=== PATIENT | male | born 1965 | race Caucasian/White ===

== ENCOUNTER 2017-11-10 07:00 | Outpatient (RCR) | payer OTHER, SELFPAY ==
[2017-10-03 08:29] VITALS: BMI 34.4
--- NOTE | 2017-10-05 10:36 | HP.OTEVAL_ITS ---
Patient's Visit Information SHIRA SUN is a 51 year old M, referred to Occupational Therapy by Any Dumont DO,, with a diagnosis of R Wirst ext tendinitis. Date of Evaluation: 10/05/17 Occupational Therapist: Maite López - Subjective Subjective: Pt., Eyison, arrived and noted that - Pain Right Wrist 0 Pain Intensity Range: 5 - ROM Forearm: sup R 0-61, L 0-74 Wrist: flex R 0-51, L 0-60; ext. 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 Goal:: Pt. to increase ROM of R wrist to that of L wrist for increased ability to complete ADl/IAdls within pain tolerance by d/c. Goal:: Pt. to have 0/10 pain for all ADL/IADls related tasks 4/5 trials 80% of the time to promote increased (i) and decreased need for assisatnce by d/c. Goal:: Pt. to increase FMC strength to that of equal or greater value of L nonaffected wrist to promote increased ROM , strength, and stability of wrist while completing ADL/IADls by d/c. Goal:: Yeison to be (I) to complete jt protection and proper body mechanics 2/3 trials topromote increased stability and decreased pain in R wrist by d/c. - Rehabilitation General Assessment: Pt., Yeison, arrived and noted that symptoms started two weeks ago. He has been wearing brace on R hand given to him by [facility] at time of injury. His R wrist has little pain at this time but noted pain is variable depending on tasks. Pt. exhibits decreased strength, ROM, ability to complete heavy lifitng taskw ith R wrist as PLOF. OT to work on ROM and strength to providing increased satbility to R wrist for all ADL/IADls. Rehabilitation Potential: Excellent - Anticipated Interventions Anticipated Interventions: A/AAROM/PROM, Strengthening, Edema Control, Modalities, Orthoses, Joint Protection/Energy Conservation, Ergonomic Education , Fine Motor Coord/Simon, ADL Training, Caregiver Training, Home Program - Visit Plan Frequency: 2x /Week Duration: 4-6 Weeks General Plan: Yeison to see OT services for pain management as needed, ergonomic of wrist during lifiting taks, ROM, and strengthening to promote stability and decrease discomfort during ADl/IADls by d/c. TEXT: Thank you for the opportunity to evaluate your patient. For Medicare and Medicare HMO plans, please review the plan of care and approve it. It will need to be FAXED BACK to us at [phone] for Medicare purposes. Please let me know if there are questions or concerns regarding this plan of care. Physician Signature: Date:
--- NOTE | 2017-10-05 10:41 | HP.OTEVAL ---
Patient's Visit Information SHIRA SUN is a 51 year old M, referred to Occupational Therapy by Any Dumont DO,, with a diagnosis of R Wirst ext tendinitis. Date of Evaluation: 10/05/17 Occupational Therapist: Maite López - Subjective Subjective: Pt., Yeison, arrived and noted that orginal injury was approximately 2 weeks ago after changing tractor tire. He notes that he tweeked it while change tractor tire. Wrist hurt and then swelled that night.I iced my wrist and it got a little numb. I went to a [facility] and they referred me to specialist. He further noted he has increased pain with supination and resisatnce based tasks after everything happened. - Pain Right Wrist 0 Pain Intensity Range: 5 - ROM Forearm: sup R 0-61, L 0-74 Wrist: flex R 0-51, L 0-60; ext. R 0-43, L 0-59 MP: WFL PIP: WFL DIP: WFL ROM Comments: Radial dev R 0-19, L 0-20. 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 Goal:: Pt. to increase ROM of R wrist to that of L wrist for increased ability to complete ADl/IAdls within pain tolerance by d/c. Goal:: Pt. to have 0/10 pain for all ADL/IADls related tasks 4/5 trials 80% of the time to promote increased (i) and decreased need for assistance by d/c. Goal:: Pt. to increase FMC strength to that of equal or greater value of L nonaffected wrist to promote increased ROM , strength, and stability of wrist while completing ADL/IADls by d/c. Goal:: Yeison to be (I) to complete jt protection and proper body mechanics 2/3 trials to promote increased stability and decreased pain in R wrist by d/c. - Rehabilitation General Assessment: Pt., Yeison, arrived and noted that symptoms started two weeks ago. He has been wearing brace on R hand given to him by [facility] at time of injury. His R wrist has little pain at this time but noted pain is variable depending on tasks. Pt. exhibits decreased strength, ROM, ability to complete heavy lifitng task with R wrist need for ADl/IADLs at [facility]. OT to work on ROM and strength to providing increased stability to R wrist for all ADL/IADls. Rehabilitation Potential: Excellent - Anticipated Interventions Anticipated Interventions: A/AAROM/PROM, Strengthening, Edema Control, Modalities, Orthoses, Joint Protection/Energy Conservation, Ergonomic Education, Fine Motor Coord/Simon, ADL Training, Caregiver Training, Home Program - Visit Plan Frequency: 2x /Week Duration: 4-6 Weeks General Plan: Yeison to see OT services for pain management techniques, ergonomic of wrist during lifiting tasks, ROM, and strengthening to promote stability and decrease discomfort during ADl/IADls by d/c. TEXT: Thank you for the opportunity to evaluate your patient. For Medicare and Medicare HMO plans, please review the plan of care and approve it. It will need to be FAXED BACK to us at [phone] for Medicare purposes. Please let me know if there are questions or concerns regarding this plan of care. Physician Signature: Date:
--- NOTE | 2017-11-10 08:15 | HP.OTDCSUM_ITS ---
HP - OT D/C Summary It has been my pleasure to treat SHIRA SUN under orders from Any Dumont DO, for the diagnosis of R Wirst ext tendinitis for a total of 8 visit (s). Please see the following information for a summary of their discharge status. - Objective Objective/Function: Reassessment completed on this date. He has progressed and pain has consistently been 0-1/10, or minimal. ROM measurments are as follows: flexion R 0-59, L 0-51; ext R 0-51, L 0-60. Strength measurements are as follows : neurological physiotherapist (avg 3 trials) R 83, L 79; lateral R 19, L 22; three jaw R 16, L 17; tip pinch R 10, L 13. He has progressed with all FMC strengthening at this time. He has consisently had no pain. He notes he is completing all ADL/IADLs at [facility]. DASH results indicated Pt. had a 30 point improvement from a score of 31(today ) from 61(eval). His overall performance has increased and he will be d/c'd at this time. 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 Goal:: Pt. to increase ROM of R wrist to that of L wrist for increased ability to complete ADl/IAdls within pain tolerance by d/c. Goal:: Pt. to have 0/10 pain for all ADL/IADls related tasks 4/5 trials 80% of the time to promote increased (i) and decreased need for assistance by d/c. Goal:: Pt. to increase FMC strength to that of equal or greater value of L nonaffected wrist to promote increased ROM , strength, and stability of wrist while completing ADL/IADls by d/c. Goal:: Yeison to be (I) to complete jt protection and proper body mechanics 2/3 trials to promote increased stability and decreased pain in R wrist by d/c. - Plan Plan: Pt. will be d/c'd today and is to call with questions/concerns. He has consisently had no pain. He HEP he is completing regularly. Yeison demonstrates and verbalizes understanding of HEP. He rates himself back to 98/100% to PLOF and will continue to progress with everyday fx activities. - D/C Information If there are questions or concerns regarding this patient's occupational therapy , please fell free to call me at [phone]. Thank you for the referral of this patient. Sincerely, Maite López
== END 2017-11-10 19:00 | disposition home or self-care (01) ==
LOC: OT 07:00
PROVIDERS: Family Provider Family Medicine; PCP Family Medicine; Visit Provider Orthopaedic Surgery
DX: M77.9 Enthesopathy, unspecified (principal)
CPT/HCPCS: 97035; 97110; 97166; 97530

== ENCOUNTER 2020-02-14 16:56 | Emergency (ER) | payer OTHER, SELFPAY ==
[2017-10-03 08:29] VITALS: BMI 34.4
[2020-02-14 16:59] VITALS: BP 146/92; PULSE 96; RESP 18; TEMP 36.3; O2SAT 98; BMI 32.2
--- NOTE | 2020-02-14 17:25 | ED.DCSUM_ITS ---
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 Unsure of his tetanus immunization. No blood thinner use. No loss of consciousness. No other complaints or injuries. Physical Examination: 6 cm V shaped laceration over his crown. Full-thickness. Otherwise normal. Test Results: None indicated. Emergency Department Course and Treatment: Wound was irrigated, cleaned, and explored. Closed with 11 any. Risks and wound care instructions given. FROI and return to work forms completed. Tetanus updated. Treatment Plan: Follow-up with Workmen's Comp. Disposition: Discharge Impression: Scalp laceration 6 cm initial encounter Tetanus immunization This note was generated with [employer] dictation software. It may contain incorrect words, spelling, and punctuation that were not noted in review of the chart prior to signing ED Disposition - Plan for ED Patient: Referrals: Joseph Pierre MD [Primary Care Provider] -
--- NOTE | 2020-02-14 17:29 | DCINST.ED_ITS ---
ED Disposition - Plan for ED Patient: Instructions: ED Laceration Scalp Sutures or Dia Referrals: [facility] [GROUP OF PHYSICIANS] -
--- NOTE | 2020-02-14 17:29 | ED.DEP ---
ED Disposition - Plan for ED Patient: Instructions: ED Laceration Scalp Sutures or Dia Referrals: [facility] [GROUP OF PHYSICIANS] -
[2020-02-14] MEDS: Diphth,Pertuss(Acell),Tet Vac 0.5 ML Vial IM (18:07)
== END 2020-02-14 18:24 | disposition home or self-care (01) ==
PROVIDERS: Emergency Provider Emergency Medicine; PCP Family Medicine
DX: S01.01XA Laceration without foreign body of scalp, initial encounter (principal); W26.8XXA Contact with other sharp object(s), not elsewhere classified, initial encounter; Y93.9 Activity, unspecified; Y92.79 Other farm location as the place of occurrence of the external cause; Y99.9 Unspecified external cause status; Z23 Encounter for immunization
CPT/HCPCS: 12002; 90471; 90715; 99282

== ENCOUNTER 2025-05-05 21:04 | Inpatient (IN) | payer OTHER, SELFPAY ==
[2025-05-05 21:05] VITALS: BP 141/98; PULSE 106; RESP 20; TEMP 37; O2SAT 99; BMI 34.7
[2025-05-05 22:11] VITALS: BP 103/69; BP 103/74; BP 114/71; PULSE 79; PULSE 83; PULSE 96
[2025-05-05 22:20] LABS: Hematocrit 37.6 % (40-54); Hemoglobin 12.5 g/dL (13.0-16.5); Immature Granulocytes Count 0.050 X10^3/uL (0.0-0.0); Mean Corp Hgb Conc 33.2 g/dL (32-36); Mean Corpuscular Volume 80.7 fL (80-94); Mean Platelet Vol. 9.5 fl (6.2-12.0); NRBC Flagged by Analyzer 0 % (0-5); Platelet Count 249 K/mm3 (150-450); RBC Distribution Width CV 14.4 % (11.6-14.6); RBC Distribution Width SD 42.2 fl (35.1-43.9); Red Blood Count 4.66 M/mm3 (4.6-6.2); White Blood Count 13.3 K/mm3 (4.4-11.0)
--- NOTE | 2025-05-05 22:22 | EX.ED.DYSGE1 ---
HPI History of Present Illness Chief Complaint: GI Bleed Detail of Chief Complaint: Bright red blood to dark blood per rectum Informant: patient and spouse/S.O. Onset/Context/Timing Onset: Today Context: Sudden Onset Timing: Intermittent Quality: Blood per rectum Location: Lower GI Current Severity: Moderate Maximum Severity: Moderate Worsened by: History of diverticulosis Relieved by: Nothing Associated Symptoms Associated Symptoms: Twinge of left upper quadrant abdominal pain early afternoon Narrative Narrative: Patient is a 59-year-old male. He has history of diverticulosis and diverticulitis. He presents because of bright red blood to dark blood per rectum 4 times today. He had a twinge of left upper quadrant pain. He presently has no abdominal pain. Is not been on antibiotics in the last month. Has had nothing to eat that tasted unusual. Has had no ill contacts. He denies fever, chills or night sweats. He denies orthostatic lightheadedness. He is not on antithrombotic or anticoagulant. He did take an ibuprofen tablet for the pain earlier this afternoon. He denies hematuria. He denies bruising easily. He denies prior history of blood per rectum. He does have a remote history of hemorrhoids. He denies history of liver disease. He denies alcohol use. Earlier this morning to 3:00 the morning he had 1 episode of diarrhea. He did not look at his stool. Prior similar symptoms: No Recent Illness/Hospitalization: No [facility] Medical History Diverticulitis Pulmonary embolism Home Medications ?Medication ?Instructions ?Recorded ?Last Taken ?Type latanoprost 0.005 % eye drops 1 drp ophthalmic (eye) [facility] glaucoma 05/05/25 05/05/25 History tadalafil 5 mg tablet 5 mg PO DAILY erectile dysfunction 05/05/25 05/05/25 History ascorbic acid (vitamin C) 1,000 mg 1,000 mg PO DAILY 1 month #30 tabs 05/06/25 Unknown Rx tablet ferrous sulfate 325 mg (65 mg 325 mg PO QODAY #30 tabs 05/06/25 Unknown Rx iron) tablet (FeroSul) pantoprazole 40 mg tablet,delayed 40 mg PO DAILY 1 month #30 tabs 05/06/25 Unknown Rx release (Protonix) psyllium husk 0.4 gram capsule 0.4 g PO DAILY to keep regular 05/06/25 05/05/25 History (Daily Fiber) Allergy/AdvReac Type Severity Reaction Status Date / Time No Known Allergies Allergy Verified 05/05/25 21:07 Family History Mother Lung cancer Surgical History H/O resection of large bowel s/p right 5th finger Social History Smoking Status: Never smoker alcohol intake: current alcohol intake frequency: a few times a month Alcohol type: beer ROS ROS ED Constitutional Constitutional ED: Denies chills, fever(s), subjective or sweats Eyes Eyes: Denies blurry vision or change in vision Cardiovascular Cardiovascular: Denies chest pain or palpitations Respiratory/Chest Respiratory/Chest: Denies cough, dyspnea or dyspnea on exertion Gastrointestinal Gastrointestinal: Reports abdominal pain and other Details: Blood per rectum ; Denies constipation, diarrhea, melena, nausea or vomiting Musculoskeletal Musculoskeletal: Denies back pain Integumentary Denies rash Endocrine Endocrinology: Denies cold intolerance or heat intolerance Hematologic/Lymphatic Hematologic/Lymphatic: Reports systems reviewed and no addt'l complaints, except as documented EXAM Physical Exam Const Vital Signs: 05/05/25 22:11 05/05/25 23:05 05/05/25 23:11 Temperature 98.1 F Pulse Rate 81 81 Pulse Rate [Lying] 79 Pulse Rate [Sitting (for 1 minute prior to obtaining)] 83 Pulse Rate [Standing (for 1 minute prior to obtaining)] 96 Respiratory Rate 18 18 Blood Pressure 111/69 111/69 Blood Pressure [Lying] 114/71 Blood Pressure [Sitting (for 1 minute prior to obtaining)] 103/74 Blood Pressure [Standing (for 1 minute prior to obtaining)] 103/69 Blood Pressure Mean 83 83 Blood Pressure Mean [Lying] 85 Blood Pressure Mean [Sitting (for 1 minute prior to obtaining)] 83 Blood Pressure Mean [Standing (for 1 minute prior to obtaining)] 80 Pulse Ox 99 99 Oxygen Delivery Method Room Air Orthostatics are negative however there is a 30 mm drop since he arrived. Positive well nourished and well developed Constitutional Narrative: Patient appears in no distress. Vital signs are marked for tachycardia. He is not cyanotic. He appears in no distress. General Appearance ED: well developed and NAD; Negative for cyanotic or pallor HEENT Reports moist mucous membranes HEENT Narrative: Head is atraumatic normocephalic. Ears normal. Nares patent. Eyes PERRL and EOMs intact bilaterally General Eye ED: Negative for pale conjunctiva or scleral icterus Neck no lymphadenopathy and no JVD Resp normal respiratory effort and clear to auscultation bilaterally Cardio regular rhythm, S1 normal heart sound, S2 normal heart sound and no murmurs Rate: tachycardic GI normal to inspection, nondistended, normoactive bowel sounds, non-tender, non-distended and no masses; Negative for hepatosplenomegaly GI Narrative: There are no fissures, fistulas or hemorrhoids noted. Prostate normal size and nontender on exam. There is dark blood noted. Anoscopy was performed. There is no evidence of hemorrhoids. Bleeding is coming from above the scope. Back/Spine no CVA tenderness Extremity normal to inspection General Extremety ED: Negative for edema General Extremity: Negative for edema Neuro oriented x3 and CN's II-XII intact bilaterally Sensorium / Orientation: alert Psych mental status grossly normal Skin no rashes or lesions noted, no wounds and skin turgor normal General Skin Exam: Negative for jaundice or pallor MDM MDM MDM Narrative Medical decision making narrative: With blood per rectum and history of diverticulosis concerned this is a lower GI bleed. Will determine patient's Platte score to determine if he can be managed as an outpatient versus inpatient. Will obtain CBC to assess H&H. This may take time to equilibrate. Basic metabolic panel was obtained to assess BUN to creatinine ratio and renal function. PT/INR to determine there is any evidence of coagulopathy due to liver disease. Lab Data Attestation: I reviewed the patient's lab results. Lab results narrative: CBC reveals slight elevation of white count. There is a slight shift. There is no bandemia. H&H is 12.5 and 37.6. Indices are normal. There is no changes in his H&H compared to H&H that was obtained November 10 and November 17, 2014. Competence of metabolic panel is remarkable for a BUN of 36 with a creatinine of 1.16 with a BUN/creatinine ratio of 31:1. Glucose slightly elevated 125 with normal CO2 anion gap. Lactate was normal at 1.1. Labs: Laboratory Results - last 24 hr 05/05/25 21:58 WBC 13.3 H RBC 4.66 Hgb 12.5 L Hct 37.6 L MCV 80.7 MCH 26.8 L MCHC 33.2 RDW Std Deviation 42.2 RDW Coeff of Parviz 14.4 Plt Count 249 MPV 9.5 Immature Gran % (Auto) 0.400 Neut % (Auto) 71.6 H Lymph % (Auto) 20.1 Nuckolls % (Auto) 6.2 Eos % (Auto) 1.1 Baso % (Auto) 0.6 Absolute Neuts (auto) 9.5 H Absolute Lymphs (auto) 2.68 Nucleated RBC % 0 PT 13.9 INR 1.1 Sodium 139 Potassium 4.1 Chloride 107 Carbon Dioxide 21.4 Anion Gap 11 BUN 36 H Creatinine 1.16 Estim Creat Clear Calc 78.38 Est GFR (MDRD) Non-Af 73 BUN/Creatinine Ratio 31.0 H Glucose 125 H Lactic Acid 1.1 Calcium 8.7 Blood Type A NEGATIVE Antibody Screen NEGATIVE Management Discussion w/another healthcare provider: Hospitalist (Dr. David Russell was paged to admit based on Platte score and the fact that he is got lower GI bleed with tachycardia, elevated BUN to creatinine ratio consistent with a significant bleed. Suspect this is due to diverticulosis.) Treatment and Re-Evaluation :: Moose score is 16. Recommendation is not to discharge. Patient orthostatics are apparently positive. Procedures Other Procedures Procedure(s): Anoscopy was performed. This was documented under the GI portion of the physical portion of the medical record Discharge Plan Dx/Rx/DC Orders Clinical Impression: Acute lower gastrointestinal bleeding, Tachycardia, Elevated BUN Disposition Disposition: Acute Care Hospital [facility] Discharge Date/Time: 05/06/25 00:30
[2025-05-05 22:26] LABS: Prothrombin Time (Protime)PT. 13.9 SECONDS (11.7-14.9)
[2025-05-05 22:43] LABS: Anion Gap 11 (5-15); BUN 36 mg/dL (4-19); BUN/Creat Ratio 31.0 RATIO (10-20); Calcium,Total 8.7 mg/dL (7.6-11.0); Carbon Dioxide 21.4 mmol/L (21.0-32.0); Chloride 107 mmol/L (98-108); Estimated Creatinine Clearance 78.38 ml/min (50-250); Glucose 125 mg/dL (70-99); Potassium 4.1 mmol/L (3.3-5.1)
[2025-05-05 23:05] VITALS: BP 111/69; PULSE 81; RESP 18; O2SAT 99
[2025-05-05 23:11] VITALS: BP 111/69; PULSE 81; RESP 18; TEMP 36.7; O2SAT 99
--- NOTE | 2025-05-05 23:14 | PCM.HP.STD ---
[facility] - General General Date of Admission: 05/05/25 Date of Service: 05/05/25 HPI Narrative SHIRA SUN, is a 59 M who presents to the emergency room with acute onset of gastrointestinal bleed. Patient states he had diarrhea beginning 3 AM this morning and thought he had eaten some bad food and got up to relieve himself. 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 Patient was able to gather himself and return back to work but needed to stop at [facility] multiple times throughout the evening. He was noted to have bright red blood per rectum and came to the emergency room for evaluation. Patient has a history of diverticulitis that required surgery and diverting colostomy that was subsequently taken down. Current laboratory studies reveal white blood cell count of 13.3, hemoglobin 12.5, hematocrit 37.6, platelets 249, sodium 139, potassium 4.1, chloride 107, bicarb 21.4, BUN 36, creatinine 1.16, glucose 125, INR 1.1, heme occult positive. Patient is currently denying any chest pain, shortness of breath or fever or chills. Patient has not eaten and has decreased appetite throughout the day but denies nausea and/or vomiting. Patient will be admitted for GI bleed and will obtain CT scan abdomen pelvis due to history of diverticular disease. Will place patient on general medical floor and monitor hemoglobin hematocrit. Patient is full code verified [facility] Medical History (Updated 05/05/25 @ 22:[address] Aime Cardozo MD) Diverticulitis Pulmonary embolism Home Medications ?Medication ?Instructions ?Recorded ?Last Taken ?Type ibuprofen 200 mg capsule 200 mg PO Q6H PRN 02/24/20 Unknown History latanoprost 0.005 % eye drops 1 drp ophthalmic (eye) QHS 05/05/25 Unknown History tadalafil 5 mg tablet 5 mg PO DAILY 05/05/25 Unknown History Allergy/AdvReac Type Severity Reaction Status Date / Time No Known Allergies Allergy Verified 05/05/25 21:07 Family History Mother Lung cancer Surgical History (Updated 05/05/25 @ 23:[address] 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 Social History Smoking Status: Never smoker alcohol intake: current alcohol intake frequency: a few times a month Alcohol type: beer ROS Constitutional Constitutional: Reports anorexia; Denies chills or fever(s) Eyes Eyes: Denies change in vision ENT HEENT: Denies abnormal hearing Cardiovascular Cardiovascular: Denies chest pain Respiratory/Chest Respiratory/Chest: Denies cough or shortness of breath at rest Gastrointestinal Gastrointestinal: Reports diarrhea, dyspepsia and hematochezia; Denies constipation, hematemesis, melena, nausea or vomiting Genitourinary Genitourinary: Denies dysuria Musculoskeletal Musculoskeletal: Denies back pain Integumentary Integumentary: Denies dry skin Neurologic Neurologic: Denies abnormal gait Psychiatric Psychiatric: Denies anxiety Vital Signs Vital Signs Vital Signs: 05/05/25 21:05 05/05/25 22:11 05/05/25 23:05 Temperature 98.6 F Temperature Source Oral Pulse Rate 106 H 81 Pulse Rate [Lying] 79 Pulse Rate [Sitting (for 1 minute prior to obtaining)] 83 Pulse Rate [Standing (for 1 minute prior to obtaining)] 96 Respiratory Rate 20 H 18 Blood Pressure 141/98 H 111/69 Blood Pressure [Lying] 114/71 Blood Pressure [Sitting (for 1 minute prior to obtaining)] 103/74 Blood Pressure [Standing (for 1 minute prior to obtaining)] 103/69 Blood Pressure Mean 112 83 Blood Pressure Mean [Lying] 85 Blood Pressure Mean [Sitting (for 1 minute prior to obtaining)] 83 Blood Pressure Mean [Standing (for 1 minute prior to obtaining)] 80 Pulse Ox 99 99 Oxygen Delivery Method Room Air Room Air 05/05/25 23:11 Temperature 98.1 F Temperature Source Pulse Rate 81 Pulse Rate [Lying] Pulse Rate [Sitting (for 1 minute prior to obtaining)] Pulse Rate [Standing (for 1 minute prior to obtaining)] Respiratory Rate 18 Blood Pressure 111/69 Blood Pressure [Lying] Blood Pressure [Sitting (for 1 minute prior to obtaining)] Blood Pressure [Standing (for 1 minute prior to obtaining)] Blood Pressure Mean 83 Blood Pressure Mean [Lying] Blood Pressure Mean [Sitting (for 1 minute prior to obtaining)] Blood Pressure Mean [Standing (for 1 minute prior to obtaining)] Pulse Ox 99 Oxygen Delivery Method Weight Weight: 221 lb 7 oz Body Mass Index (BMI) 34.7 Physical Exam Const oriented x3 General Appearance: cooperative and well developed HEENT normocephalic and head/scalp atraumatic Neck no lymphadenopathy Lymph Lymphatic: no lymphadenopathy noted Resp normal respiratory effort, normal air movement and clear to auscultation bilaterally Cardio regular rate, regular rhythm, S1 normal heart sound and S2 normal heart sound GI normal to inspection, nondistended, normoactive bowel sounds and soft to palpation Palpation: tender LLQ (mild tenderness) Extremity no clubbing, cyanosis or edema Skin General Skin Exam: no breakdown Neuro no focal motor deficits and no sensory deficits noted Results Lab / Micro Data 05/05/25 21:58 05/05/25 21:58 Labs: Laboratory Results - last 24 hr 05/05/25 21:58: WBC 13.3 H, RBC 4.66, Hgb 12.5 L, Hct 37.6 L, MCV 80.7, MCH 26.8 L, MCHC 33.2, RDW Std Deviation 42.2, RDW Coeff of Parviz 14.4, Plt Count 249, MPV 9.5, Immature Gran % (Auto) 0.400, Neut % (Auto) 71.6 H, Lymph % (Auto) 20.1, Nash % (Auto) 6.2, Eos % (Auto) 1.1, Baso % (Auto) 0.6, Absolute Neuts (auto) 9.5 H, Absolute Lymphs (auto) 2.68, Nucleated RBC % 0, PT 13.9, INR 1.1, Sodium 139, Potassium 4.1, Chloride 107, Carbon Dioxide 21.4, Anion Gap 11, BUN 36 H, Creatinine 1.16, Estim Creat Clear Calc 78.38, Est GFR (MDRD) Non-Af 73, BUN/Creatinine Ratio 31.0 H, Glucose 125 H, Lactic Acid 1.1, Calcium 8.7, Blood Type A NEGATIVE, Antibody Screen NEGATIVE Assessment & Plan Assessment/Plan (1) Acute lower gastrointestinal bleeding: (2) H/O resection of large bowel: PLAN: Plan 1 acute lower GI bleed?admit patient to general medical floor, initiate IV Protonix 40 mg IV every 12 hours, check hemoglobin hematocrit every 4 hours, order CT abdomen pelvis with contrast due to history of diverticulitis. If hemoglobin hematocrit remain stable and orthostatic vital signs are stable patient may be discharged and close follow-up as outpatient. 2. DVT prophylaxis?SCDs 3. CODE STATUS full code verified
--- OUTSIDE RECORDS SUMMARY | 2025-05-05 23:49 | XMS RPT_ITS | CCD ---
Author Organization [facility] Care Team Providers Care Tube Drawing Supervisor Name Role Phone Alyssa Lund Unavailable Unavailable Chuy Garcia DO Primary Care Provider Rekha hayes ANTONIO MD., KATTY Attending Unavailable IGNACIO BLACK, TERRI Paniagua Primary Care Unavailable Ignacio BLACK, Terri Chandra Primary Care Provider CHUY GARCIA Primary Care Unavailable CHUY GARCIA Primary Care Unavailable MAE GAYLE Referring Unavailable CHUY GARCIA Primary Care Unavailable ANTONIO, KATTY L Attending Unavailable ANTONIO, KATTY L Admitting Unavailable CHUY GARCIA Primary Care Unavailable MARNI, BOBNUTA Attending Unavailable TERRI PIERRE Primary Care Unavailable ANTONIO, KATTY L Referring Unavailable ANTONIO, KATTY L Referring Unavailable TERRI PIERRE Primary Care Unavailable CHUY GARCIA Primary Care Unavailable ANTONIO, KATTY L Referring Unavailable ANTONIO, KATTY L Attending Unavailable ANTONIO, KATTY L Admitting Unavailable TERRI PIERRE Primary Care Unavailable ANTONIO, KATTY L Attending Unavailable TERRI PIERRE Primary Care Unavailable MARNI, BOBNUTA Attending Unavailable TERRI PIERRE Primary Care Unavailable ANTONIO, KATTY L Referring Unavailable TERRI PIERRE Primary Care Unavailable CHUY GARCIA Primary Care Unavailable ANTONIO, KATTY L Referring Unavailable CHUY GARCIA Primary Care Unavailable ANTONIO, KATTY L Referring Unavailable MARNI, BOBNUTA Attending Unavailable TERRI PIERRE Primary Care Unavailable ANTONIO, KATTY L Attending Unavailable ANTONIO, KATTY L Admitting Unavailable CHUY GARCIA Primary Care Unavailable CHUY GARCIA Primary Care Unavailable ANTONIO, KATTY L Referring Unavailable ANTONIO, KATTY L Referring Unavailable CHUY GARCIA Primary Care Unavailable ANTOINO, KATTY L Attending Unavailable CHUY GARCIA Primary Care Unavailable CHUY GARCIA Primary Care Unavailable KATTY ANTONIO Referring Unavailable CHUY GARCIA Primary Care Unavailable KATTY ANTONIO Attending Unavailable KATTY ANTONIO Admitting Unavailable KATTY ANTONIO Referring Unavailable TERRI PIERRE Primary Care Unavailable KATTY ANTONIO Referring Unavailable TERRI PIERRE Primary Care Unavailable CHUY GARCIA Primary Care Unavailable THEO LOZA Attending Unavailable TERRI PIERRE MD Primary Care Physician TERRI PIERRE MD Primary Care Unavailable TERRI PIERRE MD Attending Unavailable TERRI PIERRE MD Attending Unavailable TERRI PIERRE MD Primary Care Unavailable TERRI PIERRE MD Attending Unavailable TERRI PIERRE MD Primary Care Unavailable Medications Current Medications Medication Drug Class(es) Dates Sig (Normalized) Sig (Original) aspirin 81 mg chewable tablet (16 sources) Platelet Aggregation Inhibitor, Nonsteroidal Anti-inflammatory Drug Start: 12-23-2022 End: 01-22-2023 take 1 tablet by mouth once daily aspirin 81 mg chewable tablet Take 1 tablet by mouth once daily for 30 doses. 30 tablet 0 12/23/2022 01/22/2023 Active Start: 09-19-2022 take 1 tablet by jessica th once daily aspirin 81 mg chewable tablet Take 1 tablet by mouth once daily. 30 tablet 0 09/19/2022 Active Comment on above: Take 1 tablet by jessica th once daily. Take 1 tablet by jessica th once daily for 30 doses. [facility] SKIN PROTECTIVE PASTE (8 sources) Start: 12-23-19 End: 01-22-20 [facility] SKIN PROTECTIVE PASTE Apply to affected area twice daily. 240 g 0 12/22/2022 01/21/2023 Active Comment on above: Apply to affected ar ea twice daily. ciprofloxacin 750 mg oral tablet (1 source) Quinolone Antimicrobial Start: 06-27-20 End: 07-11-20 ciprofloxacin 750 mg oral tablet Dose : 750 mg = 1 tab(s), Oral, q12h, X 14 day(s), # 28 tab(s), 0 Refill(s), 07/11/24 11:41:00 AM EST, Pharmacy: [facility]/pharmacy #[id number], Urinary incontinence, 175, cm, 06/27/24 11:03:00 EDT, Height, 106.8, kg, 06/27/24 11:03:00 EDT, Dosing Weight Start Date: 06/27/24 Stop Date: 07/11/24 Status: Ordered latanoprost 0.05 mg/ml ophthalmic solution (20 sources) Prostaglandin Analog Start: 06-27-20 take 1 dose into the eye(s) once daily at bedtime latanoprost 0.005% ophthalmic solution Dose = 1 drop(s), Eyes, both, qHS, # 2.5 mL, 0 Refill(s) Start Date: 06/27/24 Status: Ordered take 1 drop(s) into the eye(s) once daily at bedtime latanoprost (XALATAN) 0.005 % ophthalmic solution Use 1 Drop in both eyes daily at bedtime. 0 Active Comment on above: Use 1 Drop in both e yes daily at bedtime. Psyllium (20 sources) Start: 06-27-2024 Metamucil See Instructions, Oral, 0 Refill(s) Start Date: 06/27/24 Status: Ordered Psyllium Seed-Harris crose Take 1 Tablespoonful by mouth once daily. 0 Active Comment on above: Take 1 Tablespoonful by mouth once daily. tadalafil 5 mg oral tablet (1 source) Phosphodiesterase 5 Inhibitor Start: 07-19-2024 tadalafil 5 mg oral tablet Dose : 5 mg = 1 tab(s), Oral, qDay, # 30 tab(s), 5 Refill(s), Pharmacy: [facility]/pharmacy #[id number], Prostatitis Premature ejaculation, 175, cm, 07/19/24 7:47:00 EST, Height, kg, 07/19/24 7:47:00 EST, Dosing Weight Start Date: 07/19/24 Status: Ordered tamsulosin hydrochloride 0.4 mg oral capsule (2 sources) alpha-Adrenergic Frank Start: 06-27-2024 tamsulosin 0.4 mg oral capsule Dose : 0.4 mg = 1 cap(s), Oral, qDay, # 30 cap(s), 0 Refill(s), Pharmacy: [facility]/pharmacy #[id number], Urinary incontinence, 175, cm, 06/27/24 11:03:00 EDT, Height, kg, 06/27/24 11:03:00 EDT, Dosing Weight Start Date: 06/27/24 Status: Ordered Completed/Discontinued Medications Medication Drug Class(es) Dates Sig (Normalized) Sig (Original) acetaminophen 500 mg oral tablet (20 sources) Start: 09-19-2022 take 2 tablets by mouth every six hours as needed acetaminophen (TYLENOL) 500 mg tablet Take 2 tablets by mouth every 6 hours as needed for pain. 0 09/19/2022 Active Start: 10-23-2021 take 2 tablets by mo uth four times daily acetaminophen (TYLENOL) 500 mg tablet Take 2 tablets by mouth four times daily. 0 10/23/2021 Active Comment on above: Take 2 tablets by mo uth four times daily. Take 2 tablets by mo uth every 6 hours as needed for pain. ibuprofen 200 mg oral tablet (9 sources) Nonsteroidal Anti-inflammatory Drug Start: 12-23-19 take 4 tablets by mouth every eight hours ibuprofen (MOTRIN) 200 mg tablet Take 4 tablets by mouth every 8 hours. 0 12/22/2022 Active Comment on above: Take 4 tablets by mo uth every 8 hours. metroNIDAZOLE 500 mg oral tablet (1 source) Nitroimidazole Antimicrobial Start: 09-06-19 metroNIDAZOLE (FLAGYL) 500 mg tablet Take 1 tablet by mouth at 9pm and take 1 tablet by mouth at 11pm the night before surgery. 2 tablet 0 09/06/2022 Active Comment on above: Take 1 tablet by jessica at 9pm and take 1 tablet by mouth at 11pm the night before surgery. neomycin sulfate 500 mg oral tablet (1 source) Aminoglycoside Antibacterial Start: 09-06-19 neomycin 500 mg tablet Take 2 tablets by mouth at 9pm and take 2 tablets by mouth at 11pm the night before surgery. 4 tablet 0 09/06/2022 Active Comment on above: Take 2 tablets by mo uth at 9pm and take 2 tablets by mouth at 11pm the night before surgery. Psyllium Seed-Sucrose (METAMUCIL) powd (2 sources) Psyllium Seed-Sucrose (METAMUCIL) powd Take 1 Tablespoonful by mouth once daily. 0 Active Comment on above: Take 1 Tablespoonful by mouth once daily. Problems Active Problems Problem Classification Problem Date Documented Da te Episodic/Chronic Diseases of white blood cells (20 sources) Leukocytosis; Translations: [Elevated white blood cell count, unspecified] Onset: 5 Chronic Diverticulosis and diverticulitis (20 sources) Diverticulitis; Translations: [Diverticulitis of intestine, part unspecified, without perforation or abscess without bleeding] Onset: 5 Chronic Genitourinary symptoms and ill-defined conditions (3 sources) Urinary incontinence 06-27-2024 Chronic Inflammatory conditions of male genital organs (3 sources) Prostatitis 06-27-2024 Episodic Miscellaneous mental health disorders (3 sources) Premature ejaculation 06-27-2024 Chronic Other aftercare (2 sources) Surgical follow-up; Translations: [Encounter for other specified surgical aftercare] Episodic Other gastrointestinal disorders (11 sources) Ileostomy present; Translations: [Ileostomy status] Onset: 3 Chronic Other gastrointestinal disorders (1 source) Ileostomy status; Translations: [Ileostomy in place (HCC)] Onset: 3 Chronic Other gastrointestinal disorders (1 source) Gastrointestinal complication; Translations: [Disease of digestive system, unspecified] Episodic Other gastrointestinal disorders (3 sources) History of diverticulitis 06-27-2024 Episodic Other nervous system disorders (9 sources) Postoperative pain ; Translations: [Other acute postprocedural pain] Onset: 3 12-22-2022 Episodic Other nervous system disorders (1 source) Other acute postprocedural pain; Translations: [Postoperative pain] Onset: 3 Episodic Other nutritional; endocrine; and metabolic disorders (20 sources) Obese class I; Translations: [Obesity, unspecified] Onset: 2 10-23-2021 Chronic Other nutritional; endocrine; and metabolic disorders (17 sources) Obese class II; Translations: [Obesity, unspecified] Onset: 3 09-19-2022 Chronic Residual codes; unclassified (3 sources) H/O: Disorder 06-27-2024 Episodic Substance-related disorders (20 sources) Nicotine dependence; Translations: [Nicotine dependence, unspecified, uncomplicated] Onset: 2 10-23-2021 Chronic Unclassified (1 source) Unknown / UNK(Unknown) Onset: 8 Unclassified (20 sources) Abdominal abscess; Translations: [Abdominal abscess] Onset: 5 Past or Other Problems Problem Classification Problem Date Documented Da te Episodic/Chronic Infective arthritis and osteomyelitis (except that caused by tuberculosis or sexually transmitted disease) (20 sources) Infective arthritis; Translations: [Pyogenic arthritis, unspecified] Onset: 11-07-2014 11-07-2014 Episodic Nausea and vomiting (20 sources) Nausea and vomiting; Translations: [Nausea with vomiting, unspecified] Onset: 10-23-2014 Episodic Other aftercare (20 sources) Anticoagulant effect; Translations: [emt intermediate (current) use of anticoagulants] Onset: 10-29-2014 Episodic Other aftercare (20 sources) Patient encounter status; Translations: [Encounter for therapeutic drug level monitoring] Onset: 11-01-2014 Episodic Other circulatory disease (19 sources) Elevated blood-pressure reading without diagnosis of hypertension; Translations: [Elevated blood-pressure reading, without diagnosis of hypertension] Onset: 09-05-2022 09-05-2022 Episodic Other circulatory disease (1 source) Elevated blood-pressure reading, without diagnosis of hypertension; Translations: [Elevated BP without diagnosis of hypertension] Onset: 09-05-2022 Episodic Peritonitis and intestinal abscess (20 sources) Abdominal abscess; Translations: [Peritoneal abscess] Onset: 10-24-2014 Episodic Phlebitis; thrombophlebitis and thromboembolism (20 sources) H/O: Deep vein thrombosis; Translations: [Personal history of other venous thrombosis and embolism] Onset: 08-04-2015 08-04-2015 Episodic Pulmonary heart disease (20 sources) Pulmonary embolism; Translations: [Other pulmonary embolism without acute cor pulmonale] Onset: 10-29-2014 08-04-2015 Episodic Residual codes; unclassified (19 sources) Tobacco use and exposure - finding; Translations: [Tobacco use] Onset: 09-05-2022 09-05-2022 Episodic Residual codes; unclassified (1 source) Tobacco use; Translations: [Tobacco use] Onset: 09-05-2022 Episodic Unclassified (1 source) RT HAND SWOLLEN,INJURY Onset: 09-25-2017 Results Test Name Value Interpretation Reference Range Facility .GFRon 08-06-2024 GFR 71 ml/min/1.73sqm Normal [facility] Comment on above: Result Comment: GFR Population mean for , Non- Americans Ages 20-29 = 116 mL/min/1.73 sq.m. Ages 30-39 = 107 mL/min/1.73 sq.m. Ages 40-49 = 99 mL/min/1.73 sq.m. Ages 50-59 = 93 mL/min/1.73 sq.m. Ages 60-69 = 85 mL/min/1.73 sq.m. Ages 70+ = 75 mL/min/1.73 sq.m. Chronic Kidney Disease: Less than 60 mL/min/1.73 square meters End Stage Renal Disease: Less than 15 mL/min/1.73 square meters Performed By: #### B MP, GFR #### [address] [address] GFR Non- 59 ml/min/1.73sqm Normal [facility] Comment on above: Result Comment: GFR Population mean for , Non- Americans Ages 20-29 = 116 mL/min/1.73 sq.m. Ages 30-39 = 107 mL/min/1.73 sq.m. Ages 40-49 = 99 mL/min/1.73 sq.m. Ages 50-59 = 93 mL/min/1.73 sq.m. Ages 60-69 = 85 mL/min/1.73 sq.m. Ages 70+ = 75 mL/min/1.73 sq.m. Chronic Kidney Disease: Less than 60 mL/min/1.73 square meters End Stage Renal Disease: Less than 15 mL/min/1.73 square meters Performed By: #### B MP, GFR #### [address] [address] BMPon 08-06-2024 BUN/Creatinine Ratio 16 ratio Normal 7-27 [facility] Comment on above: Performed By: #### B MP, GFR #### [address] [address] Calcium [Mass/Vol] 9.2 mg/dL Normal 8.4-10.2 [facility] Comment on above: Performed By: #### B MP, GFR #### [address] [place], [place] [address] Chloride [Moles/Vol] 105 mmol/L Normal 98-107 [facility] Comment on above: Performed By: #### B MP, GFR #### [address] [address] CO2 [Moles/Vol] 28 mmol/L Normal 22-29 [facility] Comment on above: Performed By: #### B MP, GFR #### [address] [address] Creatinine [Mass/Vol] 1.26 mg/dL Normal 0.70-1.30 [facility] Comment on above: Result Comment: Test ing performed on Siemens Dimension EXL analyzer using a modified kinetic Chong technique. Performed By: #### B MP, GFR #### [address] [address] Electrolyte Balance 8.0 mEq/L Normal 4.0-15.0 [facility] Comment on above: Performed By: #### B MP, GFR #### [address] [address] Glucose [Mass/Vol] 108 mg/dL High 70-105 [facility] Comment on above: Performed By: #### B MP, GFR #### [address] [address] Potassium [Moles/Vol] 4.9 mmol/L Normal 3.5-5.1 [facility] Comment on above: Performed By: #### B MP, GFR #### [address] [address] Sodium [Moles/Vol] 141 mmol/L Normal 136-145 [facility] Comment on above: Performed By: #### B MP, GFR #### [address] [address] Urea nitrogen [Mass/Vol] 20 mg/dL High 7-18 [facility] Comment on above: Performed By: #### B MP, GFR #### [address] [address] LABORATORYOrdered By: SYSTEM SYSTEM on 08-06-2024 Calcium [Mass/Vol] 9.2 mg/dL Normal 8.4 - 10. 2 mg/dL AO ADM SS Chloride [Moles/Vol] 105 mmol/L Normal 98 - 10 7 mmol/L AO ADM SS CO2 [Moles/Vol] 28 mmol/L Normal 22 - 29 mmol/L AO ADM SS Creatinine [Mass/Vol] 1.26 mg/dL Normal 0.70 - 1.30 mg/dL AO ADM SS Comment on above: Interpretive Data: T esting performed on Siemens Dimension EXL analyzer using a modified kinetic Chong technique. Electrolyte Balance 8.0 mEq/L Normal 4.0 - 15 .0 mEq/L AO ADM SS GFR/1.73 sq M.predicted among blacks MDRD (S/P/Bld) [Vol rate/Area] 71 ml/min/1.73sqm Invalid Interpretation Code AO Chemistry S Comment on above: Interpretive Data: GFR Population mean for , Non- Americans Ages 20-29 = 116 mL/min/1.73 sq.m. Ages 30-39 = 107 mL/min/1.73 sq.m. Ages 40-49 = 99 mL/min/1.73 sq.m. Ages 50-59 = 93 mL/min/1.73 sq.m. Ages 60-69 = 85 mL/min/1.73 sq.m. Ages 70+ = 75 mL/min/1.73 sq.m. Chronic Kidney Disease: Less than 60 mL/min/1.73 square meters End Stage Renal Disease: Less than 15 mL/min/1.73 square meters GFR/1.73 sq M.predicted among non-blacks MDRD (S/P/Bld) [Vol rate/Area] 59 ml/min/1.73sqm Invalid Interpretation Code AO Chemistry S Comment on above: Interpretive Data: GFR Population mean for , Non- Americans Ages 20-29 = 116 mL/min/1.73 sq.m. Ages 30-39 = 107 mL/min/1.73 sq.m. Ages 40-49 = 99 mL/min/1.73 sq.m. Ages 50-59 = 93 mL/min/1.73 sq.m. Ages 60-69 = 85 mL/min/1.73 sq.m. Ages 70+ = 75 mL/min/1.73 sq.m. Chronic Kidney Disease: Less than 60 mL/min/1.73 square meters End Stage Renal Disease: Less than 15 mL/min/1.73 square meters Glucose [Mass/Vol] 108 mg/dL High 70 - 105 mg/dL AO ADM SS Potassium [Moles/Vol] 4.9 mmol/L Normal 3.5 - 5.1 mmol/L AO ADM SS Sodium [Moles/Vol] 141 mmol/L Normal 136 - 145 mmol/L AO ADM SS Urea nitrogen [Mass/Vol] 20 mg/dL High 7 - 18 mg/dL AO ADM SS Urea nitrogen/Creatinine [Mass ratio] 16 ratio Normal 7 - 27 ratio AO ADM SS CT ABDOMEN/PELVIS W/CONTRAST on 07-12-2024 CT ABDOMEN/PELVIS W/CONTRAST ORIGINAL EXAMINATION: CT OF THE ABDOMEN AND PELVIS WITH CONTRAST 07/12/2024 9:57 am TECHNIQUE: CT of the abdomen and pelvis was performed with the administration of intravenous contrast. Multiplanar reformatted images are provided for review. Automated exposure control, iterative reconstruction, and/or weight based adjustment of the mA/kV was utilized to reduce the radiation dose to as low as reasonably achievable. COMPARISON: None. HISTORY: ORDERING SYSTEM PROVIDED HISTORY: Reason for Exam: History of abdominal abscess, urinary incontinence FINDINGS: Mild degenerative changes are noted in the spine, greatest inferiorly. Mild SI joint degenerative changes are present. No acute osseous abnormality seen. The lung bases are unremarkable. Liver, spleen, adrenal glands and pancreas are unremarkable. No kidney abnormality is evident allowing for cortical phase nephrograms. No adenopathy, free air or free fluid is visible. The urinary bladder is grossly normal. Small fat containing left inguinal hernia noted. A distal sigmoid anastomosis is present from previous surgery. There is mild sigmoid and left colon diverticulosis, without diverticulitis. No other GI tract abnormality is visible. No additional contributory finding. IMPRESSION: No acute abnormality identified on this exam. Diverticulosis without diverticulitis. Interpreted by: Abhishek Allen MD Preliminary Report By: Abhishek Allen MD Electronically signed By Abhishek Allen MD Dictated Date: 07/12/2024 10:21:18 AM Prelim Date: 07/12/2024 10:27:47 AM Sign Date: 07/12/2024 10:27:47 AM Ordering Provider: TERRI PIERRE [facility] TFTESTon 11-08-2024 Free Testost Direct 11.6 pg/mL Normal 7.2-24.0 [facility] Comment on above: Result Comment: Perf ormed At: [facility] [address] [id number] Gurpreet Santos MD Ph:[phone] Performed At: [facility] [address] [place], [place] [id number] Susie Griffin PhD Ph:[phone] Performed By: #### B MP, GFR #### [address] [address] Testosterone Lvl 238 ng/dL Low 264-916 [facility] Comment on above: Result Comment: Adul t male reference interval is based on a population of healthy nonobese males (BMI <30) between 19 and 39 years old. tommy Louis.al. JCEM 2017,102;9009-8688. PMID: [id number]. Performed By: #### B MP, GFR #### [address] [address] .Auto Diffon 06-29-2024 Basophil, Absolute 0.1 10 3/mcL Normal 0.0-0.2 [facility] Comment on above: Performed By: #### C MP, CBC, A1C, GFR, [id number], ANEU, PSA, ADIFF, LIPID #### [address] [address] Basophils/100 WBC (Bld) 1.2 % Normal 0.0-2.5 [facility] Comment on above: Performed By: #### C MP, CBC, A1C, GFR, [id number], ANEU, PSA, ADIFF, LIPID #### [address] [address] Eosinophil, Absolute 0.4 10 3/mcL Normal 0.0-0.7 [facility] Comment on above: Performed By: #### C MP, CBC, A1C, GFR, [id number], ANEU, PSA, ADIFF, LIPID #### [address] [address] Eosinophils/100 WBC (Bld) 4.4 % Normal 0.0-7.0 [facility] Comment on above: Performed By: #### C MP, CBC, A1C, GFR, [id number], ANEU, PSA, ADIFF, LIPID #### [address] [address] Lymphocyte, Absolute 2.2 10 3/mcL Normal 0.9-4.3 [facility] Comment on above: Performed By: #### C MP, CBC, A1C, GFR, 114149, ANEU, PSA, ADIFF, LIPID #### [address] [address] Lymphocytes/100 WBC (Bld) 26.2 % Normal 20.0-40.0 [facility] Comment on above: Performed By: #### C MP, CBC, A1C, GFR, [id number], ANEU, PSA, ADIFF, LIPID #### [address] [address] Monocyte, Absolute 0.6 10 3/mcL Normal 0.1-1.4 [facility] Comment on above: Performed By: #### C MP, CBC, A1C, GFR, 957959, ANEU, PSA, ADIFF, LIPID #### [address] [address] Monocytes/100 WBC (Bld) 7.2 % Normal 2.0-13.0 [facility] Comment on above: Performed By: #### C MP, CBC, A1C, GFR, [id number], ANEU, PSA, ADIFF, LIPID #### [address] [address] Neutrophils/100 WBC (Bld) 61.0 % Normal 50.0-75.0 [facility] Comment on above: Performed By: #### C MP, CBC, A1C, GFR, 490151, ANEU, PSA, ADIFF, LIPID #### [address] [address] .GFRon 06-29-2024 GFR 68 ml/min/1.73sqm Normal [facility] Comment on above: Result Comment: GFR Population mean for , Non- Americans Ages 20-29 = 116 mL/min/1.73 sq.m. Ages 30-39 = 107 mL/min/1.73 sq.m. Ages 40-49 = 99 mL/min/1.73 sq.m. Ages 50-59 = 93 mL/min/1.73 sq.m. Ages 60-69 = 85 mL/min/1.73 sq.m. Ages 70+ = 75 mL/min/1.73 sq.m. Chronic Kidney Disease: Less than 60 mL/min/1.73 square meters End Stage Renal Disease: Less than 15 mL/min/1.73 square meters Performed By: #### C MP, CBC, A1C, GFR, 328070, ANEU, PSA, ADIFF, LIPID #### [address] [address] GFR Non- 56 ml/min/1.73sqm Normal [facility] Comment on above: Result Comment: GFR Population mean for , Non- Americans Ages 20-29 = 116 mL/min/1.73 sq.m. Ages 30-39 = 107 mL/min/1.73 sq.m. Ages 40-49 = 99 mL/min/1.73 sq.m. Ages 50-59 = 93 mL/min/1.73 sq.m. Ages 60-69 = 85 mL/min/1.73 sq.m. Ages 70+ = 75 mL/min/1.73 sq.m. Chronic Kidney Disease: Less than 60 mL/min/1.73 square meters End Stage Renal Disease: Less than 15 mL/min/1.73 square meters Performed By: #### C MP, CBC, A1C, GFR, [id number], ANEU, PSA, ADIFF, LIPID #### [address] [address] .NEUABSon 06-29-2024 Neutrophil, Absolute 5.1 10 3/mcL Normal 2.3-8.1 [facility] Comment on above: Performed By: #### C MP, CBC, A1C, GFR, [id number], ANEU, PSA, ADIFF, LIPID #### [address] [address] A1Con 06-29-2024 Glucose [Mass/Vol] 126 mg/dL Normal [facility] Comment on above: Result Comment: Alis mated Average Glucose calculated by equation ((28.7xA1C)-46.7) Estimated average glucose (eAG) is a calculated value from Hemoglobin A1C and is unit support representative of the average blood glucose level in the last 2-3 month period. Normal range: less than 114 mg/dL Performed By: #### C MP, CBC, A1C, GFR, 960443, ANEU, PSA, ADIFF, LIPID #### [address] [place] [address] HbA1c (Bld) [Mass fraction] 6.0 % Normal 4.3-6.4 [facility] Comment on above: Performed By: #### C MP, CBC, A1C, GFR, 321603, ANEU, PSA, ADIFF, LIPID #### [address] [place] [address] CBCon 06-29-2024 Erythrocyte distribution width (RBC) [Ratio] 14.6 % Normal 11.5-15.5 [facility] Comment on above: Performed By: #### C MP, CBC, A1C, GFR, 827414, ANEU, PSA, ADIFF, LIPID #### [address] [place] [address] Hematocrit (Bld) [Volume fraction] 44.9 % Normal 40.0-52.0 [facility] Comment on above: Performed By: #### C MP, CBC, A1C, GFR, 561190, ANEU, PSA, ADIFF, LIPID #### [address] [address] Hgb 14.7 G/dL Normal 13.0-17.5 [facility] Comment on above: Performed By: #### C MP, CBC, A1C, GFR, 644474, ANEU, PSA, ADIFF, LIPID #### [address] [place] [address] MCH (RBC) [Entitic mass] 26.9 pg Low 27.0-33.0 [facility] Comment on above: Performed By: #### C MP, CBC, A1C, GFR, 547938, ANEU, PSA, ADIFF, LIPID #### [address] [address] MCHC 32.9 G/dL Normal 32.0-36.0 [facility] Comment on above: Performed By: #### C MP, CBC, A1C, GFR, 629741, ANEU, PSA, ADIFF, LIPID #### [address] [place], [place] [address] MCV (RBC) [Entitic vol] 81.9 fL Normal 81.0-100.0 [facility] Comment on above: Performed By: #### C MP, CBC, A1C, GFR, 654377, ANEU, PSA, ADIFF, LIPID #### [address] [address] Platelet 252 10 3/mcL Normal 150-450 [facility] Comment on above: Performed By: #### C MP, CBC, A1C, GFR, [id number], ANEU, PSA, ADIFF, LIPID #### [address] [address] Platelet mean volume (Bld) [Entitic vol] 8.2 fL Normal 6.4-10.5 [facility] Comment on above: Performed By: #### C MP, CBC, A1C, GFR, 214874, ANEU, PSA, ADIFF, LIPID #### [address] [address] RBC 5.48 10 6/mcL Normal 4.50-6.00 [facility] Comment on above: Performed By: #### C MP, CBC, A1C, GFR, 340326, ANEU, PSA, ADIFF, LIPID #### [address] [address] WBC 8.4 10 3/mcL Normal 4.5-10.8 [facility] Comment on above: Performed By: #### C MP, CBC, A1C, GFR, [id number], ANEU, PSA, ADIFF, LIPID #### [address] [address] CMPon 06-29-2024 Albumin Level 3.9 G/dL Normal 3.5-5.0 [facility] Comment on above: Performed By: #### C MP, CBC, A1C, GFR, 108209, ANEU, PSA, ADIFF, LIPID #### [address] [address] Albumin/Globulin [Mass ratio] 1.4 {ratio} Normal 1.1-2.5 [facility] Comment on above: Performed By: #### C MP, CBC, A1C, GFR, 046574, ANEU, PSA, ADIFF, LIPID #### [address] [address] ALP [Catalytic activity/Vol] 67 U/L Normal 40-135 [facility] Comment on above: Performed By: #### C MP, CBC, A1C, GFR, 576201, ANEU, PSA, ADIFF, LIPID #### [address] [address] ALT [Catalytic activity/Vol] 37 U/L Normal 16-63 [facility] Comment on above: Performed By: #### C MP, CBC, A1C, GFR, 906341, ANEU, PSA, ADIFF, LIPID #### [place] [address] AST [Catalytic activity/Vol] 15 U/L Normal 10-40 [facility] Comment on above: Performed By: #### C MP, CBC, A1C, GFR, 327445, ANEU, PSA, ADIFF, LIPID #### [place] [address] Bili Total 0.3 mg/dL Normal 0.2-1.0 [facility] Comment on above: Result Comment: Use of this assay is not recommended for patients undergoing treatment with eltrombopag due to the potential for falsely elevated results. Performed By: #### C MP, CBC, A1C, GFR, 182991, ANEU, PSA, ADIFF, LIPID #### [address] [address] BUN/Creatinine Ratio 22 ratio Normal 7-27 [facility] Comment on above: Performed By: #### C MP, CBC, A1C, GFR, 999661, ANEU, PSA, ADIFF, LIPID #### [place] [address] Calcium [Mass/Vol] 9.2 mg/dL Normal 8.4-10.2 [facility] Comment on above: Performed By: #### C MP, CBC, A1C, GFR, 491712, ANEU, PSA, ADIFF, LIPID #### [place] [address] Chloride [Moles/Vol] 106 mmol/L Normal 98-107 [facility] Comment on above: Performed By: #### C MP, CBC, A1C, GFR, 016725, ANEU, PSA, ADIFF, LIPID #### [place] [address] CO2 [Moles/Vol] 28 mmol/L Normal 22-29 [facility] Comment on above: Performed By: #### C MP, CBC, A1C, GFR, 766274, ANEU, PSA, ADIFF, LIPID #### [place] [address] Creatinine [Mass/Vol] 1.31 mg/dL High 0.70-1.30 [facility] Comment on above: Result Comment: Test ing performed on Siemens Dimension EXL analyzer using a modified kinetic Chong technique. Performed By: #### C MP, CBC, A1C, GFR, 523032, ANEU, PSA, ADIFF, LIPID #### [place] [address] Electrolyte Balance 6.0 mEq/L Normal 4.0-15.0 [facility] Comment on above: Performed By: #### C MP, CBC, A1C, GFR, 550224, ANEU, PSA, ADIFF, LIPID #### [place] [address] Globulin 2.8 G/dL Normal [facility] Comment on above: Performed By: #### C MP, CBC, A1C, GFR, 717584, ANEU, PSA, ADIFF, LIPID #### [place] [address] Glucose [Mass/Vol] 109 mg/dL High 70-105 [facility] Comment on above: Performed By: #### C MP, CBC, A1C, GFR, 859176, ANEU, PSA, ADIFF, LIPID #### [address] [address] Potassium [Moles/Vol] 4.8 mmol/L Normal 3.5-5.1 [facility] Comment on above: Performed By: #### C MP, CBC, A1C, GFR, 247878, ANEU, PSA, ADIFF, LIPID #### [address] [address] Sodium [Moles/Vol] 140 mmol/L Normal 136-145 [facility] Comment on above: Performed By: #### C MP, CBC, A1C, GFR, 356119, ANEU, PSA, ADIFF, LIPID #### [address] [address] Total Protein 6.7 G/dL Normal 6.4-8.2 [facility] Comment on above: Performed By: #### C MP, CBC, A1C, GFR, 096491, ANEU, PSA, ADIFF, LIPID #### [address] [address] Urea nitrogen [Mass/Vol] 29 mg/dL High 7-18 [facility] Comment on above: Performed By: #### C MP, CBC, A1C, GFR, 768346, ANEU, PSA, ADIFF, LIPID #### [address] [address] LABORATORYOrdered By: SYSTEM SYSTEM on 06-29-2024 Albumin BCP dye [Mass/Vol] 3.9 G/dL Normal 3.5 - 5.0 G/dL AO ADM SS Albumin/Globulin [Mass ratio] 1.4 {ratio} Normal 1.1 - 2.5 ratio AO ADM SS ALP [Catalytic activity/Vol] 67 U/L Normal 40 - 135 U/L AO ADM SS ALT With P-5'-P [Catalytic activity/Vol] 37 U/L Normal 16 - 63 U/L AO ADM SS AST With P-5'-P [Catalytic activity/Vol] 15 U/L Normal 10 - 40 U/L AO ADM SS Basophils (Bld) [#/Vol] 0.1 103/mcL Normal 0.0 - 0.2 10^3/mcL AO Workflow SS Basophils/100 WBC (Bld) 1.2 % Normal 0.0 - 2.5 % AO Workflow SS Bilirubin [Mass/Vol] 0.3 mg/dL Normal 0.2 - 1 .0 mg/dL AO ADM SS Comment on above: Interpretive Data: U se of this assay is not recommended for patients undergoing treatment with eltrombopag due to the potential for falsely elevated results. Calcium [Mass/Vol] 9.2 mg/dL Normal 8.4 - 10. 2 mg/dL AO ADM SS Chloride [Moles/Vol] 106 mmol/L Normal 98 - 10 7 mmol/L AO ADM SS CO2 [Moles/Vol] 28 mmol/L Normal 22 - 29 mmol/L AO ADM SS Creatinine [Mass/Vol] 1.31 mg/dL High 0.70 - 1.30 mg/dL AO ADM SS Comment on above: Interpretive Data: T esting performed on [employer] Dimension EXL analyzer using a modified kinetic Chong technique. Electrolyte Balance 6.0 mEq/L Normal 4.0 - 15 .0 mEq/L AO ADM SS Eosinophil, Absolute 0.4 103/mcL Normal 0.0 - 0 .7 10^3/mcL AO Workflow SS Eosinophils/100 WBC (Bld) 4.4 % Normal 0.0 - 7.0 % AO Workflow SS Erythrocyte distribution width (RBC) [Ratio] 14.6 % Normal 11.5 - 15.5 % AO Workflow SS GFR/1.73 sq M.predicted among blacks MDRD (S/P/Bld) [Vol rate/Area] 68 ml/min/1.73sqm Invalid Interpretation Code AO Chemistry S Comment on above: Interpretive Data: GFR Population mean for , Non- Americans Ages 20-29 = 116 mL/min/1.73 sq.m. Ages 30-39 = 107 mL/min/1.73 sq.m. Ages 40-49 = 99 mL/min/1.73 sq.m. Ages 50-59 = 93 mL/min/1.73 sq.m. Ages 60-69 = 85 mL/min/1.73 sq.m. Ages 70+ = 75 mL/min/1.73 sq.m. Chronic Kidney Disease: Less than 60 mL/min/1.73 square meters End Stage Renal Disease: Less than 15 mL/min/1.73 square meters GFR/1.73 sq M.predicted among non-blacks MDRD (S/P/Bld) [Vol rate/Area] 56 ml/min/1.73sqm Invalid Interpretation Code AO Chemistry S Comment on above: Interpretive Data: GFR Population mean for , Non- Americans Ages 20-29 = 116 mL/min/1.73 sq.m. Ages 30-39 = 107 mL/min/1.73 sq.m. Ages 40-49 = 99 mL/min/1.73 sq.m. Ages 50-59 = 93 mL/min/1.73 sq.m. Ages 60-69 = 85 mL/min/1.73 sq.m. Ages 70+ = 75 mL/min/1.73 sq.m. Chronic Kidney Disease: Less than 60 mL/min/1.73 square meters End Stage Renal Disease: Less than 15 mL/min/1.73 square meters Globulin 2.8 G/dL Invalid Interpretation Code AO ADM SS Glucose [Mass/Vol] 109 mg/dL High 70 - 105 mg/dL AO ADM SS Glucose [Mass/Vol] 126 mg/dL Invalid Interpretation Code AO Chemistry S Comment on above: Interpretive Data: E stimated average glucose (eAG) is a calculated value from Hemoglobin A1C and is unit support representative of the average blood glucose level in the last 2-3 month period. Normal range: less than 114 mg/dL HbA1c (Bld) [Mass fraction] 6.0 % Normal 4.3 - 6.4 % AO ADM SS Hematocrit (Bld) [Volume fraction] 44.9 % Normal 40.0 - 52.0 % AO Workflow SS Hemoglobin (Bld) [Mass/Vol] 14.7 G/dL Normal 13.0 - 17.5 G/dL AO Workflow SS Lymphocytes (Bld) [#/Vol] 2.2 103/mcL Normal 0.9 - 4.3 10^3/mcL AO Workflow SS Lymphocytes/100 WBC (Bld) 26.2 % Normal 20.0 - 40.0 % AO Workflow SS MCH (RBC) [Entitic mass] 26.9 pg Low 27.0 - 33.0 pg AO Workflow SS MCHC 32.9 G/dL Normal 32.0 - 36.0 G/dL AO Workflow SS MCV (RBC) [Entitic vol] 81.9 fL Normal 81.0 - 100.0 fL AO Workflow SS Monocytes (Bld) [#/Vol] 0.6 103/mcL Normal 0.1 - 1.4 10^3/mcL AO Workflow SS Monocytes/100 WBC (Bld) 7.2 % Normal 2.0 - 13.0 % AO Workflow SS Neutrophils (Bld) [#/Vol] 5.1 103/mcL Normal 2.3 - 8.1 10^3/mcL AO Workflow SS Neutrophils/100 WBC (Bld) 61.0 % Normal 50.0 - 75.0 % AO Workflow SS Platelet mean volume (Bld) [Entitic vol] 8.2 fL Normal 6.4 - 10.5 fL AO Workflow SS Platelets (Bld) [#/Vol] 252 103/mcL Normal 150 - 450 10^3/mcL AO Workflow SS Potassium [Moles/Vol] 4.8 mmol/L Normal 3.5 - 5.1 mmol/L AO ADM SS Prostate specific Ag [Mass/Vol] 1.03 ng/mL Normal 0.00 - 4.00 ng/mL AO ADM SS Protein [Mass/Vol] 6.7 G/dL Normal 6.4 - 8.2 G/dL AO ADM SS RBC (Bld) [#/Vol] 5.48 106/mcL Normal 4.50 - 6.0 0 10^6/mcL AO Workflow SS Sodium [Moles/Vol] 140 mmol/L Normal 136 - 145 mmol/L AO ADM SS Urea nitrogen [Mass/Vol] 29 mg/dL High 7 - 18 mg/dL AO ADM SS Urea nitrogen/Creatinine [Mass ratio] 22 ratio Normal 7 - 27 ratio AO ADM SS WBC (Bld) [#/Vol] 8.4 103/mcL Normal 4.5 - 10.8 10^3/mcL AO Workflow SS LABORATORYOrdered By: Noemy Terrell on 06-29-2024 Cholesterol [Mass/Vol] 178 mg/dL Normal 0 - 200 mg/dL AO ADM SS Comment on above: Interpretive Data: C holesterol Reference Interval: Less than 200 Desirable 200-239 Borderline high risk 240 and above High risk Cholesterol in HDL [Mass/Vol] 52 mg/dL Normal 40 - 60 mg/dL AO ADM SS Cholesterol in LDL [Mass/Vol] 110 mg/dL Normal 0 - 130 mg/dL AO ADM SS Triglyceride [Mass/Vol] 78 mg/dL Normal 0 - 150 mg/dL AO ADM SS Comment on above: Interpretive Data: T riglyceride Reference Interval: Less than 150 Normal 150-199 Borderline high risk 200-499 High risk 500 or higher Very high risk LIPIDon 06-29-2024 Cholesterol [Mass/Vol] 178 mg/dL Normal 0-200 [facility] Comment on above: Result Comment: Chol esterol Reference Interval: Less than 200 Desirable 200-239 Borderline high risk 240 and above High risk Performed By: #### C MP, CBC, A1C, GFR, 404778, ANEU, PSA, ADIFF, LIPID #### [address] [address] Cholesterol in HDL [Mass/Vol] 52 mg/dL Normal 40-60 [facility] Comment on above: Performed By: #### C MP, CBC, A1C, GFR, 352728, ANEU, PSA, ADIFF, LIPID #### [address] [address] Cholesterol in LDL [Mass/Vol] 110 mg/dL Normal 0-130 [facility] Comment on above: Performed By: #### C MP, CBC, A1C, GFR, 251897, ANEU, PSA, ADIFF, LIPID #### [address] [address] Triglyceride [Mass/Vol] 78 mg/dL Normal 0-150 [facility] Comment on above: Result Comment: Trig lyceride Reference Interval: Less than 150 Normal 150-199 Borderline high risk 200-499 High risk 500 or higher Very high risk Performed By: #### C MP, CBC, A1C, GFR, 968072, ANEU, PSA, ADIFF, LIPID #### [address] [address] PSAon 06-29-2024 Prostate Specific Antigen 1.03 ng/mL Normal 0.00-4.00 [facility] Comment on above: Performed By: #### C MP, CBC, A1C, GFR, 373765, ANEU, PSA, ADIFF, LIPID #### [place] [id number] [place], [place] [address] Terrence 12-28-2022 CNPN Telephone (PODCCP) -- SHIRA GAVIN ([id number]) 1965 M Date Time Provider Department 12/28/22 TESSA VILLANUEVA During your visit today, we recorded the following information about you: Tessa Villanueva RN 12/28/2022 10:23 AM Signed PATIENT INFORMATION Record ID: [id number] Patient Name: [facility]: [facility] [place]: [facility] [place] Attending: Katty Antonio [facility]: Colorectal Surgery INSTRUCTIONS SN to remind patient of appointment date, time, location All Clear Ask follow question #4c on NOC section of survey. All Clear All Clear SURVEY INFORMATION Medical/Nurse Gin Inspector: Tessa Villanueva 1. Your discharge instructions are important in guiding you through the recovery process. Is there anything I could help you clarify on your discharge instructions? (Standard Question) No 2. Do you have a follow up appointment related to your hospital stay scheduled within the next 30 days? (Standard Question) Yes 3. Are you vomiting after eating or drinking? (Red Flag Question) No 4. Do you have a stoma? No 5. Are you having any difficulty passing urine? (Red Flag Question) No 6. Do you have any of the following new symptoms related to your wound? Creamy white or foul smelling drainage Increasing redness or swelling, Increasing pain;? (Red Flag Question) No 7. Many patients have concerns about their medications once they are home. Do you have any questions about getting or taking your medications? (Standard Question) No 8. Do you have any new or different symptoms? (Standard Question) No Allergies As of Date: 12/28/2022 (No Known Allergies) Date Reviewed: 12/22/2022 Reviewed by: Carlos Espinoza RN - Fully Assessed Reason for Visit: Follow Up Phone Call [[phone]] Cmt: All Clear. Prescriptions as of 12/28/2022 - ibuprofen (MOTRIN) 200 mg tablet Take 4 tablets by mouth every 8 hours. - [facility] SKIN PROTECTIVE PASTE Apply to affected area twice daily. - aspirin 81 mg chewable tablet Take 1 tablet by mouth once daily for 30 doses. - acetaminophen (TYLENOL) 500 mg tablet Take 2 tablets by mouth every 6 hours as needed for pain. - latanoprost (XALATAN) 0.005 % ophthalmic solution Use 1 Drop in both eyes daily at bedtime. - Psyllium Seed-Sucrose Take 1 Tablespoonful by mouth once daily. Problem List As Of Date 12/28/2022 Noted Resolved Diverticulitis of colon [K57.32] 10/24/2014 Abscess of abdominal cavity (HCC) [K65.1] 10/24/2014 Leukocytosis [D72.829] 10/24/2014 Nausea and vomiting in adult patient [R11.2] 10/23/2014 Abdominal abscess (HCC) [UMR5888] 10/27/2014 Pulmonary embolism (HCC) [I26.99] 10/29/2014 Anticoagulated on Coumadin [Z79.01] 10/29/2014 Acute pulmonary embolism (HCC) [I26.99] 11/01/2014 Anticoagulation management encounter [Z51.81, Z*11/01/2014 Septic arthritis of left sternoclavicular joint*11/07/2014 Personal history of DVT (deep vein thrombosis) *08/04/2015 Personal history of pulmonary embolism [Z86.711]08/04/2015 History of pulmonary embolism [Z86.711] 08/02/2016 Acute diverticulitis [K57.92] 10/20/2021 Nicotine use disorder, F17.2 [F17.200] 10/23/2021 Obesity, Class I, BMI 30-34.9 [E66.9] 10/23/2021 Pre-op evaluation [Z01.818] 09/05/2022 Tobacco use [Z72.0] 09/05/2022 VTE (venous thromboembolism) [I82.90] 09/05/2022 Elevated BP without diagnosis of hypertension [*09/05/2022 Diverticulitis [K57.92] 09/16/2022 09/16/2022 Obesity, Class II, BMI 35-39.9 [E66.9] 09/16/2022 Hypocalcemia [E83.51] 09/19/2022 09/19/2022 Hypophosphatemia [E83.39] 09/19/2022 09/19/2022 Attention to ileostomy (HCC) [Z43.2] 12/19/2022 Postoperative pain [G89.18] 12/20/2022 Encounter Status:Closed by TESSA VILLANUEVA on 12/28/22 [facility] 12-26-2022 XAVI Telephone (CORSMN) -- SHIRA GAVIN ([id number]) 1965 M Date Time Provider Department 12/26/22 THEO LOZA During your visit today, we recorded the following information about you: Theo Loza APRN.CNP 12/26/2022 5:54 PM Signed ----- Message from Sandra Rodriguez sent at 12/26/2022 10:39 AM EDT ----- Patient stes he was to call for an update today. He is doing well. He wanted to know how long he is to stay on clear liquids. Theo Loza APRN.CNP 12/26/2022 6:03 PM Signed Returned patient's phone call, he is passing gas and small amount of stool daily. Tolerated liquids, is hungry and would like to advance diet. OK to advance diet slowly to GI soft - reviewed food choices Old stoma site is healing- takes daily shower as instructed Follow-up on 01/02 with video visit Invited to call office with any questions or concerns. Theo Loza APRN.CNP Allergies As of Date: 12/26/2022 (No Known Allergies) Date Reviewed: 12/22/2022 Reviewed by: Carlos Espinoza RN - Fully Assessed Reason for Visit: Patient Update [1234] Prescriptions as of 12/26/2022 - ibuprofen (MOTRIN) 200 mg tablet Take 4 tablets by mouth every 8 hours. - CCF SKIN PROTECTIVE PASTE Apply to affected area twice daily. - aspirin 81 mg chewable tablet Take 1 tablet by mouth once daily for 30 doses. - acetaminophen (TYLENOL) 500 mg tablet Take 2 tablets by mouth every 6 hours as needed for pain. - latanoprost (XALATAN) 0.005 % ophthalmic solution Use 1 Drop in both eyes daily at bedtime. - Psyllium Seed-Sucrose Take 1 Tablespoonful by mouth once daily. Problem List As Of Date 12/26/2022 Noted Resolved Diverticulitis of colon [K57.32] 10/24/2014 Abscess of abdominal cavity (HCC) [K65.1] 10/24/2014 Leukocytosis [D72.829] 10/24/2014 Nausea and vomiting in adult patient [R11.2] 10/23/2014 Abdominal abscess (HCC) [TVQ7814] 10/27/2014 Pulmonary embolism (HCC) [I26.99] 10/29/2014 Anticoagulated on Coumadin [Z79.01] 10/29/2014 Acute pulmonary embolism (HCC) [I26.99] 11/01/2014 Anticoagulation management encounter [Z51.81, Z*11/01/2014 Septic arthritis of left sternoclavicular joint*11/07/2014 Personal history of DVT (deep vein thrombosis) *08/04/2015 Personal history of pulmonary embolism [Z86.711]08/04/2015 History of pulmonary embolism [Z86.711] 08/02/2016 Acute diverticulitis [K57.92] 10/20/2021 Nicotine use disorder, F17.2 [F17.200] 10/23/2021 Obesity, Class I, BMI 30-34.9 [E66.9] 10/23/2021 Pre-op evaluation [Z01.818] 09/05/2022 Tobacco use [Z72.0] 09/05/2022 VTE (venous thromboembolism) [I82.90] 09/05/2022 Elevated BP without diagnosis of hypertension [*09/05/2022 Diverticulitis [K57.92] 09/16/2022 09/16/2022 Obesity, Class II, BMI 35-39.9 [E66.9] 09/16/2022 Hypocalcemia [E83.51] 09/19/2022 09/19/2022 Hypophosphatemia [E83.39] 09/19/2022 09/19/2022 Attention to ileostomy (HCC) [Z43.2] 12/19/2022 Postoperative pain [G89.18] 12/20/2022 Encounter Status:Closed by RO LOZA on 12/26/22 [facility] CNDSon 12-22-2022 [facility] HNO ID: [id number] Author: Carly Rock PA-C Service: Colorectal Author Type: Physician Gin Inspector Type: Discharge Summary Filed: 12/22/2022 12:33 PM Note Text: -- Attestation signed by Katty Antonio MD at 12/26/2022 5:53 AM Katty Antonio MD December 26, 2022 5:53 AM -- DISCHARGE SUMMARY PATIENT NAME: Shira Gavin ADMISSION DATE: 12/19/2022 DISCHARGE DATE: 12/22/2022 Attending Physician: Katty Antonio MD Code Status: Not on file Highest Readmission Risk Score: 10 The 30 day readmissions risk score is derived from an internally validated risk model which evaluates patient level characteristics, utilization history, medication orders and lab results up until the day of discharge. Patients with a score of 40 or above are considered highest risk for readmission. Specific patient level drivers will be listed at the bottom of the summary. Principal Diagnosis: Attention to ileostomy Principal Problem: Attention to ileostomy (HCC) POA: Yes Active Problems: Obesity, Class I, BMI 30-34.9 POA: Yes Tobacco use POA: Yes Postoperative pain POA: No Resolved Problems: * No resolved hospital problems. * Reason for Hospitalization: This 56-year-old gentleman on September 16, 2022, underwent a laparoscopic sigmoid resection with colorectal anastomosis, loop ileostomy, and flexible sigmoidoscopy after having at least 4 episodes of diverticulitis with an abscess. He had a negative Gastrografin enema and comes for stoma closure. Of note, in 2014, he had a DVT and a pulmonary embolism. He was reviewed here by Dr. Lenz and this was felt to be situational. 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 Operations During Hospitalization: 12/19/22: Sutured loop ileostomy closure. Procedures During Hospitalization: No procedures performed Hospital Course: Shira Gavin came to the hospital to have surgery with Katty Antonio MD. Please see operative report for full details. Afterward, the patient was transferred to a regular nursing floor. Pain was controlled with oral and IV medication per ERAS protocol and his intake and output was closely monitored. Diet was advanced as tolerated. He voided independently prior to discharge. DVT prophylaxis was managed by Heparin 5000 unit(s) TID and intermittent compression stockings. His electrolytes were monitored with daily labs and replaced as needed. Once the patient's pain was controlled with oral medication, GI soft diet was tolerated, and demonstrated appropriate bowel function, he was deemed fit for discharge. The patient is asked to please follow up with Ro Loza CNP as scheduled. He may discuss the advancement of his diet at his follow up appointment. A follow up appointment has been requested and will show up in his MyChart in 1-2 days. The appointment may not show up on his discharge instructions. He is advised to please contact Dr. Antonio's office if the follow up appointment has not been set up. He is asked to follow up virtually with Ro Loza CNP in 7-10 days after discharge. He is asked to please take aspirin 81 mg daily for 30 days due to his history of blood clots. Transitions of Care Critical Issues: LABS AND PROCEDURES PENDING AT DISCHARGE: No pending results. Consulting Teams During Hospitalization: Care management, nutrition, Treatment Team: Attending Provider: Katty Antonio MD Patient Condition @ Discharge: Stable Discharge Disposition: Home with Self Care Postoperative Conditions: None Information Provided to Patient: Discharge instructions Diet: Full Liquid Diet: Includes clear liquids plus cream soup, puddings, and milk Activity: No heavy lifting, pushing or pulling greater than 10 pounds including unloading the garage manager, moving wet laundry and vacuuming for 6 weeks No driving for 2 weeks. Take someone with you the first time you drive. No driving while on narcotics Stairs are allowed and walking is encouraged Wound/Surgical Site Care: Shower daily. Let soap and water run into wound. Pat dry. Cover with dry dressing. ALLERGIES No Known Allergies Discharge Medications: Current Discharge Medication List START taking these medications ibuprofen (MOTRIN) 800 mg Take 800 mg by mouth every 8 hours. Refills: 0 oxyCODONE IR (ROXICODONE) 5 mg Take 5 mg by mouth every 6 hours as needed for pain. Qty: 12 tablet Refills: 0 Associated Diagnoses:Postoperative pain [facility] SKIN PROTECTIVE PASTE Apply to affected area twice daily. Qty: 240 g Comments: Only available at select [facility] CONTINUE these medications which have CHANGED aspirin 81 (more content not included)... Normal [facility] CRP SerPl-mCncon 12-22-2022 CRP [Mass/Vol] 3.7 mg/dL High <0.9 [facility] Comment on above: Order Comment: Speci dorys Type: BLOOD SPECIMENOrdering Facility: [facility] Address: [address] [place] [id number] Performed By: #### 1 988-5 ####[facility] LABCLIA [id number] [place] [address] [place] Basic metabolic 2000 panelon 12-21-2022 Anion gap [Moles/Vol] 9 mmol/L Normal 9-18 [facility] Comment on above: Order Comment: Mariahi dorys Type: BLOOD SPECIMENOrdering Facility: [facility] Address: [address] [place] [phone] Performed By: #### 2 4321-2, , 1987-12, 2776-08 ####[facility] LABCLIA [id number] [place] [id number] [place] Calcium [Mass/Vol] 9.0 mg/dL Normal 8.5-10.2 [facility] Comment on above: Order Comment: Speci men Type: BLOOD SPECIMENOrdering Facility: [facility] Address: [address] Performed By: #### 2 4321-2, , 1987-12, 2776-08 ####[facility] LABIA [id number] [place] [address] [place] Chloride [Moles/Vol] 101 mmol/L Normal 97-105 [facility] Comment on above: Order Comment: Speci men Type: BLOOD SPECIMENOrdering Facility: [facility] Address: [address] [place], [place] [id number] Performed By: #### 2 432-2, , 1987-12, 2776-08 ####[facility] [id number] [place] [address] [place] CO2 [Moles/Vol] 27 mmol/L Normal 22-30 [facility] Comment on above: Order Comment: Speci men Type: BLOOD SPECIMENOrdering Facility: [facility] Address: [address] [place], [place] [id number] Performed By: #### 2 4321-2, , 1987-12, 2776-08 ####[facility] LABIA [id number] [place] [address] [place] Creatinine [Mass/Vol] 1.11 mg/dL Normal 0.73-1.22 [facility] Comment on above: Order Comment: Speci men Type: BLOOD SPECIMENOrdering Facility: [facility] Address: [address] [place], [place] [phone] Performed By: #### 2 4321-2, , 2776-08 ####[facility] [facility] LABIA [id number] [place] [address] [place] ESTIMATED GLOMERULAR FILTRATION RATE 78 mL/min/1.73m??? Normal >=60 [facility] Comment on above: Order Comment: Amy saul Type: BLOOD SPECIMENOrdering Facility: [facility] Address: [address] [id number] Result Comment: Alis mated Glomerular Filtration Rate (eGFR) is calculated using the 2020 CKD-EPI creatinine equation. This equation utilizes serum creatinine, sex, and age as parameters. The creatinine assay has traceable calibration to isotope dilution-mass spectrometry. Refer to KDIGO guidelines for clinical interpretation. In patients with unstable renal function, e.g. those with acute kidney injury, the eGFR may not accurately reflect actual GFR. Performed By: #### 2 4321-2, , 2776-08 ####[facility] LABIA [id number] [place] [address] [place] Glucose [Mass/Vol] 107 mg/dL High 74-99 [facility] Comment on above: Order Comment: Amy saul Type: BLOOD SPECIMENOrdering Facility: [facility] Address: [address] [place] [address] Result Comment: The [place] Diabetes Association (ADA) provides guidance for cutoff values for fasting glucose and random glucose. The ADA defines fasting as no caloric intake for at least 8 hours. Fasting plasma glucose results between 100 to 125 mg/dL indicate increased risk for diabetes (prediabetes). Fasting plasma glucose results greater than or equal to 126 mg/dL meet the criteria for diagnosis of diabetes. In the absence of unequivocal hyperglycemia, results should be confirmed by repeat testing. In a patient with classic symptoms of hyperglycemia or hyperglycemic crisis, random plasma glucose results greater than or equal to 200 mg/dL meet the criteria for diagnosis of diabetes. Reference: Standards of Medical Care in Diabetes 2016, [place] [employer]. Diabetes Care. 2016.39(Suppl 1). Performed By: #### 2 4320-2, , 1987-12, 2776-08 ####[facility] LABIA [id number] [place] [address] [place] Potassium [Moles/Vol] 3.7 mmol/L Normal 3.7-5.1 [facility] Comment on above: Order Comment: Speci men Type: BLOOD SPECIMENOrdering Facility: [facility] Address: [address] [place] [address] Performed By: #### 2 432-2, , 1987-12, 2776-08 ####[facility] [id number] [place] [address] [place] Sodium [Moles/Vol] 137 mmol/L Normal 136-144 [facility] Comment on above: Order Comment: Speci men Type: BLOOD SPECIMENOrdering Facility: [facility] Address: [address] [place] [address] Performed By: #### 2 4320-2, , 1987-12, 2776-08 ####[facility] [id number] [place] [address] [place] Urea nitrogen [Mass/Vol] 12 mg/dL Normal 9-24 [facility] Comment on above: Order Comment: Speci men Type: BLOOD SPECIMENOrdering Facility: [facility] Address: [address] [place], [place] [address] Performed By: #### 2 4320-2, , 1987-12, 2776-08 ####[facility] [id number] [place] [address] [place] CBC W Auto Differential pane l (Bld)on 12-21-2022 Basophils (Bld) [#/Vol] 0.05 10*3/uL Normal <0.11 [facility] Comment on above: Order Comment: Speci men Type: BLOOD SPECIMENOrdering Facility: [facility] Address: [address] Performed By: #### 5 7021-8 ####[facility] LABCLIA [id number] [address] STATES [facility] Basophils/100 WBC (Bld) 0.6 % Normal [facility] Comment on above: Order Comment: Speci men Type: BLOOD SPECIMENOrdering Facility: [facility] Address: [address] Performed By: #### 5 7021-8 ####[facility] LABCLIA [id number] [address] STATES OF [facility] Differential cell count method Nom (Bld) Auto Normal [facility] Comment on above: Order Comment: Speci men Type: BLOOD SPECIMENOrdering Facility: [facility] Address: [address] [place], [place] [address] Performed By: #### 5 7021-8 ####[facility] LABCLIA [id number] [place] [address] [place] Eosinophils (Bld) [#/Vol] 0.32 10*3/uL Normal <0.46 [facility] Comment on above: Order Comment: Speci men Type: BLOOD SPECIMENOrdering Facility: [facility] Address: [address] [place], [place] [address] Performed By: #### 5 7021-8 ####[facility] LABCLIA [id number] [address] [place] Eosinophils/100 WBC (Bld) 3.7 % Normal [facility] Comment on above: Order Comment: Speci men Type: BLOOD SPECIMENOrdering Facility: [facility] Address: [address] [place], [place] [address] Performed By: #### 5 7021-8 ####[facility] LABCLIA [id number] [address] [place] Erythrocyte distribution width (RBC) [Ratio] 14.6 % Normal 11.5-15.0 [facility] Comment on above: Order Comment: Speci men Type: BLOOD SPECIMENOrdering Facility: [facility] Address: [address] [place] [address] Performed By: #### 5 7021-8 ####[facility] LABIA [id number] [place] [address] [place] Hematocrit (Bld) [Volume fraction] 38.4 % Low 39.0-51.0 [facility] Comment on above: Order Comment: Speci men Type: BLOOD SPECIMENOrdering Facility: [facility] Address: [address] [place] [address] Performed By: #### 5 7021-8 ####[facility] LABIA [id number] [place] [address] [place] Hemoglobin (Bld) [Mass/Vol] 12.2 g/dL Low 13.0-17.0 [facility] Comment on above: Order Comment: Speci men Type: BLOOD SPECIMENOrdering Facility: [facility] Address: [address] [place], [place] [address] Performed By: #### 5 7021-8 ####[facility] LABIA [id number] [place] [address] [place] Immature granulocytes (Bld) [#/Vol] 10*3/uL Normal <0.10 [facility] Comment on above: Order Comment: Speci men Type: BLOOD SPECIMENOrdering Facility: [facility] Address: [address] [place], [place] [address] Performed By: #### 5 7021-8 ####[facility] LABIA [id number] [place] [address] [place] Immature granulocytes/100 WBC (Bld) 0.2 % Normal [facility] Comment on above: Order Comment: Speci men Type: BLOOD SPECIMENOrdering Facility: [facility] Address: [address] Performed By: #### 5 7021-8 ####[facility] LABCLIA [id number] [place] [address] [place] Lymphocytes (Bld) [#/Vol] 2.03 10*3/uL Normal 1.00-4.00 [facility] Comment on above: Order Comment: Speci men Type: BLOOD SPECIMENOrdering Facility: [facility] Address: [address] Performed By: #### 5 7021-8 ####[facility] LABCLIA [id number] [place] [address] [place] Lymphocytes/100 WBC (Bld) 23.3 % Normal [facility] Comment on above: Order Comment: Speci men Type: BLOOD SPECIMENOrdering Facility: [facility] Address: [address] [place], [place] [address] Performed By: #### 5 7021-8 ####[facility] LABCLIA [id number] [place] [address] [place] MCH (RBC) [Entitic mass] 26.2 pg Normal 26.0-34.0 [facility] Comment on above: Order Comment: Speci men Type: BLOOD SPECIMENOrdering Facility: [facility] Address: [address] [place], [place] [address] Performed By: #### 5 7021-8 ####[facility] LABCLIA [id number] [place] [address] [place] MCHC (RBC) [Mass/Vol] 31.8 g/dL Normal 30.5-36.0 [facility] Comment on above: Order Comment: Speci men Type: BLOOD SPECIMENOrdering Facility: [facility] Address: [address] [place], [place] [address] Performed By: #### 5 7021-8 ####[facility] LABCLIA [id number] [place] [address] [place] MCV (RBC) [Entitic vol] 82.6 fL Normal 80.0-100.0 [facility] Comment on above: Order Comment: Speci men Type: BLOOD SPECIMENOrdering Facility: [facility] Address: [address] [place] [address] Performed By: #### 5 7021-8 ####[facility] LABCLIA [id number] [place] [address] [place] Monocytes (Bld) [#/Vol] 0.80 10*3/uL Normal <0.87 [facility] Comment on above: Order Comment: Speci men Type: BLOOD SPECIMENOrdering Facility: [facility] Address: [address] [place] [address] Performed By: #### 5 7021-8 ####[facility] LABCLIA [id number] [address] STATES OF [facility] Monocytes/100 WBC (Bld) 9.2 % Normal [facility] Comment on above: Order Comment: Speci men Type: BLOOD SPECIMENOrdering Facility: [facility] Address: [address] [place] [address] Performed By: #### 5 7021-8 ####[facility] LABCLIA [id number] [place] [address] [place] Neutrophils (Bld) [#/Vol] 5.51 10*3/uL Normal 1.45-7.50 [facility] Comment on above: Order Comment: Speci men Type: BLOOD SPECIMENOrdering Facility: [facility] Address: [address] [place], [place] [address] Performed By: #### 5 7021-8 ####[facility] LABCLIA [id number] [address] [place] Neutrophils/100 WBC (Bld) 63.0 % Normal [facility] Comment on above: Order Comment: Speci men Type: BLOOD SPECIMENOrdering Facility: [facility] Address: [address] Performed By: #### 5 7021-8 ####[facility] LABIA [id number] [place] [address] [place] Nucleated RBC (Bld) [#/Vol] 10*3/uL Normal <0.01 [facility] Comment on above: Order Comment: Speci men Type: BLOOD SPECIMENOrdering Facility: [facility] Address: [address] Performed By: #### 5 7021-8 ####[facility] LABIA [id number] [place] [address] [place] Nucleated RBC/100 WBC (Bld) [Ratio] 0.0 /100 WBC Normal [facility] Comment on above: Order Comment: Speci men Type: BLOOD SPECIMENOrdering Facility: [facility] Address: [address] Performed By: #### 5 7021-8 ####[facility] LABIA [id number] [place] [address] [place] Platelet mean volume (Bld) [Entitic vol] 9.5 fL Normal 9.0-12.7 [facility] Comment on above: Order Comment: Speci men Type: BLOOD SPECIMENOrdering Facility: [facility] Address: [address] [place] [address] Performed By: #### 5 7021-8 ####[facility] LABIA [id number] [place] [address] [place] Platelets (Bld) [#/Vol] 229 10*3/uL Normal 150-400 [facility] Comment on above: Order Comment: Speci men Type: BLOOD SPECIMENOrdering Facility: [facility] Address: [address] [place] [address] Performed By: #### 5 7021-8 ####[facility] LABIA [id number] [place] [address] [place] RBC (Bld) [#/Vol] 4.65 10*6/uL Normal 4.20-6.00 [facility] Comment on above: Order Comment: Speci men Type: BLOOD SPECIMENOrdering Facility: [facility] Address: [address] [place] [address] Performed By: #### 5 7021-8 ####[facility] LABIA [id number] [place] [address] [place] WBC (Bld) [#/Vol] 8.73 10*3/uL Normal 3.70-11.00 [facility] Comment on above: Order Comment: Speci men Type: BLOOD SPECIMENOrdering Facility: [facility] Address: [address] [place] [address] Performed By: #### 5 7021-8 ####[facility] [id number] [place] [address] [place] CRP SerPl-mCncon 12-21-2022 CRP [Mass/Vol] 2.0 mg/dL High <0.9 [facility] Comment on above: Order Comment: Speci men Type: BLOOD SPECIMENOrdering Facility: [facility] Address: [address] [place], [place] [address] Performed By: #### 2 4321-2, 34164-4, 1987-5, 2777-1 ####[facility] [id number] [place] [address] [place] Magnesium SerPl-mCncon 12-21 Magnesium [Mass/Vol] 2.0 mg/dL Normal 1.7-2.3 [facility] Comment on above: Order Comment: Speci men Type: BLOOD SPECIMENOrdering Facility: [facility] Address: [address] [place], [place] [address] Performed By: #### 2 4321-2, , 2776-08 ####[facility] LABIA [id number] [place] [id number] [place] PT EDon 12-21-2022 PT ED HNO ID: [id number] Author: Elisabeth Gee DTR Service: Nutrition Therapy 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 Filed: 12/21/2022 12:40 PM Note Text: NUTRITION THERAPY PATIENT EDUCATION SERVICE DATE: 12/21/2022 SERVICE TIME: 950 TOPIC: Diet: Gastrointestinal diet Exemption from nutrition education: Patient/family refusal of diet education due to receipt of previous instructions LEARNING ASSESSMENT Individuals Assessed: Patient Preferred Learning Method: Written Instruction Barriers to Learning: None Evident LEARNING RESPONSE Instruction Provided to: Patient Patient / Family Response: Performs Independently and Verbalizes Understanding Method of Instruction: Written instruction - handouts Material(s) Provided to Patient: G/L for GI Soft Diet Follow-Up Plan: Complete - No need for follow-up Patient instructed to call with any further issues Contact information given. Referral (Recommendation): MNT Billing: $ Routine Care : 1-15 minutes SIGNATURE: Elisabeth Gee DTR PATIENT NAME: Shira Gavin DATE: December 21, 2022 TIME: 12:40 PM PAGER: Normal [facility] Phosphate SerPl-mCncon 12-21 Phosphate [Mass/Vol] 4.1 mg/dL Normal 2.7-4.8 [facility] Comment on above: Order Comment: Speci men Type: BLOOD SPECIMENOrdering Facility: [facility] Address: [address] [place] [address] Performed By: #### 2 4321-2, , 2776-08 ####[facility] LABIA [id number] [place] [address] [place] Basic metabolic 2000 panelon 12-20-2022 Anion gap [Moles/Vol] 12 mmol/L Normal 9-18 [facility] Comment on above: Order Comment: Speci men Type: BLOOD SPECIMENOrdering Facility: [facility] Address: [address] [place], [place] [phone] Performed By: #### 2 4320-2, 1987-12, 2776-08, ####[facility] LABIA [id number] [address] [address] [place] Calcium [Mass/Vol] 8.6 mg/dL Normal 8.5-10.2 [facility] Comment on above: Order Comment: Speci men Type: BLOOD SPECIMENOrdering Facility: [facility] Address: [address] [place], [place] [phone] Performed By: #### 2 4320-2, 1987-12, 2776-08, ####[facility] LABIA [id number] [place] [address] [place] Chloride [Moles/Vol] 105 mmol/L Normal 97-105 [facility] Comment on above: Order Comment: Speci men Type: BLOOD SPECIMENOrdering Facility: [facility] Address: [address] [place], [place] [address] Performed By: #### 2 4320-, 1987-12, 2776-08, ####[facility] LABIA [id number] [place] [address] [place] CO2 [Moles/Vol] 22 mmol/L Normal 22-30 [facility] Comment on above: Order Comment: Speci men Type: BLOOD SPECIMENOrdering Facility: [facility] Address: [address] [place], [place] [phone] Performed By: #### 2 4320-2, 1987-12, 2776-08, ####[facility] LABIA [id number] [place] [address] [place] Creatinine [Mass/Vol] 0.94 mg/dL Normal 0.73-1.22 [facility] Comment on above: Order Comment: Speci men Type: BLOOD SPECIMENOrdering Facility: [facility] Address: [address] [place] [address] Performed By: #### 2 4321-2, 1987-12, 2776-08, ####[facility] LABCLIA [id number] [place] [id number] [place] ESTIMATED GLOMERULAR FILTRATION RATE 96 mL/min/1.73m??? Normal >=60 [facility] Comment on above: Order Comment: Amy saul Type: BLOOD SPECIMENOrdering Facility: [facility] Address: [address] [phone] Result Comment: Alis mated Glomerular Filtration Rate (eGFR) is calculated using the 2020 CKD-EPI creatinine equation. This equation utilizes serum creatinine, sex, and age as parameters. The creatinine assay has traceable calibration to isotope dilution-mass spectrometry. Refer to KDIGO guidelines for clinical interpretation. In patients with unstable renal function, e.g. those with acute kidney injury, the eGFR may not accurately reflect actual GFR. Performed By: #### 2 4321-2, 1987-12, 2776-08, ####[facility] LABCLIA [id number] [place] [id number] [place] Glucose [Mass/Vol] 74 mg/dL Normal 74-99 [facility] Comment on above: Order Comment: Amy saul Type: BLOOD SPECIMENOrdering Facility: [facility] Address: [address] [phone] Result Comment: The [place] Diabetes [employer] (ADA) provides guidance for cutoff values for fasting glucose and random glucose. The ADA defines fasting as no caloric intake for at least 8 hours. Fasting plasma glucose results between 100 to 125 mg/dL indicate increased risk for diabetes (prediabetes). Fasting plasma glucose results greater than or equal to 126 mg/dL meet the criteria for diagnosis of diabetes. In the absence of unequivocal hyperglycemia, results should be confirmed by repeat testing. In a patient with classic symptoms of hyperglycemia or hyperglycemic crisis, random plasma glucose results greater than or equal to 200 mg/dL meet the criteria for diagnosis of diabetes. Reference: Standards of Medical Care in Diabetes 2016, [place] [employer]. Diabetes Care. 2016.39(Suppl 1). Performed By: #### 2 4320-2, 1987-12, 2776-08, ####[facility] LABIA [id number] [place] [address] [place] Potassium [Moles/Vol] 4.0 mmol/L Normal 3.7-5.1 [facility] Comment on above: Order Comment: Speci men Type: BLOOD SPECIMENOrdering Facility: [facility] Address: [address] [place] [address] Performed By: #### 2 4320-2, 1987-12, 2776-08, ####[facility] [id number] [place] [address] [place] Sodium [Moles/Vol] 139 mmol/L Normal 136-144 [facility] Comment on above: Order Comment: Speci men Type: BLOOD SPECIMENOrdering Facility: [facility] Address: [address] [place] [address] Performed By: #### 2 4320-09, 1987-12, 2776-08, ####[facility] [id number] [place] [address] [place] Urea nitrogen [Mass/Vol] 14 mg/dL Normal 9-24 [facility] Comment on above: Order Comment: Speci men Type: BLOOD SPECIMENOrdering Facility: [facility] Address: [address] [place] [address] Performed By: #### 2 4320-2, 1987-12, 2776-08, ####[facility] [id number] [place] [address] [place] CBC W Auto Differential pane l (Bld)on 12-20-2022 Basophils (Bld) [#/Vol] 0.05 10*3/uL Normal <0.11 [facility] Comment on above: Order Comment: Speci men Type: BLOOD SPECIMENOrdering Facility: [facility] Address: [address] Performed By: #### 5 7021-8 ####[facility] LABCLIA [id number] [address] STATES [facility] Basophils/100 WBC (Bld) 0.5 % Normal [facility] Comment on above: Order Comment: Speci men Type: BLOOD SPECIMENOrdering Facility: [facility] Address: [address] Performed By: #### 5 7021-8 ####[facility] LABCLIA [id number] [address] [place] Differential cell count method Nom (Bld) Auto Normal [facility] Comment on above: Order Comment: Speci men Type: BLOOD SPECIMENOrdering Facility: [facility] Address: [address] [place], [place] [address] Performed By: #### 5 7021-8 ####[facility] LABCLIA [id number] [place] [address] [place] Eosinophils (Bld) [#/Vol] 0.17 10*3/uL Normal <0.46 [facility] Comment on above: Order Comment: Speci men Type: BLOOD SPECIMENOrdering Facility: [facility] Address: [address] Performed By: #### 5 7021-8 ####[facility] LABCLIA [id number] [address] [place] Eosinophils/100 WBC (Bld) 1.6 % Normal [facility] Comment on above: Order Comment: Speci men Type: BLOOD SPECIMENOrdering Facility: [facility] Address: [address] Performed By: #### 5 7021-8 ####[facility] LABCLIA [id number] [address] OF [facility] Erythrocyte distribution width (RBC) [Ratio] 14.8 % Normal 11.5-15.0 [facility] Comment on above: Order Comment: Speci men Type: BLOOD SPECIMENOrdering Facility: [facility] Address: [address] [place] [address] Performed By: #### 5 7021-8 ####[facility] LABCLIA [id number] [address] [place] Hematocrit (Bld) [Volume fraction] 36.8 % Low 39.0-51.0 [facility] Comment on above: Order Comment: Speci men Type: BLOOD SPECIMENOrdering Facility: [facility] Address: [address] [place] [address] Performed By: #### 5 7021-8 ####[facility] LABIA [id number] [address] [place] Hemoglobin (Bld) [Mass/Vol] 11.9 g/dL Low 13.0-17.0 [facility] Comment on above: Order Comment: Speci men Type: BLOOD SPECIMENOrdering Facility: [facility] Address: [address] [place], [place] [address] Performed By: #### 5 7021-8 ####[facility] LABIA [id number] [address] [place] Immature granulocytes (Bld) [#/Vol] 0.04 10*3/uL Normal <0.10 [facility] Comment on above: Order Comment: Speci men Type: BLOOD SPECIMENOrdering Facility: [facility] Address: [address] [place], [place] [address] Performed By: #### 5 7021-8 ####[facility] LABCLIA [id number] [address] [place] Immature granulocytes/100 WBC (Bld) 0.4 % Normal [facility] Comment on above: Order Comment: Speci men Type: BLOOD SPECIMENOrdering Facility: [facility] Address: [address] Performed By: #### 5 7021-8 ####[facility] LABCLIA [id number] [address] [place] Lymphocytes (Bld) [#/Vol] 1.95 10*3/uL Normal 1.00-4.00 [facility] Comment on above: Order Comment: Speci men Type: BLOOD SPECIMENOrdering Facility: [facility] Address: [address] Performed By: #### 5 7021-8 ####[facility] [facility] LABCLIA [id number] [address] [place] Lymphocytes/100 WBC (Bld) 17.9 % Normal [facility] Comment on above: Order Comment: Speci men Type: BLOOD SPECIMENOrdering Facility: [facility] Address: [address] Performed By: #### 5 7021-8 ####[facility] LABCLIA [id number] [place] [address] [place] MCH (RBC) [Entitic mass] 26.5 pg Normal 26.0-34.0 [facility] Comment on above: Order Comment: Speci men Type: BLOOD SPECIMENOrdering Facility: [facility] Address: [address] Performed By: #### 5 7021-8 ####[facility] LABCLIA [id number] [place] [address] [place] MCHC (RBC) [Mass/Vol] 32.3 g/dL Normal 30.5-36.0 [facility] Comment on above: Order Comment: Speci men Type: BLOOD SPECIMENOrdering Facility: [facility] Address: [address] Performed By: #### 5 7021-8 ####[facility] LABCLIA [id number] [place] [address] [place] MCV (RBC) [Entitic vol] 82.0 fL Normal 80.0-100.0 [facility] Comment on above: Order Comment: Speci men Type: BLOOD SPECIMENOrdering Facility: [facility] Address: [address] [place] [address] Performed By: #### 5 7021-8 ####[facility] LABIA [id number] [place] [address] [place] Monocytes (Bld) [#/Vol] 0.63 10*3/uL Normal <0.87 [facility] Comment on above: Order Comment: Speci men Type: BLOOD SPECIMENOrdering Facility: [facility] Address: [address] [place] [address] Performed By: #### 5 7021-8 ####[facility] LABIA [id number] [place] [address] [place] Monocytes/100 WBC (Bld) 5.8 % Normal [facility] Comment on above: Order Comment: Speci men Type: BLOOD SPECIMENOrdering Facility: [facility] Address: [address] [place], [place] [address] Performed By: #### 5 7021-8 ####[facility] LABIA [id number] [place] [address] [place] Neutrophils (Bld) [#/Vol] 8.06 10*3/uL High 1.45-7.50 [facility] Comment on above: Order Comment: Speci men Type: BLOOD SPECIMENOrdering Facility: [facility] Address: [address] [place], [place] [address] Performed By: #### 5 7021-8 ####[facility] LABIA [id number] [place] [address] [place] Neutrophils/100 WBC (Bld) 73.8 % Normal [facility] Comment on above: Order Comment: Speci men Type: BLOOD SPECIMENOrdering Facility: [facility] Address: [address] [place] [address] Performed By: #### 5 7021-8 ####[facility] LABIA [id number] [place] [address] [place] Nucleated RBC (Bld) [#/Vol] 10*3/uL Normal <0.01 [facility] Comment on above: Order Comment: Speci men Type: BLOOD SPECIMENOrdering Facility: [facility] Address: [address] Performed By: #### 5 7021-8 ####[facility] LABIA [id number] [place] [address] [place] Nucleated RBC/100 WBC (Bld) [Ratio] 0.0 /100 WBC Normal [facility] Comment on above: Order Comment: Speci men Type: BLOOD SPECIMENOrdering Facility: [facility] Address: [address] Performed By: #### 5 7021-8 ####[facility] LABIA [id number] [place] [address] [place] Platelet mean volume (Bld) [Entitic vol] 9.7 fL Normal 9.0-12.7 [facility] Comment on above: Order Comment: Speci men Type: BLOOD SPECIMENOrdering Facility: [facility] Address: [address] [place] [address] Performed By: #### 5 7021-8 ####[facility] LABIA [id number] [place] [address] [place] Platelets (Bld) [#/Vol] 218 10*3/uL Normal 150-400 [facility] Comment on above: Order Comment: Speci men Type: BLOOD SPECIMENOrdering Facility: [facility] Address: [address] [place] [address] Performed By: #### 5 7021-8 ####[facility] LABCLIA [id number] [place] [address] [place] RBC (Bld) [#/Vol] 4.49 10*6/uL Normal 4.20-6.00 [facility] Comment on above: Order Comment: Speci men Type: BLOOD SPECIMENOrdering Facility: [facility] Address: [address] [place], [place] [address] Performed By: #### 5 7021-8 ####[facility] LABIA [id number] [address] WBC (Bld) [#/Vol] 10.90 10*3/uL Normal 3.70-11.00 [facility] Comment on above: Order Comment: Speci men Type: BLOOD SPECIMENOrdering Facility: [facility] Address: [address] [place], [place] [address] Performed By: #### 5 7021-8 ####[facility] LABIA [id number] [address] [place] CRP SerPl-mCncon 12-20-2022 CRP [Mass/Vol] mg/L Normal <0.9 [facility] Comment on above: Order Comment: Speci men Type: BLOOD SPECIMENOrdering Facility: [facility] Address: [address] [place], [place] [address] Performed By: #### 2 4321-2, 1987-5, 2777-1, 77845-0 ####[facility] LABIA [id number] [place] [address] [place] Magnesium SerPl-mCncon 12-20 Magnesium [Mass/Vol] 1.8 mg/dL Normal 1.7-2.3 [facility] Comment on above: Order Comment: Speci men Type: BLOOD SPECIMENOrdering Facility: [facility] Address: [address] [place], [place] [address] Performed By: #### 2 4321-2, 1987-12, 2776-08, ####[facility] [id number] [address] [address] [place] Phosphate SerPl-mCncon 12-20 Phosphate [Mass/Vol] 3.7 mg/dL Normal 2.7-4.8 [facility] Comment on above: Order Comment: Speci men Type: BLOOD SPECIMENOrdering Facility: [facility] Address: [address] [place] [address] Performed By: #### 2 4321-2, 1987-12, 2776-08, ####[facility] LABIA [id number] [address] [address] [place] ANES POSTPROC EVALon 023 ANES POSTPROC EVAL HNO ID: [id number] Author: Pacheco Zhang III, MD Service: ? Author Type: Physician Type: Anesthesia Postprocedure Evaluation Filed: 12/19/2022 1:04 PM Note Text: POST ANESTHESIA EVALUATION NOTE : 1965 Procedure Summary Date: 12/19/22 [address] Anesthesia Start: 1051 Anesthesia Stop: 1254 Procedure: CLOSURE ILEOSTOMY (Abdomen) Diagnosis: Ileostomy in place (HCC) (Ileostomy in place (HCC) [Z93.2]) Surgeons: Katty Antonio MD Responsible Provider: Pacheco Zhang III, MD Anesthesia Type: general ASA Status: 3 Anesthesia Type: general Airway Type: ETT Last Vitals Vitals Value Taken Time BP 119/73 12/19/22 1300 Temp 36 ?C (96.8 ?F) 12/19/22 1254 Pulse 66 12/19/22 1302 Resp 11 12/19/22 1302 SpO2 98 % 12/19/22 1302 Vitals shown include unvalidated device data. Post Anesthesia Patient Status Patient Evaluation: bedside. Anticipated Disposition: inpatient floor planned admission. Neurological Status: aware and responsive. Pulmonary Status: breathing comfortably on supplemental oxygen Airway Control: returned to baseline unsupported. Cardiovascular Status: stable. Pain Management: clinically adequate Postoperative Hydration: acceptable. Intraoperative Events: no significant anesthesia events Post Operative Nausea/Vomiting Status: no significant post operative nausea or vomiting Recommendation: continue current plan of care. Anesthesia Observations No notable events were associated with this procedure. Documented by Danielle Jauregui APRN.[employer]ILER 12/19/2022 12:27 PM EDT SIGNATURE: Pacheco Zhang III, MD PATIENT NAME: Shira Gavin DATE: December 19, 2022 TIME: 1:03 PM CSN: [id number] Normal [facility] ANES PRE-OPon 12-19-2022 ANES PRE-OP HNO ID: [id number] Author: Pacheco Zhang III, MD Service: ? Author Type: Physician Type: Anesthesia Preprocedure Evaluation Filed: 12/19/2022 10:06 AM Note Text: ANESTHESIOLOGY DAY OF SURGERY NOTE : 1965 Procedure Information Date/Time: 12/19/22 1045 Procedure: CLOSURE ILEOSTOMY (Abdomen) Location: [facility] Surgeons: Katty Antonio MD Estimated body mass index is 31.63 kg/m? as calculated from the following: Height as of 12/13/22: 172.7 cm (5' 8). Weight as of 12/13/22: 94.3 kg (208 lb). 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 Tracheostomy tube not present Mallampati: III. TM distance: <3 FB. Neck ROM: full ROM without neurological symptoms. Mouth opening: adequate. Short neck: yes. Thick neck: yes Maguire present: yes DENTAL Dental findings: teeth intact. II - ANESTHESIA PLAN ASA Score: 3 Anesthetic Plan: general Airway type: ETT The patient is a current smoker. NPO Status: adequate Beta Frank Monitoring Plan Monitoring plan: standard ASA. Post Procedure Analgesic Plan Postoperative analgesic plan: multimodal analgesia. Informed Consent Anesthetic risks, benefits, alternatives, personnel and consent discussed: yes. Patient / Responsible Republican agrees to proceed: yes Patient / Surrogate agrees to blood products: Yes DNR status not reviewed with patient and/or family prior to surgery. Significant changes in the patient condition since the History and Physical, not otherwise documented in primary service progress note: no. Potential Anesthesia issues that may suggest increased risk of complications or contraindication to planned procedure: none. Vitals Value Taken Time BP 122/72 12/19/22924 Pulse 64 12/19/22924 Resp 16 12/19/22924 Temp 36.3 ?C (97.3 ?F) 12/19/22924 SpO2 99 % 12/19/22924 Facility-Administered Medications as of 12/19/2022 Medication Dose Route Frequency - lidocaine (PF) 10 mg/mL (1 %) 1-2 mg injection (XYLOCAINE) 0.1-0.2 mL INTRADERMAL PRN Or - lidocaine 1% 0.25 mL subcutaneous j-tip syringe (XYLOCAINE) 0.25 mL SUBCUTANEOUS PRN - lactated ringers iv infusion 5-30 mL/hr INTRAVENOUS CONTINUOUS - NaCl 0.9% iv flush bag 20 mL INTRAVENOUS PRN - [COMPLETED] heparin 5,000 Units injection 5,000 Units SUBCUTANEOUS ONCE - cefTRIAXone 2 g in D5W 100 mL Vial-Bag (ROCEPHIN) 2 g INTRAVENOUS Pre-Op Once - metroNIDAZOLE iv piggyback 500 mg in NaCl (iso-osmotic) 100 mL (FLAGYL) 500 mg INTRAVENOUS Pre-Op Once - [COMPLETED] acetaminophen 1,000 mg tab(s) (TYLENOL) 1,000 mg ORAL ONCE Outpatient Medications as of 12/19/2022 Medication Sig - aspirin 81 mg chewable tablet Take 1 tablet by mouth once daily. - acetaminophen (TYLENOL) 500 mg tablet Take 2 tablets by mouth every 6 hours as needed for pain. - latanoprost (XALATAN) 0.005 % ophthalmic solution Use 1 Drop in both eyes daily at bedtime. - Psyllium Seed-Sucrose Take 1 Tablespoonful by mouth once daily. I have interviewed and examined the patient. I have reviewed the medical record and/or the pre-anesthesia evaluation, pertinent labs, and test results. This contains updated information obtained within 48 hours of Surgery/Procedure. SIGNATURE: Pacheco Zhang III, MD PATIENT NAME: Shira Gavin DATE: December 19, 2022 TIME: 10:06 AM CSN: [id number] [facility] BRIEF OP NOTon 12-19-2022 BRIEF OP NOT HNO ID: [id number] Author: David Dawson MD Service: Colorectal Author Type: Fellow Type: Brief Op Note Filed: 12/19/2022 12:23 PM Note Text: BRIEF OPERATIVE NOTE - COLORECTAL SURGERY Log ID: [id number] Surgery/Procedure Date: 12/19/2022 Incision/Procedure Start Time: 11:41 AM Incision Close/Procedure End Time: 12:19 PM Surgeon(s) and Gin Inspector(s): Surgeon(s) and Role: * Katty Antonio MD - Primary * David Dawson MD - Fellow No Additional Staff Procedures and Anesthesia: Procedure(s) and Anesthesia Type: * CLOSURE ILEOSTOMY - Choice - Anesthesia Consult Findings: Uncomplicated loop ileostomy closure, handsewn Estimated Blood Loss: Minimal Specimens: None Diagnosis Code(s): Pre-Op Diagnosis Codes: * Ileostomy in place ([facility]) [Z93.2] Postop Diagnosis: ileostomy Drains: None Wound Classification: Class 3, operative wound contaminated with stoma closure Complications: None SIGNATURE: David Dawson MD PATIENT NAME: Shira Gavin DATE: December 19, 2022 TIME: 12:23 PM Normal [facility] CONSULTon 12-19-2022 CONSULT HNO ID: [id number] Author: Sarabjit Gomez MD Service: Anesthesiology Author Type: Resident Type: Consults Filed: 12/19/2022 12:27 PM Note Text: -- Attestation signed by Rico Ramirez MD at 12/22/2022 9:18 AM I have personally reviewed the note and participated in the george parts of the patient care. I agree with the above plan. Signature: Rico Ramirez MD, [facility] Staff Anesthesiologist -- Anesthesia Pain Service Consult Note PATIENT NAME: Shira Gavin : 1965 Consults Service Date Time: 12/19/2022 11:00 AM Service Requesting Consult: Colorectal Opinion/Advice Regarding: Consultation regarding post operative pain following laparotomy/ abdominal surgery. The surgeon requesting our opinion regarding the feasibility for a TAP block. Subjective Chief Complaint: Post-operative INTERVAL HPI Shira Gavin is a 56 year old male who is POD #0,S/P who reports pain that began Anticipating Postoperative pain following abdominal surgery and is described as: SOFTWARE DEVELOPER MID LEVEL Patient on IV SOFTWARE DEVELOPER MID LEVEL?: No Block Candidate for Pre-Op Block?: Yes Anticipated Block Type: TAP block Block Laterality: Trunk PDMP Verification: PDMP website checked and validated Plan Plan Discussed With: Patient A consult placed by the surgical team regarding post operative pain following a laparotomy incision. Expected pain is variable following this incision but usually it is a moderate to sever pain , sharp and stabbing. May restrict chest exercises post surgery. TAP block , is considered a relatively safe procedure with minimal complication ( rare infection or bleeding ) however, it reduce the amount of pain as well as the need for narcotics significantly and change the pattern of pain to a tolerable , pressure type of pain. Discussed the Risks , benefits and alternatives of TAP block in addition to multimodal analgesia. The patient agree to proceed. Objective APS Progress Note ROS BP 122/72 Pulse 64 Temp 36.3 ?C (97.3 ?F) (Temporal Artery) Resp 16 SpO2 99% Physical Exam Sensory/Motor Exam Intake/Output Summary (Last 24 hours) at 12/19/2022 1226 Last data filed at 12/19/2022 1224 Gross per 24 hour Intake 700 ml Output 15 ml Net 685 ml Lab Results: APTT 41.8 11/04/2014 PT Sec 10.9 10/20/2021 PT INR 1.0 10/20/2021 Hemoglobin 13.8 12/13/2022 Hematocrit 43.7 12/13/2022 Platelet Count 270 12/13/2022 Radiology: N/A Lines/Drains/Airways: Lines, Drains, and Airways Line Duration Peripheral 12/19/22 0940 Short Right Forearm 22 Gauge <1 day Peripheral 12/19/22 1111 Left 18 Gauge <1 day Airway Duration Airway Endotracheal Tube 12/19/22 1110 <1 day Problem List *Ileostomy in place (HCC) (12/19/2022) Past Medical History PAST MEDICAL HISTORY Diagnosis Date Anticoagulated on Coumadin 2014 Diverticulosis of colon 10/23/2014 perforated diverticulitis Glaucoma, bilateral Heart murmur as baby, states resolved Pulmonary embolism (HCC) 10/27/[address] Past Surgical History PAST SURGICAL HISTORY Procedure Laterality Date PAST SURGICAL HISTORY OF 08/28/2009 right rotator cuff repair PAST SURGICAL HISTORY OF right finger PAST SURGICAL HISTORY OF colonoscopy PAST SURGICAL HISTORY OF wisdom teeth PICC LINE INSERT/CONSULT 10/30/2014 Family History FAMILY HISTORY Problem Relation Age of Onset other (lung cancer) Mother DVT Father multiple PE Diabetes Father other (Pulmonary embolism) Father multiple DVT Dementia Father Social History Social History Tobacco Use Smoking status: Never Smokeless tobacco: Current Types: Chew Tobacco comments: began chewing ~1986 Substance Use Topics Alcohol use: Yes Drug use: Not Currently Prior to Admission Medications aspirin 81 mg chewable tablet, Take 1 tablet by mouth once daily., Disp: 30 tablet, Rfl: 0, Past Week acetaminophen (TYLENOL) 500 mg tablet, Take 2 tablets by mouth every 6 hours as needed for pain., Disp: , Rfl: , Past Week latanoprost (XALATAN) 0.005 % ophthalmic solution, Use 1 Drop in both eyes daily at bedtime., Disp: , Rfl: , 12/18/2022 at pm Psyllium Seed-Sucrose, Take 1 Tablespoonful by mouth once daily. , Disp: , Rfl: , 12/18/2022 at am Allergies: ALLERGIES No Known Allergies Current Hospital Medications Current Facility-Administered Medications Medication Dose Route Frequency lidocaine (PF) 10 mg/mL (1 %) 1-2 mg injection (XYLOCAINE) 0.1-0.2 mL INTRADERMAL PRN Or lidocaine 1% 0.25 mL subcutaneous j-tip syringe (XYLOCAINE) 0.25 mL SUBCUTANEOUS PRN lactated ringers iv infusion 5-30 mL/hr INTRAVENOUS CONTINUOUS NaCl 0.9% iv flush bag 20 mL INTRAVENOUS PRN Facility-Administered Medications Ordered in Other Encounters Medication Dose Route Frequency lactated ringers (more content not included)... Normal [facility] NURSING PROGon 12-19-2022 NURSING PROG HNO ID: [id number] Author: Nazanin Bridges RN Service: ? Author Type: Registered Nurse Type: Nursing Progress Note Filed: 12/19/2022 3:49 PM Note Text: Patient transferred to [facility] in stable condition VSS skin evaluation complete. Patient resting with family and educated on POC Actions taken: Patient oriented to room, call light function, prescribed activities, Patient rights and Quiet at night. No futher actions taken at this time. Will continue to monitor and check with patient. Normal [facility] OPERATIVE NOon 12-19-2022 OPERATIVE NO HNO ID: [id number] Author: Katty Antonio MD Service: Colorectal Author Type: Physician Type: Operative Report Filed: 12/21/2022 4:11 PM Note Text: [facility] - Operative Report [address] [place] [address] [place] SHIRA GAVIN : 1965 AGE: 56. SEX: M PATIENT TYPE: I [facility] LOCATION: [id number] ATTENDING PHYSICIAN: Katty Antonio M.D. CSN NUMBER: [id number] DATE OF SURGERY/PROCEDURE: 12/19/2022 INCISION/PROCEDURE START TIME: 11:41. INCISION CLOSE/PROCEDURE END TIME: 12:19. PREOPERATIVE DIAGNOSIS: Ileostomy. POSTOPERATIVE DIAGNOSIS: Ileostomy. SURGEON: Katty Antonio M.D. MARINE EQUIPMENT PRESERVATION INSPECTOR: Dr. David Dawson. SURGERY/PROCEDURE: Sutured loop ileostomy closure. ANESTHESIA: General by endotracheal plus he had a TAP block. INDICATIONS: This 56-year-old gentleman on September 16, 2022, underwent a laparoscopic sigmoid resection with colorectal anastomosis, loop ileostomy, and flexible sigmoidoscopy after having at least 4 episodes of diverticulitis with an abscess. He had a negative Gastrografin enema and comes for stoma closure. Of note, in 2014, he had a DVT and a pulmonary embolism. He was reviewed here by Dr. Lenz and this was felt to be situational. 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 OPERATIVE FINDINGS: This is a sutured closure. DESCRIPTION OF PROCEDURE: The patient was brought to the operating room. A huddle was done. General endotracheal anesthesia was administered. A TAP block was done by the Pain Service. The hair was clipped. His abdomen was prepped and draped. A time out was done. A circumferential incision was made around the right-sided stoma. It was freed up into the abdomen. The limbs were checked with Betadine and looked satisfactory. The ends were uneverted and trimmed and a single layer 3-0 Vicryl was used to close the ileoileostomy. Milking fluid back through, there was no evidence of a leak. The bowel was irrigated and replaced back in the abdomen. The fascia was closed with [id number] #1 PDS. The skin was left open. He was awakened and taken to the recovery room. ESTIMATED BLOOD LOSS: 15 mL. WOUND CLASSIFICATION: 3. DRAINS: There were no drains. ATTESTATION: I was present for the entire case doing with Dr. Dawson. Katty Antonio M.D. TH:[id number] /[id number] Normal [facility] Basic metabolic 2000 panelon 12-13-2022 Anion gap [Moles/Vol] 12 mmol/L Normal 9-18 [facility] Comment on above: Order Comment: Speci men Type: BLOOD SPECIMENOrdering Facility: [facility] Address: [address] [place] [address] Performed By: #### 2 4321-2 ####[facility] LABCLIA [id number] [facility] [place] [address] [address] [place] Calcium [Mass/Vol] 9.3 mg/dL Normal 8.5-10.2 [facility] Comment on above: Order Comment: Speci men Type: BLOOD SPECIMENOrdering Facility: [facility] Address: [address] Performed By: #### 2 4321-2 ####[facility] LABCLIA [id number] [place] [address] [place] Chloride [Moles/Vol] 106 mmol/L High 97-105 [facility] Comment on above: Order Comment: Speci men Type: BLOOD SPECIMENOrdering Facility: [facility] Address: [address] [place] [address] Performed By: #### 2 4321-2 ####[facility] LABCLIA [id number] [place] [address] [place] CO2 [Moles/Vol] 23 mmol/L Normal 22-30 [facility] Comment on above: Order Comment: Speci men Type: BLOOD SPECIMENOrdering Facility: [facility] Address: [address] [place] [address] Performed By: #### 2 4321-2 ####[facility] LABCLIA [id number] [place] [address] [place] Creatinine [Mass/Vol] 1.13 mg/dL Normal 0.73-1.22 [facility] Comment on above: Order Comment: Speci men Type: BLOOD SPECIMENOrdering Facility: [facility] Address: [address] Performed By: #### 2 4321-2 ####[facility] LABCLIA [id number] [place] [address] [place] ESTIMATED GLOMERULAR FILTRATION RATE 77 mL/min/1.73m??? Normal >=60 [facility] Comment on above: Order Comment: Speci men Type: BLOOD SPECIMENOrdering Facility: [facility] Address: [address] [place], [place] [address] Result Comment: Alis mated Glomerular Filtration Rate (eGFR) is calculated using the 2020 CKD-EPI creatinine equation. This equation utilizes serum creatinine, sex, and age as parameters. The creatinine assay has traceable calibration to isotope dilution-mass spectrometry. Refer to KDIGO guidelines for clinical interpretation. In patients with unstable renal function, e.g. those with acute kidney injury, the eGFR may not accurately reflect actual GFR. Performed By: #### 2 4321-2 ####[facility] LABIA [id number] [place] [address] [place] Glucose [Mass/Vol] 95 mg/dL Normal 74-99 [facility] Comment on above: Order Comment: Amy saul Type: BLOOD SPECIMENOrdering Facility: [facility] Address: [address] [id number] Result Comment: The [place] [employer] (ADA) provides guidance for cutoff values for fasting glucose and random glucose. The ADA defines fasting as no caloric intake for at least 8 hours. Fasting plasma glucose results between 100 to 125 mg/dL indicate increased risk for diabetes (prediabetes). Fasting plasma glucose results greater than or equal to 126 mg/dL meet the criteria for diagnosis of diabetes. In the absence of unequivocal hyperglycemia, results should be confirmed by repeat testing. In a patient with classic symptoms of hyperglycemia or hyperglycemic crisis, random plasma glucose results greater than or equal to 200 mg/dL meet the criteria for diagnosis of diabetes. Reference: Standards of Medical Care in Diabetes 2016, [place] [employer]. Diabetes Care. 2016.39(Suppl 1). Performed By: #### 2 4321-2 ####[facility] LABIA [id number] [place] [address] [place] Potassium [Moles/Vol] 4.3 mmol/L Normal 3.7-5.1 [facility] Comment on above: Order Comment: Amy saul Type: BLOOD SPECIMENOrdering Facility: [facility] Address: [address] [place] [address] Performed By: #### 2 4321-2 ####[facility] LABIA [id number] [place] [id number] [facility] [place] Sodium [Moles/Vol] 141 mmol/L Normal 136-144 [facility] Comment on above: Order Comment: Speci men Type: BLOOD SPECIMENOrdering Facility: [facility] Address: [address] [place], [place] [address] Performed By: #### 2 4321-2 ####[facility] LABCLIA [id number] [place] [address] [place] Urea nitrogen [Mass/Vol] 18 mg/dL Normal 9-24 [facility] Comment on above: Order Comment: Speci men Type: BLOOD SPECIMENOrdering Facility: [facility] Address: [address] [place], [place] [address] Performed By: #### 2 4321-2 ####[facility] LABCLIA [id number] [place] [address] [place] CBC panel Auto (Bld)on 12-13 Erythrocyte distribution width (RBC) [Ratio] 14.6 % Normal 11.5-15.0 [facility] Comment on above: Order Comment: Speci men Type: BLOOD SPECIMENOrdering Facility: [facility] Address: [address] [place], [place] [address] Performed By: #### 5 8410-2 ####[facility] LABIA [id number] [place] [address] [place] Hematocrit (Bld) [Volume fraction] 43.7 % Normal 39.0-51.0 [facility] Comment on above: Order Comment: Speci men Type: BLOOD SPECIMENOrdering Facility: [facility] Address: [address] [place], [place] [address] Performed By: #### 5 8410-2 ####[facility] LABCLIA [id number] [place] [address] [place] Hemoglobin (Bld) [Mass/Vol] 13.8 g/dL Normal 13.0-17.0 [facility] Comment on above: Order Comment: Speci men Type: BLOOD SPECIMENOrdering Facility: [facility] Address: [address] [place] [address] Performed By: #### 5 8410-2 ####[facility] LABIA [id number] [address] MCH (RBC) [Entitic mass] 25.8 pg Low 26.0-34.0 [facility] Comment on above: Order Comment: Speci men Type: BLOOD SPECIMENOrdering Facility: [facility] Address: [address] [place] [address] Performed By: #### 5 8410-2 ####[facility] LABIA [id number] [address] MCHC (RBC) [Mass/Vol] 31.6 g/dL Normal 30.5-36.0 [facility] Comment on above: Order Comment: Speci men Type: BLOOD SPECIMENOrdering Facility: [facility] Address: [address] Performed By: #### 5 8410-2 ####[facility] [id number] [address] STATES [facility] MCV (RBC) [Entitic vol] 81.8 fL Normal 80.0-100.0 [facility] Comment on above: Order Comment: Speci men Type: BLOOD SPECIMENOrdering Facility: [facility] Address: [address] Performed By: #### 5 8410-2 ####[facility] LABIA [id number] [address] [place] Nucleated RBC (Bld) [#/Vol] 10*3/uL Normal <0.01 [facility] Comment on above: Order Comment: Speci men Type: BLOOD SPECIMENOrdering Facility: [facility] Address: [address] Performed By: #### 5 8410-2 ####[facility] LABIA [id number] [place] [address] [place] Platelet mean volume (Bld) [Entitic vol] 9.6 fL Normal 9.0-12.7 [facility] Comment on above: Order Comment: Speci men Type: BLOOD SPECIMENOrdering Facility: [facility] Address: [address] [place], [place] [address] Performed By: #### 5 8410-2 ####[facility] LABIA [id number] [place] [address] [place] Platelets (Bld) [#/Vol] 270 10*3/uL Normal 150-400 [facility] Comment on above: Order Comment: Speci men Type: BLOOD SPECIMENOrdering Facility: [facility] Address: [address] [place], [place] [address] Performed By: #### 5 8410-2 ####[facility] LABIA [id number] [place] [address] [place] RBC (Bld) [#/Vol] 5.34 10*6/uL Normal 4.20-6.00 [facility] Comment on above: Order Comment: Speci men Type: BLOOD SPECIMENOrdering Facility: [facility] Address: [address] [place], [place] [address] Performed By: #### 5 8410-2 ####[facility] LABIA [id number] [place] [address] [place] WBC (Bld) [#/Vol] 9.43 10*3/uL Normal 3.70-11.00 [facility] Comment on above: Order Comment: Speci men Type: BLOOD SPECIMENOrdering Facility: [facility] Address: [address] [place], [place] [address] Performed By: #### 5 8410-2 ####[facility] LABIA [id number] [address] [address] [place] CNOVon 12-13-2022 CNOV Office Visit (ESTER ) -- SHIRA GAVIN ([id number]) 1965 M Date Time Provider Department 12/13/22 1:20 PM KATTY ANTONIO During your visit today, we recorded the following information about you: Temperature Pulse Blood pressure Weight 98.1 degrees 88/minute 121/72 94.3 kg Height 1.727 m Katty Antonio MD 12/13/2022 6:34 PM Signed COLORECTAL SURGERY December 13, 2022 Chief Complaint: discuss next steps History of Present Illness: Shira Gavin is a 56 year old year old male had at least 4 episodes of diverticulitis, had an abscess associated with one of them. In 2014, he had the largest abscess that was anterior to the rectum extending into the very low pelvis required interventional radiology for drainage. His other episodes were in 2015, 2019, and 2021. Looking at his films, he has a very redundant sigmoid that is in the pelvis and it looks like it is the sigmoid/distal descending colon is where the disease was been located. In 2014, he had deep venous thrombosis and pulmonary embolism. He was reviewed here by Dr. Lenz and they felt this is situational. 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 09-16-22 Laparoscopic sigmoid resection with colorectal anastomosis, loop ileostomy, and flexible sigmoidoscopy. 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 We mobilized, so we be able to get the staple gun in. There was no tension on the anastomosis, 2 complete donuts and it looked excellent with flexible sigmoidoscopy. We did do a proximal ileostomy due to the difficulty with dissection and fibrosis in the pelvis. He was discharged on 09-19-22 GGE today IMPRESSION: NO LEAK OR OBSTRUCTION Changes the ileostomy pouch 2 x per week and empties 6-8 x per day Passing mucus per rectum with good control PAST MEDICAL HISTORY Diagnosis Date Anticoagulated on Coumadin 2014 Diverticulosis of colon 10/23/2014 perforated diverticulitis Glaucoma, bilateral Heart murmur as baby, states resolved Pulmonary embolism (HCC) 10/27/[address] PAST SURGICAL HISTORY Procedure Laterality Date PAST SURGICAL HISTORY OF 08/28/2009 right rotator cuff repair PAST SURGICAL HISTORY OF right finger PAST SURGICAL HISTORY OF colonoscopy PAST SURGICAL HISTORY OF wisdom teeth PICC LINE INSERT/CONSULT 10/30/2014 Current Outpatient Medications Medication Sig Dispense Refill aspirin 81 mg chewable tablet Take 1 tablet by mouth once daily. 30 tablet 0 acetaminophen (TYLENOL) 500 mg tablet Take 2 tablets by mouth every 6 hours as needed for pain. latanoprost (XALATAN) 0.005 % ophthalmic solution Use 1 Drop in both eyes daily at bedtime. Psyllium Seed-Sucrose Take 1 Tablespoonful by mouth once daily. No current facility-administered medications for this visit. ALLERGIES No Known Allergies Social History Tobacco Use Smoking status: Never Smokeless tobacco: Current Types: Chew Tobacco comments: began chewing ~1986 Substance Use Topics Alcohol use: Yes Drug use: Not Currently Review of Systems / PACC screen: Do you have difficulty climbing a full flight of stairs without feeling short of breath? no Do you require oxygen for your breathing or have your gone to an emergency department because of breathing problems? no Are you on dialysis or have you been told that your kidneys do not work well as they should? no Do have an implanted cardiac device (pacemaker, defibrillator etc.) that has not been checked in the last 6 months? no Have you had an organ transplant? no Have you been told that you had excessive bleeding during surgical procedures or do you take blood thinning medications other than aspirin? no Have you ever had a heart attack, heart stents/surgery, valve problems, or other heart problems? no Have you had a stroke, seizures, or unexplained loss of consciousness? no Do you have a neurologic condition like Parkinson's disease or multiple sclerosis? no Have you or a blood relative had a life-threatening reaction to anesthesia? no Do you have cirrhosis of the liver or other liver disease? no Have you had a blood clot within the past year? no Do you take insulin or other injections for diabetes? no Do you have sleep apnea or have you been told you may have sleep apnea? no Do you have other implanted devices (deep brain stimulator, spinal cord stimulator, etc.)? no REVIEW OF SYSTEMS PAIN ASSESSMENT: Negative for pain, history of chronic pain, or current treatment for a chronic pain condition. GENERAL: Weight loss HEENT: Negative for frequent or significant headaches, No changes in hearing or vision, no nose bleeds or other nasal problems NECK: Negative for lumps, goiter, pain a (more content not included)... Normal [facility] XR COLON SINGLE CONTRASTon 0 12-13-2022 XR COLON SINGLE CONTRAST * * *Final Report* * * DATE OF EXAM: Dec 13 2022 11:26AM HGX [id number] - XR COLON SINGLE CONTRAST / PROCEDURE REASON: Ileostomy in place (HCC) * * * * Physician Interpretation * * * * WATER SOLUBLE CONTRAST ENEMA HISTORY: Subtotal proctocolectomy with colorectal anastomosis. Preprocedure evaluation for possible ileostomy takedown. TECHNIQUE: Water soluble contrast was administered rectally under intermittent fluoroscopy. Contrast: RECTAL: 500 ml of OMNIPAQUE 300+WATER Fluoroscopy radiation summary: Fluoroscopy time: 2:48 (min:sec). Air kerma: 153.8 mGy. RESULT: Construction Engineering Manager: Right lower quadrant ostomy. No dilated bowel. Findings: Contrast fills the rectum and refluxes to the level of the ileostomy. The colorectal anastomosis is intact without leak or obstruction. Staff Physician: Frances Santizo M.D. was present for the critical portions of the procedure and was immediately available throughout the remainder of the procedure. IMPRESSION: NO LEAK OR OBSTRUCTION. Network Architect Manager: ROXANA Transcribe Date/Time: Dec 13 2022 11:29A Dictated by : ROXANNA ROBIN, DO This examination was interpreted and the report reviewed and electronically signed by: FRANCES SANTIZO MD on Dec 13 2022 11:43AM EST [id number] Normal [facility] Terrence 10-16-2022 TIBURCION Telephone (ESTER) -- DINOSHIRA Falcon ([id number]) 1965 M Date Time Provider Department 10/16/22 STOMA THERAPY ESTER During your visit today, we recorded the following information about you: Elian Ngo RN 10/16/2022 7:00 PM Signed [facility] nursing returned patient message regarding skin break down. Left Message: No Information/Recommendation s provided regarding skin is becoming irritated around the stoma. I recommended continuing to use the Stomahesive powder and no sting barrier film and ensure that they are cutting to the right size. They will send an e-mail tonight so we can have a look at the stoma. I also recommended they come in for a check up with us. He may need to move into a convex pouch. Time spent: 15 minutes Elian Ngo RN Allergies As of Date: 10/16/2022 (No Known Allergies) Date Reviewed: 09/18/2022 Reviewed by: Kya Botello RN - Fully Assessed Reason for Visit: Returning Patient's Call [[phone]] Prescriptions as of 10/16/2022 - aspirin 81 mg chewable tablet Take 1 tablet by mouth once daily. - acetaminophen (TYLENOL) 500 mg tablet Take 2 tablets by mouth every 6 hours as needed for pain. - latanoprost (XALATAN) 0.005 % ophthalmic solution Use 1 Drop in both eyes daily at bedtime. - Psyllium Seed-Sucrose Take 1 Tablespoonful by mouth once daily. Problem List As Of Date 10/16/2022 Noted Resolved Diverticulitis of colon [K57.32] 10/24/2014 Abscess of abdominal cavity (HCC) [K65.1] 10/24/2014 Leukocytosis [D72.829] 10/24/2014 Nausea and vomiting in adult patient [R11.2] 10/23/2014 Abdominal abscess (HCC) [TQN1364] 10/27/2014 Pulmonary embolism (HCC) [I26.99] 10/29/2014 Anticoagulated on Coumadin [Z79.01] 10/29/2014 Acute pulmonary embolism (HCC) [I26.99] 11/01/2014 Anticoagulation management encounter [Z51.81, Z*11/01/2014 Septic arthritis of left sternoclavicular joint*11/07/2014 Personal history of DVT (deep vein thrombosis) *08/04/2015 Personal history of pulmonary embolism [Z86.711]08/04/2015 History of pulmonary embolism [Z86.711] 08/02/2016 Acute diverticulitis [K57.92] 10/20/2021 Nicotine use disorder, F17.2 [F17.200] 10/23/2021 Obesity, Class I, BMI 30-34.9 [E66.9] 10/23/2021 Pre-op evaluation [Z01.818] 09/05/2022 Tobacco use [Z72.0] 09/05/2022 VTE (venous thromboembolism) [I82.90] 09/05/2022 Elevated BP without diagnosis of hypertension [*09/05/2022 Diverticulitis [K57.92] 09/16/2022 09/16/2022 Obesity, Class II, BMI 35-39.9 [E66.9] 09/16/2022 Hypocalcemia [E83.51] 09/19/2022 09/19/2022 Hypophosphatemia [E83.39] 09/19/2022 09/19/2022 Encounter Status:Closed by ELIAN NGO on 10/16/22 [facility] 09-22-2022 CNPN Telephone (PODCCP) -- SHIRA GAVIN ([id number]) 1965 M Date Time Provider Department 09/22/22 PATRICE GARCIA PODCCTosin During your visit today, we recorded the following information about you: Patrice Garcia RN 09/22/2022 11:24 AM Signed PATIENT INFORMATION Record ID: [id number] Patient Name: Shira [facility]: [facility] [place]: [facility] [place] Attending: Katty Antonio Center: Colorectal Surgery INSTRUCTIONS SN to remind patient of appointment date, time, location All Clear Ask follow question #4b on NOC section of survey. All Clear All Clear SURVEY INFORMATION Medical/Nurse Gin Inspector: Patrice Garcia 1. Your discharge instructions are important in guiding you through the recovery process. Is there anything I could help you clarify on your discharge instructions? (Standard Question) No 2. Do you have a follow up appointment related to your hospital stay scheduled within the next 30 days? (Standard Question) Yes 3. Are you vomiting after eating or drinking? (Red Flag Question) No 4. Do you have a stoma? Yes 5. Are you having any difficulty passing urine? (Red Flag Question) No 6. Do you have any of the following new symptoms related to your wound? Creamy white or foul smelling drainage Increasing redness or swelling, Increasing pain;? (Red Flag Question) No 7. Many patients have concerns about their medications once they are home. Do you have any questions about getting or taking your medications? (Standard Question) No 8. Do you have any new or different symptoms? (Standard Question) No Allergies As of Date: 09/22/2022 (No Known Allergies) Date Reviewed: 09/18/2022 Reviewed by: Kya Botello RN - Fully Assessed Reason for Visit: Follow Up Phone Call [[phone]] Cmt: All Clear Prescriptions as of 09/22/2022 - aspirin 81 mg chewable tablet Take 1 tablet by mouth once daily. - acetaminophen (TYLENOL) 500 mg tablet Take 2 tablets by mouth every 6 hours as needed for pain. - latanoprost (XALATAN) 0.005 % ophthalmic solution Use 1 Drop in both eyes daily at bedtime. - Psyllium Seed-Sucrose Take 1 Tablespoonful by mouth once daily. Problem List As Of Date 09/22/2022 Noted Resolved Diverticulitis of colon [K57.32] 10/24/2014 Abscess of abdominal cavity (HCC) [K65.1] 10/24/2014 Leukocytosis [D72.829] 10/24/2014 Nausea and vomiting in adult patient [R11.2] 10/23/2014 Abdominal abscess (HCC) [GTG8940] 10/27/2014 Pulmonary embolism (HCC) [I26.99] 10/29/2014 Anticoagulated on Coumadin [Z79.01] 10/29/2014 Acute pulmonary embolism (HCC) [I26.99] 11/01/2014 Anticoagulation management encounter [Z51.81, Z*11/01/2014 Septic arthritis of left sternoclavicular joint*11/07/2014 Personal history of DVT (deep vein thrombosis) *08/04/2015 Personal history of pulmonary embolism [Z86.711]08/04/2015 History of pulmonary embolism [Z86.711] 08/02/2016 Acute diverticulitis [K57.92] 10/20/2021 Nicotine use disorder, F17.2 [F17.200] 10/23/2021 Obesity, Class I, BMI 30-34.9 [E66.9] 10/23/2021 Pre-op evaluation [Z01.818] 09/05/2022 Tobacco use [Z72.0] 09/05/2022 VTE (venous thromboembolism) [I82.90] 09/05/2022 Elevated BP without diagnosis of hypertension [*09/05/2022 Diverticulitis [K57.92] 09/16/2022 09/16/2022 Obesity, Class II, BMI 35-39.9 [E66.9] 09/16/2022 Hypocalcemia [E83.51] 09/19/2022 09/19/2022 Hypophosphatemia [E83.39] 09/19/2022 09/19/2022 Encounter Status:Closed by PATRICE GARCIA on 09/22/22 [facility] 09-19-2022 ALLIED [facility] HNO ID: [id number] Author: Palma Soliz RN Service: Wound/Ostomy Author Type: Registered Nurse Type: Allied Health Filed: 09/19/2022 4:40 PM Note Text: [place] [address] How to Change Your Disposable, Two-Piece Pouch With Cut-to-Fit Barrier Flange (Post-Operative Technique) Loop Ileostomy 1. Gather the following supplies: Washcloths or paper towels e.g. Columbia, Bounty, Jeremi, or Brawny Non-oily soap e.g. Ivory and Dial Scissors with at least one blunt tip Plastic bag for waste New pouch: ConvaTec: 2 ? Melissa-Fit Natura + Invisiclose, transparent, w/ filter #[id number] Skin barrier flange: ConvaTec: Melissa-Fit Natura 2 1/4 Flat Durahesive # 300076 Accessory products: Adhesive Remover, Stoma Powder, Barrier Ring, Belt, and Other: Elastic Barrier Strips 2. Prepare the new pouch: Trace the pattern (sized to fit within 1/8 of stoma) on the cover paper of the skin barrier flange. Cut out the skin barrier flange. Center the pouch opening over the skin barrier flange and snap firmly together. Close the end of the pouch. Remove the skin barrier cover papers from the adhesive surface of the flange. Stretch and place Brava Moldable Ring around cut opening of flange on the adhesive surface. Set the prepared pouch assembly aside, sticky side up. 3. Remove the worn pouch: Holding the pouch upright, open the end of the pouch. Empty the waste from the pouch into the toilet. Remove the worn pouch by: Applying light pressure on the skin with one hand. Gently pulling the pouch from the skin with the other hand. Use adhesive remover as needed Place in a plastic bag and discard. 4. Cleanse the skin around the stoma: Wash the area around the stoma with non-oily soap and warm water Shave area as needed. Rinse the area thoroughly with warm water. Pat the skin dry with a washcloth or paper towel. Use skin barrier powder to sore skin as needed. [place] off excess powder. 5. Apply the prepared pouch: Center the pouch opening over the stoma and press into place. Smooth the sticky surface of the skin barrier flange onto the skin. Hold the pouch firmly in place for a few moments. Place Elastic Barrier Strips as needed/wanted. Attach belt as needed/wanted. 6. Change pouch flange every 3-4 days. Empty your pouch when it is 1/3-1/2 full Measure your stoma every other pouch change or once a week and adjust the size of the skin barrier as needed Measure your stoma if you gain or lose 10lb or more If your pouch leaks or the skin around your stoma gets sore, call your [facility] Nurse at or , ext. [phone]. To make an appointment to see a [facility] Nurse, call [phone] Normal [facility] HNO ID: [id number] Author: Palma Soliz RN Service: Wound/Ostomy Author Type: Registered Nurse Type: Allied Health Filed: 09/19/2022 4:39 PM Note Text: [place] [address] Patient: Shira Gavin Patient Address: [address] [place] [address] Preferred Gender: male Date of : 1965 Type of Stoma: Loop Ileostomy Diagnosis: Diverticulitis w/ perforation K57.2 OSTOMY SUPPLY ORDER FORM Pouch: ConvaTec: 2 ? Melissa-Fit Natura + Invisiclose, transparent, w/ filter #[id number] 30 day use - 2 Boxes Wafer: ConvaTec: Melissa-Fit Natura 2 1/4 Flat Durahesive # 025418 30 day use - 2 Boxes Adhesive Removers: Coloplast Brava [place] # 820738 30 day use - 2 Boxes Belt: Barry Medium # 7300 30 day use - 1 Belt Misc. Accessories: Hy Tape 1 # 110B Coloplast Elastic Barrier Strips # 651948 30 day use - 2 Boxes Moldable Ring: Coloplast Brava 4.2mm Moldable # 684209 30 day use - 2 Boxes Powder: ConvaTec Stomahesive # 20224 30 day use - 1 Bottle Skin Sealant: 3M No Sting, 30/Box # 3344 30 day use - 1 Box Refills: 11 Attending Physician: Dr. Antonio For immediate authorization, please contact the physician?s office. [facility] Nurse: DEMETRIO CoyneN, CMSRN, CWOCN Note: Contact Gely Samaniego at [facility] with any questions or concerns. [phone] Ext. [phone]. SIGNATURE: Palma Soliz RN PATIENT NAME: Shira Gavin DATE: September 19, 2022 TIME: 4:37 PM CONTACT #: [phone] EMAIL: [email or web address] [facility] HNO ID: [id number] Author: Palma Soliz RN Service: Wound/Ostomy Author Type: Registered Nurse Type: Allied Health Filed: 09/19/2022 4:36 PM Note Text: ET/WOCN Nursing Consult Topic: ET/WOCN Consultation Note Purpose of Visit: hands-on lesson Outcome: Assessment, fitting, and hands-on lesson completed. Pt's and daughter bedside. Pt only needed slight redirection during lesson. Pt and family asked appropriate questions. Recording chart, graduate x2, dietary guidelines, WOC packet, pouch changing instructions, script, and 2 weeks supplies at bedside. Ready for d/c from [facility] Nursing Team standpoint. Next Scheduled Visit: 09/23/2022 for scheduled pouch change Assessment: Stoma Type: Loop ileostomy Diameter: 1 3/8 Location: RLQ Protrusion: Budded Mucosal Condition and Color: Red and moist Mucocutaneous Junction: Intact Peristomal Skin: Clear and intact Peristomal Contour: Rounded Supportive Tissue: Semi-soft Character of Output: Brown liquid effluent Emptying Frequency per Day: per nursing Pouching System Removed: ConvaTec 57mm Melissa-Fit Natura Durahesive flat cut-to-fit flange, high volume output pouch, Mefix tape to picture frame. Current Wear Time: 1 day Pouching System Evaluation: hydrated Recommendations: Skin Care: 1. Use ConvaTec Sensi Care No Sting Adhesive Remover wipes (#561899) to gently release the worn pouch from the skin. 2. Apply ConvaTec Stomahesive powder (#06783) to denuded/irritated skin as needed with each pouch change until healed. [place] off loose powder from intact skin prior to pouching. Pouching System Applied: ConvaTec 57mm Melissa-Fit Natura Durahesive flat cut-to-fit flange, 4.2mm Brava Moldable Ring, high volume output pouch, Hytape tape to picture frame. Wear Time Goal: 3-4 days Laparoscopic Abdominal Incision: 100% approximated with surgical glue and steri-strips. PERSONNEL INTERVIEWER. Time Increment: 1 hour 30 minutes Palma Soliz, DEMETRION, RN, CMSRN, CWOCN For non-emergent WO Nursing patient care needs - Please place a consult via Epic under ostomy. WO Nurse Available Hours: M-F: [phone]; Weekends AND Holidays: [phone] For emergent [facility] Nursing patient care needs - Page #[phone], during available hours only. Normal [facility] Basic metabolic 2000 panelon 09-19-2022 Anion gap [Moles/Vol] 10 mmol/L Normal 9-18 [facility] Comment on above: Order Comment: Speci men Type: BLOOD SPECIMENOrdering Facility: [facility] Address: [address] [place] [address] Performed By: #### 2 4320-09, 1987-12, 2776-08, ####[facility] LABIA [id number] [place] [address] [place] Calcium [Mass/Vol] 8.9 mg/dL Normal 8.5-10.2 [facility] Comment on above: Order Comment: Speci men Type: BLOOD SPECIMENOrdering Facility: [facility] Address: [address] [place], [place] [address] Performed By: #### 2 4320-09, 1987-12, 2776-08, ####[facility] LABIA [id number] [place] [address] [place] Chloride [Moles/Vol] 103 mmol/L Normal 97-105 [facility] Comment on above: Order Comment: Speci men Type: BLOOD SPECIMENOrdering Facility: [facility] Address: [address] [place] [phone] Performed By: #### 2 4320-09, 1987-12, 2776-08, ####[facility] LABIA [id number] [address] [address] [place] CO2 [Moles/Vol] 25 mmol/L Normal 22-30 [facility] Comment on above: Order Comment: Speci men Type: BLOOD SPECIMENOrdering Facility: [facility] Address: [address] [id number] Performed By: #### 2 4320-09, 1987-12, 2776-08, ####[facility] LABCLIA [id number] [address] [place] Creatinine [Mass/Vol] 1.11 mg/dL Normal 0.73-1.22 [facility] Comment on above: Order Comment: Amy saul Type: BLOOD SPECIMENOrdering Facility: [facility] Address: [address] [address] Performed By: #### 2 4320-, 1987-12, 2776-08, ####[facility] LABIA [id number] [place] [address] [place] ESTIMATED GLOMERULAR FILTRATION RATE 78 mL/min/1.73m??? Normal >=60 [facility] Comment on above: Order Comment: Amy saul Type: BLOOD SPECIMENOrdering Facility: [facility] Address: [address] [place] [address] Result Comment: Alis mated Glomerular Filtration Rate (eGFR) is calculated using the 2020 CKD-EPI creatinine equation. This equation utilizes serum creatinine, sex, and age as parameters. The creatinine assay has traceable calibration to isotope dilution-mass spectrometry. Refer to KDIGO guidelines for clinical interpretation. In patients with unstable renal function, e.g. those with acute kidney injury, the eGFR may not accurately reflect actual GFR. Performed By: #### 2 4320-09, 1987-12, 2776-08, ####[facility] LABIA [id number] [place] [address] [place] Glucose [Mass/Vol] 93 mg/dL Normal 74-99 [facility] Comment on above: Order Comment: Amy saul Type: BLOOD SPECIMENOrdering Facility: [facility] Address: [address] [place] [address] Result Comment: The [place] Diabetes [employer] (ADA) provides guidance for cutoff values for fasting glucose and random glucose. The ADA defines fasting as no caloric intake for at least 8 hours. Fasting plasma glucose results between 100 to 125 mg/dL indicate increased risk for diabetes (prediabetes). Fasting plasma glucose results greater than or equal to 126 mg/dL meet the criteria for diagnosis of diabetes. In the absence of unequivocal hyperglycemia, results should be confirmed by repeat testing. In a patient with classic symptoms of hyperglycemia or hyperglycemic crisis, random plasma glucose results greater than or equal to 200 mg/dL meet the criteria for diagnosis of diabetes. Reference: Standards of Medical Care in Diabetes 2016, [place] [employer] Association. Diabetes Care. 2016.39(Suppl 1). Performed By: #### 2 4320-09, 1987-12, 2776-08, ####[facility] LABCLIA [id number] [place] [address] [place] Potassium [Moles/Vol] 3.9 mmol/L Normal 3.7-5.1 [facility] Comment on above: Order Comment: Speci men Type: BLOOD SPECIMENOrdering Facility: [facility] Address: [address] [place] [address] Performed By: #### 2 4320-09, 1987-12, ####[facility] LABCLIA [id number] [place] [address] [place] Sodium [Moles/Vol] 138 mmol/L Normal 136-144 [facility] Comment on above: Order Comment: Speci men Type: BLOOD SPECIMENOrdering Facility: [facility] Address: [address] [place] [address] Performed By: #### 2 4320-09, 1987-12, ####[facility] LABCLIA [id number] [address] [place] [address] [place] Urea nitrogen [Mass/Vol] 13 mg/dL Normal 9-24 [facility] Comment on above: Order Comment: Speci men Type: BLOOD SPECIMENOrdering Facility: [facility] Address: [address] [place] [address] Performed By: #### 2 4320-09, 1987-12, 2776-08, ####[facility] LABCLIA [id number] [place] [address] [place] CBC W Auto Differential pane l (Bld)on 09-19-2022 Basophils (Bld) [#/Vol] 0.11 10*3/uL High <0.11 [facility] Comment on above: Order Comment: Speci men Type: BLOOD SPECIMENOrdering Facility: [facility] Address: [address] [place] [address] Performed By: #### 5 7021-8 ####[facility] LABCLIA [id number] [place] [address] [place] Basophils/100 WBC (Bld) 1.0 % Normal [facility] Comment on above: Order Comment: Speci men Type: BLOOD SPECIMENOrdering Facility: [facility] Address: [address] [place] [address] Performed By: #### 5 7021-8 ####[facility] LABCLIA [id number] [place] [address] [place] Differential cell count method Nom (Bld) Auto Normal [facility] Comment on above: Order Comment: Speci men Type: BLOOD SPECIMENOrdering Facility: [facility] Address: [address] [place], [place] [address] Performed By: #### 5 7021-8 ####[facility] LABCLIA [id number] [place] [address] [place] Eosinophils (Bld) [#/Vol] 0.56 10*3/uL High <0.46 [facility] Comment on above: Order Comment: Speci men Type: BLOOD SPECIMENOrdering Facility: [facility] Address: [address] [place], [place] [address] Performed By: #### 5 7021-8 ####[facility] LABCLIA [id number] [place] [address] [place] Eosinophils/100 WBC (Bld) 5.0 % Normal [facility] Comment on above: Order Comment: Speci men Type: BLOOD SPECIMENOrdering Facility: [facility] Address: [address] [place], [place] [address] Performed By: #### 5 7021-8 ####[facility] LABIA [id number] [place] [address] [place] Erythrocyte distribution width (RBC) [Ratio] 13.8 % Normal 11.5-15.0 [facility] Comment on above: Order Comment: Speci men Type: BLOOD SPECIMENOrdering Facility: [facility] Address: [address] [place] [address] Performed By: #### 5 7021-8 ####[facility] [id number] [place] [address] [place] Hematocrit (Bld) [Volume fraction] 39.4 % Normal 39.0-51.0 [facility] Comment on above: Order Comment: Speci men Type: BLOOD SPECIMENOrdering Facility: [facility] Address: [address] [place], [place] [address] Performed By: #### 5 7021-8 ####[facility] [id number] [place] [address] [place] Hemoglobin (Bld) [Mass/Vol] 12.9 g/dL Low 13.0-17.0 [facility] Comment on above: Order Comment: Speci men Type: BLOOD SPECIMENOrdering Facility: [facility] Address: [address] [place], [place] [address] Performed By: #### 5 7021-8 ####[facility] LABIA [id number] [place] [address] [place] Immature granulocytes (Bld) [#/Vol] 0.03 10*3/uL Normal <0.10 [facility] Comment on above: Order Comment: Speci men Type: BLOOD SPECIMENOrdering Facility: [facility] Address: [address] [phone] Performed By: #### 5 7021-8 ####[facility] LABCLIA [id number] [address] [place] Immature granulocytes/100 WBC (Bld) 0.3 % Normal [facility] Comment on above: Order Comment: Speci men Type: BLOOD SPECIMENOrdering Facility: [facility] Address: [address] Performed By: #### 5 7021-8 ####[facility] LABCLIA [id number] [place] [address] [place] Lymphocytes (Bld) [#/Vol] 2.81 10*3/uL Normal 1.00-4.00 [facility] Comment on above: Order Comment: Speci men Type: BLOOD SPECIMENOrdering Facility: [facility] Address: [address] [place], [place] [address] Performed By: #### 5 7021-8 ####[facility] LABIA [id number] [address] [place] Lymphocytes/100 WBC (Bld) 25.2 % Normal [facility] Comment on above: Order Comment: Speci men Type: BLOOD SPECIMENOrdering Facility: [facility] Address: [address] [place], [place] [address] Performed By: #### 5 7021-8 ####[facility] LABCLIA [id number] [place] [address] [place] MCH (RBC) [Entitic mass] 26.4 pg Normal 26.0-34.0 [facility] Comment on above: Order Comment: Speci men Type: BLOOD SPECIMENOrdering Facility: [facility] Address: [address] Performed By: #### 5 7021-8 ####[facility] LABCLIA [id number] [place] [address] [place] MCHC (RBC) [Mass/Vol] 32.7 g/dL Normal 30.5-36.0 [facility] Comment on above: Order Comment: Speci men Type: BLOOD SPECIMENOrdering Facility: [facility] Address: [address] [place] [address] Performed By: #### 5 7021-8 ####[facility] LABCLIA [id number] [place] [address] [place] MCV (RBC) [Entitic vol] 80.7 fL Normal 80.0-100.0 [facility] Comment on above: Order Comment: Speci men Type: BLOOD SPECIMENOrdering Facility: [facility] Address: [address] [place] [address] Performed By: #### 5 7021-8 ####[facility] LABCLIA [id number] [place] [address] [place] Monocytes (Bld) [#/Vol] 1.00 10*3/uL High <0.87 [facility] Comment on above: Order Comment: Speci men Type: BLOOD SPECIMENOrdering Facility: [facility] Address: [address] [place], [place] [address] Performed By: #### 5 7021-8 ####[facility] LABIA [id number] [address] [place] Monocytes/100 WBC (Bld) 9.0 % Normal [facility] Comment on above: Order Comment: Speci men Type: BLOOD SPECIMENOrdering Facility: [facility] Address: [address] [place], [place] [address] Performed By: #### 5 7021-8 ####[facility] LABCLIA [id number] [place] [address] [place] Neutrophils (Bld) [#/Vol] 6.63 10*3/uL Normal 1.45-7.50 [facility] Comment on above: Order Comment: Speci men Type: BLOOD SPECIMENOrdering Facility: [facility] Address: [address] Performed By: #### 5 7021-8 ####[facility] LABCLIA [id number] [address] STATES [facility] Neutrophils/100 WBC (Bld) 59.5 % Normal [facility] Comment on above: Order Comment: Speci men Type: BLOOD SPECIMENOrdering Facility: [facility] Address: [address] Performed By: #### 5 7021-8 ####[facility] LABCLIA [id number] [place] [address] [place] Nucleated RBC (Bld) [#/Vol] 10*3/uL Normal <0.01 [facility] Comment on above: Order Comment: Speci men Type: BLOOD SPECIMENOrdering Facility: [facility] Address: [address] [place], [place] [address] Performed By: #### 5 7021-8 ####[facility] LABCLIA [id number] [place] [address] [place] Nucleated RBC/100 WBC (Bld) [Ratio] 0.0 /100 WBC Normal [facility] Comment on above: Order Comment: Speci men Type: BLOOD SPECIMENOrdering Facility: [facility] Address: [address] Performed By: #### 5 7021-8 ####[facility] LABCLIA [id number] [place] [address] [place] Platelet mean volume (Bld) [Entitic vol] 9.7 fL Normal 9.0-12.7 [facility] Comment on above: Order Comment: Speci men Type: BLOOD SPECIMENOrdering Facility: [facility] Address: [address] [place], [place] [address] Performed By: #### 5 7021-8 ####[facility] LABCLIA [id number] [place] [address] [place] Platelets (Bld) [#/Vol] 212 10*3/uL Normal 150-400 [facility] Comment on above: Order Comment: Speci men Type: BLOOD SPECIMENOrdering Facility: [facility] Address: [address] [place] [address] Performed By: #### 5 7021-8 ####[facility] [id number] [place] [address] [place] RBC (Bld) [#/Vol] 4.88 10*6/uL Normal 4.20-6.00 [facility] Comment on above: Order Comment: Speci men Type: BLOOD SPECIMENOrdering Facility: [facility] Address: [address] [place] [address] Performed By: #### 5 7021-8 ####[facility] [id number] [place] [address] [place] WBC (Bld) [#/Vol] 11.14 10*3/uL High 3.70-11.00 [facility] Comment on above: Order Comment: Speci men Type: BLOOD SPECIMENOrdering Facility: [facility] Address: [address] [place] [address] Performed By: #### 5 7021-8 ####[facility] [id number] [place] [address] [place] CNDSon 09-19-2022 CNDS HNO ID: [id number] Author: Gutierrez Hines PA-C Service: Colorectal Author Type: Physician Gin Inspector Type: Discharge Summary Filed: 09/19/2022 3:15 PM Note Text: -- Attestation signed by Katty Antonio MD at 09/19/2022 4:43 PM Katty Antonio MD September 19, 2022 4:43 PM -- DISCHARGE SUMMARY PATIENT NAME: Shira Gavin ADMISSION DATE: 09/16/2022 DISCHARGE DATE: 09/19/2022 Attending Physician: Katty Antonio MD Code Status: Not on file Highest Readmission Risk Score: 5 The 30 day readmissions risk score is derived from an internally validated risk model which evaluates patient level characteristics, utilization history, medication orders and lab results up until the day of discharge. Patients with a score of 40 or above are considered highest risk for readmission. Specific patient level drivers will be listed at the bottom of the summary. Principal Diagnosis: Principal Problem (Resolved): Diverticulitis POA: Yes Active Problems: Tobacco use POA: Yes Obesity, Class II, BMI 35-39.9 POA: Yes Resolved Problems: Hypocalcemia POA: No Hypophosphatemia POA: No Reason for Hospitalization: Shira Gavin is a 56 year old male with PMH of diverticulitis complicated by abscess. He presented to the hospital 09/16/2022 for elective surgical management for with Dr. Antonio. Operations During Hospitalization: Laparoscopic sigmoid resection with colorectal anastomosis, loop ileostomy, and flexible sigmoidoscopy. Procedures During Hospitalization: Intubation for surgery, Hospital Course: Shira Gavin came to the hospital to have surgery with Katty Antonio MD. Please see operative report for full details. Afterward, the patient was transferred to a regular nursing floor. Pain was controlled with oral and IV medication per ERAS protocol and his intake and output was closely monitored. Diet was advanced as tolerated. Willson catheter was removed on postoperative day (POD) 1 and he voided independently. DVT prophylaxis was managed by Lovenox 40 mg daily and intermittent compression stockings. His electrolytes were monitored with daily labs and replaced as needed. Once the patient's pain was controlled with oral medication, GI soft diet was tolerated, and demonstrated appropriate bowel function, he was deemed fit for discharge. The patient is asked to please follow up with Ro Loza CNP as scheduled. Transitions of Care Critical Issues: None LABS AND PROCEDURES PENDING AT DISCHARGE: Biopsy Results (Sigmoid colon resection) Consulting Teams During Hospitalization: CM, WOILEANA, Nutrition Treatment Team: Attending Provider: Katty Antonio MD Physician Gin Inspector: Nazanin Lee PA-C Patient Condition @ Discharge: Stable Discharge Disposition: Home with Home Health Postoperative Conditions: None Information Provided to Patient: Discharge instructions Diet: Low soft-fiber diet: No fresh fruits, whole grains, foods difficult to digest, or vegetables (unless they are well-cooked) Activity: No heavy lifting, pushing or pulling greater than 10 pounds including unloading the garage manager, moving wet laundry and vacuuming for 8 weeks No driving for 2 weeks. Take someone with you the first time you drive. No driving while on narcotics Stairs are allowed and walking is encouraged Wound/Surgical Site Care: Allow steri strips to fall off on their own. If they have not fallen off in 7-10 days, ok to remove in the shower. and Assistance with ostomy ALLERGIES No Known Allergies Discharge Medications: Current Discharge Medication List START taking these medications aspirin 81 mg Take 81 mg by mouth once daily. Qty: 30 tablet Refills: 0 CONTINUE these medications which have CHANGED acetaminophen (TYLENOL) 1,000 mg Take 1,000 mg by mouth every 6 hours as needed for pain. CONTINUE these medications which have NOT CHANGED latanoprost (XALATAN) 1 Drop Use 1 Drop in both eyes daily at bedtime. Psyllium Seed-Sucrose 1 Tablespoonful Take 1 Tablespoonful by mouth once daily. STOP taking these medications neomycin 500 mg tablet Comments: Reason for Stopping: metroNIDAZOLE (FLAGYL) 500 mg tablet Comments: Reason for Stopping: Plan of Care: Plan of care discussed with Provider, RN, Patient and Care Management Future Appointments: Future Appointments Date Time Provider Department Center 09/28/2022 10:30 AM Theo Loza APRN.TIBURCIO Dsouza The patient's risk for 30-day readmission is determined using the following contributing factors: Pt variables contributing to increased readmission risk: 13 Most Recent BUN Result 13 Active Medication Orders 8.6 First Resulted Calcium During Admission 1 Insurance - Medicare 1 Active Anticoagulant 1 Number of Hospitalizations (12 mos.) SIGNATURE: Emily (more content not included)... Normal [facility] CRP [facility]-ncon 09-19-2022 CRP [Mass/Vol] 0.7 mg/dL Normal <0.9 [facility] Comment on above: Order Comment: Speci men Type: BLOOD SPECIMENOrdering Facility: [facility] Address: [address] [place], [place] [address] Performed By: #### 2 43208-29, 1987-12, 2776-08, ####[facility] [id number] [address] OF [facility] Magnesium [facility] [place] 09-19 Magnesium [Mass/Vol] 2.1 mg/dL Normal 1.7-2.3 [facility] Comment on above: Order Comment: Amy saul Type: BLOOD SPECIMENOrdering Facility: [facility] Address: [address] [place], [place] [id number] Performed By: #### 2 4320-09, 1987-12, 2776-08, ####[facility] LABIA [id number] [place] [address] [place] PT EDon 09-19-2022 PT ED HNO ID: [id number] Author: Palma Soliz RN Service: Wound/Ostomy Author Type: Registered Nurse Type: Patient Education Filed: 09/19/2022 4:37 PM Note Text: ET/WOC NURSING ET OUTCOME: hands-on lesson completed TOPIC: OSTOMY INSTRUCTION, DEHYDRATION PREVENTION, and OSTOMY OUTPUT RECORDING CHART READINESS TO LEARN COGNITIVE ABILITY: Alert and Oriented MOTIVATION TO LEARN: Eager FAMILY SUPPORT: High - Very involved in patient care INSTRUCTION PROVIDED TO: Patient, Spouse, and Daughter PATIENT LEARNS BEST BY: Multiple Methods FACTORS AFFECTING LEARNING: None PHYSICAL LIMITATIONS AFFECTING LEARNING: None LEARNING RESPONSE DIAGNOSIS: diverticulitis PROCEDURE / SURGERY: Loop ileostomy EDUCATION TOPIC/ TEACHING POINTS: Ostomy Care Stoma appearance and function, Purpose of the pouching system, Postoperative ostomy care per ET/WOC Nurse, Postoperative self ostomy care instruction, Discharge equipment ordering and support options, Diet, Fluid Intake, ADL'S, Work, Clothing Adjustment, and Exercise METHOD OF INSTRUCTION: Individual instruction Written instruction - handouts Verbal instruction Demonstration-Hands on Learning PATIENT / FAMILY RESPONSE: Performs skill independently: Correct procedure for emptying ostomy pouch and Verbalizing understanding of: Correct procedure for emptying ostomy pouch, Correct procedure for changing ostomy pouch, Methods of dehydration prevention, and Use of ostomy output recording chart FOLLOW-UP PLAN: Patient instructed to call with any further issues, Follow up in ET Clinic as needed, and Contact information given SUPPLEMENTAL MATERIAL: Pouch change Instruction Sheet, Eating Right and Avoiding Dehydration after Bowel Surgery Handout, and [facility] 24 hour Ostomy Output Recording Chart REFERRAL (RECOMMENDATION): Home Health Agency TIME INCREMENT: N/A Electronically Signed By Palma Soliz RN ET/WOC Nursing Normal [facility] Phosphate SerPl-mCncon 09-19 Phosphate [Mass/Vol] 3.0 mg/dL Normal 2.7-4.8 [facility] Comment on above: Order Comment: Speci men Type: BLOOD SPECIMENOrdering Facility: [facility] Address: [address] [place] [address] Performed By: #### 2 4321-2, 1987-, 2777-1, 61207-9 ####[facility] LABCLIA [id number] [address] OF [facility] ALLIED HEALTHon 09-18-2022 ALLIED HEALTH HNO ID: [id number] Author: Nan Alonzo RN Service: Wound/Ostomy Author Type: Registered Nurse Type: Allied Health Filed: 09/18/2022 1:44 PM Note Text: ET/WOC NURSING ET OUTCOME: Lesson #1 review and partial hands on lesson #2 completed. TOPIC: OSTOMY INSTRUCTION and DEHYDRATION PREVENTION READINESS TO LEARN COGNITIVE ABILITY: Alert and Oriented MOTIVATION TO LEARN: Interested FAMILY SUPPORT: Unable to assess - family not present INSTRUCTION PROVIDED TO: Patient PATIENT LEARNS BEST BY: Verbal Instruction FACTORS AFFECTING LEARNING: None PHYSICAL LIMITATIONS AFFECTING LEARNING: None LEARNING RESPONSE DIAGNOSIS: Diverticulitis PROCEDURE / SURGERY: Loop ileostomy EDUCATION TOPIC/ TEACHING POINTS: Ostomy Care Stoma appearance and function and Purpose of the pouching system METHOD OF INSTRUCTION: Verbal instruction PATIENT / FAMILY RESPONSE: Performs skill independently: Correct procedure for emptying ostomy pouch and Correct procedure for changing ostomy pouch FOLLOW-UP PLAN: Recommend - Recommend continued instruction and follow up as directed SUPPLEMENTAL MATERIAL: Eating Right and Avoiding Dehydration after Bowel Surgery Handout and [facility] 24 hour Ostomy Output Recording Chart REFERRAL (RECOMMENDATION): Home Health Agency TIME INCREMENT: N/A Electronically Signed By Nan Alonzo RN ET/WO Nursing Normal [facility] ALLIED HEALTH HNO ID: [id number] Author: Nan Alonzo RN Service: Wound/Ostomy Author Type: Registered Nurse Type: Allied Health Filed: 09/18/2022 1:37 PM Note Text: ET/WOC NURSING TOPIC: POST-OPERATIVE ASSESSMENT AND CARE: GI Stoma PATIENT NAME: Shira Gavin DATE: September 18, 2022 TIME: 1:29 PM ET Care Outcome: Patient seen today for POD #2 jasmin removal, fitting. Patient had brief lesson yesterday, requested another lesson #1 and maybe hands on before discharge. Jasmin removed without difficulty. Lesson #1 and 24 hour output recording chart, diet reviewed with partial hands on. ET's Next Scheduled Visit: 09/19 assess fit, hands on and dc prep. Stoma type: Loop ileostomy Diameter: 1 /4 Location: RUQ Protrusion: Budded Mucosal condition and color: Red and moist and edematous Jasmin: Yes Sutured? Yes Jasmin removed without difficulty today on POD #2 per CORS protocol Mucocutaneous Junction: partial where jasmin ends were Output: Yes: Flatus and Effluent Peristomal Skin: Clear and intact Location of Skin Impairment: NA Treatment of Skin Impairment: NA ET Peristomal Contour: Rounded Supportive Tissue: semifirm Pouching System: Applied : ConvaTec Surfit natura durahesive flat 57mm flange, HVOP. (Lesson completed with drainable pouch, currently high output) Time Increment: 1 hour 15 minutes Comments: NA Education: Yes: See Patient Education Note Supplies Given: Yes: 1 extra set left at bedside. Nan Alonzo MA, BSN, RN-BC, CWOCN WO Nursing- Please place consult via [employer]. Thank you. (M-F: [phone], Weekends AND Holidays : [phone]) Normal [facility] Basic metabolic 2000 panelon 09-18-2022 Anion gap [Moles/Vol] 8 mmol/L Low 9-18 [facility] Comment on above: Order Comment: Speci men Type: BLOOD SPECIMENOrdering Facility: [facility] Address: [address] [place], [place] [id number] Performed By: #### Nava CHAVARRIA, 1986-12, , 2776-08, ####[facility] LABCLIA [id number] [place] [id number] [place] Calcium [Mass/Vol] 8.2 mg/dL Low 8.5-10.2 [facility] Comment on above: Order Comment: Speci men Type: BLOOD SPECIMENOrdering Facility: [facility] Address: [address] [place] [address] Performed By: #### Nava CHAVARRIA, 1986-12, , 2776-08, ####[facility] LABIA [id number] [place] [address] [place] Chloride [Moles/Vol] 107 mmol/L High 97-105 [facility] Comment on above: Order Comment: Speci men Type: BLOOD SPECIMENOrdering Facility: [facility] Address: [address] [place], [place] [id number] Performed By: #### Nava CHAVARRIA, 1986-12, 57979-5, 2776-08, ####[facility] LABIA [id number] [address] [address] [place] CO2 [Moles/Vol] 25 mmol/L Normal 22-30 [facility] Comment on above: Order Comment: Speci men Type: BLOOD SPECIMENOrdering Facility: [facility] Address: [address] [place], [place] [id number] Performed By: #### T AURA, 1986-12, , 2776-08, ####[facility] LABCLIA [id number] [place] [address] [place] [facility] Creatinine [Mass/Vol] 1.16 mg/dL Normal 0.73-1.22 [facility] Comment on above: Order Comment: Speci men Type: BLOOD SPECIMENOrdering Facility: [facility] Address: [address] [place] [address] Performed By: #### T NT, 1986-12, , 2776-08, ####[facility] LABIA [id number] [place] [address] [place] ESTIMATED GLOMERULAR FILTRATION RATE 74 mL/min/1.73m??? Normal >=60 [facility] Comment on above: Order Comment: Amy men Type: BLOOD SPECIMENOrdering Facility: [facility] Address: [address] [place] [address] Result Comment: Alis mated Glomerular Filtration Rate (eGFR) is calculated using the 2020 CKD-EPI creatinine equation. This equation utilizes serum creatinine, sex, and age as parameters. The creatinine assay has traceable calibration to isotope dilution-mass spectrometry. Refer to KDIGO guidelines for clinical interpretation. In patients with unstable renal function, e.g. those with acute kidney injury, the eGFR may not accurately reflect actual GFR. Performed By: #### T NT, 1986-12, , 2776-08, ####[facility] LABIA [id number] [place] [id number] [place] Glucose [Mass/Vol] 99 mg/dL Normal 74-99 [facility] Comment on above: Order Comment: Speci men Type: BLOOD SPECIMENOrdering Facility: [facility] Address: [address] [place] [address] Result Comment: The [place] Diabetes Association (ADA) provides guidance for cutoff values for fasting glucose and random glucose. The ADA defines fasting as no caloric intake for at least 8 hours. Fasting plasma glucose results between 100 to 125 mg/dL indicate increased risk for diabetes (prediabetes). Fasting plasma glucose results greater than or equal to 126 mg/dL meet the criteria for diagnosis of diabetes. In the absence of unequivocal hyperglycemia, results should be confirmed by repeat testing. In a patient with classic symptoms of hyperglycemia or hyperglycemic crisis, random plasma glucose results greater than or equal to 200 mg/dL meet the criteria for diagnosis of diabetes. Reference: Standards of Medical Care in Diabetes 2016, [place] [employer] Association. Diabetes Care. 2016.39(Suppl 1). Performed By: #### T AURA, 1986-12, , 2776-08, ####[facility] LABCLIA [id number] [place] [address] [place] Potassium [Moles/Vol] 4.0 mmol/L Normal 3.7-5.1 [facility] Comment on above: Order Comment: Speci men Type: BLOOD SPECIMENOrdering Facility: [facility] Address: [address] [place] [address] Performed By: #### Nava CHAVARRIA, 1986-12, , 2776-08, ####[facility] LABIA [id number] [place] [address] [place] Sodium [Moles/Vol] 140 mmol/L Normal 136-144 [facility] Comment on above: Order Comment: Mariahi dorys Type: BLOOD SPECIMENOrdering Facility: [facility] Address: [address] [place] [address] Performed By: #### T AURA, 1986-12, , 2776-08, ####[facility] [id number] [place] [address] [place] Urea nitrogen [Mass/Vol] 13 mg/dL Normal 9-24 [facility] Comment on above: Order Comment: Speci men Type: BLOOD SPECIMENOrdering Facility: [facility] Address: [address] Performed By: #### T AURA, 1986-12, , 2776-08, 89828-9 ####[facility] LABCLIA [id number] [place] [address] [place] CBC W Auto Differential pane l (Bld)on 09-18-2022 Basophils (Bld) [#/Vol] 0.08 10*3/uL Normal <0.11 [facility] Comment on above: Order Comment: Speci men Type: BLOOD SPECIMENOrdering Facility: [facility] Address: [address] [place] [address] Performed By: #### 5 7021-8 ####[facility] LABCLIA [id number] [place] [address] [place] Basophils/100 WBC (Bld) 0.8 % Normal [facility] Comment on above: Order Comment: Speci men Type: BLOOD SPECIMENOrdering Facility: [facility] Address: [address] [place] [address] Performed By: #### 5 7021-8 ####[facility] LABCLIA [id number] [place] [address] [place] [facility] Differential cell count method Nom (Bld) Auto Normal [facility] Comment on above: Order Comment: Speci men Type: BLOOD SPECIMENOrdering Facility: [facility] Address: [address] [place] [address] Performed By: #### 5 7021-8 ####[facility] LABCLIA [id number] [place] [address] [place] Eosinophils (Bld) [#/Vol] 0.20 10*3/uL Normal <0.46 [facility] Comment on above: Order Comment: Speci men Type: BLOOD SPECIMENOrdering Facility: [facility] Address: [address] [place] [address] Performed By: #### 5 7021-8 ####[facility] LABCLIA [id number] [address] [place] Eosinophils/100 WBC (Bld) 2.0 % Normal [facility] Comment on above: Order Comment: Speci men Type: BLOOD SPECIMENOrdering Facility: [facility] Address: [address] [place] [address] Performed By: #### 5 7021-8 ####[facility] LABCLIA [id number] [place] [address] [place] Erythrocyte distribution width (RBC) [Ratio] 14.1 % Normal 11.5-15.0 [facility] Comment on above: Order Comment: Speci men Type: BLOOD SPECIMENOrdering Facility: [facility] Address: [address] [place] [address] Performed By: #### 5 7021-8 ####[facility] LABCLIA [id number] [place] [address] [place] Hematocrit (Bld) [Volume fraction] 39.4 % Normal 39.0-51.0 [facility] Comment on above: Order Comment: Speci men Type: BLOOD SPECIMENOrdering Facility: [facility] Address: [address] [place], [place] [address] Performed By: #### 5 7021-8 ####[facility] LABIA [id number] [place] [address] [place] Hemoglobin (Bld) [Mass/Vol] 12.6 g/dL Low 13.0-17.0 [facility] Comment on above: Order Comment: Speci men Type: BLOOD SPECIMENOrdering Facility: [facility] Address: [address] [place], [place] [address] Performed By: #### 5 7021-8 ####[facility] LABCLIA [id number] [place] [address] [place] Immature granulocytes (Bld) [#/Vol] 10*3/uL Normal <0.10 [facility] Comment on above: Order Comment: Speci men Type: BLOOD SPECIMENOrdering Facility: [facility] Address: [address] [place] [address] Performed By: #### 5 7021-8 ####[facility] LABCLIA [id number] [address] Immature granulocytes/100 WBC (Bld) 0.2 % Normal [facility] Comment on above: Order Comment: Speci men Type: BLOOD SPECIMENOrdering Facility: [facility] Address: [address] [place] [address] Performed By: #### 5 7021-8 ####[facility] LABIA [id number] [place] [address] [place] Lymphocytes (Bld) [#/Vol] 2.70 10*3/uL Normal 1.00-4.00 [facility] Comment on above: Order Comment: Speci men Type: BLOOD SPECIMENOrdering Facility: [facility] Address: [address] [place] [address] Performed By: #### 5 7021-8 ####[facility] LABCLIA [id number] [address] STATES [facility] Lymphocytes/100 WBC (Bld) 26.4 % Normal [facility] Comment on above: Order Comment: Speci men Type: BLOOD SPECIMENOrdering Facility: [facility] Address: [address] [place] [address] Performed By: #### 5 7021-8 ####[facility] LABCLIA [id number] [place] [address] [place] MCH (RBC) [Entitic mass] 26.4 pg Normal 26.0-34.0 [facility] Comment on above: Order Comment: Speci men Type: BLOOD SPECIMENOrdering Facility: [facility] Address: [address] [place] [address] Performed By: #### 5 7021-8 ####[facility] LABCLIA [id number] [address] [place] MCHC (RBC) [Mass/Vol] 32.0 g/dL Normal 30.5-36.0 [facility] Comment on above: Order Comment: Speci men Type: BLOOD SPECIMENOrdering Facility: [facility] Address: [address] [place] [address] Performed By: #### 5 7021-8 ####[facility] LABIA [id number] [place] [address] [place] MCV (RBC) [Entitic vol] 82.4 fL Normal 80.0-100.0 [facility] Comment on above: Order Comment: Speci men Type: BLOOD SPECIMENOrdering Facility: [facility] Address: [address] [place] [address] Performed By: #### 5 7021-8 ####[facility] LABIA [id number] [place] [address] [place] Monocytes (Bld) [#/Vol] 0.93 10*3/uL High <0.87 [facility] Comment on above: Order Comment: Speci men Type: BLOOD SPECIMENOrdering Facility: [facility] Address: [address] [place] [address] Performed By: #### 5 7021-8 ####[facility] LABIA [id number] [place] [address] [place] Monocytes/100 WBC (Bld) 9.1 % Normal [facility] Comment on above: Order Comment: Speci men Type: BLOOD SPECIMENOrdering Facility: [facility] Address: [address] [place], [place] [address] Performed By: #### 5 7021-8 ####[facility] LABCLIA [id number] [place] [address] [place] Neutrophils (Bld) [#/Vol] 6.30 10*3/uL Normal 1.45-7.50 [facility] Comment on above: Order Comment: Speci men Type: BLOOD SPECIMENOrdering Facility: [facility] Address: [address] Performed By: #### 5 7021-8 ####[facility] LABIA [id number] [address] [place] Neutrophils/100 WBC (Bld) 61.5 % Normal [facility] Comment on above: Order Comment: Speci men Type: BLOOD SPECIMENOrdering Facility: [facility] Address: [address] Performed By: #### 5 7021-8 ####[facility] LABIA [id number] [place] [address] [place] Nucleated RBC (Bld) [#/Vol] 10*3/uL Normal <0.01 [facility] Comment on above: Order Comment: Speci men Type: BLOOD SPECIMENOrdering Facility: [facility] Address: [address] Performed By: #### 5 7021-8 ####[facility] LABIA [id number] [place] [address] [place] [facility] Nucleated RBC/100 WBC (Bld) [Ratio] 0.0 /100 WBC Normal [facility] Comment on above: Order Comment: Speci men Type: BLOOD SPECIMENOrdering Facility: [facility] Address: [address] [place], [place] [address] Performed By: #### 5 7021-8 ####[facility] [id number] [place] [address] [place] Platelet mean volume (Bld) [Entitic vol] 9.3 fL Normal 9.0-12.7 [facility] Comment on above: Order Comment: Speci men Type: BLOOD SPECIMENOrdering Facility: [facility] Address: [address] Performed By: #### 5 7021-8 ####[facility] LABCLIA [id number] [place] [address] [place] Platelets (Bld) [#/Vol] 205 10*3/uL Normal 150-400 [facility] Comment on above: Order Comment: Speci men Type: BLOOD SPECIMENOrdering Facility: [facility] Address: [address] [place] [address] Performed By: #### 5 7021-8 ####[facility] LABCLIA [id number] [place] [address] [place] RBC (Bld) [#/Vol] 4.78 10*6/uL Normal 4.20-6.00 [facility] Comment on above: Order Comment: Speci men Type: BLOOD SPECIMENOrdering Facility: [facility] Address: [address] [place] [address] Performed By: #### 5 7021-8 ####[facility] LABCLIA [id number] [place] [address] [place] WBC (Bld) [#/Vol] 10.23 10*3/uL Normal 3.70-11.00 [facility] Comment on above: Order Comment: Speci men Type: BLOOD SPECIMENOrdering Facility: [facility] Address: [address] [place] [address] Performed By: #### 5 7021-8 ####[facility] LABCLIA [id number] [address] [place] CRP SerPl-mCncon 09-18-2022 CRP [Mass/Vol] 0.4 mg/dL Normal <0.9 [facility] Comment on above: Order Comment: Speci men Type: BLOOD SPECIMENOrdering Facility: [facility] Address: [address] [place] [address] Performed By: #### T NT, 1986-5, 24809-9, 2777-1, 15785-3 ####[facility] LABCLIA [id number] [place] [id number] [place] Magnesium SerPl-ncon 09-18 Magnesium [Mass/Vol] 2.2 mg/dL Normal 1.7-2.3 [facility] Comment on above: Order Comment: Speci men Type: BLOOD SPECIMENOrdering Facility: [facility] Address: [address] [place] [address] Performed By: #### T NT, 1987-12, , 2776-08, ####[facility] LABCLIA [id number] [place] [address] [place] Phosphate SerPl-ncon 09-18 Phosphate [Mass/Vol] 2.4 mg/dL Low 2.7-4.8 [facility] Comment on above: Order Comment: Speci men Type: BLOOD SPECIMENOrdering Facility: [facility] Address: [address] [place] [address] Result Comment: Resu lt rechecked. Performed By: #### T NT, 1987-12, , 2776-08, ####[facility] LABCLIA [id number] [place] [address] [place] TROPONIN Ton 09-18-2022 Troponin T.cardiac [Mass/Vol] ug/L Normal 0.000-0.029 [facility] Comment on above: Order Comment: Speci men Type: BLOOD SPECIMENOrdering Facility: [facility] Address: [address] [place] [address] Performed By: #### T NT, 1987-12, , 2776-08, ####[facility] LABCLIA [id number] [place] [id number] [place] ALLIED HEALTHon 09-17-2022 ALLIED HEALTH HNO ID: [id number] Author: Gely Mohini, RN Service: Wound/Ostomy Author Type: Registered Nurse Type: Allied Health Filed: 09/17/2022 3:17 PM Note Text: ET/WOC NURSING TOPIC: POST-OPERATIVE ASSESSMENT AND CARE: GI Stoma PATIENT NAME: Shira Gavin DATE: September 17, 2022 TIME: 3:04 PM ET Care Outcome: POD #1 lesson #1 completed with patient. Daughter came in shortly into lesson. Patient was attentive and asked appropriate questions. Answers were provided. Provided patient with [facility] packet, recording chart, ORS pamphlet, dietary guidelines and 1 pouch change. All paperwork was reviewed. Patient is a elise and we discussed physical restrictions. Suggested a hernia belt fitting at 6 week follow up with [facility] nursing. ET's Next Scheduled Visit: 09/18/2022 POD #2 Jasmin removal, fitting, lesson #1 and d/c prep Stoma type: Loop ileostomy Diameter: 1 1/4 Location: RUQ Protrusion: Budded Mucosal condition and color: Red and moist and edematous Jasmin: Yes Sutured? Yes Movable? Unable to assess due to sutures Tension? Unable to assess due to sutures Jasmin remains intact Mucocutaneous Junction: Intact Output: Yes: Brown liquid effluent Peristomal Skin: Clear and intact Location of Skin Impairment: NA Treatment of Skin Impairment: Demonstrated how to Apply ConvaTec Stomahesive powder to irritated or denuded skin, brush away excess. ET Peristomal Contour: Rounded Supportive Tissue: Semisoft Pouching System: Applied: Leonela Hollihesive wedge x 1 at 3 and 9 o'clock, Caulked seams with ConvaTec Stomahesive paste, Coloplast SenSura Flat Drainable pouch #[id number], Coloplast 4.2 mm moldable Brava ring. Incision: Transverse incision to lower abdomen with post-operative dressing intact. 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 Time Increment: 1 hour 30 minutes Education: Yes: See Patient Education Note Gely ATKINSONN, RN, CWOCN For non-emergent [facility] Nursing patient care needs - Please place a consult via Epic under ostomy. [facility] nursing Pager number [phone] (M-F 7a-4p, Sat, Sun, Holiday 7a-3p) Normal [facility] NURSING PROGon 09-17-2022 NURSING PROG HNO ID: [id number] Author: Kya Botello RN Service: ? Author Type: Registered Nurse Type: Nursing Progress Note Filed: 09/17/2022 1:14 AM Note Text: Admission/Transfer Note PATIENT NAME: Shira Gavin Patient transferred from PACU via stretcher in stable condition. Actions taken: Patient oriented to room, call light function, prescribed activities, Patient rights, and Quiet at night. This note was completed by: Kya Botello [facility] PT EDon 09-17-2022 PT ED HNO ID: [id number] Author: Gely Rajan RN Service: Wound/Ostomy Author Type: Registered Nurse Type: Patient Education Filed: 09/17/2022 3:16 PM Note Text: ET/WOC NURSING ET OUTCOME: Lesson #1 completed TOPIC: OSTOMY INSTRUCTION READINESS TO LEARN COGNITIVE ABILITY: Alert and Oriented MOTIVATION TO LEARN: Interested FAMILY SUPPORT: High - Very involved in patient care INSTRUCTION PROVIDED TO: Patient and Daughter PATIENT LEARNS BEST BY: Multiple Methods FACTORS AFFECTING LEARNING: None PHYSICAL LIMITATIONS AFFECTING LEARNING: None and Sensory Deficit Sight: Color blind LEARNING RESPONSE DIAGNOSIS: Diverticulitis PROCEDURE / SURGERY: Loop ileostomy EDUCATION TOPIC/ TEACHING POINTS: Ostomy Care Stoma appearance and function, Purpose of the pouching system, Postoperative ostomy care per ET/WOC Nurse, Postoperative self ostomy care instruction, Discharge equipment ordering and support options, Diet, Fluid Intake, ADL'S, Work, and Exercise METHOD OF INSTRUCTION: Individual instruction Written instruction - handouts Verbal instruction Demonstration-Hands on Learning PATIENT / FAMILY RESPONSE: Verbalizing understanding of: Correct procedure for emptying ostomy pouch and Correct procedure for changing ostomy pouch FOLLOW-UP PLAN: Reinforce - Repeat previous content and Recommend - Recommend continued instruction and follow up as directed SUPPLEMENTAL MATERIAL: Eating Right and Avoiding Dehydration after Bowel Surgery Handout and [facility] 24 hour Ostomy Output Recording Chart REFERRAL (RECOMMENDATION): Home Health Agency TIME INCREMENT: N/A Electronically Signed By Gely Rajan RN ET/WOC Nursing [facility] PT ED HNO ID: [id number] Author: Elisabeth Gee DTR Service: Nutrition Therapy 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 Filed: 09/17/2022 11:54 AM Note Text: NUTRITION THERAPY PATIENT EDUCATION SERVICE DATE: 09/17/2022 SERVICE TIME: 910 TOPIC: Diet: Eating Right and Avoiding Dehydration LEARNING ASSESSMENT Individuals Assessed: Patient Preferred Learning Method: Individual Instruction, Verbal Instruction, and Written Instruction Barriers to Learning: None Evident LEARNING RESPONSE Instruction Provided to: Patient Patient / Family Response: Performs Independently and Verbalizes Understanding Method of Instruction: Individual instruction Written instruction - handouts Verbal instruction Material(s) Provided to Patient: Nutrition Therapy instruction material: Eating Right and Avoiding Dehydration after Bowel Surgery Follow-Up Plan: Complete - No need for follow-up Patient instructed to call with any further issues Contact information given. Referral (Recommendation): MNT Billing: $ Routine Care : 16-30 minutes SIGNATURE: Elisabeth Gee DTR PATIENT NAME: Shira Gavin DATE: September 17, 2022 TIME: 11:54 AM PAGER: Normal [facility] ANES POSTPROC EVALon 023 ANES POSTPROC EVAL HNO ID: [id number] Author: Billy Jeter MD Service: ? Author Type: Anesthesiologist Type: Anesthesia Postprocedure Evaluation Filed: 09/16/2022 7:45 PM Note Text: POST ANESTHESIA EVALUATION NOTE : 1965 Procedure Summary Date: 09/16/22 [address]hesia Start: 1138 Anesthesia Stop: 1841 Procedure: LAPAROSCOPIC COLECTOMY SIGMOID COLON W/ COLORECTAL ANASTOMOSIS (Abdomen) Diagnosis: Diverticulitis (Diverticulitis [K57.92]) Surgeons: Katty Antonio MD Responsible Provider: Billy Jeter MD Anesthesia Type: general ASA Status: 3 Anesthesia Type: general Airway Type: ETT Last Vitals Vitals Value Taken Time BP 131/70 09/16/221929 Temp 36.3 ?C (97.3 ?F) 09/16/221929 Pulse 97 09/16/221943 Resp 16 09/16/221943 SpO2 96 % 09/16/221943 Vitals shown include unvalidated device data. Post Anesthesia Patient Status Patient Evaluation: PACU. PACU/ICU Patient Condition: stable. Anticipated Disposition: inpatient floor planned admission. Neurological Status: aware and responsive. Pulmonary Status: breathing comfortably on supplemental oxygen Airway Control: returned to baseline unsupported. Cardiovascular Status: stable. Pain Management: clinically adequate - multimodal analgesia pain management approach Postoperative Hydration: acceptable. Intraoperative Events: no significant anesthesia events Post Operative Nausea/Vomiting Status: no significant post operative nausea or vomiting Recommendation: continue current plan of care. Anesthesia Observations No Documentation SIGNATURE: Billy Jeter MD PATIENT NAME: Shira Gavin DATE: September 16, 2022 TIME: 7:45 PM CSN: [id number] Normal [facility] ANES PRE-OPon 09-16-2022 ANES PRE-OP HNO ID: [id number] Author: Vanessa Otoole MD Service: ? Author Type: Physician Type: Anesthesia Preprocedure Evaluation Filed: 09/16/2022 11:43 AM Note Text: ANESTHESIOLOGY DAY OF SURGERY NOTE : 1965 Procedure Information Anesthesia Start Date/Time: 09/16/22 1138 Procedure: LAPAROSCOPIC COLECTOMY SIGMOID COLON W/ COLORECTAL ANASTOMOSIS (Abdomen) Location: MAIN OR[facility] Surgeons: Katty Antonio MD Estimated body mass index is 35.88 kg/m? as calculated from the following: Height as of this encounter: 172.7 cm (5' 8). Weight as of this encounter: 107 kg (236 lb). 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 Tracheostomy tube not present Mallampati: III. TM distance: <3 FB. Neck ROM: full ROM without neurological symptoms. Mouth opening: adequate. Short neck: yes. Thick neck: yes Maguire present: yes DENTAL Dental findings: teeth intact. II - ANESTHESIA PLAN ASA Score: 3 Anesthetic Plan: general Airway type: ETT The patient is a current smoker. NPO Status: adequate Beta Frank Monitoring Plan Post Procedure Analgesic Plan Informed Consent Anesthetic risks, benefits, alternatives, personnel and consent discussed: yes. Patient / Responsible Republican agrees to proceed: yes Patient / Surrogate agrees to blood products: Yes Vitals Value Taken Time BP 136/82 09/16/22916 Pulse 76 09/16/22916 Resp 18 09/16/22916 Temp 36.3 ?C (97.3 ?F) 09/16/22916 SpO2 97 % 09/16/22916 Facility-Administered Medications as of 09/16/2022 Medication Dose Route Frequency - lidocaine (PF) 10 mg/mL (1 %) 1-2 mg injection (XYLOCAINE) 0.1-0.2 mL INTRADERMAL PRN Or - lidocaine 1% 0.25 mL subcutaneous j-tip syringe (XYLOCAINE) 0.25 mL SUBCUTANEOUS PRN - lactated ringers iv infusion 5-30 mL/hr INTRAVENOUS CONTINUOUS - NaCl 0.9% iv flush bag 20 mL INTRAVENOUS PRN - [COMPLETED] heparin 5,000 Units injection 5,000 Units SUBCUTANEOUS ONCE - cefTRIAXone 2 g in D5W 100 mL Vial-Bag (ROCEPHIN) 2 g INTRAVENOUS Pre-Op Once - metroNIDAZOLE iv piggyback 500 mg in NaCl (iso-osmotic) 100 mL (FLAGYL) 500 mg INTRAVENOUS Pre-Op Once - [COMPLETED] acetaminophen 1,000 mg tab(s) (TYLENOL) 1,000 mg ORAL ONCE - [COMPLETED] gabapentin 600 mg tab(s) (NEURONTIN) 600 mg ORAL ONCE - [COMPLETED] celecoxib 200 mg cap(s) (CeleBREX) 200 mg ORAL ONCE Outpatient Medications as of 09/16/2022 Medication Sig - latanoprost (XALATAN) 0.005 % ophthalmic solution Use 1 Drop in both eyes daily at bedtime. - Psyllium Seed-Sucrose Take 1 Tablespoonful by mouth once daily. - acetaminophen (TYLENOL) 500 mg tablet Take 2 tablets by mouth four times daily. (Patient not taking: No sig reported) I have interviewed and examined the patient. I have reviewed the medical record and/or the pre-anesthesia evaluation, pertinent labs, and test results. This contains updated information obtained within 48 hours of Surgery/Procedure. SIGNATURE: Vanessa Otoole MD PATIENT NAME: Shira Gavin DATE: September 16, 2022 TIME: 11:43 AM CSN: [id number] Normal [facility] BRIEF OP NOTon 09-16-2022 BRIEF OP NOT HNO ID: [id number] Author: Wang Falcon MD Service: Colorectal Author Type: Fellow Type: Brief Op Note Filed: 09/16/2022 6:13 PM Note Text: BRIEF OPERATIVE NOTE - COLORECTAL SURGERY Log ID: [id number] Surgery/Procedure Date: 09/16/2022 Incision/Procedure Start Time: 12:32 PM Incision Close/Procedure End Time: Surgeon(s) and Gin Inspector(s): Surgeon(s) and Role: * Katty Antonio MD - Primary * Tino Jenkins MD - Assisting * Tanja Bah MD - Resident - Assisting * Wang Falcon MD - Fellow No Additional Staff Procedures and Anesthesia: Procedure(s) and Anesthesia Type: * LAPAROSCOPIC COLECTOMY SIGMOID COLON W/ COLORECTAL ANASTOMOSIS - Choice - Anesthesia Consult Stoma Type: Loop ileostomy Findings: Sigmoid with multiple diverticulosis. Adhesions of sigmoid and rectum to pelvis due to previous abscess/pelvic drain. Fibrotic rectum. Suprapubic incision. 10mm port inserted. Pneumoperitoneum. 2x 5mm ports RUQ/RLQ. Mobilisation lateral to medial. Splenic flexure taken down. Descending and sigmoid colon mobilised. Ureters identified and protected. JENIFER dissected out and divided. Dissection of rectum down to pelvic floor. Rectum was stuck down and had fibrosis. Initially dilator did not pass up easily. After mobilisation, able to pass dilator through. Division of mesorectum below sacral promontory below diverticular disease. Rectum divided with EndoGIA. Suprapubic incision extended - 5.5cm length. Cleancision inserted. Colon brought out and divided. 0 prolene purse suture and anvil inserted. EEA stapler connected to anvil. Orientation checked and stapler fired. Donuts intact Flex sig performed - Leak test negative. Anastomosis intact. Nil bleeding. Stoma site created Terminal ileum brought out of stoma site - orientation checked. Jasmin placed. Closure pfannenstiel wound peritoneum with chromic. Closure fascia 1 PDS. 4-0 monocryl to skin. Stoma matured. Estimated Blood Loss: 200mls Specimens: ID Type Source Tests Collected by Time Destination A : Tissue SIGMOID COLON RESECTION SURGICAL PATHOLOGY Katty Antonio MD 09/16/2022 4:30 PM Diagnosis Code(s): Pre-Op Diagnosis Codes: * Diverticulitis [K57.92] Postop Diagnosis: Diverticular disease Drains: None Wound Classification: Class 2, operative wound clean-contaminated, gastrointestinal/biliary tract entered without significant spillage Complications: None SIGNATURE: Wang Falcon MD PATIENT NAME: Shira Gavin DATE: September 16, 2022 TIME: 5:45 PM Normal [facility] Basic metabolic 2000 panelon 09-16-2022 Anion gap [Moles/Vol] 12 mmol/L Normal 9-18 [facility] Comment on above: Order Comment: Speci men Type: BLOOD SPECIMENOrdering Facility: [facility] Address: [address] [place] [address] Performed By: #### 1 9123-9, 05274-2, 2776-08, 1987-12, REYNOLD ####[facility] LABCLIA [id number] [place] [address] [place] Calcium [Mass/Vol] 8.6 mg/dL Normal 8.5-10.2 [facility] Comment on above: Order Comment: Amy saul Type: BLOOD SPECIMENOrdering Facility: [facility] Address: [address] [place] [address] Performed By: #### 1 9123-9, 75068-0, 2776-08, 1987-12, REYNOLD ####[facility] LABCLIA [id number] [place] [address] [place] Chloride [Moles/Vol] 105 mmol/L Normal 97-105 [facility] Comment on above: Order Comment: Speci men Type: BLOOD SPECIMENOrdering Facility: [facility] Address: [address] [place] [address] Performed By: #### 1 9123-9, 91460-9, 2776-08, 1987-12, REYNOLD ####[facility] LABCLIA [id number] [place] [address] [place] CO2 [Moles/Vol] 22 mmol/L Normal 22-30 [facility] Comment on above: Order Comment: Speci men Type: BLOOD SPECIMENOrdering Facility: [facility] Address: [address] [place] [address] Performed By: #### 1 9123-9, 64566-0, 2776-08, 1987-12, REYNOLD ####[facility] LABCLIA [id number] [place] [address] [place] Creatinine [Mass/Vol] 1.31 mg/dL High 0.73-1.22 [facility] Comment on above: Order Comment: Speci men Type: BLOOD SPECIMENOrdering Facility: [facility] Address: [address] [place] [address] Performed By: #### 1 9123-9, 36351-9, 2776-08, 1987-12, REYNOLD ####[facility] LABIA [id number] [place] [address] [place] ESTIMATED GLOMERULAR FILTRATION RATE 64 mL/min/1.73m??? Normal >=60 [facility] Comment on above: Order Comment: Speci men Type: BLOOD SPECIMENOrdering Facility: [facility] Address: [address] [place] [address] Result Comment: Alis mated Glomerular Filtration Rate (eGFR) is calculated using the 2020 CKD-EPI creatinine equation. This equation utilizes serum creatinine, sex, and age as parameters. The creatinine assay has traceable calibration to isotope dilution-mass spectrometry. Refer to KDIGO guidelines for clinical interpretation. In patients with unstable renal function, e.g. those with acute kidney injury, the eGFR may not accurately reflect actual GFR. Performed By: #### 1 9123-9, 07879-6, 2776-08, 1987-12, REYNOLD ####[facility] LABCLIA [id number] [place] [id number] [place] Glucose [Mass/Vol] 127 mg/dL High 74-99 [facility] Comment on above: Order Comment: Mariahi men Type: BLOOD SPECIMENOrdering Facility: [facility] Address: [address] [place] [address] Result Comment: The [place] [employer] (ADA) provides guidance for cutoff values for fasting glucose and random glucose. The ADA defines fasting as no caloric intake for at least 8 hours. Fasting plasma glucose results between 100 to 125 mg/dL indicate increased risk for diabetes (prediabetes). Fasting plasma glucose results greater than or equal to 126 mg/dL meet the criteria for diagnosis of diabetes. In the absence of unequivocal hyperglycemia, results should be confirmed by repeat testing. In a patient with classic symptoms of hyperglycemia or hyperglycemic crisis, random plasma glucose results greater than or equal to 200 mg/dL meet the criteria for diagnosis of diabetes. Reference: Standards of Medical Care in Diabetes 2016, [place] [employer]. Diabetes Care. 2016.39(Suppl 1). Performed By: #### 1 9123-9, 86408-6, 2776-08, 1987-12, REYNOLD ####[facility] LABCLIA [id number] [place] [address] [place] Potassium [Moles/Vol] 4.7 mmol/L Normal 3.7-5.1 [facility] Comment on above: Order Comment: Amy saul Type: BLOOD SPECIMENOrdering Facility: [facility] Address: [address] [place], [place] [address] Performed By: #### 1 9123-9, 13924-7, 2776-08, 1987-12, REYNOLD ####[facility] LABCLIA [id number] [place] [address] [place] Sodium [Moles/Vol] 139 mmol/L Normal 136-144 [facility] Comment on above: Order Comment: Amy saul Type: BLOOD SPECIMENOrdering Facility: [facility] Address: [address] [place] [address] Performed By: #### 1 9123-9, 09902-1, 2776-08, 1987-12, REYNOLD ####[facility] LABCLIA [id number] [place] [address] [place] Urea nitrogen [Mass/Vol] 17 mg/dL Normal 9-24 [facility] Comment on above: Order Comment: Speci men Type: BLOOD SPECIMENOrdering Facility: [facility] Address: [address] [place] [address] Performed By: #### 1 9123-9, 43162-6, 2777-1, 1987-, REYNOLD ####[facility] LABCLIA [id number] [place] [address] [place] CBC W Auto Differential pane l (Bld)on 09-16-2022 Basophils (Bld) [#/Vol] 10*3/uL Normal <0.11 [facility] Comment on above: Order Comment: Speci men Type: BLOOD SPECIMENOrdering Facility: [facility] Address: [address] [place] [address] Performed By: #### 5 7021-8 ####[facility] LABCLIA [id number] [place] [address] [place] Basophils/100 WBC (Bld) 0.1 % Normal [facility] Comment on above: Order Comment: Speci men Type: BLOOD SPECIMENOrdering Facility: [facility] Address: [address] [place] [address] Performed By: #### 5 7021-8 ####[facility] LABIA [id number] [place] [address] [place] Differential cell count method Nom (Bld) Auto Normal [facility] Comment on above: Order Comment: Speci men Type: BLOOD SPECIMENOrdering Facility: [facility] Address: [address] [place] [address] Performed By: #### 5 7021-8 ####[facility] LABCLIA [id number] [place] [address] [place] Eosinophils (Bld) [#/Vol] 10*3/uL Normal <0.46 [facility] Comment on above: Order Comment: Speci men Type: BLOOD SPECIMENOrdering Facility: [facility] Address: [address] Performed By: #### 5 7021-8 ####[facility] LABCLIA [id number] [place] [address] [place] Eosinophils/100 WBC (Bld) 0.0 % Normal [facility] Comment on above: Order Comment: Speci men Type: BLOOD SPECIMENOrdering Facility: [facility] Address: [address] Performed By: #### 5 7021-8 ####[facility] LABIA [id number] [place] [address] [place] Erythrocyte distribution width (RBC) [Ratio] 14.1 % Normal 11.5-15.0 [facility] Comment on above: Order Comment: Speci men Type: BLOOD SPECIMENOrdering Facility: [facility] Address: [address] Performed By: #### 5 7021-8 ####[facility] LABIA [id number] [place] [address] [place] Hematocrit (Bld) [Volume fraction] 42.6 % Normal 39.0-51.0 [facility] Comment on above: Order Comment: Speci men Type: BLOOD SPECIMENOrdering Facility: [facility] Address: [address] Performed By: #### 5 7021-8 ####[facility] LABIA [id number] [place] [address] [place] Hemoglobin (Bld) [Mass/Vol] 14.0 g/dL Normal 13.0-17.0 [facility] Comment on above: Order Comment: Speci men Type: BLOOD SPECIMENOrdering Facility: [facility] Address: [address] Performed By: #### 5 7021-8 ####[facility] LABCLIA [id number] [place] [address] [place] Immature granulocytes (Bld) [#/Vol] 0.10 10*3/uL High <0.10 [facility] Comment on above: Order Comment: Speci men Type: BLOOD SPECIMENOrdering Facility: [facility] Address: [address] [place] [address] Performed By: #### 5 7021-8 ####[facility] LABCLIA [id number] [address] [place] Immature granulocytes/100 WBC (Bld) 0.6 % Normal [facility] Comment on above: Order Comment: Speci men Type: BLOOD SPECIMENOrdering Facility: [facility] Address: [address] [place] [address] Performed By: #### 5 7021-8 ####[facility] LABIA [id number] [place] [address] [place] Lymphocytes (Bld) [#/Vol] 0.72 10*3/uL Low 1.00-4.00 [facility] Comment on above: Order Comment: Speci men Type: BLOOD SPECIMENOrdering Facility: [facility] Address: [address] [place] [address] Performed By: #### 5 7021-8 ####[facility] LABCLIA [id number] [address] [place] Lymphocytes/100 WBC (Bld) 4.4 % Normal [facility] Comment on above: Order Comment: Speci men Type: BLOOD SPECIMENOrdering Facility: [facility] Address: [address] [place] [address] Performed By: #### 5 7021-8 ####[facility] LABCLIA [id number] [place] [address] [place] MCH (RBC) [Entitic mass] 26.4 pg Normal 26.0-34.0 [facility] Comment on above: Order Comment: Speci men Type: BLOOD SPECIMENOrdering Facility: [facility] Address: [address] [place] [address] Performed By: #### 5 7021-8 ####[facility] LABCLIA [id number] [place] [address] [place] MCHC (RBC) [Mass/Vol] 32.9 g/dL Normal 30.5-36.0 [facility] Comment on above: Order Comment: Speci men Type: BLOOD SPECIMENOrdering Facility: [facility] Address: [address] [place] [address] Performed By: #### 5 7021-8 ####[facility] LABIA [id number] [place] [address] [place] MCV (RBC) [Entitic vol] 80.2 fL Normal 80.0-100.0 [facility] Comment on above: Order Comment: Speci men Type: BLOOD SPECIMENOrdering Facility: [facility] Address: [address] [place], [place] [address] Performed By: #### 5 7021-8 ####[facility] LABIA [id number] [place] [address] [place] Monocytes (Bld) [#/Vol] 0.72 10*3/uL Normal <0.87 [facility] Comment on above: Order Comment: Speci men Type: BLOOD SPECIMENOrdering Facility: [facility] Address: [address] [place], [place] [address] Performed By: #### 5 7021-8 ####[facility] LABIA [id number] [address] [place] Monocytes/100 WBC (Bld) 4.4 % Normal [facility] Comment on above: Order Comment: Speci men Type: BLOOD SPECIMENOrdering Facility: [facility] Address: [address] [place] [address] [place] [address] Performed By: #### 5 7021-8 ####[facility] LABCLIA [id number] [place] [address] [place] Neutrophils (Bld) [#/Vol] 14.95 10*3/uL High 1.45-7.50 [facility] Comment on above: Order Comment: Speci men Type: BLOOD SPECIMENOrdering Facility: [facility] Address: [address] Performed By: #### 5 7021-8 ####[facility] LABCLIA [id number] [place] [address] [place] Neutrophils/100 WBC (Bld) 90.5 % Normal [facility] Comment on above: Order Comment: Speci men Type: BLOOD SPECIMENOrdering Facility: [facility] Address: [address] Performed By: #### 5 7021-8 ####[facility] LABCLIA [id number] [place] [address] [place] Nucleated RBC (Bld) [#/Vol] 10*3/uL Normal <0.01 [facility] Comment on above: Order Comment: Speci men Type: BLOOD SPECIMENOrdering Facility: [facility] Address: [address] [place] [address] Performed By: #### 5 7021-8 ####[facility] LABCLIA [id number] [place] [address] [place] Nucleated RBC/100 WBC (Bld) [Ratio] 0.0 /100 WBC Normal [facility] Comment on above: Order Comment: Speci men Type: BLOOD SPECIMENOrdering Facility: [facility] Address: [address] [place] [address] Performed By: #### 5 7021-8 ####[facility] LABCLIA [id number] [place] [id number] [place] Platelet mean volume (Bld) [Entitic vol] 9.3 fL Normal 9.0-12.7 [facility] Comment on above: Order Comment: Speci men Type: BLOOD SPECIMENOrdering Facility: [facility] Address: [address] [place] [address] Performed By: #### 5 7021-8 ####[facility] LABCLIA [id number] [place] [address] [place] Platelets (Bld) [#/Vol] 244 10*3/uL Normal 150-400 [facility] Comment on above: Order Comment: Speci men Type: BLOOD SPECIMENOrdering Facility: [facility] Address: [address] [place] [address] Performed By: #### 5 7021-8 ####[facility] LABCLIA [id number] [place] [address] [place] RBC (Bld) [#/Vol] 5.31 10*6/uL Normal 4.20-6.00 [facility] Comment on above: Order Comment: Speci men Type: BLOOD SPECIMENOrdering Facility: [facility] Address: [address] [place], [place] [address] Performed By: #### 5 7021-8 ####[facility] LABIA [id number] [place] [address] [place] WBC (Bld) [#/Vol] 16.51 10*3/uL High 3.70-11.00 [facility] Comment on above: Order Comment: Speci men Type: BLOOD SPECIMENOrdering Facility: [facility] Address: [address] [place], [place] [address] Performed By: #### 5 7021-8 ####[facility] LABCLIA [id number] [place] [address] [place] CONSULTon 09-16-2022 CONSULT HNO ID: [id number] Author: Serg Hernández MD Service: Anesthesiology Author Type: Resident Type: Consults Filed: 09/16/2022 2:42 PM Note Text: -- Attestation signed by Jesse Webb MD at 09/17/2022 4:14 PM I evaluated the patient and personally participated in the george components. I agree with the resident's findings and plan as documented and have discussed the case and management of the patient's care with the resident. Signature: Jesse Webb MD Service Date: 09/17/2022 Service Time: 4:14 PM -- Anesthesia Pain Service Consult Note PATIENT NAME: Shira Gavin : 1965 Consults Service Date Time: 09/16/2022 12:00 PM Service Requesting Consult: Colorectal Opinion/Advice Regarding: Consultation regarding post operative pain following laparotomy/ abdominal surgery. The surgeon requesting our opinion regarding the feasibility for a TAP block. INTERVAL HPI Shira Gavin is a 56 year old male who is POD #0,S/P who reports pain that began Anticipating Postoperative pain following abdominal surgery and is described as: Block Candidate for Pre-Op Block?: Yes Anticipated Block Type: TAP block Block Laterality: Bilateral PDMP Verification: PDMP website checked and validated Plan Plan Discussed With: Patient A consult placed by the surgical team regarding post operative pain following a laparotomy incision. Expected pain is variable following this incision but usually it is a moderate to sever pain , sharp and stabbing. May restrict chest exercises post surgery. TAP block , is considered a relatively safe procedure with minimal complication ( rare infection or bleeding ) however, it reduce the amount of pain as well as the need for narcotics significantly and change the pattern of pain to a tolerable , pressure type of pain. Discussed the Risks , benefits and alternatives of TAP block in addition to multimodal analgesia. The patient agree to proceed. Objective APS Progress Note ROS BP 136/82 Pulse 76 Temp 36.3 ?C (97.3 ?F) (Temporal) Resp 18 Ht 172.7 cm (5' 8) Wt 107 kg (236 lb) SpO2 97% BMI 35.88 kg/m? Physical Exam Sensory/Motor Exam Intake/Output Summary (Last 24 hours) at 09/16/2022 1441 Last data filed at 09/16/2022 1422 Gross per 24 hour Intake 12 ml Output 200 ml Net -188 ml Lab Results: APTT 41.8 11/04/2014 PT Sec 10.9 10/20/2021 PT INR 1.0 10/20/2021 Hemoglobin 14.7 09/05/2022 Hematocrit 46.4 09/05/2022 Platelet Count 321 09/05/2022 Radiology: N/A Lines/Drains/Airways: Lines, Drains, and Airways Line Duration Peripheral 09/16/22 1200 Right Hand 18 Gauge <1 day Drain Duration Indwelling Urinary Catheter 09/16/22 1202 Coude 16 Fr <1 day Airway Duration Airway Endotracheal Tube 09/16/22 1151 <1 day Problem List *Diverticulitis (09/16/2022) Obesity, Class II, BMI 35-39.9 (09/16/2022) Past Medical History PAST MEDICAL HISTORY Diagnosis Date Anticoagulated on Coumadin 2014 Diverticulosis of colon 10/23/2014 perforated diverticulitis Glaucoma, bilateral Heart murmur as baby, states resolved Pulmonary embolism (HCC) 10/27/[address] Past Surgical History PAST SURGICAL HISTORY Procedure Laterality Date PAST SURGICAL HISTORY OF 08/28/2009 right rotator cuff repair PAST SURGICAL HISTORY OF right finger PAST SURGICAL HISTORY OF colonoscopy PAST SURGICAL HISTORY OF wisdom teeth PICC LINE INSERT/CONSULT 10/30/2014 Family History FAMILY HISTORY Problem Relation Age of Onset other (lung cancer) Mother DVT Father multiple PE Diabetes Father other (Pulmonary embolism) Father multiple DVT Dementia Father Social History Social History Tobacco Use Smoking status: Never Smokeless tobacco: Current Types: Chew Tobacco comments: began chewing ~1987 Substance Use Topics Alcohol use: Yes Drug use: Not Currently Prior to Admission Medications neomycin 500 mg tablet, Take 2 tablets by mouth at 9pm and take 2 tablets by mouth at 11pm the night before surgery., Disp: 4 tablet, Rfl: 0, 09/15/2022 metroNIDAZOLE (FLAGYL) 500 mg tablet, Take 1 tablet by mouth at 9pm and take 1 tablet by mouth at 11pm the night before surgery., Disp: 2 tablet, Rfl: 0, 09/15/2022 at 2300 latanoprost (XALATAN) 0.005 % ophthalmic solution, Use 1 Drop in both eyes daily at bedtime., Disp: , Rfl: , 09/15/2022 Psyllium Seed-Sucrose, Take 1 Tablespoonful by mouth once daily. , Disp: , Rfl: , 09/14/2022 acetaminophen (TYLENOL) 500 mg tablet, Take 2 tablets by mouth four times daily. (Patient not taking: No sig reported), Disp: , Rfl: , Unknown Allergies: ALLERGIES No Known Allergies Current Hospital Medications Current Facility-Administered Medications Medication Dose Route Frequency (more content not included)... Normal [facility] CRP SerPl-mCncon 09-16-2022 CRP [Mass/Vol] mg/L Normal <0.9 [facility] Comment on above: Order Comment: Amy saul Type: BLOOD SPECIMENOrdering Facility: [facility] Address: [address] [place] [address] Performed By: #### 1 9123-9, 26281-3, 2776-08, 1987-12, REYNOLD ####[facility] LABCLIA [id number] [address] OF [facility] Magnesium SerPl-mCncon 09-16 Magnesium [Mass/Vol] 2.1 mg/dL Normal 1.7-2.3 [facility] Comment on above: Order Comment: Amy saul Type: BLOOD SPECIMENOrdering Facility: [facility] Address: [address] [place] [address] Performed By: #### 1 9123-9, 98878-0, 2776-08, 1987-12, REYNOLD ####[facility] LABCLIA [id number] [facility] [id number] [id number] [place] OPERATIVE NOon 09-16-2022 OPERATIVE NO HNO ID: [id number] Author: Katty Antonio MD Service: Colorectal Author Type: Physician Type: Operative Report Filed: 09/19/2022 12:43 PM Note Text: [facility] - Operative Report [address] [id number] [place] SHIRA GAVIN Terrie : 1965 AGE: 56. SEX: M PATIENT TYPE: I HOSP SVC: [facility] LOCATION: [id number] ATTENDING PHYSICIAN: Katty Antonio M.D. CSN NUMBER: [id number] DATE OF SURGERY/PROCEDURE: 09/16/2022 INCISION/PROCEDURE START TIME: 12:32. INCISION CLOSE/PROCEDURE END TIME: 1745 PREOPERATIVE DIAGNOSIS: Diverticulitis. POSTOPERATIVE DIAGNOSIS: Diverticulitis with extensive pelvic scar tissue. SURGEON: Katty Antonio M.D. MARINE EQUIPMENT PRESERVATION INSPECTOR: 1. Dr. Wang Falcon. 2. Dr. Tino Jenkins. SURGERY/PROCEDURE: Laparoscopic sigmoid resection with colorectal anastomosis, loop ileostomy, and flexible sigmoidoscopy. ANESTHESIA: General by endotracheal plus he had a TAP block. INDICATIONS: This 56-year-old gentleman who has had at least 4 episodes of diverticulitis, had an abscess associated with one of them. In 2014, he had the largest abscess that was anterior to the rectum extending into the very low pelvis required interventional radiology for drainage. His other episodes were in 2015, 2019, and 2021. Looking at his films, he has a very redundant sigmoid that is in the pelvis and it looks like it is the sigmoid/distal descending colon is where the disease has been located. I told him we would try to do this laparoscopically and he comes for this procedure. Of note, in 2014, he had deep venous thrombosis and pulmonary embolism. He was reviewed here by Dr. Lenz and they felt this is situational. 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 We will make sure he gets his appropriate DVT prophylaxis. 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 We mobilized, so we be able to get the gun in. There was no tension on the anastomosis, 2 complete donuts and it looked excellent with flexible sigmoidoscopy. We did do a proximal ileostomy due to the difficulty with dissection and fibrosis in the pelvis. DESCRIPTION OF PROCEDURE: The patient was brought to the operating room. A huddle was done. General endotracheal anesthesia was administered. Again, we made sure he received his heparin and his PAS stockings were placed on. The hair was clipped on his abdomen. The Pain Service did a TAP block. A Willson catheter was sterilely placed. He was wrapped in the sheets in the usual fashion for laparoscopic surgery. His legs were placed up in the [facility] stirrups and padded. His abdomen was prepped and draped and a colorectal time-out was done. A small incision was made in the suprapubic region transversely. It was deepened down. The fascia was opened transversely and the peritoneum was split. A wound protector was placed and a 10 mm trocar was placed down through and secured pneumoperitoneum was established. Under direct vision, a 5 mm trochar was placed in the supraumbilical region, a 5 mm in the right upper quadrant, and a 5 mm in the right lower quadrant. Using the LigaSure, the bowel was mobilized from lateral to medial. The left ureter was identified. The area on the right at the sacral promontory was opened with the LigaSure and dissection was commenced in the presacral space and laterally and we did have to open the peritoneal reflection because it was so socked in to be able to get enough mobility to be able to get the gun in for the anastomosis. We mobilized the left colon again seeing the left ureter, the inferior mesenteric artery and vein were divided with the LigaSure. We picked a place that felt was relatively soft in the rectum and using the LigaSure, the mesentery was divided. Two firings of the Endo-GRAY 60 were used to divide the rectum. We then enlarged our suprapubic port site and a clean incision was placed. The bowel was eviscerated out. The mesentery was divided. We could feel an area that was thickened where we felt the disease had been. The bowel was amputated cephalad to that. There was good bleeding from the cut edge. A #0 Prolene pursestring was applied and the head of the #28 gun was placed down it and secured, was tied down. It was replaced back in the abdomen and pneumoperitoneum was reestablished. The gun was brought in. The spike was extended beneath the staple line. We oriented the bowel. The head was mated with the gun. We again made sure the bowel was oriented. The gun was closed and fired. There were 2 complete donuts. A flexible sigmoidoscopy revealed the anastomosis was about 15 cm. Everything was healthy, pink, hemostatic, and there was no evidence of a leak. Because of the amount of scarring, I felt he should have an ileostomy because we had a lot (more content not included)... Normal [facility] Phosphate SerPl-mCncon 09-16 Phosphate [Mass/Vol] 4.8 mg/dL [facility] 2[facility]4.8 [facility] Comment on above: Order Comment: Speci men Type: BLOOD SPECIMENOrdering Facility: [facility] Address: [address] [place] [address] Performed By: #### 1 9123-9, 03377-0, 2777-1, 1987-, REYNOLD ####[facility] [id number] [address] [place] SURGICAL PATHOLOGYon 023 CASE REPORT Normal [facility] Comment on above: Order Comment: Speci men Type: TISSUE SPECIMENOrdering Facility: [facility] Address: [address] [place] [address] Result Comment: Surg [facility] Pathology Report Case: [id number] Authorizing Provider: Katty Antonio MD Collected: 09/16/2022 04:30 PM Ordering Location: Admitting Received: 09/16/2022 05:17 PM Pathologist: Ciera Worthington MD Specimen: SIGMOID COLON RESECTION Performed By: #### S ####[facility] LABCLIA [id number] [address] CLINICAL HISTORY Normal [facility] Comment on above: Order Comment: Speci men Type: TISSUE SPECIMENOrdering Facility: [facility] Address: [address] [place] [address] Result Comment: Pre- op diagnosis: Diverticulitis [K57.92] Performed By: #### S ####[facility] LABCLIA [id number] [address] FINAL DIAGNOSIS Normal [facility] Comment on above: Order Comment: Speci men Type: TISSUE SPECIMENOrdering Facility: [facility] Address: [address] [place] [address] Result Comment: Patrice matthews, sigmoid, resection: - Segment of colon with diverticulosis and peridiverticular fibrosis. - Six benign lymph nodes. SE/HH 09/20/2022 Performed By: #### S ####[facility] LABCLIA [id number] [address] FINAL PERFORMING LAB Normal [facility] Comment on above: Order Comment: Speci men Type: TISSUE SPECIMENOrdering Facility: [facility] Address: [address] [place] [address] Result Comment: Diag nostic interpretation performed at [facility], [address] [address] CLIA# [id number] Elementary Assistant Principal: Paulie Lang M.D. Performed By: #### S ####[facility] LABCLIA [id number] [address] GROSS DESCRIPTION Normal [facility] Comment on above: Order Comment: Speci men Type: TISSUE SPECIMENOrdering Facility: [facility] Address: [address] [place] [address] Result Comment: A. S IGMOID COLON RESECTION Received fresh labeled ???sigmoid colon resection??? is a 20.0 cm in length x 2.5 cm in circumference un-oriented segment of bowel with an average wall thickness of 1.0 cm. One mucosal margin is inked blue and the opposite mucosal margin is inked black. The serosal surface is pink-dudley, smooth and glistening. Opening of the bowel reveals dudley mucosa with numerous diverticula. No masses or lesions are identified. Examination of the pericolonic adipose tissue reveals multiple possible lymph nodes ranging from 0.3 to 0.5 cm in greatest dimension. Solar Project Engineer sections are submitted as follows: A1: Proximal and distal resection margins, perpendicular sections A2-A4: Diverticula A5: Intervening mucosa A6: Solar Project Engineer lymph nodes, submitted in toto Gross examination performed at [facility], [address] [place] [address] 09/19/22 3:57 PM Performed By: #### S ####[facility] [id number] [address] TROPONIN Ton 09-16-2022 Troponin T.cardiac [Mass/Vol] ug/L Normal 0.000-0.029 [facility] Comment on above: Order Comment: Speci men Type: BLOOD SPECIMENOrdering Facility: [facility] Address: [address] [place] [address] Performed By: #### 1 9123-9, 32893-0, 2777-1, 1987-, REYNOLD ####[facility] [id number] [address] CNNURSEon 09-06-2022 CNNURSE Nurse Visit (CORMEGHA) -- SHIRA GAVIN ([id number]) 1965 M Date Time Provider Department 09/06/22 10:15 AM STOMA THERAPY CORSMN During your visit today, we recorded the following information about you: Lynn Mcdonough RN 09/06/2022 11:14 AM Signed ET/[facility] Nursing Note Topic: STOMA MARKING ET Outcome: Patient seen in the outpatient clinic accompanied by to see Dr. Antonio and [facility] nursing for jose a and talk. Patient is scheduled to have surgery on 09/16 with possible ileostomy. With patient's permission marking done in the RUQ. Patient has a short lower torso causing lower abdomen to hide when sitting. This was communicated to Dr. Antonio via staff message. The stoma marking purpose and procedure was explained: yes. The patient verbalized understanding and agrees to the marking: yes. Rectus Muscle boarders are located: yes. Abdominal contour evaluation was performed in the lying position, sitting position, and standing position. The stoma marking was made according to ET/[facility] Nursing Procedure #401 in the RUQ. Patient is able to see site in the following positions: lying position, sitting position, and standing position Comments: With patient's permission, tattoo placed in the RUQ with Nnacy Ink and #25 gauge needle. DIAGRAM: See Medical Imaging printout Sitting Standing Time Increment: 30 minutes Lynn Mcdonough RN, BSN, CWOCN ET/[facility] NURSING ET OUTCOME: Jose A and Talk TOPIC: OSTOMY INSTRUCTION READINESS TO LEARN COGNITIVE ABILITY: Alert and Oriented MOTIVATION TO LEARN: Interested FAMILY SUPPORT: High - Very involved in patient care INSTRUCTION PROVIDED TO: Patient and Spouse PATIENT LEARNS BEST BY: Multiple Methods FACTORS AFFECTING LEARNING: None PHYSICAL LIMITATIONS AFFECTING LEARNING: None LEARNING RESPONSE DIAGNOSIS: Diverticulitis PROCEDURE / SURGERY: Loop ileostomy EDUCATION TOPIC/ TEACHING POINTS: Ostomy Care Stoma appearance and function, Purpose of the pouching system, Postoperative ostomy care per ET/[facility] Nurse, Postoperative self ostomy care instruction, Discharge equipment ordering and support options, Diet, Fluid Intake, ADL'S, Work, Clothing Adjustment, Exercise, and Sexual Intimacy METHOD OF INSTRUCTION: Video PATIENT / FAMILY RESPONSE: Verbalizing understanding of: Preoperative teaching FOLLOW-UP PLAN: Complete - No need for follow-up SUPPLEMENTAL MATERIAL: Ileostomy Booklet REFERRAL (RECOMMENDATION): None TIME INCREMENT: 30 minutes Electronically Signed By Lynn Mcdonough RN ET/[facility] Nursing Referring Provider: KATTY ANTONIO [[id number]] Allergies As of Date: 09/06/2022 (No Known Allergies) Date Reviewed: 09/06/2022 Reviewed by: Martin Dumas MA - Fully Assessed Primary Visit Diagnosis:Diverticulitis [K57.92] Other Visit Diagnosis:Digestive system complication [K92.9] Prescriptions as of 09/06/2022 - neomycin 500 mg tablet Take 2 tablets by mouth at 9pm and take 2 tablets by mouth at 11pm the night before surgery. - metroNIDAZOLE (FLAGYL) 500 mg tablet Take 1 tablet by mouth at 9pm and take 1 tablet by mouth at 11pm the night before surgery. - acetaminophen (TYLENOL) 500 mg tablet Take 2 tablets by mouth four times daily. - latanoprost (XALATAN) 0.005 % ophthalmic solution Use 1 Drop in both eyes daily at bedtime. - Psyllium Seed-Sucrose Take 1 Tablespoonful by mouth once daily. Problem List As Of Date 09/06/2022 Noted Resolved Diverticulitis of colon [K57.32] 10/24/2014 Abscess of abdominal cavity (HCC) [K65.1] 10/24/2014 Leukocytosis [D72.829] 10/24/2014 Nausea and vomiting in adult patient [R11.2] 10/23/2014 Abdominal abscess (HCC) [SAW4799] 10/27/2014 Pulmonary embolism (HCC) [I26.99] 10/29/2014 Anticoagulated on Coumadin [Z79.01] 10/29/2014 Acute pulmonary embolism (HCC) [I26.99] 11/01/2014 Anticoagulation management encounter [Z51.81, Z*11/01/2014 Septic arthritis of left sternoclavicular joint*11/07/2014 Personal history of DVT (deep vein thrombosis) *08/04/2015 Personal history of pulmonary embolism [Z86.711]08/04/2015 History of pulmonary embolism [Z86.711] 08/02/2016 Acute diverticulitis [K57.92] 10/20/2021 Nicotine use disorder, F17.2 [F17.200] 10/23/2021 Obesity, Class I, BMI 30-34.9 [E66.9] 10/23/2021 Pre-op evaluation [Z01.818] 09/05/2022 Tobacco use [Z72.0] 09/05/2022 VTE (venous thromboembolism) [I82.90] 09/05/2022 Elevated BP without diagnosis of hypertension [*09/05/2022 Encounter Status:Closed by LYNN MCDONOUGH on 1/10/23 [facility] CNOVon 09-06-2022 CNOV Office Visit (ESTER ) -- SHIRA GAVIN ([id number]) 1965 M Date Time Provider Department 09/06/22 9:20 AM KATTY ANTONIO During your visit today, we recorded the following information about you: Temperature Pulse Blood pressure Weight 98.3 degrees 80/minute 143/91 107 kg Height 1.727 m Katty Antonio MD 09/07/2022 2:16 PM Addendum COLORECTAL SURGERY September 05, 2022 Chief Complaint: discuss surgical options History of Present Illness: Shira Gavin is a 56 year old year old male . Last seen by me 11-04-21 Assessment AND Diagnosis and treatment recommnedations: Shira Gavin is a 55 year old here with his Fourth episode of diverticulitis since 2016. Last episode with 3.5 cm abscess and tethering of his bladder. 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 He has been on augmentin. Plan Go off antibiotics on Monday and see how he does. Watch for recurrent abdominal pain and/or air from his urethra. Send me a MYCHART Mon or and let me know how he is doing. I do not know if he will do OK. Would prefer for any surgery to be 6-8 weeks out from an episode if possible. Went over I cannot guarantee that he will not have temporary stoma but the odds are less if he is not close to a flare. He and I agree that he does need surgery. The timing will be the george thing. 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 If he does well and we can delay, he will contact me toward end of summer to set up for fall. History of PE ======= 08-01-22 he spoke with Crina at that time no symptoms since October 2021 Colonoscopy 01-15-15 (by me) Multiple medium-mouthed diverticula were found in the sigmoid colon, in the descending colon, in the transverse colon and in the ascending colon. See photo. None were remarkable and all were soft Was this his last colonoscopy?2014 YES Moving bowels 2 x per day Has changed work and is less stressful Hx of DVT and PE in 2014 - currently on no medication Hx of glaucoma bilateral on eye drops PAST MEDICAL HISTORY Diagnosis Date Anticoagulated on Coumadin Diverticulosis of colon 10/23/2014 perforated diverticulitis Glaucoma, bilateral Heart murmur as baby, states resolved Pulmonary embolism (HCC) 10/27/[address] PAST SURGICAL HISTORY Procedure Laterality Date PAST SURGICAL HISTORY OF 08/28/2009 right rotator cuff repair PAST SURGICAL HISTORY OF right finger PAST SURGICAL HISTORY OF colonoscopy PAST SURGICAL HISTORY OF wisdom teeth PICC LINE INSERT/CONSULT 10/30/2014 Current Outpatient Medications Medication Sig Dispense Refill acetaminophen (TYLENOL) 500 mg tablet Take 2 tablets by mouth four times daily. (Patient not taking: Reported on 09/05/2022) latanoprost (XALATAN) 0.005 % ophthalmic solution Use 1 Drop in both eyes daily at bedtime. Psyllium Seed-Sucrose Take 1 Tablespoonful by mouth once daily. No current facility-administered medications for this visit. ALLERGIES No Known Allergies Social History Tobacco Use Smoking status: Never Smokeless tobacco: Current Types: Chew Tobacco comments: began chewing ~1986 Substance Use Topics Alcohol use: Yes Drug use: Not Currently Review of Systems / PACC screen: Do you have difficulty climbing a full flight of stairs without feeling short of breath? no Do you require oxygen for your breathing or have your gone to an emergency department because of breathing problems? no Are you on dialysis or have you been told that your kidneys do not work well as they should? no Do have an implanted cardiac device (pacemaker, defibrillator etc.) that has not been checked in the last 6 months? no Have you had an organ transplant? no Have you been told that you had excessive bleeding during surgical procedures or do you take blood thinning medications other than aspirin? no Have you ever had a heart attack, heart stents/surgery, valve problems, or other heart problems? no Have you had a stroke, seizures, or unexplained loss of consciousness? no Do you have a neurologic condition like Parkinson's disease or multiple sclerosis? no Have you or a blood relative had a life-threatening reaction to anesthesia? no Do you have cirrhosis of the liver or other liver disease? no Have you had a blood clot within the past year? no Do you take insulin or other injections for diabetes? no Do you have sleep apnea or have you been told you may have sleep apnea? yes BEEN TOLD BY HE SHOULD GET CHECKED Do you have other implanted devices (deep brain stimulator, spinal cord stimulator, etc.)? no REVIEW OF SYSTEMS PAIN ASSESSMENT: Negative for pain, history of chronic pain, or current treatment for a chronic pain condition. GENERAL: No weight loss, malaise or fevers HEENT: Negative for f (more content not included)... Normal [facility] LEG VEIN DVT [facility]o n 09-06-2022 LEG VEIN DVT [facility] Non-Invasive Vascular Laboratory [facility] J35 Lower Extremity Venous Duplex Bilateral/Complete Date of service/time: 09/06/2022 12:59:26 PM Name: SHIRA GAVIN Date of : 1965 Age: 56 years Gender: M Clinical Indication Preoperative evaluation, personal history of venous thrombosi and rule out deep vein thrombosis. TECHNIQUE -------- A venous duplex ultrasound examination was performed, including grayscale imaging with compression maneuvers and color Doppler and spectral Doppler examination with augmentation maneuvers and response to respiration of the below mentioned veins. FINDINGS -------- RIGHT SIDE Distal external iliac vein Doppler: normal flow. Compression: normal. Common femoral vein Doppler: normal flow. Compression: normal. Femoral vein Doppler: normal flow. Compression: normal. Popliteal vein Doppler: normal flow. Compression: normal. Posterior tibial veins Compression: normal. Peroneal veins Compression: normal. Great saphenous vein Compression: normal. Small saphenous vein Compression: normal. LEFT SIDE Distal external iliac vein Doppler: normal flow. Compression: normal. Common femoral vein Doppler: normal flow. Compression: normal. Femoral vein Doppler: normal flow. Compression: normal. Popliteal vein Doppler: normal flow. Compression: normal. Posterior tibial veins Compression: normal. Peroneal veins Compression: normal. Great saphenous vein Compression: normal. Small saphenous vein Doppler: abnormal flow with reflux. Compression: abnormal. IMPRESSION RIGHT SIDE - DEEP VEINS Negative for acute deep vein thrombosis. LEFT SIDE - DEEP VEINS Negative for acute deep vein thrombosis. LEFT SIDE - SUPERFICIAL VEINS Positive for valvular incompetency in the small saphenous vein. 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 Technologist: Aki Samayoa RVT Ordering physician: KATTY ANTONIO Interpreting physician: Faraz Lenz MD, RPMARYCRUZ Final CC [facility] : [id number] See Link below for Image Normal [facility] CBC panel Auto (Bld)on 09-05 Erythrocyte distribution width (RBC) [Ratio] 14.3 % Normal 11.5-15.0 [facility] Comment on above: Order Comment: Speci men Type: BLOOD SPECIMENOrdering Facility: [facility] Address: [address] [place] [address] Performed By: #### 5 8410-2 ####[facility] [id number] [place] [address] [place] Hematocrit (Bld) [Volume fraction] 46.4 % Normal 39.0-51.0 [facility] Comment on above: Order Comment: Speci men Type: BLOOD SPECIMENOrdering Facility: [facility] Address: [address] [place] [address] Performed By: #### 5 8410-2 ####[facility] LABIA [id number] [place] [address] [place] Hemoglobin (Bld) [Mass/Vol] 14.7 g/dL Normal 13.0-17.0 [facility] Comment on above: Order Comment: Speci men Type: BLOOD SPECIMENOrdering Facility: [facility] Address: [address] Performed By: #### 5 8410-2 ####[facility] LABCLIA [id number] [address] MCH (RBC) [Entitic mass] 26.2 pg Normal 26.0-34.0 [facility] Comment on above: Order Comment: Speci men Type: BLOOD SPECIMENOrdering Facility: [facility] Address: [address] Performed By: #### 5 8410-2 ####[facility] LABCLIA [id number] [address] [place] MCHC (RBC) [Mass/Vol] 31.7 g/dL Normal 30.5-36.0 [facility] Comment on above: Order Comment: Speci men Type: BLOOD SPECIMENOrdering Facility: [facility] Address: [address] [place], [place] [address] Performed By: #### 5 8410-2 ####[facility] LABCLIA [id number] [address] [place] MCV (RBC) [Entitic vol] 82.6 fL Normal 80.0-100.0 [facility] Comment on above: Order Comment: Speci men Type: BLOOD SPECIMENOrdering Facility: [facility] Address: [address] [place] [address] Performed By: #### 5 8410-2 ####[facility] LABCLIA [id number] [address] [place] Nucleated RBC (Bld) [#/Vol] 10*3/uL Normal <0.01 [facility] Comment on above: Order Comment: Speci men Type: BLOOD SPECIMENOrdering Facility: [facility] Address: [address] [place], [place] [address] Performed By: #### 5 8410-2 ####[facility] LABCLIA [id number] [place] [address] [place] Platelet mean volume (Bld) [Entitic vol] 9.5 fL Normal 9.0-12.7 [facility] Comment on above: Order Comment: Speci men Type: BLOOD SPECIMENOrdering Facility: [facility] Address: [address] [place], [place] [address] Performed By: #### 5 8410-2 ####[facility] LABCLIA [id number] [place] [address] [place] Platelets (Bld) [#/Vol] 321 10*3/uL Normal 150-400 [facility] Comment on above: Order Comment: Speci men Type: BLOOD SPECIMENOrdering Facility: [facility] Address: [address] [place], [place] [address] Performed By: #### 5 8410-2 ####[facility] LABIA [id number] [place] [address] [place] RBC (Bld) [#/Vol] 5.62 10*6/uL Normal 4.20-6.00 [facility] Comment on above: Order Comment: Speci men Type: BLOOD SPECIMENOrdering Facility: [facility] Address: [address] [place], [place] [address] Performed By: #### 5 8410-2 ####[facility] LABIA [id number] [place] [address] [place] WBC (Bld) [#/Vol] 9.77 10*3/uL Normal 3.70-11.00 [facility] Comment on above: Order Comment: Speci men Type: BLOOD SPECIMENOrdering Facility: [facility] Address: [address] [place], [place] [address] Performed By: #### 5 8410-2 ####[facility] LABIA [id number] [place] [address] [place] Comprehensive metabolic 2000 panelon 09-05-2022 Albumin [Mass/Vol] 4.5 g/dL Normal 3.9-4.9 [facility] Comment on above: Order Comment: Speci men Type: BLOOD SPECIMENOrdering Facility: [facility] Address: [address] [place] [address] Performed By: #### 2 4323-8 ####[facility] LABCLIA [id number] [place] [address] [place] ALP [Catalytic activity/Vol] 66 U/L Normal 38-113 [facility] Comment on above: Order Comment: Speci men Type: BLOOD SPECIMENOrdering Facility: [facility] Address: [address] [place] [address] Performed By: #### 2 4323-8 ####[facility] LABCLIA [id number] [address] [place] ALT [Catalytic activity/Vol] 46 U/L Normal 10-54 [facility] Comment on above: Order Comment: Speci men Type: BLOOD SPECIMENOrdering Facility: [facility] Address: [address] [place] [address] Performed By: #### 2 4323-8 ####[facility] LABCLIA [id number] [place] [address] [place] Anion gap [Moles/Vol] 8 mmol/L Low 9-18 [facility] Comment on above: Order Comment: Speci men Type: BLOOD SPECIMENOrdering Facility: [facility] Address: [address] [place], [place] [address] Performed By: #### 2 4323-8 ####[facility] LABCLIA [id number] [address] [place] AST [Catalytic activity/Vol] 28 U/L Normal 14-40 [facility] Comment on above: Order Comment: Speci men Type: BLOOD SPECIMENOrdering Facility: [facility] Address: [address] [place] [address] [place] Performed By: #### 2 4323-8 ####[facility] LABCLIA [id number] [place] [address] [place] Bilirubin [Mass/Vol] 0.2 mg/dL Normal 0.2-1.3 [facility] Comment on above: Order Comment: Speci men Type: BLOOD SPECIMENOrdering Facility: [facility] Address: [address] Performed By: #### 2 4323-8 ####[facility] LABCLIA [id number] [place] [address] [place] Calcium [Mass/Vol] 9.6 mg/dL Normal 8.5-10.2 [facility] Comment on above: Order Comment: Speci men Type: BLOOD SPECIMENOrdering Facility: [facility] Address: [address] Performed By: #### 2 4323-8 ####[facility] LABCLIA [id number] [place] [address] [place] Chloride [Moles/Vol] 107 mmol/L High 97-105 [facility] Comment on above: Order Comment: Speci men Type: BLOOD SPECIMENOrdering Facility: [facility] Address: [address] [place] [address] Performed By: #### 2 4323-8 ####[facility] LABCLIA [id number] [place] [address] [place] CO2 [Moles/Vol] 25 mmol/L Normal 22-30 [facility] Comment on above: Order Comment: Speci men Type: BLOOD SPECIMENOrdering Facility: [facility] Address: [address] [place] [address] Performed By: #### 2 4323-8 ####[facility] LABCLIA [id number] [address] OF [facility] Creatinine [Mass/Vol] 1.20 mg/dL Normal 0.73-1.22 [facility] Comment on above: Order Comment: Amy saul Type: BLOOD SPECIMENOrdering Facility: [facility] Address: [address] [place] [address] Performed By: #### 2 4323-8 ####[facility] LABCLIA [id number] [address] ESTIMATED GLOMERULAR FILTRATION RATE 71 mL/min/1.73m??? Normal >=60 [facility] Comment on above: Order Comment: Amy saul Type: BLOOD SPECIMENOrdering Facility: [facility] Address: [address] [place] [address] Result Comment: Alis mated Glomerular Filtration Rate (eGFR) is calculated using the 2020 CKD-EPI creatinine equation. This equation utilizes serum creatinine, sex, and age as parameters. The creatinine assay has traceable calibration to isotope dilution-mass spectrometry. Refer to KDIGO guidelines for clinical interpretation. In patients with unstable renal function, e.g. those with acute kidney injury, the eGFR may not accurately reflect actual GFR. Performed By: #### 2 4323-8 ####[facility] LABCLIA [id number] [address] [place] Glucose [Mass/Vol] 87 mg/dL Normal 74-99 [facility] Comment on above: Order Comment: Amy saul Type: BLOOD SPECIMENOrdering Facility: [facility] Address: [address] [place] [address] Result Comment: The [place] [employer] (ADA) provides guidance for cutoff values for fasting glucose and random glucose. The ADA defines fasting as no caloric intake for at least 8 hours. Fasting plasma glucose results between 100 to 125 mg/dL indicate increased risk for diabetes (prediabetes). Fasting plasma glucose results greater than or equal to 126 mg/dL meet the criteria for diagnosis of diabetes. In the absence of unequivocal hyperglycemia, results should be confirmed by repeat testing. In a patient with classic symptoms of hyperglycemia or hyperglycemic crisis, random plasma glucose results greater than or equal to 200 mg/dL meet the criteria for diagnosis of diabetes. Reference: Standards of Medical Care in Diabetes 2016, [place] [employer]. Diabetes Care. 2016.39(Suppl 1). Performed By: #### 2 4323-8 ####[facility] LABCLIA [id number] [place] [address] [place] Potassium [Moles/Vol] 4.8 mmol/L Normal 3.7-5.1 [facility] Comment on above: Order Comment: Speci men Type: BLOOD SPECIMENOrdering Facility: [facility] Address: [address] [place] [address] Performed By: #### 2 4323-8 ####[facility] LABCLIA [id number] [place] [address] [place] Protein [Mass/Vol] 7.1 g/dL Normal 6.3-8.0 [facility] Comment on above: Order Comment: Speci men Type: BLOOD SPECIMENOrdering Facility: [facility] Address: [address] Performed By: #### 2 4323-8 ####[facility] LABCLIA [id number] [place] [address] [place] Sodium [Moles/Vol] 140 mmol/L Normal 136-144 [facility] Comment on above: Order Comment: Speci men Type: BLOOD SPECIMENOrdering Facility: [facility] Address: [address] Performed By: #### 2 4323-8 ####[facility] LABCLIA [id number] [place] [address] [place] Urea nitrogen [Mass/Vol] 19 mg/dL Normal 9-24 [facility] Comment on above: Order Comment: Speci men Type: BLOOD SPECIMENOrdering Facility: [facility] Address: [address] Performed By: #### 2 4323-8 ####[facility] LABCLIA [id number] [address] [address] [place] ECG COMPLETEon 09-05-2022 ECG COMPLETE Ventricular Rate : 8 4 BPM Atrial Rate : 84 BPM P-R Interval : 150 ms QRS Duration : 82 ms Q-T Interval : 354 ms QTC Calculation(Bazesushma) : 418 ms Calculated P Crawford : 55 degrees Calculated R Crawford : 29 degrees Calculated T Crawford : 36 degrees NORMAL SINUS RHYTHM NORMAL ECG Confirmed by JIMENA BISHOP MD, KARIM ([id number]) on 09/06/2022 8:16:14 AM NAME : SHIRA GAVIN PID : [id number] : 1965 Gender : Male Race : ORD : [id number] Procedure Date : Sep 05 2022 13:52:19 Edit Date : Sep 06 2022 08:16:17 Diagnosis: NORMAL SINUS RHYTHM NORMAL ECG Confirmed by JIMENA BISHOP MD, KARIM ([id number]) on 09/06/2022 8:16:14 AM Test Reason : Location : [facility] : [facility] Overread By : JIMENA BISHOP MD, KARIM Edited By : JIMENA BISHOP MD, KARIM Referred By : MAE GAYLE Acquired by : Urban Arce [facility] HISTORY PHYSICALon HISTORY PHYSICAL HNO ID: [id number] Author: RENE Callahan Service: ? Author Type: Physician Gin Inspector Type: HANDP Filed: 09/05/2022 2:19 PM Note Text: HISTORY AND PHYSICAL EXAMINATION SERVICE DATE: 09/05/2022 SERVICE TIME: 2:00 PM PRIMARY CARE PHYSICIAN: Chuy Garcia DO REASON FOR VISIT: Shira Gavin is a 56 year old male who is scheduled for Procedure(s): LAPAROSCOPIC COLECTOMY SIGMOID COLON W/ COLORECTAL ANASTOMOSIS (N/A) CYSTOSCOPY, INSERTION STENT URETERAL J (N/A) at the request of Dr. Katty Antonio for consultation. My final recommendation will be communicated back to the requesting physician by way of shared medical record or letter. Subjective The patient has the following: ACTIVE PROBLEM LIST Diverticulitis of Colon Abscess of Abdominal Cavity (Hcc) Leukocytosis Nausea and Vomiting in Adult Patient Abdominal Abscess Pulmonary Embolism (Hcc) Anticoagulated On Coumadin Acute Pulmonary Embolism (Hcc) Anticoagulation Management Encounter Septic Arthritis of Left Sternoclavicular Joint (Hcc) Personal History of Dvt (Deep Vein Thrombosis) Personal History of Pulmonary Embolism History of Pulmonary Embolism Acute Diverticulitis Nicotine use disorder, F17.2 Obesity, Class I, Bmi 30-34.9 Pre-Op Evaluation Tobacco Use Vte (Venous Thromboembolism) Elevated Bp Without Diagnosis of Hypertension COVID-19 Immunization Status Overdue - COVID-19 VACCINE (4 - Booster for Moderna series) Overdue since 11/06/2021 09/11/2021 Imm Admin: COVID-19 original vaccine, full dose, monovalent (MODERNA) 03/06/2021 Imm Admin: COVID-19 original vaccine, full dose, monovalent (MODERNA) 02/06/2021 Imm Admin: COVID-19 original vaccine, full dose, monovalent (MODERNA) Patient reports being fully vaccinated against COVID-19. CHIEF COMPLAINT: Pre-operative evaluation HPI: Shira Gavin presents with a history of diverticulitis. Last episode 09/2021. Denies any recent abdominal pain or use of antibiotics. REVIEW OF SYSTEMS: General: Negative for: unintentional weight change and fever. Neurological: Negative for: headaches, peripheral neuropathy, seizures, TIA and strokes. Respiratory: Negative for: asthma, COPD, current cough, dyspnea, home oxygen, pneumonia within 6 weeks, URI < 2 weeks and obstructive sleep apnea. Cardiovascular: Positive for: DVT/PE (In 2014 provoked by prolonged hospitalization completed OAC's for 3-6 months, no reoccurence) and murmur/valvular heart disease (In childhood, resolved) Negative for: AICD/PPM, arrhythmia, atrial fibrillation, CAD, chest pain, CHF, hyperlipidemia, hypertension, recent MD and open heart surgery. GI: See HPI. Positive for: diverticulitis Negative for: abdominal pain, GERD, GI bleed <30 days, hepatitis, liver disease, nausea and vomiting. : Negative for: dysuria, frequent urination, hematuria, urgency and urinary tract infection. Endocrine: Negative for: diabetes mellitus, hyperthyroidism and hypothyroidism. Hematology: Negative for: anemia, bruises/bleeds easily, factor V Leiden, hemophilia, thrombocytopenia, von Willebrand disease and chronic anti-coagulation/platelet meds. Oncology: No history of CA metastasis, chemo within 30 days, or radiotherapy within 90 days. No history of oncological symptoms or problems. Psych: Negative for: anxiety and depression. Musculoskeletal: Positive for: back pain and swelling (Mild). Negative for: joint pain. Skin: Negative for lesions, rash and itching. PAST MEDICAL HISTORY Diagnosis Date Anticoagulated on Coumadin Diverticulosis of colon 10/23/2014 perforated diverticulitis Glaucoma, bilateral Heart murmur as baby, states resolved Pulmonary embolism (HCC) 10/27/[address] PAST SURGICAL HISTORY Procedure Laterality Date PAST SURGICAL HISTORY OF 08/28/2009 right rotator cuff repair PAST SURGICAL HISTORY OF right finger PAST SURGICAL HISTORY OF colonoscopy PAST SURGICAL HISTORY OF wisdom teeth PICC LINE INSERT/CONSULT 10/30/2014 FAMILY HISTORY Problem Relation Age of Onset DVT Father multiple PE Diabetes Father other (Pulmonary embolism) Father multiple DVT other (lung cancer) Mother Social History Tobacco Use Smoking status: Never Smokeless tobacco: Current Types: Chew Tobacco comments: began chewing ~1986 Substance Use Topics Alcohol use: Yes Drug use: Not Currently Prior to Admission medications as of 09/05/22 1402 Medication Sig Last Dose Taking latanoprost (XALATAN) 0.005 % ophthalmic solution Use 1 Drop in both eyes daily at bedtime. Taking Yes Psyllium Seed-Sucrose Take 1 Tablespoonful by mouth once daily. Taking Yes acetaminophen (TYLENOL) 500 mg tablet Take 2 tablets by mouth four times daily. Patient not taking: Reported on 09/05/2022 Not Taking No medication comments found. ALLERGIES No Known Allergies Objective PHYSICAL EXAM: General: alert and oriented, health (more content not included)... Normal [facility] TYPE AND SCREEN,30 DAYon ABO A Normal [facility] Comment on above: Order Comment: Speci men Type: BLOOD SPECIMENOrdering Facility: [facility] Address: [address] [place] [address] Performed By: #### T SCR30 ####[facility]LO[facility] BANKCLIA [id number] [place] [address] [place] HISTORICAL AB SCR STATUS Negative Normal [facility] Comment on above: Order Comment: Speci men Type: BLOOD SPECIMENOrdering Facility: [facility] Address: [address] [place] [address] Performed By: #### T SCR30 ####[facility] BLOOD BANKCLIA [id number] [address] [place] Rh Nom (Bld) Negative Normal [facility] Comment on above: Order Comment: Speci men Type: BLOOD SPECIMENOrdering Facility: [facility] Address: [address] [place] [address] Performed By: #### T SCR30 ####[facility] BLOOD BANKCLIA [id number] [address] [place] CNOVon 08-01-2022 CNOV Office Visit ([facility] ) -- SHIRA GAVIN ([id number]) 1965 M Date Time Provider Department 08/01/22 4:00 PM THEO LOZA During your visit today, we recorded the following information about you: Theo Loza APRN.CNP 08/01/2022 3:51 PM Signed AMBULATORY TELEPHONE VISIT Shira Gavin has consented to this telephone encounter. Persons Present: patient and patient's spouse/significant other Chief Complaint/Reason: schedule surgery HPI: Shira Gavin is a 56 y.o male with hx of diverticulitis Last seen by Dr Antonio on 11/04/21 when he had a flair Since that visit he has been doing well, denies symptoms of recurrence of diverticulitis He would like to schedule the surgery Data Reviewed: 11/04/21 office note and all other pertinent notes Assessment: Hx of diverticulitis, had 4 episodes since 2015, last episode in September 2021 No symptoms since last visit in October 2021 Ready to schedule surgery Plan: Discuss surgery dates, agrees with 09/16/22 as surgery date and 09/06/22 as office visit with Dr Antonio Will schedule All questions answered Invited to call office with any questions or concerns. Total Time Spent: 10 minutes Crinuta V Floruta, CLIP BAKER.MEDICAL TRANSLATOR Referring Provider: SELF [200] Allergies As of Date: 08/01/2022 (No Known Allergies) Date Reviewed: 11/04/2021 Reviewed by: Katty Antonio MD - Fully Assessed Primary Visit Diagnosis:Diverticulitis [K57.92] Prescriptions as of 08/01/2022 - acetaminophen (TYLENOL) 500 mg tablet Take 2 tablets by mouth four times daily. - latanoprost (XALATAN) 0.005 % ophthalmic solution Use 1 Drop in both eyes daily at bedtime. - Psyllium Seed-Sucrose (METAMUCIL) powd Take 1 Tablespoonful by mouth once daily. Problem List As Of Date 08/01/2022 Noted Resolved Diverticulitis of colon [K57.32] 10/24/2014 Abscess of abdominal cavity (HCC) [K65.1] 10/24/2014 Leukocytosis [D72.829] 10/24/2014 Nausea and vomiting in adult patient [R11.2] 10/23/2014 Abdominal abscess (HCC) [TZW3215] 10/27/2014 Pulmonary embolism (HCC) [I26.99] 10/29/2014 Anticoagulated on Coumadin [Z79.01] 10/29/2014 Acute pulmonary embolism (HCC) [I26.99] 11/01/2014 Anticoagulation management encounter [Z51.81, Z*11/01/2014 Septic arthritis of left sternoclavicular joint*11/07/2014 Personal history of DVT (deep vein thrombosis) *08/04/2015 Personal history of pulmonary embolism [Z86.711]08/04/2015 History of pulmonary embolism [Z86.711] 08/02/2016 Acute diverticulitis [K57.92] 10/20/2021 Nicotine use disorder, F17.2 [F17.200] 10/23/2021 Obesity, Class I, BMI 30-34.9 [E66.9] 10/23/2021 Encounter Status:Closed by RO LOZA on 08/01/22 Normal [facility] Basic metabolic 2000 panelon 10-23-2021 Anion gap [Moles/Vol] 13 mmol/L Normal 9-18 [facility] Comment on above: Order Comment: Speci men Type: BLOOD SPECIMEN [facility]ing Facility: [facility] Address: [address] [address] Performed By: #### 2 4321-2 #### [facility] CLIA [id number] [address] [place] Calcium [Mass/Vol] 8.6 mg/dL Normal 8.5-10.2 [facility] Comment on above: Order Comment: Speci men Type: BLOOD SPECIMEN [facility]ing Facility: [facility] Address: [address] [place] [address] Performed By: #### 2 4321-2 #### [facility] CLIA [id number] [address] [place] Chloride [Moles/Vol] 106 mmol/L High 97-105 [facility] Comment on above: Order Comment: Speci men Type: BLOOD SPECIMEN [facility]ing Facility: [facility] Address: [address] [place] [address] Performed By: #### 2 4321-2 #### [facility] CLIA [id number] [address] [place] CO2 [Moles/Vol] 21 mmol/L Low 22-30 [facility] Comment on above: Order Comment: Speci men Type: BLOOD SPECIMEN [facility] Facility: [facility] Address: [address] [place] [address] Performed By: #### 2 4321-2 #### [facility] CLIA [id number] [address] [place] Creatinine [Mass/Vol] 1.08 mg/dL Normal 0.73-1.22 [facility] Comment on above: Order Comment: Speci men Type: BLOOD SPECIMEN [facility]ing [facility]: [facility] Address: [address] [place] [address] Performed By: #### 2 4321-2 #### [facility] CLIA [id number] [address] [place] ESTIMATED GLOMERULAR FILTRATION RATE 82 mL/min/1.73m??? Normal >=60 [facility] Comment on above: Order Comment: Amy saul Type: BLOOD SPECIMEN [facility]ing Facility: [facility] Address: [address] [place], [place] [address] Result Comment: Alis mated Glomerular Filtration Rate (eGFR) is calculated using the 2020 CKD-EPI creatinine equation. This equation utilizes serum creatinine, sex, and age as parameters. The creatinine assay has traceable calibration to isotope dilution-mass spectrometry. Refer to KDIGO guidelines for clinical interpretation. In patients with unstable renal function, e.g. those with acute kidney injury, the eGFR may not accurately reflect actual GFR. Performed By: #### 2 4321-2 #### [facility] CLIA [id number] [address] [place] [address] [place] Glucose [Mass/Vol] 107 mg/dL High 74-99 [facility] Comment on above: Order Comment: Amy saul Type: BLOOD SPECIMEN [facility]ing Facility: [facility] Address: [address] [place] [address] Result Comment: The [place] [employer] (ADA) provides guidance for cutoff values for fasting glucose and random glucose. The ADA defines fasting as no caloric intake for at least 8 hours. Fasting plasma glucose results between 100 to 125 mg/dL indicate increased risk for diabetes (prediabetes). Fasting plasma glucose results greater than or equal to 126 mg/dL meet the criteria for diagnosis of diabetes. In the absence of unequivocal hyperglycemia, results should be confirmed by repeat testing. In a patient with classic symptoms of hyperglycemia or hyperglycemic crisis, random plasma glucose results greater than or equal to 200 mg/dL meet the criteria for diagnosis of diabetes. Reference: Standards of Medical Care in Diabetes 2016, [place] [employer]. Diabetes Care. 2016.39(Suppl 1). Performed By: #### 2 4321-2 #### [facility] CLIA [id number] 1 [place] [address] [place] Potassium [Moles/Vol] 4.3 mmol/L Normal 3.7-5.1 [facility] Comment on above: Order Comment: Amy saul Type: BLOOD SPECIMEN Ordering Facility: [facility] Address: [address] [id number] Performed By: #### 2 4321-2 #### [facility] CLIA [id number] [address] [place] Sodium [Moles/Vol] 140 mmol/L Normal 136-144 [facility] Comment on above: Order Comment: Speci men Type: BLOOD SPECIMEN Ordering Facility: [facility] Address: [address] [place] [address] Performed By: #### 2 4321-2 #### [facility] CLIA [id number] [address] STATES [facility] Urea nitrogen [Mass/Vol] 11 mg/dL Normal 9-24 [facility] Comment on above: Order Comment: Speci men Type: BLOOD SPECIMEN Ordering Facility: [facility] Address: [address] [place] [address] Performed By: #### 2 4321-2 #### [facility] CLIA [id number] [address] OF [facility] CBC panel Auto (Bld)on 10-23 Erythrocyte distribution width (RBC) [Ratio] 14.0 % Normal 11.5-15.0 [facility] Comment on above: Order Comment: Speci men Type: BLOOD SPECIMEN Ordering Facility: [facility] Address: [address] [place] [address] Performed By: #### 5 8410-2 #### [facility] CLIA [id number] [address] Hematocrit (Bld) [Volume fraction] 40.8 % Normal 39.0-51.0 [facility] Comment on above: Order Comment: Speci men Type: BLOOD SPECIMEN Ordering Facility: [facility] Address: [address] [place] [address] Performed By: #### 5 8410-2 #### [facility] CLIA [id number] [address] [place] Hemoglobin (Bld) [Mass/Vol] 12.9 g/dL Low 13.0-17.0 [facility] Comment on above: Order Comment: Speci men Type: BLOOD SPECIMEN Ordering Facility: [facility] Address: [address] [address] Performed By: #### 5 8410-2 #### [facility] CLIA [id number] [address] MCH (RBC) [Entitic mass] 26.0 pg Normal 26.0-34.0 [facility] Comment on above: Order Comment: Speci men Type: BLOOD SPECIMEN Ordering Facility: [facility] Address: [address] [place] [address] Performed By: #### 5 8410-2 #### [facility] CLIA [id number] [address] MCHC (RBC) [Mass/Vol] 31.6 g/dL Normal 30.5-36.0 [facility] Comment on above: Order Comment: Speci men Type: BLOOD SPECIMEN Ordering Facility: [facility] Address: [address] [place] [address] Performed By: #### 5 8410-2 #### [facility] CLIA [id number] [address] MCV (RBC) [Entitic vol] 82.3 fL Normal 80.0-100.0 [facility] Comment on above: Order Comment: Speci men Type: BLOOD SPECIMEN Ordering Facility: [facility] Address: [address] [place] [address] Performed By: #### 5 8410-2 #### [facility] CLIA [id number] [address] Nucleated RBC (Bld) [#/Vol] 10*3/uL Normal <0.01 [facility] Comment on above: Order Comment: Speci men Type: BLOOD SPECIMEN Ordering Facility: [facility] Address: [address] [place] [address] Performed By: #### 5 8410-2 #### [facility] CLIA [id number] [address] Platelet mean volume (Bld) [Entitic vol] 9.4 fL Normal 9.0-12.7 [facility] Comment on above: Order Comment: Speci men Type: BLOOD SPECIMEN Ordering Facility: [facility] Address: [address] [place] [address] Performed By: #### 5 8410-2 #### [facility] CLIA [id number] [address] Platelets (Bld) [#/Vol] 344 10*3/uL Normal 150-400 [facility] Comment on above: Order Comment: Speci men Type: BLOOD SPECIMEN Ordering Facility: [facility] Address: [address] [place] [address] Performed By: #### 5 8410-2 #### [facility] CLIA [id number] [address] RBC (Bld) [#/Vol] 4.96 10*6/uL Normal 4.20-6.00 [facility] Comment on above: Order Comment: Speci men Type: BLOOD SPECIMEN Ordering Facility: [facility] Address: [address] [place] [address] Performed By: #### 5 8410-2 #### [facility] CLIA [id number] [address] WBC (Bld) [#/Vol] 9.37 10*3/uL Normal 3.70-11.00 [facility] Comment on above: Order Comment: Speci men Type: BLOOD SPECIMEN Ordering Facility: [facility] Address: [address] [place] [address] Performed By: #### 5 8410-2 #### [facility] CLIA [id number] [address] CNDSon 10-23-2021 [facility] HNO ID: [id number] Author: Janes Arzate DO Service: General Surgery Author Type: Resident Type: Discharge Summary Filed: 10/23/2021 1:50 PM Note Text: -- Attestation signed by Kristy Rodriguez MD at 10/23/2021 2:05 PM Attending Note I personally saw and examined the patient. I reviewed the resident's note. I agree with the resident's assessment and plan unless otherwise noted. Signature: Kristy Rodriguez MD Date: 10/23/2021 Time: 2:05 PM -- DISCHARGE SUMMARY PATIENT NAME: Shira Gavin Code Status: Not on file Highest Readmission Risk Score: 10 The 30 day readmissions risk score is derived from an internally validated risk model which evaluates patient level characteristics, utilization history, medication orders and lab results up until the day of discharge. Patients with a score of 40 or above are considered highest risk for readmission. Specific patient level drivers will be listed at the bottom of the summary. Admission Information Admission Information ADMIT DATE: 10/20/2021 DISCHARGE DATE: 10/23/2021 MY DOCTORS AND MEDICAL TEAM: My Main Hospital Doctor: Nan Hernández MD Primary Care Provider: Chuy Garcia DO My Medical Team Members: Treatment Team: Attending Provider: Nan Hernández MD MY CONDITION AT DISCHARGE: Stable REASON I WAS IN THE HOSPITAL: Diverticulitis SUMMARY OF WHAT HAPPENED WHILE I WAS IN THE HOSPITAL: You came in for diverticulitis, which was managed with antibiotics. IR drain was not amenable given the size and location of abscess. You ultimately tolerated a diet and were discharged in stable condition. OTHER PROBLEMS/DIAGNOSIS: Active Problems: Acute diverticulitis Resolved Problems: * No resolved hospital problems. * OPERATIONS PERFORMED WHILE IN THE HOSPITAL: None IMPORTANT TEST/PROCEDURES: No procedures performed TEST RESULTS NOT AVAILABLE AT THIS TIME: No pending results Admission Information ADMIT DATE: 10/20/2021 DISCHARGE DATE: 10/23/2021 MY DOCTORS AND MEDICAL TEAM: My Main Hospital Doctor: Nan Hernández MD Primary Care Provider: Chuy Garcia DO My Medical Team Members: Treatment Team: Attending Provider: Nan Hernández MD MY CONDITION AT DISCHARGE: Stable REASON I WAS IN THE HOSPITAL: He presented to the hospital on 10/20/2021 with abdominal pain. SUMMARY OF WHAT HAPPENED WHILE I WAS IN THE HOSPITAL: Mr. 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 He underwent a CT scan on 10/20/2019 which revealed moderate to severe acute diverticulitis with associated abscess measuring 3.5 x 2.5 cm. On 10/21/2021 you attempted to have an IR drainage procedure however this was not amenable to drainage and you were continued on antibiotics. Your diet was slowly advanced which you tolerated without nausea and vomiting. You are being discharged home in stable condition instructed to follow-up in the emergency general surgery office. ? OTHER PROBLEMS/DIAGNOSIS: Active Problems: Acute diverticulitis Nicotine use disorder, F17.2 Obesity, Class I, BMI 30-34.9 Resolved Problems: * No resolved hospital problems. * OPERATIONS PERFORMED WHILE IN THE HOSPITAL: None IMPORTANT TEST/PROCEDURES: No procedures performed TEST RESULTS NOT AVAILABLE AT THIS TIME: No pending results Discharge Disposition Discharge Disposition: Home With Self Care Discharge Disposition Discharge Disposition: Home With Self Care Activity When You Leave the Hospital May use stairs No driving for: While on pain medications No prolonged bedrest, longer than 8 hours in a 24 hour period No walking restrictions No walking restrictions Resume pre-hospital activity Diet Instructions Avoid Alcohol Resume your pre-hospital diet Resume your pre-hospital diet For Pain When You Leave the Hospital Continue taking previously prescribed pain medications as directed If you become constipated, you may use any vyns-vbk-cwaxhdn treatment such as Milk of Magnesia, Sennakot, Prune Juice, Suppositories, etc. in addition to the stool softener/fiber supplement No alcohol or driving while on pain medication No alcohol or driving while on pain medication Some muscle ache can be expected for a day or two Use acetaminophen (Tylenol) as recommended on the bottle Use acetaminophen (Tylenol) as recommended on the bottle Use ibuprofen (Motrin, Advil) as recommended on the bottle Use ibuprofen (Motrin, Advil) as recommended on the bottle Use the dispensed medication (see prescription) Use the dispensed medication (see prescription) You should use an xzgu-qwc-nocpoew stool softener (Docusate sodium) and/or a fiber supplement (Metamucil, Fiber Con) every day (more content not included)... Normal [facility] Basic metabolic 2000 panelon 10-22-2021 Anion gap [Moles/Vol] 11 mmol/L Normal 9-18 [facility] Comment on above: Order Comment: Speci men Type: BLOOD SPECIMEN Ordering Facility: [facility] Address: [address] [place] [address] Performed By: #### 2 4321-2 #### [facility] CLIA [id number] 1 [place] [address] [place] Calcium [Mass/Vol] 8.7 mg/dL Normal 8.5-10.2 [facility] Comment on above: Order Comment: Speci men Type: BLOOD SPECIMEN Ordering Facility: [facility] Address: [address] [place] [address] Performed By: #### 2 4321-2 #### [facility] CLIA [id number] 1 [place] [address] [place] Chloride [Moles/Vol] 104 mmol/L Normal 97-105 [facility] Comment on above: Order Comment: Speci men Type: BLOOD SPECIMEN Ordering Facility: [facility] Address: [address] [address] Performed By: #### 2 4321-2 #### [facility] CLIA [id number] 1 [place] [address] [place] CO2 [Moles/Vol] 23 mmol/L Normal 22-30 [facility] Comment on above: Order Comment: Speci men Type: BLOOD SPECIMEN Ordering Facility: [facility] Address: [address] [address] Performed By: #### 2 4321-2 #### [facility] CLIA [id number] 1 [place] [address] [place] Creatinine [Mass/Vol] 1.05 mg/dL Normal 0.73-1.22 [facility] Comment on above: Order Comment: Amy saul Type: BLOOD SPECIMEN Ordering Facility: [facility] Address: [address] [place] [address] Performed By: #### 2 4321-2 #### [facility] CLIA [id number] 1 [place] [address] [place] GFR/1.73 sq M.predicted MDRD (S/P/Bld) [Vol rate/Area] mL/min/{1.73_m2} Normal [facility] Comment on above: Order Comment: Amy saul Type: BLOOD SPECIMEN Ordering Facility: [facility] Address: [address] [place] [address] Result Comment: >60 eGFR (Estimated GFR) Units of measure: mL/min/1.73 meters squared eGFR is derived from the reexpressed MDRD Study equation using the following parameters: serum creatinine, age, gender and race. The creatinine assay has been calibrated to be traceable to IDMS. An eGFR <60 mL/min/1.73m2 for >3 months is consistent with chronic kidney disease. Refer to KDOQI guidelines for clinical interpretation. In patients with unstable renal function, e.g. those with acute kidney injury, the eGFR may not accurately reflect actual GFR. Performed By: #### 2 4321-2 #### [facility] CLIA [id number] [address] [place] Glucose [Mass/Vol] 104 mg/dL High 74-99 [facility] Comment on above: Order Comment: Amy saul Type: BLOOD SPECIMEN Ordering Facility: [facility] Address: [address] [address] Result Comment: The [place] Diabetes Association (ADA) provides guidance for cutoff values for fasting glucose and random glucose. The ADA defines fasting as no caloric intake for at least 8 hours. Fasting plasma glucose results between 100 to 125 mg/dL indicate increased risk for diabetes (prediabetes). Fasting plasma glucose results greater than or equal to 126 mg/dL meet the criteria for diagnosis of diabetes. In the absence of unequivocal hyperglycemia, results should be confirmed by repeat testing. In a patient with classic symptoms of hyperglycemia or hyperglycemic crisis, random plasma glucose results greater than or equal to 200 mg/dL meet the criteria for diagnosis of diabetes. Reference: Standards of Medical Care in Diabetes 2016, [place] [employer]. Diabetes Care. 2016.39(Suppl 1). Performed By: #### 2 4321-2 #### [facility] CLIA [id number] [address] Potassium [Moles/Vol] 4.1 mmol/L Normal 3.7-5.1 [facility] Comment on above: Order Comment: Mariahi dorys Type: BLOOD SPECIMEN Ordering Facility: [facility] Address: [address] [place] [address] Performed By: #### 2 4321-2 #### [facility] CLIA [id number] [address] STATES [facility] Sodium [Moles/Vol] 138 mmol/L Normal 136-144 [facility] Comment on above: Order Comment: Mariahi dorys Type: BLOOD SPECIMEN Ordering Facility: [facility] Address: [address] [place] [address] Performed By: #### 2 4321-2 #### [facility] CLIA [id number] [address] STATES [facility] Urea nitrogen [Mass/Vol] 11 mg/dL Normal 9-24 [facility] Comment on above: Order Comment: Speci men Type: BLOOD SPECIMEN Ordering Facility: [facility] Address: [address] [place] [address] Performed By: #### 2 4321-2 #### [facility] CLIA [id number] [address] CBC panel Auto (Bld)on 10-22 Erythrocyte distribution width (RBC) [Ratio] 13.9 % Normal 11.5-15.0 [facility] Comment on above: Order Comment: Mariahi men Type: BLOOD SPECIMEN Ordering Facility: [facility] Address: [address] [place] [address] Performed By: #### 5 8410-2 #### [facility] CLIA [id number] [address] Hematocrit (Bld) [Volume fraction] 42.2 % Normal 39.0-51.0 [facility] Comment on above: Order Comment: Speci men Type: BLOOD SPECIMEN Ordering Facility: [facility] Address: [address] [place] [address] Performed By: #### 5 8410-2 #### [facility] CLIA [id number] [address] Hemoglobin (Bld) [Mass/Vol] 13.2 g/dL Normal 13.0-17.0 [facility] Comment on above: Order Comment: Speci men Type: BLOOD SPECIMEN Ordering Facility: [facility] Address: [address] [place] [address] Performed By: #### 5 8410-2 #### [facility] CLIA [id number] [address] MCH (RBC) [Entitic mass] 25.9 pg Low 26.0-34.0 [facility] Comment on above: Order Comment: Speci men Type: BLOOD SPECIMEN Ordering Facility: [facility] Address: [address] [place] [address] Performed By: #### 5 8410-2 #### [facility] CLIA [id number] [address] MCHC (RBC) [Mass/Vol] 31.3 g/dL Normal 30.5-36.0 [facility] Comment on above: Order Comment: Speci men Type: BLOOD SPECIMEN Ordering Facility: [facility] Address: [address] [place] [address] Performed By: #### 5 8410-2 #### [facility] CLIA [id number] [address] [place] [address] [place] MCV (RBC) [Entitic vol] 82.7 fL Normal 80.0-100.0 [facility] Comment on above: Order Comment: Speci men Type: BLOOD SPECIMEN Ordering Facility: [facility] Address: [address] [address] Performed By: #### 5 8410-2 #### [facility] CLIA [id number] [address] [place] Nucleated RBC (Bld) [#/Vol] 10*3/uL Normal <0.01 [facility] Comment on above: Order Comment: Speci men Type: BLOOD SPECIMEN Ordering Facility: [facility] Address: [address] [address] Performed By: #### 5 8410-2 #### [facility] CLIA [id number] [address] Platelet mean volume (Bld) [Entitic vol] 9.0 fL Normal 9.0-12.7 [facility] Comment on above: Order Comment: Speci men Type: BLOOD SPECIMEN Ordering Facility: [facility] Address: [address] [address] Performed By: #### 5 8410-2 #### [facility] CLIA [id number] [address] Platelets (Bld) [#/Vol] 327 10*3/uL Normal 150-400 [facility] Comment on above: Order Comment: Speci men Type: BLOOD SPECIMEN Ordering Facility: [facility] Address: [address] Performed By: #### 5 8410-2 #### [facility] CLIA [id number] [address] [place] RBC (Bld) [#/Vol] 5.10 10*6/uL Normal 4.20-6.00 [facility] Comment on above: Order Comment: Speci men Type: BLOOD SPECIMEN Ordering Facility: [facility] Address: [address] [address] Performed By: #### 5 8410-2 #### [facility] CLIA [id number] 1 [place] [address] [place] WBC (Bld) [#/Vol] 11.86 10*3/uL High 3.70-11.00 [facility] Comment on above: Order Comment: Speci men Type: BLOOD SPECIMEN Ordering Facility: [facility] Address: [address] [place], [place] [address] Performed By: #### 5 8410-2 #### [facility] CLIA [id number] [address] ALLIED HEALTHon 10-21-2021 [facility] HNO ID: [id number] Author: Chaplain Glenn Service: Spiritual Care Author Type: Utility Manager Type: Allied Health Filed: 10/21/2021 11:16 AM Note Text: SPIRITUAL CARE PROGRESS NOTE SERVICE DATE: 10/21/2021 SERVICE TIME: 10:20am Utility Manager supported patient while he was walking the floor; patient was pleased that I supported him and was empathic presence. Patient said that his was coming up to hospital to see him as well; he was happy about that. To contact the Spiritual Care Department: Please call . SIGNATURE: Chaplain lGenn PATIENT NAME: Shira Gavin DATE: October 21, 2021 TIME: 11:15 AM PAGER/CONTACT #: [phone] Normal [facility] Basic metabolic 2000 panelon 10-21-2021 Anion gap [Moles/Vol] 8 mmol/L Low 9-18 [facility] Comment on above: Order Comment: Speci men Type: BLOOD SPECIMEN Ordering Facility: [facility] Address: [address] [place], [place] [address] Performed By: #### 2 4321-2 #### [facility] CLIA [id number] [address] Calcium [Mass/Vol] 8.7 mg/dL Normal 8.5-10.2 [facility] Comment on above: Order Comment: Speci men Type: BLOOD SPECIMEN Ordering Facility: [facility] Address: [address] [address] Performed By: #### 2 4321-2 #### [facility] CLIA [id number] [address] [place] Chloride [Moles/Vol] 103 mmol/L Normal 97-105 [facility] Comment on above: Order Comment: Speci men Type: BLOOD SPECIMEN Ordering Facility: [facility] Address: [address] [place] [address] Performed By: #### 2 4321-2 #### [facility] CLIA [id number] [address] [place] CO2 [Moles/Vol] 25 mmol/L Normal 22-30 [facility] Comment on above: Order Comment: Speci men Type: BLOOD SPECIMEN Ordering Facility: [facility] Address: [address] [place] [address] Performed By: #### 2 4321-2 #### [facility] CLIA [id number] 1 [place] [address] [place] Creatinine [Mass/Vol] 1.12 mg/dL Normal 0.73-1.22 [facility] Comment on above: Order Comment: Speci men Type: BLOOD SPECIMEN Ordering Facility: [facility] Address: [address] [place] [address] Performed By: #### 2 4321-2 #### [facility] CLIA [id number] 1 [place] [address] [place] GFR/1.73 sq M.predicted MDRD (S/P/Bld) [Vol rate/Area] mL/min/{1.73_m2} Normal [facility] Comment on above: Order Comment: Speci men Type: BLOOD SPECIMEN Ordering Facility: [facility] Address: [address] [place] [address] Result Comment: >60 eGFR (Estimated GFR) Units of measure: mL/min/1.73 meters squared eGFR is derived from the reexpressed MDRD Study equation using the following parameters: serum creatinine, age, gender and race. The creatinine assay has been calibrated to be traceable to IDMS. An eGFR <60 mL/min/1.73m2 for >3 months is consistent with chronic kidney disease. Refer to KDOQI guidelines for clinical interpretation. In patients with unstable renal function, e.g. those with acute kidney injury, the eGFR may not accurately reflect actual GFR. Performed By: #### 2 4321-2 #### [facility] CLIA [id number] 1 [place] [address] [place] Glucose [Mass/Vol] 106 mg/dL High 74-99 [facility] Comment on above: Order Comment: Speci dorys Type: BLOOD SPECIMEN Ordering Facility: [facility] Address: [address] [address] Result Comment: The [place] [employer] (ADA) provides guidance for cutoff values for fasting glucose and random glucose. The ADA defines fasting as no caloric intake for at least 8 hours. Fasting plasma glucose results between 100 to 125 mg/dL indicate increased risk for diabetes (prediabetes). Fasting plasma glucose results greater than or equal to 126 mg/dL meet the criteria for diagnosis of diabetes. In the absence of unequivocal hyperglycemia, results should be confirmed by repeat testing. In a patient with classic symptoms of hyperglycemia or hyperglycemic crisis, random plasma glucose results greater than or equal to 200 mg/dL meet the criteria for diagnosis of diabetes. Reference: Standards of Medical Care in Diabetes 2016, [place] [employer]. Diabetes Care. 2016.39(Suppl 1). Performed By: #### 2 4321-2 #### [facility] CLIA [id number] 1 [place] [address] [place] Potassium [Moles/Vol] 4.2 mmol/L Normal 3.7-5.1 [facility] Comment on above: Order Comment: Amy saul Type: BLOOD SPECIMEN Ordering Facility: [facility] Address: [address] [id number] Performed By: #### 2 4321-2 #### [facility] CLIA [id number] 1 [place] [address] [place] Sodium [Moles/Vol] 136 mmol/L Normal 136-144 [facility] Comment on above: Order Comment: Speci men Type: BLOOD SPECIMEN Ordering Facility: [facility] Address: [address] [address] Performed By: #### 2 4321-2 #### [facility] CLIA [id number] [address] [place] Urea nitrogen [Mass/Vol] 13 mg/dL Normal 9-24 [facility] Comment on above: Order Comment: Speci men Type: BLOOD SPECIMEN Ordering Facility: [facility] Address: [address] [place] [address] Performed By: #### 2 4321-2 #### [facility] CLIA [id number] [address] [place] CBC panel Auto (Bld)on 10-21 Erythrocyte distribution width (RBC) [Ratio] 14.1 % Normal 11.5-15.0 [facility] Comment on above: Order Comment: Speci men Type: BLOOD SPECIMEN Ordering Facility: [facility] Address: [address] [place] [address] Performed By: #### 5 8410-2 #### [facility] CLIA [id number] [address] [place] Hematocrit (Bld) [Volume fraction] 42.0 % Normal 39.0-51.0 [facility] Comment on above: Order Comment: Speci men Type: BLOOD SPECIMEN Ordering Facility: [facility] Address: [address] [place] [address] Performed By: #### 5 8410-2 #### [facility] CLIA [id number] [address] [place] Hemoglobin (Bld) [Mass/Vol] 13.9 g/dL Normal 13.0-17.0 [facility] Comment on above: Order Comment: Speci men Type: BLOOD SPECIMEN Ordering Facility: [facility] Address: [address] [place] [address] Performed By: #### 5 8410-2 #### [facility] CLIA [id number] [address] MCH (RBC) [Entitic mass] 26.9 pg Normal 26.0-34.0 [facility] Comment on above: Order Comment: Speci men Type: BLOOD SPECIMEN Ordering Facility: [facility] Address: [address] [place] [address] Performed By: #### 5 8410-2 #### [facility] CLIA [id number] [address] MCHC (RBC) [Mass/Vol] 33.1 g/dL Normal 30.5-36.0 [facility] Comment on above: Order Comment: Speci men Type: BLOOD SPECIMEN Ordering Facility: [facility] Address: [address] [place] [address] Performed By: #### 5 8410-2 #### [facility] CLIA [id number] [address] MCV (RBC) [Entitic vol] 81.4 fL Normal 80.0-100.0 [facility] Comment on above: Order Comment: Speci men Type: BLOOD SPECIMEN Ordering Facility: [facility] Address: [address] [place] [address] Performed By: #### 5 8410-2 #### [facility] CLIA [id number] [address] Nucleated RBC (Bld) [#/Vol] 10*3/uL Normal <0.01 [facility] Comment on above: Order Comment: Speci men Type: BLOOD SPECIMEN Ordering Facility: [facility] Address: [address] [place] [address] Performed By: #### 5 8410-2 #### [facility] CLIA [id number] [address] Platelet mean volume (Bld) [Entitic vol] 9.2 fL Normal 9.0-12.7 [facility] Comment on above: Order Comment: Speci men Type: BLOOD SPECIMEN Ordering Facility: [facility] Address: [address] [place] [address] Performed By: #### 5 8410-2 #### [facility] CLIA [id number] [address] Platelets (Bld) [#/Vol] 306 10*3/uL Normal 150-400 [facility] Comment on above: Order Comment: Speci men Type: BLOOD SPECIMEN Ordering Facility: [facility] Address: [address] [place] [address] Performed By: #### 5 8410-2 #### [facility] CLIA [id number] [address] RBC (Bld) [#/Vol] 5.16 10*6/uL Normal 4.20-6.00 [facility] Comment on above: Order Comment: Speci men Type: BLOOD SPECIMEN Ordering Facility: [facility] Address: [address] [place] [address] Performed By: #### 5 8410-2 #### [facility] CLIA [id number] [address] WBC (Bld) [#/Vol] 14.32 10*3/uL High 3.70-11.00 [facility] Comment on above: Order Comment: Speci men Type: BLOOD SPECIMEN Ordering Facility: [facility] Address: [address] [place] [address] Performed By: #### 5 8410-2 #### [facility] CLIA [id number] [address] [place] [address] ALLIED HEALTHon 10-20-2021 ALLIED [facility]ALTH HNO ID: [id number] Author: RT Krishna(R) Service: Radiology Author Type: Technologist Type: Allied Health Filed: 10/20/2021 10:27 AM Note Text: Radiology Service Progress Note DATE OF SERVICE: October 20, 2021 TIME: 10:10 AM PATIENT IDENTITY VERIFICATION COMPLETED USING TWO (2) STANDARD IDENTIFIERS: Name and Date of confirmed by patient verbally and Name and Date of confirmed by identification band. FALL SCREENING: Has the patient had 2 falls in the last year or 1 fall with injury or currently using an Ambulatory Assistive Device (Walker, Cane, Wheelchair, Crutches, etc.)? Emergency Room Patient: Screened in ED PATIENT GENDER DATA: Male PATIENT RELEVANT IMPLANT DATA REVIEWED: Not Applicable ALLERGIES: Reviewed and unchanged CONTRAST ALLERGY: NO. EXAM: CT -CONTRAST INDUCED NEPHROPATHY RISK FACTORS: Not applicable CREATININE: Creatinine Date Value Ref Range Status 10/20/2021 1.08 0.73 - 1.22 mg/dL Final 09/08/2019 1.02 0.67 - 1.17 mg/dL Final 06/29/2016 1.00 0.67 - 1.17 mg/dL Final 06/28/2016 0.85 0.67 - 1.17 mg/dL Final eGFR-All Other Races Date Value Ref Range Status 10/20/2021 >60 Final Comment: eGFR (Estimated GFR) Units of measure: mL/min/1.73 meters squared eGFR is derived from the reexpressed MDRD Study equation using the following parameters: serum creatinine, age, gender and race. The creatinine assay has been calibrated to be traceable to IDMS. An eGFR <60 mL/min/1.73m2 for >3 months is consistent with chronic kidney disease. Refer to KDOQI guidelines for clinical interpretation. In patients with unstable renal function, e.g. those with acute kidney injury, the eGFR may not accurately reflect actual GFR. 11/04/2014 >60 . Final Comment: eGFR (Estimated GFR) Units of measure: mL/min/1.73 meters squared eGFR is derived from the reexpressed MDRD Study equation using the following parameters: serum creatinine, age, gender and race. The creatinine assay has been calibrated to be traceable to IDMS. An eGFR <60 mL/min/1.73m2 for >3 months is consistent with chronic kidney disease. Refer to KDOQI guidelines for clinical interpretation. In patients with unstable renal function, e.g. those with acute kidney injury, the eGFR may not accurately reflect actual GFR. eGFR- Date Value Ref Range Status 10/20/2021 >60 Final 11/04/2014 >60 Final P.O.C.T. RESULTS: N/A October 20, 2021 TREATMENT: N/A PERIPHERAL IV DATA: Inpatient - refer to LDA documentation RADIOLOGY DEPARTMENT: CT; Exam(s) Completed: Abdomen/Pelvis SIGNATURE: Lynn Valdez, RT(R) PATIENT NAME: Shira Gavin DATE: October 20, 2021 TIME: 10:10 AM Normal [facility] CBC W Auto Differential pane l (Bld)on 10-20-2021 Basophils (Bld) [#/Vol] 0.07 10*3/uL Normal <0.11 [facility] Comment on above: Order Comment: Speci men Type: BLOOD SPECIMEN Ordering Facility: [facility] Address: [address] [place] [address] Performed By: #### 5 7021-8 #### [facility] CLIA [id number] [address] [place] Basophils/100 WBC (Bld) 0.4 % Normal [facility] Comment on above: Order Comment: Speci men Type: BLOOD SPECIMEN Ordering Facility: [facility] Address: [address] [place] [address] Performed By: #### 5 7021-8 #### [facility] CLIA [id number] [address] [place] Differential cell count method Nom (Bld) Auto Normal [facility] Comment on above: Order Comment: Speci men Type: BLOOD SPECIMEN Ordering Facility: [facility] Address: [address] [place] [address] Performed By: #### 5 7021-8 #### [facility] CLIA [id number] 1 [place] [address] [place] Eosinophils (Bld) [#/Vol] 0.33 10*3/uL Normal <0.46 [facility] Comment on above: Order Comment: Speci men Type: BLOOD SPECIMEN Ordering Facility: [facility] Address: [address] [place] [address] Performed By: #### 5 7021-8 #### [facility] CLIA [id number] [address] [place] Eosinophils/100 WBC (Bld) 2.1 % Normal [facility] Comment on above: Order Comment: Speci men Type: BLOOD SPECIMEN Ordering Facility: [facility] Address: [address] [place] [address] Performed By: #### 5 7021-8 #### [facility] CLIA [id number] [address] OF [place] Erythrocyte distribution width (RBC) [Ratio] 13.8 % Normal 11.5-15.0 [facility] Comment on above: Order Comment: Speci men Type: BLOOD SPECIMEN Ordering Facility: [facility] Address: [address] [place] [address] Performed By: #### 5 7021-8 #### [facility] CLIA [id number] [address] Hematocrit (Bld) [Volume fraction] 45.2 % Normal 39.0-51.0 [facility] Comment on above: Order Comment: Speci men Type: BLOOD SPECIMEN Ordering Facility: [facility] Address: [address] [place] [address] Performed By: #### 5 7021-8 #### [facility] CLIA [id number] [address] OF [place] Hemoglobin (Bld) [Mass/Vol] 14.3 g/dL Normal 13.0-17.0 [facility] Comment on above: Order Comment: Speci men Type: BLOOD SPECIMEN Ordering Facility: [facility] Address: [address] [place] [address] Performed By: #### 5 7021-8 #### [facility] CLIA [id number] [address] IMMATURE GRAN % 0.9 % Normal [facility] Comment on above: Order Comment: Speci men Type: BLOOD SPECIMEN Ordering Facility: [facility] Address: [address] [place] [address] Performed By: #### 5 7021-8 #### [facility] [facility] CLIA [id number] [address] [place] [address] [place] IMMATURE GRAN ABS 0.14 k/uL High <0.10 [facility] Comment on above: Order Comment: Speci men Type: BLOOD SPECIMEN Ordering Facility: [facility] Address: [facility] [place] [address] Performed By: #### 5 7021-8 #### [facility] CLIA [id number] [address] Lymphocytes (Bld) [#/Vol] 1.52 10*3/uL Normal 1.00-4.00 [facility] Comment on above: Order Comment: Speci men Type: BLOOD SPECIMEN Ordering Facility: [facility] Address: [address] [place] [address] Performed By: #### 5 7021-8 #### [facility] CLIA [id number] [address] Lymphocytes/100 WBC (Bld) 9.6 % Normal [facility] Comment on above: Order Comment: Speci men Type: BLOOD SPECIMEN Ordering Facility: [facility] Address: [address] [place] [address] Performed By: #### 5 7021-8 #### [facility] CLIA [id number] [address] STATES [facility] MCH (RBC) [Entitic mass] 25.7 pg Low 26.0-34.0 [facility] Comment on above: Order Comment: Speci men Type: BLOOD SPECIMEN Ordering Facility: [facility] Address: [address] [place] [address] Performed By: #### 5 7021-8 #### [facility] CLIA [id number] [address] MCHC (RBC) [Mass/Vol] 31.6 g/dL Normal 30.5-36.0 [facility] Comment on above: Order Comment: Speci men Type: BLOOD SPECIMEN Ordering Facility: [facility] Address: [address] [place] [address] Performed By: #### 5 7021-8 #### [facility] CLIA [id number] [address] [place] MCV (RBC) [Entitic vol] 81.3 fL Normal 80.0-100.0 [facility] Comment on above: Order Comment: Speci men Type: BLOOD SPECIMEN Ordering Facility: [facility] Address: [address] [place] [address] Performed By: #### 5 7021-8 #### [facility] CLIA [id number] 1 [place] [address] [place] Monocytes (Bld) [#/Vol] 1.38 10*3/uL High <0.87 [facility] Comment on above: Order Comment: Speci men Type: BLOOD SPECIMEN Ordering Facility: [facility] Address: [address] [place] [address] Performed By: #### 5 7021-8 #### [facility] CLIA [id number] [address] [place] Monocytes/100 WBC (Bld) 8.7 % Normal [facility] Comment on above: Order Comment: Speci men Type: BLOOD SPECIMEN Ordering Facility: [facility] Address: [address] [place] [address] Performed By: #### 5 7021-8 #### [facility] CLIA [id number] [address] [place] Neutrophils (Bld) [#/Vol] 12.34 10*3/uL High 1.45-7.50 [facility] Comment on above: Order Comment: Speci men Type: BLOOD SPECIMEN Ordering Facility: [facility] Address: [address] [place] [address] Performed By: #### 5 7021-8 #### [facility] CLIA [id number] [address] [place] Neutrophils/100 WBC (Bld) 78.3 % Normal [facility] Comment on above: Order Comment: Speci men Type: BLOOD SPECIMEN Ordering Facility: [facility] Address: [address] Performed By: #### 5 7021-8 #### [facility] CLIA [id number] [address] [place] Nucleated RBC (Bld) [#/Vol] 10*3/uL Normal <0.01 [facility] Comment on above: Order Comment: Speci men Type: BLOOD SPECIMEN Ordering Facility: [facility] Address: [address] [place] [address] Performed By: #### 5 7021-8 #### [facility] CLIA [id number] [address] [place] Nucleated RBC/100 WBC (Bld) [Ratio] 0.0 /100 WBC Normal 0.0 [facility] Comment on above: Order Comment: Speci men Type: BLOOD SPECIMEN [facility]ing Facility: [facility] Address: [address] [place] [address] Performed By: #### 5 7021-8 #### [facility] CLIA [id number] [address] [place] Platelet mean volume (Bld) [Entitic vol] 9.1 fL Normal 9.0-12.7 [facility] Comment on above: Order Comment: Speci men Type: BLOOD SPECIMEN Ordering Facility: [facility] Address: [address] [place] [address] Performed By: #### 5 7021-8 #### [facility] CLIA [id number] [address] [place] Platelets (Bld) [#/Vol] 316 10*3/uL Normal 150-400 [facility] Comment on above: Order Comment: Speci men Type: BLOOD SPECIMEN Ordering Facility: [facility] Address: [address] [place] [address] Performed By: #### 5 7021-8 #### [facility] CLIA [id number] [address] [place] RBC (Bld) [#/Vol] 5.56 10*6/uL Normal 4.20-6.00 [facility] Comment on above: Order Comment: Speci men Type: BLOOD SPECIMEN [facility]ing Facility: [facility] Address: [address] [place] [address] Performed By: #### 5 7021-8 #### [facility] CLIA [id number] 1 [place] [address] [place] WBC (Bld) [#/Vol] 15.78 10*3/uL High 3.70-11.00 [facility] Comment on above: Order Comment: Speci men Type: BLOOD SPECIMEN Ordering Facility: [facility] Address: [address] [place] [address] Performed By: #### 5 7021-8 #### [facility] CLIA [id number] [address] OF [facility] CT ABD/PEL W IVCONon 022 CT ABD/PEL W IVCON * * *Final Report* * * DATE OF EXAM: Oct 20 2021 10:33AM [facility] 0530 - CT ABD/PEL W IVCON / PROCEDURE REASON: Infection, abdomen-pelvis * * * * Physician Interpretation * * * * EXAMINATION: CT ABDOMEN AND PELVIS WITH IV CONTRAST CLINICAL HISTORY: Left lower quadrant and left groin pain. TECHNIQUE: CT of the abdomen and pelvis was performed using standard technique, scanning from just above the dome of the diaphragm to the symphysis pubis. MQ: CTAP_3 Contrast: IV: 150 ml of Omnipaque 300 CT Radiation dose: Integrated Dose-length product (DLP) for this visit = 401 mGy*cm. CT Dose Reduction Employed: Automated exposure control(AEC) and iterative recon COMPARISON: 09/08/2021. RESULT: Liver: Hepatic steatosis. No evidence of focal hepatic abscesses. Biliary: No bile duct dilation. Gallbladder is unremarkable. Spleen: No mass. No splenomegaly. Pancreas: No mass or duct dilation. Adrenals: No mass. Kidneys: No mass, calculus or hydronephrosis. GI tract: Moderate to severe inflammation and bowel wall thickening involving the sigmoid colon, with adjacent area of inflammation and abscess measuring 3.5 x 3.2 cm. No evidence of intra-abdominal free air. No evidence of mechanical bowel obstruction. Colonic diverticulosis. No CT evidence of acute appendicitis. Lymph nodes: No abdominal or pelvic lymphadenopathy. Vasculature: No evidence of abdominal aortic aneurysm. Pelvis: Mild urinary bladder thickening may be secondary to adjacent the sigmoid colon process. Bones/Soft Tissues: Degenerative changes. Lower thorax: Unremarkable. Construction Engineering Manager (topogram) images: No additional findings. IMPRESSION: 1. Findings are most concerning for moderate to severe acute diverticulitis, with associated abscess measuring 3.5 x 2.5 cm. No evidence of intra-abdominal free air. Follow-up CT examination or colonoscopy is recommended after treatment to exclude colonic neoplasm. 2. Mild urinary bladder thickening may be secondary to adjacent sigmoid colon process. 3. Hepatic steatosis. Additional findings, as detailed above. Network Architect Manager: [employer] Transcribe Date/Time: Oct 20 2021 10:59A Dictated by : FARHANA DIAMOND MD This examination was interpreted and the report reviewed and electronically signed by: FARHANA DIAMOND MD on Oct 20 2021 11:13AM EST [id number] Normal [facility] Comprehensive metabolic 2000 panelon 10-20-2021 Albumin [Mass/Vol] 4.1 g/dL Normal 3.9-4.9 [facility] Comment on above: Order Comment: Speci men Type: BLOOD SPECIMEN Ordering Facility: [facility] Address: [address] [place] [address] Performed By: #### 2 4323-8 #### [facility] CLIA [id number] [address] STATES OF [facility] ALP [Catalytic activity/Vol] 75 U/L Normal 38-113 [facility] Comment on above: Order Comment: Speci men Type: BLOOD SPECIMEN Ordering Facility: [facility] Address: [address] [place] [address] Performed By: #### 2 4323-8 #### [facility] CLIA [id number] [address] [place] ALT With P-5'-P [Catalytic activity/Vol] 20 U/L Normal 10-54 [facility] Comment on above: Order Comment: Speci men Type: BLOOD SPECIMEN Ordering Facility: [facility] Address: [address] [place] [address] Performed By: #### 2 4323-8 #### [facility] CLIA [id number] [address] STATES OF [facility] Anion gap [Moles/Vol] 11 mmol/L Normal 9-18 [facility] Comment on above: Order Comment: Speci men Type: BLOOD SPECIMEN Ordering Facility: [facility] Address: [address] [place] [address] Performed By: #### 2 4323-8 #### [facility] CLIA [id number] [address] OF [facility] AST With P-5'-P [Catalytic activity/Vol] 15 U/L Normal 14-40 [facility] Comment on above: Order Comment: Speci men Type: BLOOD SPECIMEN Ordering Facility: [facility] Address: [address] [place] [address] Performed By: #### 2 4323-8 #### [facility] CLIA [id number] [address] [place] Bilirubin [Mass/Vol] 0.3 mg/dL Normal 0.2-1.3 [facility] Comment on above: Order Comment: Speci men Type: BLOOD SPECIMEN Ordering Facility: [facility] Address: [address] [place] [address] Performed By: #### 2 4323-8 #### [facility] CLIA [id number] [address] [place] Calcium [Mass/Vol] 9.0 mg/dL Normal 8.5-10.2 [facility] Comment on above: Order Comment: Speci men Type: BLOOD SPECIMEN Ordering Facility: [facility] Address: [address] [place] [address] Performed By: #### 2 4323-8 #### [facility] CLIA [id number] [address] [place] Chloride [Moles/Vol] 103 mmol/L Normal 97-105 [facility] Comment on above: Order Comment: Amy saul Type: BLOOD SPECIMEN Ordering Facility: [facility] Address: [address] [place] [address] Performed By: #### 2 4323-8 #### [facility] CLIA [id number] [address] [place] CO2 [Moles/Vol] 22 mmol/L Normal 22-30 [facility] Comment on above: Order Comment: Amy men Type: BLOOD SPECIMEN Ordering Facility: [facility] Address: [address] [place] [address] Performed By: #### 2 4323-8 #### [facility] CLIA [id number] [address] [place] [address] STATES OF [facility] Creatinine [Mass/Vol] 1.08 mg/dL Normal 0.73-1.22 [facility] Comment on above: Order Comment: Amy saul Type: BLOOD SPECIMEN Ordering Facility: [facility] Address: [address] [place] [address] Performed By: #### 2 4323-8 #### [facility] CLIA [id number] [address] [place] [address] [place] GFR/1.73 sq M.predicted MDRD (S/P/Bld) [Vol rate/Area] mL/min/{1.73_m2} Normal [facility] Comment on above: Order Comment: Amy saul Type: BLOOD SPECIMEN Ordering Facility: [facility] Address: [address] [place] [address] Result Comment: >60 eGFR (Estimated GFR) Units of measure: mL/min/1.73 meters squared eGFR is derived from the reexpressed MDRD Study equation using the following parameters: serum creatinine, age, gender and race. The creatinine assay has been calibrated to be traceable to IDMS. An eGFR <60 mL/min/1.73m2 for >3 months is consistent with chronic kidney disease. Refer to KDOQI guidelines for clinical interpretation. In patients with unstable renal function, e.g. those with acute kidney injury, the eGFR may not accurately reflect actual GFR. Performed By: #### 2 4323-8 #### [facility] CLIA [id number] 1 [place] [address] [place] Glucose [Mass/Vol] 113 mg/dL High 74-99 [facility] Comment on above: Order Comment: Amy saul Type: BLOOD SPECIMEN Ordering Facility: [facility] Address: [address] [place] [address] Result Comment: The [place] [employer] (ADA) provides guidance for cutoff values for fasting glucose and random glucose. The ADA defines fasting as no caloric intake for at least 8 hours. Fasting plasma glucose results between 100 to 125 mg/dL indicate increased risk for diabetes (prediabetes). Fasting plasma glucose results greater than or equal to 126 mg/dL meet the criteria for diagnosis of diabetes. In the absence of unequivocal hyperglycemia, results should be confirmed by repeat testing. In a patient with classic symptoms of hyperglycemia or hyperglycemic crisis, random plasma glucose results greater than or equal to 200 mg/dL meet the criteria for diagnosis of diabetes. Reference: Standards of Medical Care in Diabetes 2016, [place] [employer]. Diabetes Care. 2016.39(Suppl 1). Performed By: #### 2 4323-8 #### [facility] CLIA [id number] 1 [place] [address] [place] Potassium [Moles/Vol] 4.5 mmol/L Normal 3.7-5.1 [facility] Comment on above: Order Comment: Amy saul Type: BLOOD SPECIMEN Ordering Facility: [facility] Address: [address] [place] [address] Performed By: #### 2 4323-8 #### [facility] CLIA [id number] 1 [place] [address] [place] Protein [Mass/Vol] 7.2 g/dL Normal 6.3-8.0 [facility] Comment on above: Order Comment: Amy saul Type: BLOOD SPECIMEN Ordering Facility: [facility] Address: [address] [place] [address] Performed By: #### 2 4323-8 #### [facility] CLIA [id number] [address] OF [facility] Sodium [Moles/Vol] 136 mmol/L Normal 136-144 [facility] Comment on above: Order Comment: Speci men Type: BLOOD SPECIMEN Ordering Facility: [facility] Address: [address] [place] [address] Performed By: #### 2 4323-8 #### [facility] CLIA [id number] [address] [place] Urea nitrogen [Mass/Vol] 19 mg/dL Normal 9-24 [facility] Comment on above: Order Comment: Speci men Type: BLOOD SPECIMEN Ordering Facility: [facility] Address: [address] [place] [address] Performed By: #### 2 4323-8 #### [facility] CLIA [id number] [address] ED NOTEon 10-20-2021 ED NOTE HNO ID: [id number] Author: Say Moncada RN Service: Emergency Medicine Author Type: Registered Nurse Type: ED Notes Filed: 10/20/2021 8:10 PM Note Text: Report to [facility] ED NOTE HNO ID: [id number] Author: Ana Howard RN Service: Emergency Medicine Author Type: Registered Nurse Type: ED Notes Filed: 10/20/2021 9:49 AM Note Text: CT notified. Normal [facility] ED NOTE HNO ID: [id number] Author: Angelica King RN Service: ? Author Type: Registered Nurse Type: ED Notes Filed: 10/20/2021 8:23 AM Note Text: Bed: 35-ED Expected date: Expected time: Means of arrival: Comments: TRIAGE [facility] ED PROV NOTEon 10-20-2021 ED PROV NOTE HNO ID: [id number] Author: Zhao Sandra MD Service: Emergency Medicine Author Type: Physician Type: ED Provider Notes Filed: 10/20/2021 9:37 AM Note Text: ED attending note 55-year-old male with past history of diverticulitis that did require hospitalization but did not require surgery presents to the emergency department again with left lower quadrant pain and suprapubic pain. Symptoms started last night. No known inciting factor. No vomiting. No melena or bright blood per rectum. Has not taken anything for the pain. No previous abdominal surgeries. On exam he has some mild fullness left lower quadrant and suprapubic. No peritoneal signs. He is in no distress. Declines any pain medications at this time. White count is elevated. Plan for CT scan. Zhao Sandra MD 10/20/21 0937 Normal [facility] ED PROV NOTE HNO ID: [id number] Author: Zhao Sandra MD Service: Emergency Medicine Author Type: Physician Type: ED Provider Notes Filed: 10/21/2021 3:13 PM Note Text: ED Provider Note Patient Name: Shira Gavin SERVICE DATE: 10/20/21 History Patient presents with: Abdominal Pain: Pt. c/o LLQ abd pain that started last night. Pt. thinks that the pain is due to a diverticulitis flare-uo. + fever Monday night. Pt. also c/o pain to his penis. Pt. denies urinary symptoms HPI Shira Gavin is a 55 year old year old male who presents to the emergency department with a chief complaint of left lower quadrant abdominal pain. The patient says that his symptoms began 2 days ago. He says that he had subjective fevers and chills the night his symptoms began but those have since resolved. The patient says that his symptoms feel like his usual episodes of diverticulitis. He denies pain with defecation or blood in his stool. The patient says that he has tingling and burning at the tip of his penis as well. Denies pain with urination. The patient says that he is chronic back pain but has not recently sustained any worsening of the pain or trauma. Denies lower extremity sensation loss, weakness, or bowel or bladder retention or incontinence. PAST MEDICAL HISTORY Diagnosis Date - Anticoagulated on Coumadin - Diverticulosis of colon 10/23/2014 perforated diverticulitis - Heart murmur as baby, states resolved - Pulmonary embolism (HCC) 10/27/[address] PAST SURGICAL HISTORY Procedure Laterality Date - PAST SURGICAL HISTORY OF 2009 right rotator cuff repair - PICC LINE INSERT/CONSULT 10/30/2014 FAMILY HISTORY Problem Relation Age of Onset - DVT Father multiple PE - other (Pulmonary embolism [Other]) Father multiple DVT - other (lung cancer [Other]) Mother - Diabetes Father Social History Tobacco Use - Smoking status: Never Smoker - Smokeless tobacco: Current User Types: Chew - Tobacco comment: began chewing ~1986 Substance and Sexual Activity - Alcohol use: No - Drug use: Not on file - Sexual activity: Not on file ALLERGIES No Known Allergies Review of Systems Constitutional: Negative for chills, diaphoresis and fever. HENT: Negative for congestion and rhinorrhea. Respiratory: Negative for cough and shortness of breath. Cardiovascular: Negative for chest pain and palpitations. Gastrointestinal: Positive for abdominal pain. Negative for nausea and vomiting. Genitourinary: Positive for penile pain. Negative for dysuria, frequency and urgency. Musculoskeletal: Negative for arthralgias and myalgias. Skin: Negative for rash and wound. Neurological: Negative for weakness, numbness and headaches. Psychiatric/Behavioral: Negative for self-injury and suicidal ideas. Physical Exam Vitals [10/20/21 0819] BP Pulse Temp Temp src Resp SpO2 Weight Height 140/84 (!) 101 36.5 ?C (97.7 ?F) -- 18 97 % 104.3 kg (230 lb) 1.727 m (5' 8) Physical Exam Vitals and nursing note reviewed. Exam conducted with a bods developer present (pt's ). Constitutional: Appearance: He is well-developed. He is not diaphoretic. HENT: Head: Normocephalic and atraumatic. Eyes: Conjunctiva/sclera: Conjunctivae normal. Neck: Thyroid: No thyromegaly. Cardiovascular: Rate and Rhythm: Normal rate and regular rhythm. Pulmonary: Effort: Pulmonary effort is normal. Breath sounds: Normal breath sounds. Abdominal: General: Bowel sounds are normal. There is no distension. Palpations: Abdomen is soft. There is no mass. Tenderness: There is abdominal tenderness in the left lower quadrant. There is no guarding. Comments: Abdomen without peritoneal signs. No hernia appreciated No CVA tenderness Genitourinary: Penis: Normal. No erythema, tenderness, discharge or swelling. Testes: Normal. Cremasteric reflex is present. Musculoskeletal: General: No deformity. Normal range of motion. Cervical back: Normal range of motion and neck supple. Comments: No midline tenderness or deformities appreciated while palpating along from patient's cervical through lumbosacral spine Sensation diffusely intact in LE to light palpation Strength 5+ with hip flexion bilaterally in LE Minimal left lumbar paraspinal TTP. No CVA tenderness Skin: General: Skin is warm and dry. Capillary Refill: Capillary refill takes 2 to 3 seconds. Neurological: Mental Status: He is alert and oriented to person, place, and time. Psychiatric: Behavior: Behavior normal. Diagnostic Testing ED Labs Ordered and Reviewed - No data to display Procedures ED Course / Clinical Impression Clinical Impressions as of 10/20/21 1359 Abscess Diverticulitis MDM / Disposition / Plan MDM This patient is a 55-year-old male with a history of diverticulitis who presents emergency department with a chief complaint of left lower quadrant abdominal pain and urethral meatus (more content not included)... Normal [facility] HISTORY PHYSICALon HISTORY PHYSICAL HNO ID: [id number] Author: Nan Hernández MD Service: General Surgery Author Type: Physician Type: HANDP Filed: 10/25/2021 10:54 AM Note Text: HISTORY AND PHYSICAL EXAM: EMERGENCY GENERAL SURGERY SERVICE SERVICE DATE: 10/20/2021 SERVICE TIME: 2:08 PM Subjective CHIEF COMPLAINT: abd pain HPI: 55 year old male h/o recurrent diverticulitis, prior DVT/PE no longer on anticoagulation presented to the ED earlier today with LLQ abd pain that began yesterday evening. The pain is constant but does seem to wax and wane. Given that he has had multiple episodes of diverticulitis in the past, he was worried this was the start of another attack, so he came in for further workup and evaluation. In the ED, he was found to be HDS. Labs significant for WBC 15.78. CTAP with moderate to severe acute diverticulitis with associated abscess measuring 3.5 x 2.5 cm. General surgery was subsequently consulted for further recommendations. At bedside, patient is resting comfortably but does continues to c/o abd pain. Still having daily BMs and gas. Denies any bloody stools or recent changes in his bowel habits. Additionally, denies fevers, chills, CP, SOB. Not currently on any blood thinners. Initial episode of diverticulitis was in 2014 with associated pelvic abscess that required IR drain placement. He currently follows with Dr. Antonio at [facility] for possible sigmoidectomy in the future. Last colonoscopy was in 2014 shortly after initial attack and was generally unremarkable per the patient. He has since had two subsequent episodes of non-complicated diverticulitis in both 2015 and 2019 that were both been managed medically. No other associated sx or modifying factors at this time. FUNCTIONAL STATUS: Independent PAST MEDICAL HISTORY Diagnosis Date - Anticoagulated on Coumadin - Diverticulosis of colon 10/23/2014 perforated diverticulitis - Heart murmur as baby, states resolved - Pulmonary embolism (HCC) 10/27/[address] PAST SURGICAL HISTORY Procedure Laterality Date - PAST SURGICAL HISTORY OF 2009 right rotator cuff repair - PICC LINE INSERT/CONSULT 10/30/2014 FAMILY HISTORY Problem Relation Age of Onset - DVT Father multiple PE - other (Pulmonary embolism [Other]) Father multiple DVT - other (lung cancer [Other]) Mother - Diabetes Father Social History Tobacco Use - Smoking status: Never Smoker - Smokeless tobacco: Current User Types: Chew - Tobacco comment: began chewing ~1986 Substance Use Topics - Alcohol use: No - Drug use: Not on file (Not in a hospital admission) ALLERGIES No Known Allergies COMPLETE REVIEW OF SYSTEMS: GENERAL: No weight loss, malaise or fevers. HEENT: Negative for frequent or significant headaches, No changes in hearing or vision, no nose bleeds or other nasal problems. NECK: Negative for lumps, goiter, pain and significant neck swelling. RESPIRATORY: Negative for cough, hemoptysis, wheezing, COPD, dyspnea or shortness of breath. CARDIOVASCULAR: Negative for chest pain, leg swelling, hypertension, CHF or palpitations. GI: No nausea, vomiting, or diarrhea. MUSCULOSKELETAL: Negative for joint pain or swelling, back pain or muscle pain. SKIN: Negative for lesions, rash, and itching. PSYCH: Negative for sleep disturbance, mood disorder and recent psychosocial stressors. NEURO: No history of headaches, syncope, paralysis, seizures or tremors. Objective PHYSICAL EXAM: GENERAL: Alert. No distress. Resting comfortably. NEURO: AANDOx3. No focal neurologic deficits. Sensation grossly intact. HEENT: Normocephalic. Atraumatic. EOMI. LUNGS: Unlabored breathing. Equal excursion bilaterally. CARDIAC: Regular rate. Good perfusion throughout. ABDOMEN: Soft, obese, LLQ with moderate TTP, non-distended. No rebound or guarding. EXTREMITIES: ABDALLA. No deformities. SKIN: No obvious jaundice or pallor. BP 127/82 Pulse 82 Temp 97.7 Resp 18 Ht 5' 8 (1.73m) Wt 230 lb (104.3kg) SpO2 97% BMI 34.98 kg/(m2). O2 Therapy: Room Air DATA: Labs: Recent Labs 10/20/21 0903 NA 136 K 4.5 CHLOR 103 CO2 22 BUN 19 CREAT 1.08 GLUC 113* ANION 11 CA 9.0 ALB 4.1 AST 15 ALT 20 ALKPHOS 75 TBILI 0.3 WBC 15.78* HB 14.3 HCT 45.2 PLT 316 Diagnostic tests reviewed for today's visit: Most recent labs and imaging results. 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 - will admit to the emergency general surgery service for further workup and evaluation - CTAP with moderate to severe acute diverticulitis with associated abscess measuring 3.5 x 2.5 cm - no indication for surgical intervention at this time; will continue with nonoperative/medical management for now with low threshold for OR should patient decompensate - would benefit from OP colono (more content not included)... Normal [facility] PT panel Coag (PPP)on 2021 INR Coag (PPP) [Relative time] 1.0 {INR} Normal 0.9-1.3 [facility] Comment on above: Order Comment: Speci men Type: BLOOD SPECIMEN Ordering Facility: [facility] Address: [address] [place] [address] Result Comment: Martina min K Antagonist (VKA) Therapeutic Range: INR 2 to 3 (Target INR of 2.5) Note: For patients treated with VKA drugs, such as warfarin, the [place] [employer] 2012 Guideline recommends a therapeutic INR range of 2 to 3 (target INR of 2.5). This recommendation includes high-risk patients with antiphospholipid syndrome with previous arterial or venous thromboembolism, current-generation mechanical or bioprosthetic aortic heart valve replacement. Note: Patients with mechanical aortic valve replacement and additional risk factors for thromboembolic events (atrial fibrillation, previous thromboembolism, LV dysfunction, hypercoagulable conditions) or an older generation mechanical AVR (i.e., ball in-Cage) or any mechanical MVR should have a INR therapeutic range of 2.5 to 3.5 (target INR of 3). Ralph GH, et al. Chest 2012, 141:7S-47S Cookie VILLANUEVA et al. [facility] 2017, 70: 252-289 Performed By: #### 3 4528-0 #### [facility] CLIA [id number] [address] PT Coag (PPP) [Time] 10.9 s Normal 9.7-13.0 [facility] Comment on above: Order Comment: Speci men Type: BLOOD SPECIMEN Ordering Facility: [facility] Address: [address] [place] [address] Performed By: #### 3 4528-0 #### [facility] CLIA [id number] [address] SARS-CoV-2 RNA Resp Ql GONZALES+p robeon 10-20-2021 SARS-CoV-2 (COVID-19) RNA GONZALES+probe Ql (Resp) COVID 19 RESULT: SARS-CoV-2 (Agent of COVID-19) Not Detected by PCR. This test has been authorized by FDA under an Emergency Use Authorization (EUA). Normal [facility] Comment on above: Performed By: #### 5 8410-2 #### [facility] CLIA [id number] [address] Urinalysis complete panel (U )on 10-20-2021 Bacteria LM.HPF (Urine sed) [#/Area] None Seen Normal None Seen [facility] Comment on above: Order Comment: Speci men Type: URINE SPECIMEN Ordering Facility: [facility] Address: [address] [place] [address] Performed By: #### 2 4356-8 #### [facility] CLIA [id number] [address] Bilirubin Ql (U) Negative Normal Negative [facility] Comment on above: Order Comment: Speci men Type: URINE SPECIMEN Ordering Facility: [facility] Address: [address] [place] [address] Performed By: #### 2 4356-8 #### [facility] CLIA [id number] [address] Clarity (Unsp spec) Clear Normal Clear [facility] Comment on above: Order Comment: Speci men Type: URINE SPECIMEN Ordering Facility: [facility] Address: [address] [place] [address] Performed By: #### 2 4356-8 #### [facility] CLIA [id number] [address] Color (U) Yellow Normal Yellow [facility] Comment on above: Order Comment: Speci men Type: URINE SPECIMEN Ordering Facility: [facility] Address: [address] [place] [address] Performed By: #### 2 4356-8 #### [facility] CLIA [id number] [address] Epithelial cells LM.HPF (Urine sed) [#/Area] 0.0 /[HPF] Normal [facility] Comment on above: Order Comment: Speci men Type: URINE SPECIMEN Ordering Facility: [facility] Address: [address] [place] [address] Performed By: #### 2 4356-8 #### [facility] CLIA [id number] [address] [place] Glucose Test strip (U) [Mass/Vol] Negative Normal Negative [facility] Comment on above: Order Comment: Speci men Type: URINE SPECIMEN Ordering Facility: [facility] Address: [address] [place] [address] Performed By: #### 2 4356-8 #### [facility] CLIA [id number] [address] [place] Hemoglobin Ql (U) Negative Normal Negative [facility] Comment on above: Order Comment: Speci men Type: URINE SPECIMEN Ordering Facility: [facility] Address: [address] [place] [address] Performed By: #### 2 4356-8 #### [facility] CLIA [id number] [address] Hyaline casts (Urine sed) [#/Area] 0 /[LPF] Normal 0 /LPF [facility] Comment on above: Order Comment: Speci men Type: URINE SPECIMEN Ordering Facility: [facility] Address: [address] [place] [address] Performed By: #### 2 4356-8 #### [facility] CLIA [id number] [address] Ketones Ql (U) Negative Normal Negative [facility] Comment on above: Order Comment: Speci men Type: URINE SPECIMEN Ordering Facility: [facility] Address: [address] [place] [address] Performed By: #### 2 4356-8 #### [facility] CLIA [id number] [address] Leukocyte esterase Test strip Ql (U) Negative Normal Negative [facility] Comment on above: Order Comment: Speci men Type: URINE SPECIMEN Ordering Facility: [facility] Address: [address] [place] [address] Performed By: #### 2 4356-8 #### [facility] CLIA [id number] [address] [place] Nitrite Ql (U) Negative Normal Negative [facility] Comment on above: Order Comment: Speci men Type: URINE SPECIMEN Ordering Facility: [facility] Address: [address] [place] [address] Performed By: #### 2 4356-8 #### [facility] CLIA [id number] [address] [place] pH (U) 5.5 [pH] Normal 5.0-8.0 [facility] Comment on above: Order Comment: Speci men Type: URINE SPECIMEN Ordering Facility: [facility] Address: [address] [place] [address] Performed By: #### 2 4356-8 #### [facility] CLIA [id number] [address] Protein (U) [Mass/Vol] Negative Normal Negative [facility] Comment on above: Order Comment: Speci men Type: URINE SPECIMEN Ordering Facility: [facility] Address: [address] [place] [address] Performed By: #### 2 4356-8 #### [facility] CLIA [id number] [address] RBC LM.HPF (Urine sed) [#/Area] 0-3 /HPF Normal 0-3 /HPF [facility] Comment on above: Order Comment: Speci men Type: URINE SPECIMEN Ordering Facility: [facility] Address: [address] [place] [address] Performed By: #### 2 4356-8 #### [facility] CLIA [id number] [address] Specific gravity (U) [Rel density] 1.017 Normal 1.005-1.030 [facility] Comment on above: Order Comment: Speci men Type: URINE SPECIMEN Ordering Facility: [facility] Address: [address] [place] [address] Performed By: #### 2 4356-8 #### [facility] CLIA [id number] [address] Urobilinogen Ql (U) 0.2 EU/dL Normal 0.2-1.0 EU/dL [facility] Comment on above: Order Comment: Speci men Type: URINE SPECIMEN Ordering Facility: [facility] Address: [address] [place] [address] Performed By: #### 2 4356-8 #### [facility] CLIA [id number] [address] WBC LM.HPF (Urine sed) [#/Area] 0-5 /HPF Normal 0-5 /HPF [facility] Comment on above: Order Comment: Speci men Type: URINE SPECIMEN Ordering Facility: [facility] Address: [facility] [place] [address] Performed By: #### 2 4356-8 #### [facility] CLIA [id number] [address] [place] [id number] [place] Urgent Care Visit Reporton 0 02-24-2020 Urgent Care Visit Report [facility] [address] [place] [address] [address] [place] [id number] OFFICE VISIT Date of Service: 02/24/20 MR#: [id number] Acct: [id number] Name: SHIRA GAVIN Rep #: [id number] : 1965 Provider: RENE Patel Age/Sex: 54/M Location: [facility] Status: Signed with Addenda ADDENDUM by RENE Patel on 06/29/20 at 0837 Addendum entered and electronically signed by RENE Estrada 06/29/20 08:37: HPI Details: SHIRA GAVIN, is a 54 M who presents to the office today for Assessment Plan Problems 1. Unspecified open wound of other part of head, initial encounter S01.80XA 2. Laceration without foreign body of scalp, initial encounter S01.01XA Status Acute Plan - RENE Estrada All any removed without issues. [employer] filled out releasing patient back to work today without restrictions. Patient advised of potential red flags and when appropriate to report to the ED. Patient advised to He is to follow-up here unless he should have an exacerbation of symptoms or new concerns. Patient verbalized understanding and agreement with all the above. 06/29/20 0837 Date Maximo Patel cc: * Signed Intake Vital Signs 02/24/20 Height 5 ft 8 in 02/24/20 Weight: 219 lb 02/24/20 BMI 33.3 02/24/20 BP 142/92 H 02/24/20 Blood Pressure Location Lt brachial 02/24/20 Position Sitting 02/24/20 Respiration 15 02/24/20 Pulse 94 02/24/20 Temp 98.6 F 02/24/20 Temp Source Temporal 02/24/20 Pulse Oximetry (%) 98 02/24/20 Oxygen Delivery Method room air Intake Visit Reasons: Scalp laceration, [employer] Chief Complaint: Scalp laceration follow-up Worker's Comp. Allergies No Known Allergies Allergy (Verified 02/24/20 13:28) Medications ibuprofen 200 mg capsule 200 mg PO Q6H PRN 02/24/20 [History Confirmed 02/24/20] PFSH Medical History Diverticulitis (Acute) Pulmonary embolism (Resolved) Surgical History s/p right 5th finger (Inactive) Family History Mother Lung cancer Social History (Updated 02/24/20 @ 16:00 by RENE Fritz) Smoking Status: Never smoker [facility] Chief Complaint: Scalp laceration follow-up Worker's Comp. Details: SHIRA GAVIN, is a 54 M who presents to the office today for follow-up of a work-related injury which occurred on 02/14/2020. On the date the patient sustained a head laceration and had the laceration repaired with any at [facility] ED. Patient today states that he has had no headaches, change in mental status, vision changes or other cognitive issues. He states no issues with the laceration and denies any drainage. No fever, chills, sweats. No nausea, vomiting, diarrhea. No other associated symptoms or alleviating/aggravating factors. ROS Const Constitutional: Positive for other (6 system ROS completed with pertinent findings in the HPI otherwise normal.) Exam Const General: cooperative, healthy appearing [facility] Head: other (6 cm laceration to the scalp which appears to be healing well with no drainage, erythema or warmth. All 11 any removed without complication. Patient advised of appropriate ongoing wound management.) Ears: hearing grossly normal bilaterally Nose: external nose normal Face and sinus: normal facial exam, face symmetric Eyes General: appearance normal, both eyes and all related structures Pupils: PERRL Resp Effort Inspection: normal respiratory effort Auscultation: Bilateral: Clear to Auscultation Cardio Palpation: normal PMI Rate: regular rate Rhythm: regular rhythm Skin General: no rashes or lesions noted Neuro General: alert, CN's II-XI intact bilaterally Psych Appearance: grossly normal Mental Status: mental status grossly normal Office Procedures Suture/Staple Removal Suture/Staple Procedure performed by: Maximo Patel Staple/Suture Removal: Scalp staple removal Assessment Plan Problems 1. Unspecified open wound of other part of head, initial encounter S01.80XA Status Acute Plan All any removed without issues. [employer] filled out releasing patient back to work today without restrictions. Patient advised of potential red flags and when appropriate to report to the ED. Patient advised to He is to follow-up here unless he should have an exacerbation of symptoms or new concerns. Patient verbalized understanding and agreement with all the above. Coding Level of Care Code Off vis,new,level 3 Diagnoses Unspecified open wound of other part of head, initial encounter S01.80XA 02/24/20 1600 Date Maximo Philippe Signature: Date (if applicable) CC: Normal [facility] Discharge Instructionon 01-26 Discharge Instruction [facility] Medical Records Department [address] [place] [id number] Discharge Instruction 02/14/20 MR#: [id number] Acct: [id number] Name: DINO,SHIRA Rep #: [id number] : 1965 54 From: Diaz Rubin MD PCP: Dr. Terri Pierre MD Status:PRE ER ED Disposition - Plan for ED Patient: Instructions: ED Laceration Scalp Sutures or Any Referrals: [facility] [GROUP OF PHYSICIANS] - What to do if you have Problems For any increased pain, shortness of breath, bleeding, nausea or vomiting, chest pain, or any unexpected problems, contact your Primary Care Provider. Call [facility] ([phone]) or report to the closest Emergency Room. Call 911 if necessary. 02/14/20 1742 Date Diaz Rubin MD Cosigner Signature (If Indicated): Date CC: Dr. Terri Pierre MD [facility] Emergency Department Summary on 02-14-2020 Emergency Department Summary [facility] Medical Records Department [address] [place] [address] Emergency Department Summary 02/14/20 MR#: [id number] Acct: [id number] Name: SHIRA GAVIN Rep #: [id number] : 1965 54 From: Diaz Rubin MD PCP: Dr. 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 Unsure of his tetanus immunization. No blood thinner use. No loss of consciousness. No other complaints or injuries. Physical Examination: 6 cm V shaped laceration over his crown. Full-thickness. Otherwise normal. Test Results: None indicated. Emergency Department Course and Treatment: Wound was irrigated, cleaned, and explored. Closed with 11 any. Risks and wound care instructions given. FROI and return to work forms completed. Tetanus updated. Treatment Plan: Follow-up with Workmen's Comp. Disposition: Discharge Impression: Scalp laceration 6 cm initial encounter Tetanus immunization This note was generated with [employer] software. It may contain incorrect words, spelling, and punctuation that were not noted in review of the chart prior to signing ED Disposition - Plan for ED Patient: Referrals: Terri Pierre MD [Primary Care Provider] - What to do if you have Problems For any increased pain, shortness of breath, bleeding, nausea or vomiting, chest pain, or any unexpected problems, contact your Primary Care Provider. Call [facility] ([phone]) or report to the closest Emergency Room. Call 911 if necessary. 02/14/20 1742 Date Diaz Rubin MD Cosigner Signature (If Indicated): Date CC: Dr. Terri Pierre MD [facility] CT ABD/PEL W IVCONon 020 CT ABD/PEL W IVCON * * *Final Report* * * DATE OF EXAM: Sep 08 2019 12:47PM [facility] 0530 - CT ABD/PEL W IVCON / PROCEDURE REASON: Abd pain, diverticulitis suspected * * * * Physician Interpretation * * * * EXAMINATION: CT ABDOMEN AND PELVIS WITH IV CONTRAST CLINICAL HISTORY: Lower abdominal pain TECHNIQUE: CT of the abdomen and pelvis was performed using standard technique, scanning from just above the dome of the diaphragm to the symphysis pubis. MQ: CTAP_3 Contrast: IV: 150 ml of Omnipaque 300 CT Radiation dose: Integrated Dose-length product (DLP) for this visit = 512 mGy*cm. CT Dose Reduction Employed: Automated exposure control(AEC) and iterative recon COMPARISON: 06/25/2016 RESULT: Liver: Calcified granulomata. No other focal lesions. Biliary: Gallbladder is minimally distended. No bile duct dilatation. Spleen: Unremarkable. Pancreas: No mass or duct dilation. Adrenals: No mass. Kidneys: Unremarkable. GI tract: There are changes of acute diverticulitis involving the distal descending and proximal sigmoid colon where there are extensive diverticula, wall thickening, and pericolonic edematous/inflammatory changes. Presently no diverticular abscess. No extraluminal air. The appendix is visualized and is normal. No dilated bowel. Lymph nodes: No abdominal or pelvic lymphadenopathy. Mesentery/Peritoneum: No ascites or mass. Retroperitoneum: No mass. Vasculature: The celiac axis and SMA are patent. The portal vein and branches, splenic vein, SMV, and hepatic veins are patent. Pelvis: Trace free fluid noted in the left pelvis. No focal fluid collection. No mass lesion. Bones/Soft Tissues: No significant additional findings. Lower thorax: No significant additional findings. IMPRESSION: Findings consistent with acute diverticulitis. No diverticular abscess identified. Network Architect Manager: PSCB Transcribe Date/Time: Sep 08 2019 1:01P Dictated by : ROXANNA MCCARTHY MD This examination was interpreted and the report reviewed and electronically signed by: ROXANNA MCCARTHY MD on Sep 08 2019 1:09PM EST [facility] Comprehensive Panelon 2019 ALP [Catalytic activity/Vol] 79 U/L Normal 45-117 [facility] Comment on above: Performed By: #### P 14 #### [facility] [address] [place], [place] [address] Bilirubin [Mass/Vol] 0.4 mg/dL Normal 0.2-1.0 [facility] Comment on above: Performed By: #### P 14 #### [facility] [address] [place], [place] [address] Protein [Mass/Vol] 7.4 g/dL Normal 6.4-8.2 [facility] Comment on above: Performed By: #### P 14 #### [facility] [address] [place], [place] [address] ALT [Catalytic activity/Vol] 35 U/L Normal 12-78 [facility] Comment on above: Performed By: #### P 14 #### [facility] [address] [place], [place] [address] AST [Catalytic activity/Vol] 17 U/L Normal 15-37 [facility] Comment on above: Performed By: #### P 14 #### [facility] [address] [place], [place] [address] Creatinine [Mass/Vol] 1.02 mg/dL Normal 0.67-1.17 [facility] Comment on above: Performed By: #### P 14 #### [facility] [address] [place], [place] [address] Albumin [Mass/Vol] 3.7 g/dL Normal 3.4-5.0 [facility] Comment on above: Performed By: #### P 14 #### [facility] [address] [place], [place] [address] Anion gap [Moles/Vol] 7 mmol/L Low 8-16 [facility] Comment on above: Performed By: #### P 14 #### [facility] [address] [place], [place] [address] CO2 [Moles/Vol] 26 mmol/L Normal 21-32 [facility] Comment on above: Performed By: #### P 14 #### [facility] [address] [place], [place] [address] Glucose [Mass/Vol] 95 mg/dL Normal 70-99 [facility] Comment on above: Performed By: #### P 14 #### [facility] [address] [place], [place] [address] Urea nitrogen [Mass/Vol] 23 mg/dL High 7-18 [facility] Comment on above: Performed By: #### P 14 #### [facility] [address] [place], [place] [address] Calcium [Mass/Vol] 8.8 mg/dL Normal 8.5-10.1 [facility] Comment on above: Performed By: #### P 14 #### [facility] [address] [place], [place] [address] Chloride [Moles/Vol] 110 mmol/L High 98-107 [facility] Comment on above: Performed By: #### P 14 #### [facility] [address] [place], [place] [address] Potassium [Moles/Vol] 4.2 mmol/L Normal 3.5-5.1 [facility] Comment on above: Performed By: #### P 14 #### [facility] [address] [place], [place] [address] Sodium [Moles/Vol] 139 mmol/L Normal 136-145 [facility] Comment on above: Performed By: #### P 14 #### [facility] [address] [place], [place] [address] Hemogram/Diffon 09-08-2019 Abs Immature Grans 0.07 thou/cmm High 0.00-0.05 [facility] Comment on above: Performed By: #### C BCD1 #### [facility] [address] [place] [address] Abs Neut (ANC) 12.68 thou/cmm High 1.78-5.38 [facility] Comment on above: Performed By: #### C BCD1 #### [facility] [address] [place] [address] Abs. Baso 0.09 thou/cmm High 0.01-0.08 [facility] Comment on above: Result Comment: Smea r scanned; tech agrees with automated differential Performed By: #### C BCD1 #### [place] [address] Abs. Bladen 1.33 thou/cmm High 0.30-0.82 [facility] Comment on above: Performed By: #### C BCD1 #### [place] [address] Basophils/100 WBC (Bld) 0.5 % [facility] Comment on above: Performed By: #### C BCD1 #### [place] [address] Eosinophils (Bld) [#/Vol] 0.65 thou/cmm High 0.04-0.54 [facility] Comment on above: Performed By: #### C BCD1 #### [place] [address] Eosinophils/100 WBC (Bld) 3.8 % [facility] Comment on above: Performed By: #### C BCD1 #### [place] [address] Immature Grans 0.40 % [facility] Comment on above: Performed By: #### C BCD1 #### [place] [address] Lymphocytes (Bld) [#/Vol] 2.25 thou/cmm Normal 0.84-2.85 [facility] Comment on above: Performed By: #### C BCD1 #### [facility] [address] [place], [place] [address] Lymphocytes/100 WBC (Bld) 13.2 % [facility] Comment on above: Performed By: #### C BCD1 #### [facility] [address] [place] [address] Monocytes/100 WBC (Bld) 7.8 % [facility] Comment on above: Performed By: #### C BCD1 #### [facility] [address] [place], [place] [address] Seg Neutrophil 74.3 % [facility] Comment on above: Performed By: #### C BCD1 #### [facility] [address] [place] [address] Erythrocyte distribution width (RBC) [Ratio] 14.4 % Normal 11.6-14.4 [facility] Comment on above: Performed By: #### C BCD1 #### [facility] [address] [place] [address] Hematocrit (Bld) [Volume fraction] 44.8 % Normal 40.1-51.0 [facility] Comment on above: Performed By: #### C BCD1 #### [facility] [address] [place] [address] Hemoglobin (Bld) [Mass/Vol] 14.3 g/dL Normal 13.7-17.5 [facility] Comment on above: Performed By: #### C BCD1 #### [facility] [address] [place] [address] MCH (RBC) [Entitic mass] 26.2 pg Normal 25.7-32.2 [facility] Comment on above: Performed By: #### C BCD1 #### [facility] [address] [place] [address] MCHC (RBC) [Mass/Vol] 31.9 % Low 32.3-36.5 [facility] Comment on above: Performed By: #### C BCD1 #### [facility] [address] [place] [address] MCV (RBC) [Entitic vol] 82.2 fL Low 83.2-95.6 [facility] Comment on above: Performed By: #### C BCD1 #### [facility] [address] [place], [place] [address] Platelet mean volume (Bld) [Entitic vol] 9.2 fL Normal 8.7-12.0 [facility] Comment on above: Performed By: #### C BCD1 #### [facility] [address] [place], [place] [address] Platelets (Bld) [#/Vol] 288 thou/cmm Normal 141-365 [facility] Comment on above: Performed By: #### C BCD1 #### [facility] [address] [place], [place] [address] RBC (Bld) [#/Vol] 5.45 mil/cmm Normal 4.63-6.08 [facility] Comment on above: Performed By: #### C BCD1 #### [place] [address] RDW SD 42.8 fl Normal 36.1-45.8 [facility] Comment on above: Performed By: #### C BCD1 #### [facility] [address] [place], [place] [address] WBC (Bld) [#/Vol] 17.06 thou/cmm High 4.23-9.07 [facility] Comment on above: Performed By: #### C BCD1 #### [place] [address] Lipase Bloodon 09-08-2019 Lipase Blood 99 U/L Normal 73-393 [facility] Comment on above: Performed By: #### L IP #### [facility] [address] [place], [place] [address] MDRD GFRon 09-08-2019 GFR/1.73 sq M predicted among non-blacks MDRD (S/P/Bld) [Vol rate/Area] mL/min/{1.73_m2} Normal >60mL/min/1 .73m2 [facility] Comment on above: Result Comment: If t he patient is , multiply the result by 1.210. Performed By: #### G FR #### [facility] [address] [place] [address] Urinalysis Routineon 020 Bacteria LM.HPF (Urine sed) [#/Area] NONE Normal None [facility] Comment on above: Performed By: #### U RIN2 #### [facility] [address] [place] [address] Ep Cells Urine NONE Normal 0.0-5.0 [facility] Comment on above: Performed By: #### U RIN2 #### [place] [address] Hyaline Cast NONE Normal 0.0-1.0 [facility] Comment on above: Performed By: #### U RIN2 #### [place] [address] RBC LM.HPF (Urine sed) [#/Area] NONE Normal 0.0-5.0 [facility] Comment on above: Performed By: #### U RIN2 #### [place] [address] WBC LM.HPF (Urine sed) [#/Area] NONE Normal 0.0-5.0 [facility] Comment on above: Performed By: #### U RIN2 #### [place] [address] Appearance (U) CLEAR [facility] Comment on above: Performed By: #### U RIN2 #### [place] [address] Bilirubin (U) [Mass/Vol] Negative Normal Negative [facility] Comment on above: Performed By: #### U RIN2 #### [place] [address] Color (U) YELLOW [facility] Comment on above: Performed By: #### U RIN2 #### [place] [address] Glucose Ql (U) Negative Normal Negative [facility] Comment on above: Performed By: #### U RIN2 #### [place] [address] Hemoglobin,Urine Negative Normal Negative [facility] Comment on above: Performed By: #### U RIN2 #### [facility] [address] [place] [address] Ketone Urine Negative Normal Negative [facility] Comment on above: Performed By: #### U RIN2 #### [facility] [address] [place] [address] Leukocytes Esterase Negative Normal Negative [facility] Comment on above: Performed By: #### U RIN2 #### [facility] [address] [place] [address] Nitrites Urine Negative Normal Negative [facility] Comment on above: Performed By: #### U RIN2 #### [facility] [address] [place] [address] pH (U) 5.5 [pH] Normal 5.0-8.0 [facility] Comment on above: Performed By: #### U RIN2 #### [place] [address] Protein (U) [Mass/Vol] Negative Normal Negative [facility] Comment on above: Performed By: #### U RIN2 #### [facility] [address] [place] [address] Specific [place], Ur 1.034 Normal 1.005-1.030 [facility] Comment on above: Performed By: #### U RIN2 #### [facility] [address] [place] [address] Urobilinogen,Ur 0.2 EU/dL Normal 0.2-1.0 [facility] Comment on above: Performed By: #### U RIN2 #### [facility] [address] [place] [address] HAND COMP MIN 3 VWS RTon HAND COMP MIN 3 VWS RT HAND COMP MIN 3 VWS RTOrdering Physician: Alyssa Lund MD09/25/2017 2:18 PMRIGHT HANDClinical Statement: PainComparison: NoneFINDINGS: There is a focal well corticated fragment of bone adjacentto the triquetrum. No definite associated wrist joint effusion isdemonstrated. There are some degenerative changes about the wristjoint. The bones of the hand are intact.IMPRESSION:Chronic avulsed fragment of the triquetrum. Radiology is nonspecificand correlation with history and prior radiographs will be necessaryto confirm the chronicity. If clinically warranted MRI may beindicated. ---- Electronic Signature on File ----Signed By: Becki [email or web address]: 09/25/2017 3:43 PMSigned: 09/25/2017 3:55 PM Reported By: ALEXEY KELLEY M.D. Signed By: ALEXEY KELLEY M.D. [facility] 09-25-2017 [facility] REPORT [facility] DATE OF SERVICE: 09/25/2017REASON OF VISIT: Pain and swelling, right hand.HISTORY OF PRESENT ILLNESS: This is a 51-year-old male with pain and swelling of theright hand for the last 5 days. It started after he was changing the tire and he washammering the pin, although he was not hit, but he did a lot of hammering. The painand swelling are increasing. He denied any fever. No other problem at this visit.REVIEW OF SYSTEMS: Review of other systems normal.PAST MEDICAL HISTORY/FAMILY HISTORY/SOCIAL HISTORY: Reviewed.ALLERGIES: NKA.MEDICATION: Ibuprofen.PHYSICAL EXAMINATION:General: He is awake, alert, not in distress. No dyspnea.Vital Signs: Temperature 98.7, blood pressure 156/84, pulse 80, respirations 18,pulse oximetry 97%. Pain score is 1/10.Extremities: Examination of the right hand revealed diffuse swelling of the righthand and wrist with moderate tenderness of the soft tissue. Finger motion is limiteddue to pain and swelling. He also had tenderness at the ulnar site of the wrist.Range of motion is limited due to swelling and pain. Neurovascular exam was normal.The rest of the exam was normal.IMAGING: X-ray of the right hand and wrist did not show any acute injury or changes,but I saw a bone growth from a triquetral bone which appears to be exostosis.ASSESSMENT: Right wrist and hand sprain with exostosis of the triquetral bone of thewrist.PLAN: Clinical findings were discussed with patient and his in detail. Iexplained to them my x-ray finding. He was also given a copy of the x-ray images. Isupported his wrist and hand with the thumb spica wrist brace. Instructed him toraise, elevate and ice. Ibuprofen as needed. Right now, there is significantinflammation of the soft tissue. I gave him Medrol Dosepak, take as directed, 150.No refill. He will continue ibuprofen as needed for the pain. I explained to himthat he needs to follow up with his doctor and he will need to see orthopedist forfurther evaluation and care of his hand symptom and also the bone growth in thewrist.They understand and agreed. He should not do any heavy duty. Their questions wereanswered to his satisfaction. Alyssa Lund MD [facility] PATIENT NAME: DINOSHIRA E13Gabino Shaye Harley MEDICAL REC #: [id number], [place] [address] [facility] REPORT STAT[facility]ARE PHYSICIANPP/[id number]: 09/25/2017 14:51DT: 09/26/2017 01:35SSI File#: [id number] #: [id number]/Reviewed by03/17/18 1212 PAWPR [facility] PATIENT NAME: DINOSHIRA [id number] Shaye HORN REC #: [id number], [place] [address] [facility] REPORT STATCARE PHYSICIAN [facility] WRIST MIN 3 VWS COMP RTon WRIST MIN 3 VWS COMP RT WRIST MIN 3 VWS COMP RTOrdering Physician: Alyssa Lund MD09/25/2017 2:33 PMRIGHT WRISTClinical Statement: PainComparison: NoneFINDINGS: Five views of the right wrist were obtained.There is a well-corticated fragment adjacent to the triquetrum. Noother fracture or dislocation is demonstrated through the carpalbones. Mild degenerative changes are demonstrated. No definite wristjoint effusion.IMPRESSION:Chroni c avulsion of the triquetrum. Radiographs are nonspecific andclinical correlation and comparison with old studies will be necessaryto establish chronicity. If clinically warranted MRI may addadditional diagnostic information. ---- Electronic Signature on File ----Signed By: Alexey Kelley [email or web address]: 09/25/2017 3:55 PMSigned: 09/25/2017 3:58 PM Reported By: ALEXEY KELLEY M.D. Signed By: ALEXEY KELLEY M.D. [facility] Vital Signs Date Time Vital Sign Value Performing Clinician Faci lity 12-13-2022 13:15-0400 Body height 172.7 cm Katty Antonio MD Work Phone: [facility] 12-13-2022 13:15-0400 Body temperature 98.1 [degF] Katty Antonio MD Work Phone: [facility] 12-13-2022 13:15-0400 Body weight 94.35 kg Katty Antonio MD Work Phone: [facility] 12-13-2022 13:15-0400 Diastolic blood pressure 72 mm[Hg] Katty Antonio MD Work Phone: [facility] 12-13-2022 13:15-0400 Heart rate 88 /min Katty Antonio MD Work Phone: [facility] 12-13-2022 13:15-0400 SaO2% (BldA) [Mass fraction] 96 % Katty Antonio MD Work Phone: [facility] 12-13-2022 13:15-0400 Systolic blood pressure 121 mm[Hg] Katty Antonio MD Work Phone: [facility] Encounters Encounter Date Encounter Type Care Provider Facility Start: 08-06-2024 End: 08-06-2024 ambulatory TERRI PIERRE MD Facility:[facility] Start: 08-06-2024 End: 08-06-2024 Patient encounter procedure TERRI PIERRE MD [facility] Start: 07-12-2024 End: 07-12-2024 ambulatory TERRI PIERRE MD Facility:[facility] Start: 07-12-2024 End: 07-12-2024 Patient encounter procedure TERRI PIERRE MD [facility] Start: 06-29-2024 End: 06-29-2024 ambulatory TERRI PIERRE MD Facility:[facility] Start: 06-29-2024 End: 06-29-2024 Patient encounter procedure TERRI PIERRE MD [facility] Start: 02-03-2023 End: 02-03-2023 ambulatory [facility] Facility:[facility] Start: 02-01-2023 ambulatory [facility] a CLIP BAKER.MEDICAL TRANSLATOR Work Phone: Colorectal Surgery Comment on above: Pictures Start: 01-20-2023 End: 01-20-2023 ambulatory [facility] Facility:[facility] Start: 01-20-2023 End: 01-20-2023 Admission to same day surgery center [facility] CLIP BAKER.MEDICAL TRANSLATOR Work Phone: Colorectal Surgery Comment on above: Aftercare following surgery (Primary Dx) Start: 01-20-2023 End: 01-20-2023 Telemedicine consultation with patient Theo Loza CLIP BAKER.MEDICAL TRANSLATOR Work Phone: [facility] Start: 01-10-2023 ambulatory Crinuta Florut a CLIP BAKER.MEDICAL TRANSLATOR Work Phone: Colorectal Surgery Comment on above: My wound Start: 01-08-2023 ambulatory Crinuta Florut a CLIP BAKER.MEDICAL TRANSLATOR Work Phone: Colorectal Surgery Comment on above: Pictures Start: 01-02-2023 End: 01-02-2023 ambulatory KATTY ANTONIO Facility:[facility] Start: 12-29-2022 ambulatory Crinuta Florut a CLIP BAKER.MEDICAL TRANSLATOR Work Phone: Colorectal Surgery Comment on above: My hole Start: 12-28-2022 Telephone encounter Tessa ZARATE Comment on above: Follow Up Phone Call (All Clear.) Start: 12-27-2022 ambulatory Crinuta Florut a CLIP BAKER.MEDICAL TRANSLATOR Work Phone: Colorectal Surgery Comment on above: Pictures of my hole Start: 12-26-2022 ambulatory Crinuta Florut a CLIP BAKER.MEDICAL TRANSLATOR Work Phone: Colorectal Surgery Comment on above: Diet Start: 12-26-2022 Telephone encounter Theo barrosouta CLIP BAKER.MEDICAL TRANSLATOR Work Phone: Colorectal Surgery Comment on above: Patient Update Start: 12-19-2022 End: 12-22-2022 Evaluation and management of inpatient CHUY GARCIA Facility:[facility] Start: 12-13-2022 End: 12-14-2022 ambulatory KATTY ANTONIO Facility:[facility] Start: 12-13-2022 End: 12-13-2022 Patient encounter procedure Katty Antonio MD Work Phone: Colorectal Surgery Comment on above: Ileostomy in place ( HCC) (Primary Dx); History of pulmonary embolism Start: 12-13-2022 End: 12-14-2022 ambulatory KATTY ANTONIO Facility:[facility] Start: 11-29-2022 End: 11-29-2022 ambulatory TERRI PIERRE Facility:[facility] Start: 11-12-2022 ambulatory Theo holcomb APRN.MEDICAL TRANSLATOR Work Phone: Colorectal Surgery Comment on above: Blood work Start: 11-11-2022 ambulatory Katty Alondra Antonio Preet Arcelia Work Phone: Colorectal Surgery Start: 10-21-2022 End: 10-21-2022 ambulatory CHUY Paniagua [place] Facility:[facility] Start: 10-21-2022 End: 10-21-2022 Admission to same day surgery center Theo Loza APRN.MEDICAL TRANSLATOR Work Phone: Colorectal Surgery Comment on above: Aftercare following surgery (Primary Dx) Start: 10-21-2022 End: 10-21-2022 Telemedicine consultation with patient Theo Loza APRN.MEDICAL TRANSLATOR Work Phone: [facility] Start: 10-17-2022 Chart abstracting Cami Howard Research Nurse [facility] [place] Comment on above: Research F/U (IRB# [id number] [id number] PI: Jeremi Patterson MD) Start: 10-16-2022 Telephone encounter [facility] Ther apy Work Phone: Colorectal Surgery Comment on above: Returning Patient's Call Start: 09-28-2022 End: 09-28-2022 ambulatory CHUY Paniagua [place] Facility:[facility] Start: 09-23-2022 Chart abstracting Cami Starkey Nurse [facility] [place] Comment on above: Research F/U (IRB# [id number] [id number] PI: Jeremi Patterson MD) Start: 09-22-2022 Telephone encounter Patrice ZARATE Comment on above: Follow Up Phone Call (All Clear) Start: 09-20-2022 End: 10-04-2022 ambulatory KATTY ANTONIO MD. Facility:[facility] Start: 09-16-2022 End: 09-19-2022 Evaluation and management of inpatient KATTY ANTONIO Facility:[facility] Start: 09-12-2022 Chart abstracting Cami Starkey Nurse [facility] Comment on above: Informed Consent (IR B# [id number] PI: Jeremi Patterson MD) Start: 09-06-2022 End: 09-06-2022 ambulatory CHYU GARCIA Facility:[facility] Start: 09-06-2022 End: 09-07-2022 [facility] CHUY GARCIA Facility:[facility] Start: 09-06-2022 End: 09-06-2022 ambulatory KATTY ANTONIO Facility:[facility] Start: 09-06-2022 End: 09-07-2022 [facility] Arcelia [place] Facility:[facility] Start: 09-06-2022 End: 09-06-2022 Nursing evaluation of patient and report [facility] Work Phone: Colorectal Surgery Comment on above: Diverticulitis (Prim esmer Dx); Digestive system complication Start: 09-05-2022 End: 09-06-2022 [facility] health carmel CHUY GARCIA Facility:[facility] Start: 09-05-2022 Encounter for other preprocedural examination CHUY GARCIA [facility] Start: 09-05-2022 End: 09-06-2022 Evaluation and management of inpatient CHUY GARCIA Facility:[facility] Start: 09-05-2022 Preprocedural examin ation done [facility] Work Phone: [facility] Work Phone: Start: 09-02-2022 End: 09-02-2022 [facility] [place] Facility:[facility] Start: 08-26-2022 ambulatory Katty Oviedo D Work Phone: Colorectal Surgery Start: 08-01-2022 End: 08-02-2022 [facility] [place] Facility:[facility] Start: 08-01-2022 End: 08-01-2022 Patient encounter procedure Crisuzya Floruta CLIP BAKER.MEDICAL TRANSLATOR Work Phone: Colorectal Surgery Comment on above: Diverticulitis (Prim esmer Dx) Start: 09-25-2017 Patient encounter Alyssa Araujo lity:[facility] Procedures Date Procedure Procedure Detail Performing Clinician Start: 10-27-2023 Intestinal TERRI ORTIZ MD Comment on above: colosrtomy bag remov ed Start: 08-28-2023 Colostomy TERRI ORTIZ MD Start: 08-28-2023 Large intestinal str ucture (body structure) TERRI PIERRE MD Comment on above: 10-12 inch removed Start: 09-05-2022 Antibody screen CHUY GARCIA Comment on above: Order Comment: Speci men Type: BLOOD SPECIMENOrdering Facility: [facility] Address: [address] [place] [address] Performed By: #### T [id number] ####CC MAIN BLOOD BANKCLIA [id number] [facility] [id number] Start: 01-15-2015 Colonoscopy Crinuta Fl oruta CLIP BAKER.MEDICAL TRANSLATOR Work Phone: Amputated finger (finding) S SCOTT PIERRE MD Comment on above: pinky- rt hand-33 yr s ago Plan of Treatment Date Care Activity Detail Author Start: 12-20-2025 DIABETES SCREEN DIABETES SCREEN [facility] Start: 12-13-2025 DIABETES SCREEN DIABETES SCREEN [facility] Start: 09-18-2025 DIABETES SCREEN DIABETES SCREEN [facility] Start: 09-05-2025 DIABETES SCREEN DIABETES SCREEN [facility] Start: 01-15-2025 Colonoscopy COLONOSCOPY [facility] Start: 01-15-2025 COLORECTAL CANCER SCREENING COLORECTAL CANCER SCREENING [facility] Start: 10-23-2024 DIABETES SCREEN DIABETES SCREEN [facility] Start: 04-28-2023 Influenza vaccination INFLUENZA (Sea son Ended) [facility] Start: 11-11-2022 End: 01-11-2023 Basic metabolic 2000 panel - Serum or Plasma BASIC METABOLIC PNL Lab Routine Ileostomy in place (HCC) Expected: 11/11/2022 (Approximate), Expires: 01/11/2023 [facility] Work Phone: Comment on above: Expected: 11/11/2022 (Approximate), Expires: 01/11/2023 Start: 11-11-2022 End: 01-11-2023 CBC panel - Blood by Automated count CBC Lab Routine Ileostomy in place (HCC) Expected: 11/11/2022 (Approximate), Expires: 01/11/2023 [facility] Work Phone: Comment on above: Expected: 11/11/2022 (Approximate), Expires: 01/11/2023 Start: 08-28-2022 DEPRESSION ASSESSMENT DEPRESSION ASS ESSMENT [facility] Start: 08-26-2022 End: 10-26-2022 CBC panel - Blood by Automated count CBC Lab Routine Diverticulitis Expected: 08/26/2022 (Approximate), Expires: 10/26/2022 [facility] Work Phone: Comment on above: Expected: 08/26/2022 (Approximate), Expires: 10/26/2022 Start: 08-26-2022 End: 10-26-2022 Comprehensive metabolic 2000 panel - Serum or Plasma COMP METABOLIC PANEL Lab Routine Diverticulitis Expected: 08/26/2022 (Approximate), Expires: 10/26/2022 [facility] Work Phone: Comment on above: Expected: 08/26/2022 (Approximate), Expires: 10/26/2022 Start: 08-26-2022 End: 10-26-2022 TYPE AND SCREEN,30 DAY TYPE AND SCREEN,30 DAY Blood Bank Routine Diverticulitis Expected: 08/26/2022 (Approximate), Expires: 10/26/2022 [facility] Work Phone: Comment on above: Expected: 08/26/2022 (Approximate), Expires: 10/26/2022 Start: 04-28-2022 Influenza vaccination INFLUENZA (#1) [facility] Start: 2021 PROSTATE CANCER SCREENING DISCUSSION PROSTATE CANCER SCREENING DISCUSSION [facility] Start: 11-06-2021 COVID-19 VACCINE (4 - Booster for Moderna series) COVID-19 VACCINE (4 - Booster for Moderna series) [facility] Start: 08-28-2021 DEPRESSION ASSESSMENT DEPRESSION ASS ESSMENT [facility] Start: 2016 SHINGRIX VACCINE (1 of 2) SHINGRIX VACCINE (1 of 2) [facility] Start: 12-31-2011 COLOGUARD (FIT-DNA) COLOGUARD (FIT-D NA) [facility] Start: 12-31-[address] COLONOGRAPHY [facility] Start: 12-31-2011 FECAL OCCULT BLOOD FECAL OCCULT BLOO D [facility] Start: 12-31-2011 SIGMOIDOSCOPY SIGMOIDOSCOPY [facility] Start: 2001 LIPID SCREEN LIPID SCREEN [facility] Start: 1985 Urine microalbumin profile DTAP,TDAP,TD (1 - Tdap) [facility] Start: 1984 HEPATITIS C SCREENING HEPATITIS C SC REENING [facility] Start: 1984 HIV SCREENING HIV SCREENING [facility] Start: 1966 HEPATITIS B (1 of 3 - 3-dose series) HEPATITIS B (1 of 3 - 3-dose series) [facility] H&P for surgery H&P FOR SURGERY Procedures Routine Diverticulitis Ordered: 08/26/2022 [facility] Work Phone: Comment on above: Ordered: 08/26/2022 H&P for surgery H&P FOR SURGERY Procedures Routine Ileostomy in place (HCC) Ordered: 11/11/2022 [facility] Work Phone: Comment on above: Ordered: 11/11/2022 End: 12-11-2023 Radiologic exam colon single contrast study XR COLON SINGLE CONTRAST Radiology Routine Ileostomy in place (HCC) 1 Occurrences starting 11/11/2022 until 12/11/2023 [facility] Work Phone: Comment on above: 1 Occurrences starti ng 11/11/2022 until 12/11/2023 REFER FOR ADMIT INTERVIEW REFER FOR ADMIT INTERVIEW Procedures Routine Diverticulitis Ordered: 08/26/2022 [facility] Work Phone: Comment on above: Ordered: 08/26/2022 REFER FOR ADMIT INTERVIEW REFER FOR ADMIT INTERVIEW Procedures Routine Ileostomy in place (HCC) Ordered: 11/11/2022 [facility] Work Phone: Comment on above: Ordered: 11/11/2022 [facility] Immunizations Immunization Date Immunization Notes Care Provider Fa tracie 09-11-2021 SARS-CoV-2 (COVID-19 ) mRNA-1273 vaccine TERRI PIERRE MD [facility] 03-06-2021 SARS-CoV-2 (COVID-19 ) mRNA-1273 vaccine TERRI PIERRE MD [facility] Comment on above: Result Comment: 2023: [id number] 02-06-2021 SARS-CoV-2 (COVID-19 ) mRNA-1273 vaccine TERRI PIERRE MD [facility] Comment on above: Result Comment: 2023: TPV50 02-14-2020 tetanus toxoid, redu ru diphtheria toxoid, and acellular pertussis vaccine, adsorbed TERRI PIERRE MD [facility] Payers Date Payer Category Payer Unknown [id number] 2022 Unknown [id number] 1965 Unknown [id number] 1966 Unknown [id number] 1966 Unknown [id number] Unknown [id number] Social History Date Type Detail Facility Start: 08-04-2015 End: 09-06-2022 Tobacco smoking status NHIS Never smoked tobacco [facility] Start: 08-04-2015 End: 09-06-2022 Tobacco use and exposure User of smokeless tobacco [facility] History of tobacco use Chews Tobacco [facility] Start: 11-04-2021 Alcohol intake Current non-dr division engineer of alcohol (finding) [facility] Start: 08-04-2015 End: 09-06-2022 Tobacco Comment began chewing ~1986 [facility] Start: 1965 Sex Assigned At Male [facility] Start: 07-22-2022 End: 08-01-2022 Exposure to SARS-CoV-2 (event) Unable to assess [facility] Work Phone: Start: 09-06-2022 End: 12-19-2022 Alcohol intake Current drinker of alcohol (finding) [facility] Start: 12-19-2022 History SDOH Financial 4 [facility] Start: 12-19-2022 History SDOH Food Worry 1 [facility] Start: 12-19-2022 History SDOH Transpo rt Med 2 [facility] Tobacco Nicotine Use: smokeless. Type: Oral (Snuff, Chew). [facility] Tobacco smoking status No Smokin g Status Entered [facility] Clinical Notes 10-21-2021 to 07-12-2024 Theo Loza APRN.TIBURCIO - 01/20/2023 8:57 AM EDTTelephone Encounter - Tessa Villanueva RN - 12/28/2022 10:23 AM EDTTelephone Encounter - Theo Loza APRN.CNP - 12/26/2022 5:54 PM EDT Note Date & Type Note Facility 07-12-2024 Note ORIGINAL EXAMINATION: CT OF THE ABDOMEN AND PELVIS WITH CONTRAST 07/12/2024 9:57 am TECHNIQUE: CT of the abdomen and pelvis was performed with the administration of intravenous contrast. Multiplanar reformatted images are provided for review. Automated exposure control, iterative reconstruction, and/or weight based adjustment of the mA/kV was utilized to reduce the radiation dose to as low as reasonably achievable. COMPARISON: None. HISTORY: ORDERING SYSTEM PROVIDED HISTORY: Reason for Exam: History of abdominal abscess, urinary incontinence FINDINGS: Mild degenerative changes are noted in the spine, greatest inferiorly. Mild SI joint degenerative changes are present. No acute osseous abnormality seen. The lung bases are unremarkable. Liver, spleen, adrenal glands and pancreas are unremarkable. No kidney abnormality is evident allowing for cortical phase nephrograms. No adenopathy, free air or free fluid is visible. The urinary bladder is grossly normal. Small fat containing left inguinal hernia noted. A distal sigmoid anastomosis is present from previous surgery. There is mild sigmoid and left colon diverticulosis, without diverticulitis. No other GI tract abnormality is visible. No additional contributory finding. IMPRESSION: No acute abnormality identified on this exam. Diverticulosis without diverticulitis. Interpreted by: Abhishek Allen MD Preliminary Report By: Abhishek Allen MD Electronically signed By Abhishek Allen MD Dictated Date: 07/12/2024 10:21:18 AM Prelim Date: 07/12/2024 10:27:47 AM Sign Date: 07/12/2024 10:27:47 AM Ordering Provider: [facility] 02-03-2023 Note HNO ID: [id number] Author: Theo Loza APRN.MEDICAL TRANSLATOR Service: ? Author Type: Nurse Practitioner Type: Progress Notes Filed: 02/03/2023 9:09 AM Note Text: COLORECTAL SURGERY VIRTUAL VISIT FOLLOW UP I have communicated my name and active licensure. The patient's identity and physical location were verified at the time of this visit. Either the patient or their legal unit support representative has been informed of the risks and benefits of -- and alternatives to -- treatment through a remote evaluation and consents to proceed with the evaluation remotely. I had a virtual visit with Mr. Gavin today for post-op follow up . UPDATED HISTORY: Shira Gavin is a 57 year old male s/p 12/19/22 sutured ileostomy closure Hx of diverticulitis, on 09/16/22 underwent laparoscopic sigmoid resection with colorectal anastomosis, loop ileostomy, and flexible sigmoidoscopy Reports feeling better, moves bowels 2-3 x per day Appetite and energy levels are improving Old ileostomy wound is healing - continues to take daily shower and lcover with dry dressing - sent a picture of the wound on 02/01/23 - much improved . PHYSICAL FINDINGS OF NOTE: Patient reported height 5'8 and weight 204 lbs General - Normal, healthy, cooperative, in no acute distress, alert, well hydrated Able to interact verbally by video conference Pulmonary - respiratory effort normal Abdominal - Not performed Sent picture of the old ileostomy site wound, healing nicely Motor - patient seen sitting with Normal appearing strength and coordination Anorectal exam - Not Performed Medical Decision Making: Assessment Assessment AND Diagnosis: Shira Gavin is a 57 year old male s/p 12/19/22 ileostomy closure Hx of diverticulitis, s/p 09/16/22 underwent laparoscopic sigmoid resection with colorectal anastomosis, loop ileostomy, and flexible sigmoidoscopy Doing well Old ileostomy site healing nicely - anticipate to be healed, completely covered by skin in the next 3-4 weeks Data Reviewed: Tests AND Documents Reviewed/ordered: Review of prior notes from 01/20/23 and all other pertinent notes Treatment plan: Resume normal diet and activity, start slow and advance as tolerated Continue local wound care OK to get in the water - pool, vivas - shower and rinse the wound afterward Last c-scope 2014 - per letter repeat in 10 years- Can have c-scope locally any time - due to insurance issues plans to schedule in [facility] Anticipates to return to work on 02/07/24 present during the video visit - Follow-up with Dr Antonio as needed All questions answered Invited to call office with any questions or concerns. Theo Loza APRN.TIBURCIO Risk of morbidity, mortality and/or complications of treatment plan: low I spent a total of 25 minutes on the date of the service which included preparing to see the patient, [id number] patient care, completing clinical documentation, performing a medically appropriate examination, and counseling and educating the patient/family/caregiver. [facility] 01-20-2023 Note HNO ID: [id number] Author: Theo Loza APRN.TIBURCIO Service: ? Author Type: Nurse Practitioner Type: Progress Notes Filed: 01/20/2023 7:08 PM Note Text: COLORECTAL SURGERY VIRTUAL VISIT FOLLOW UP I have communicated my name and active licensure. The patient's identity and physical location were verified at the time of this visit. Either the patient or their legal unit support representative has been informed of the risks and benefits of -- and alternatives to -- treatment through a remote evaluation and consents to proceed with the evaluation remotely. I had a virtual visit with Mr. Gavin today for post-op follow up UPDATED HISTORY: Shira Gavin is a 57 year old male s/p 12/19/22 sutured ileostomy closure Hx of diverticulitis, on 09/16/22 underwent laparoscopic sigmoid resection with colorectal anastomosis, loop ileostomy, and flexible sigmoidoscopy Reports feeling better, moves bowels 2-3 x per day Appetite and energy levels are improving Old ileostomy wound is healing - continues to take daily shower and loosely packs the wound with dry gauze . PHYSICAL FINDINGS OF NOTE: Patient reported height 5'8 and weight 208 lbs General - cooperative, in no acute distress, alert Able to interact verbally by video conference Pulmonary - respiratory effort normal Abdominal - Performed Obese, Visible protrusions or hernias: RLQ ileostomy site - no redness on surrounding skin, the fibrin in the base of the wound is cleaning, only upper half the wound still has some, granulating Motor - patient seen sitting with Normal appearing strength and coordination Anorectal exam - Not Performed Medical Decision Making: Assessment Assessment AND Diagnosis: Shira Gavin is a 57 year old male s/p 12/19/22 ileostomy closure Hx of diverticulitis, s/p 09/16/22 underwent laparoscopic sigmoid resection with colorectal anastomosis, loop ileostomy, and flexible sigmoidoscopy Expected post-op recovery Healing incision Data Reviewed: Tests AND Documents Reviewed/ordered: Review of prior notes from 01/02/23 and all other pertinent notes Treatment plan: May advance diet and activity slowly Reviewed food and fluid choices Continue wound care as instructed Follow-up on 02/03 with video present during entire visit All questions answered Invited to call office with any questions or concerns. Theo Loza APRN.MEDICAL TRANSLATOR Risk of morbidity, mortality and/or complications of treatment plan: low I spent a total of 25 minutes on the date of the service which included preparing to see the patient, [id number] patient care, completing clinical documentation, performing a medically appropriate examination, counseling and educating the patient/family/caregiver, and care coordination (not separately reported). [facility] 01-20-2023 History of Presen t illness Narrative COLORECTAL SURGERY VIRTUAL VISIT FOLLOW UP I have communicated my name and active licensure. The patient's identity and physical location were verified at the time of this visit. Either the patient or their legal unit support representative has been informed of the risks and benefits of -- and alternatives to -- treatment through a remote evaluation and consents to proceed with the evaluation remotely. I had a virtual visit with Mr. Gavin today for post-op follow up UPDATED HISTORY: Shira Gavin is a 57 year old male s/p 12/19/22 sutured ileostomy closure Hx of diverticulitis, on 09/16/22 underwent laparoscopic sigmoid resection with colorectal anastomosis, loop ileostomy, and flexible sigmoidoscopy Reports feeling better, moves bowels 2-3 x per day Appetite and energy levels are improving Old ileostomy wound is healing - continues to take daily shower and loosely packs the wound with dry gauze . PHYSICAL FINDINGS OF NOTE: Patient reported height 5'8 and weight 208 lbs General - cooperative, in no acute distress, alert Able to interact verbally by video conference Pulmonary - respiratory effort normal Abdominal - Performed Obese, Visible protrusions or hernias: RLQ ileostomy site - no redness on surrounding skin, the fibrin in the base of the wound is cleaning, only upper half the wound still has some, granulating Motor - patient seen sitting with Normal appearing strength and coordination Anorectal exam - Not Performed Medical Decision Making: Assessment Assessment & Diagnosis: Shira Gavin is a 57 year old male s/p 12/19/22 ileostomy closure Hx of diverticulitis, s/p 09/16/22 underwent laparoscopic sigmoid resection with colorectal anastomosis, loop ileostomy, and flexible sigmoidoscopy Expected post-op recovery Healing incision Data Reviewed: Tests & Documents Reviewed/ordered: Review of prior notes from 01/02/23 and all other pertinent notes Treatment plan: May advance diet and activity slowly Reviewed food and fluid choices Continue wound care as instructed Follow-up on 02/03 with video present during entire visit All questions answered Invited to call office with any questions or concerns. Theo Loza APRN.CNP Risk of morbidity, mortality and/or complications of treatment plan: low I spent a total of 25 minutes on the date of the service which included preparing to see the patient, [id number] patient care, completing clinical documentation, performing a medically appropriate examination, counseling and educating the patient/family/caregiver, and care coordination (not separately reported). documented in this encounter [facility] 01-02-2023 Note HNO ID: [id number] Author: Theo Loza APRN.CNP Service: ? Author Type: Nurse Practitioner Type: Progress Notes Filed: 01/02/2023 9:31 AM Note Text: COLORECTAL SURGERY VIRTUAL VISIT FOLLOW UP I have communicated my name and active licensure. The patient's identity and physical location were verified at the time of this visit. Either the patient or their legal unit support representative has been informed of the risks and benefits of -- and alternatives to -- treatment through a remote evaluation and consents to proceed with the evaluation remotely. I had a virtual visit with Mr. Gavin today for post-op follow up UPDATED HISTORY: Shira Gavin is a 57 year old male s/p 12/19/22 sutured ileostomy closure Hx of diverticulitis, on 09/16/22 underwent laparoscopic sigmoid resection with colorectal anastomosis, loop ileostomy, and flexible sigmoidoscopy Feels better than before, appetite and energy levels are improving, walks 1-1 1/2 mile per day Moves bowels 3-4 x per day Incision is cleaning - less slough in the wound bed, will sent picture on the wound in the next few days PHYSICAL FINDINGS OF NOTE: Patient reported height 5'8 and weight 208 lbs General - cooperative, in no acute distress, alert Able to interact verbally by video conference Pulmonary - respiratory effort normal Abdominal - Not performed Will sent picture of the wound in the next few days Last picture sent was last week Motor - patient seen sitting with Normal appearing strength and coordination Anorectal exam - Not Performed Medical Decision Making: Assessment Assessment AND Diagnosis: Shira Gavin is a 57 year old male s/p 12/19/22 ileostomy closure Hx of diverticulitis, s/p 09/16/22 underwent laparoscopic sigmoid resection with colorectal anastomosis, loop ileostomy, and flexible sigmoidoscopy Expected post-op recovery Healing incision Data Reviewed: Tests AND Documents Reviewed/ordered: Review of prior operative reports, discharge summary and all pertinent notes Treatment plan: Continue discharge instructions Wound care with daily shower May resume Psyllium - took prior to surgery - advised to drink plenty of water Motrin - take only as needed for pain Follow-up on 01/20/23 All questions answered Invited to call office with any questions or concerns. present during entire visit 2014 last c-scope, recommended per report, repeat in 10 years Theo Loza APRN.MEDICAL TRANSLATOR Risk of morbidity, mortality and/or complications of treatment plan: low I spent a total of 25 minutes on the date of the service which included preparing to see the patient, [id number] patient care, completing clinical documentation, performing a medically appropriate examination, counseling and educating the patient/family/caregiver, and care coordination (not separately reported). [facility] 12-28-2022 Miscellaneous Notes PATIENT INFORMATION Record ID: [id number] Patient Name: [facility]: [facility] [place]: [facility] [place] Attending: Katty Antonio Center: Colorectal Surgery INSTRUCTIONS SN to remind patient of appointment date, time, location All Clear Ask follow question #4c on NOC section of survey. All Clear All Clear SURVEY INFORMATION Medical/Nurse Gin Inspector: Tessa Villanueva 1. Your discharge instructions are important in guiding you through the recovery process. Is there anything I could help you clarify on your discharge instructions? (Standard Question) No 2. Do you have a follow up appointment related to your hospital stay scheduled within the next 30 days? (Standard Question) Yes 3. Are you vomiting after eating or drinking? (Red Flag Question) No 4. Do you have a stoma? No 5. Are you having any difficulty passing urine? (Red Flag Question) No 6. Do you have any of the following new symptoms related to your wound? Creamy white or foul smelling drainage Increasing redness or swelling, Increasing pain;? (Red Flag Question) No 7. Many patients have concerns about their medications once they are home. Do you have any questions about getting or taking your medications? (Standard Question) No 8. Do you have any new or different symptoms? (Standard Question) No documented in this encounter [facility] 12-26-2022 Miscellaneous Notes Returned patient's phone call, he is passing gas and small amount of stool daily. Tolerated liquids, is hungry and would like to advance diet. OK to advance diet slowly to GI soft - reviewed food choices Old stoma site is healing- takes daily shower as instructed Follow-up on 01/02 with video visit Invited to call office with any questions or concerns. Theo Loza APRN.TIBURCIO ----- Message from Sandra Shaikh Sec sent at 12/26/2022 10:39 AM EDT ----- Patient stes he was to call for an update today. He is doing well. He wanted to know how long he is to stay on clear liquids. documented in this encounter [facility] 12-21-2022 Note HNO ID: [id number] Author: Carly Rock PA-C Service: Colorectal Author Type: Physician Gin Inspector Type: Progress Notes Filed: 12/21/2022 2:23 PM Note Text: SERVICE DATE: 12/21/2022 SERVICE TIME: 2:23 PM COLORECTAL SURGERY PROGRESS NOTE POD #2 s/p Sutured loop ileostomy closure. Subjective INTERVAL HPI and PERTINENT ROS: No acute events overnight. Patient lying comfortably in bed. Passed 1X BM yesterday, no gas. Has been having some belching. Tolerating full liquid diet. Voiding independently. VSS. BRIEF PLAN: DVT ppx: Heparin 5000 units TID AND ICP's IS for pulmonary hygiene OOB as tolerated Record Is/Os Hep lock mIVF OK to shower Diet: full liquid, advance as tolerated Nutrition consult appreciated DC Goal: waiting on ROBF, possible discharge tomorrow MEDICATIONS: Current Facility-Administered Medications Medication Dose Route Frequency - latanoprost 0.005 % 1 Drop (XALATAN) 1 Drop BOTH EYES AT BEDTIME - aspirin 81 mg chewable tab(s) 81 mg ORAL DAILY - potassium chloride ER 20-40 mEq tab(s) (KLOR-CON) 20-40 mEq ORAL PRN Or - potassium chloride iv piggyback 20 mEq/100 mL 20 mEq INTRAVENOUS PRN - magnesium sulfate iv piggyback in sterile water 2 g 50 mL 2 g INTRAVENOUS PRN(NO DISPENSE) - phosphorus 500 mg tab(s) (K PHOS NEUTRAL) 500 mg ORAL/FEEDING TUBE PRN(NO DISPENSE) - ondansetron (PF) 4 mg injection (ZOFRAN) 4 mg INTRAVENOUS q 6 H PRN - tamsulosin 0.4 mg cap(s) (FLOMAX) 0.4 mg ORAL AT BEDTIME - acetaminophen 1,000 mg tab(s) (TYLENOL) 1,000 mg ORAL q 6 H - ibuprofen 800 mg tab(s) (MOTRIN) 800 mg ORAL q 8 H - gabapentin 300 mg cap(s) (NEURONTIN) 300 mg ORAL q 8 H - oxyCODONE IR 5-10 mg tab(s) (ROXICODONE) 5-10 mg ORAL q 4 H PRN - HYDROmorphone (PF) 0.2 mg injection (DILAUDID) 0.2 mg INTRAVENOUS q 3 H PRN - heparin 5,000 Units injection 5,000 Units SUBCUTANEOUS q 8 H - skin protective paste (CCHS) TOPICAL BID Objective PHYSICAL EXAM: BP 114/75 Pulse 90 Temp 36.5 ?C (97.7 ?F) (Oral) Resp 18 SpO2 96% GENERAL: Alert and oriented times 3, in no acute distress. ABDOMEN: Abdomen soft, non-tender non-distended. Ileostomy closure site clean and covered with 4x3 gauze. No skin breakdown noted. Date 12/21/22 07 - 12/22/22 0659 Shift 3121-5860 8481-6001 1669-6938 24 Hour Total INTAKE Shift Total OUTPUT Urine 360 360 Stool 100 100 Shift Total 460 460 Weight (kg) Lines, Drains, and Airways Line Duration Peripheral 12/19/22 0940 Short Right Forearm 22 Gauge 2 days Peripheral 12/19/22 1111 Left 18 Gauge 2 days Reviewed lines and needs to be continued: REASONS: Intravenous fluids, Electrolyte replacement , and lab draws DATA: Diagnostic tests reviewed for today's visit: Most recent labs and imaging results. LABS: CBC, Coags, BMP, Mg, Phos Recent Labs 12/20/22 2335 12/19/22 2252 WBC 8.73 10.90 HB 12.2* 11.9* HCT 38.4* 36.8* PLT 229 218 NA 137 139 K 3.7 4.0 CHLOR 101 105 CO2 27 22 BUN 12 14 CREAT 1.11 0.94 GLUC 107* 74 CA 9.0 8.6 MG 2.0 1.8 P 4.1 3.7 *A review of daily goals, interventions, and plan of care with the multidisciplinary team and patient has been conducted. The patient?s concerns have been addressed and he/she agrees to proceed with today?s plan of care. Assessment AND Plan Active Hospital Problems as of 12/21/2022 Noted - Resolved [facility] Hospital Obesity, Class I, BMI 30-34.9 10/23/2021 - Present Yes Current Assessment AND Plan PLAN: Follow up with outpatient PCP for weight management Tobacco use 09/05/2022 - Present Yes Current Assessment AND Plan PLAN: Advised to discontinue chew tobacco Follow up with PCP for management of tobacco cessation * (Principal) Attention to ileostomy (HCC) 12/19/2022 - Present Yes Current Assessment AND Plan PLAN: S/p ileostomy closure Postoperative pain 12/20/2022 - Present No Current Assessment AND Plan PLAN: Toradol, ibuprofen, tylenol, gabapentin Dilaudid for breakthrough pain Oxycodone prn Medication and Non-Pharmacologic VTE Prophylaxis/Anticoagulants Anticoagulant AND Antiplatelet Medications (From admission, onward) Start Dose Route Frequency Last Action Ordered Stop 12/19/22 2200 heparin 5,000 Units injection (Surgical Risk Categories) 5,000 Units SUBCUTANEOUS EVERY 8 HOURS Given, 12/21 0530 12/19/22 1438 -- 12/19/22 1500 aspirin 81 mg chewable tab(s) 81 mg ORAL DAILY Given, 12/21 0957 12/19/22 1438 -- 12/19/22 1445 pneumatic compression stockings (nv,nj) 12/19/22 1445 pneumatic compression stockings (nv,nj) 12/19/22 1445 activity - mobilize patient (levels, oh) VTE Prophylaxis: VTE prophylaxis appropriate Plan of care discussed with: Provider, RN, Patient and Care Management SIGNATURE: Carly Rock PA-C PATIENT NAME: Shira Gavin DATE: December 21, 2022 TIME: 2:23 PM [facility] 12-21-2022 Note HNO ID: [id number] Author: Sylvia Mendieta Service: Care Management Author Type: ? Type: Care Mgt Progress Note Filed: 12/21/2022 12:28 PM Note Text: CARE MANAGEMENT PROGRESS NOTE SERVICE DATE: 12/21/2022 SERVICE TIME: 10:03 AM LOS: 2 days Current Advance Directive: Health Care Power of Floor Associate In Chart: No Integrated Logistics Operations Manager Attempted to Assist with AD Completion: Yes Action: Patient Completed Advance Directive Assisted patient in completing HCPOA paperwork. Pt identified primary decision maker HCPOA as Sandee Gavin . Hard copies of HCPOA paperwork sent to Admitting via pneumatic tube system to be scanned into [employer] and also placed on green chart. Patient provided with original document. SIGNATURE: Sylvia Mendieta CMA PATIENT NAME: Shira Gavin DATE: December 21, 2022 TIME: 10:03 AM PAGER/CONTACT #: [phone] [facility] 12-21-2022 Note HNO ID: [id number] Author: Katty Antonio MD Service: Colorectal Author Type: Physician Type: Progress Notes Filed: 12/21/2022 9:56 AM Note Text: [facility] staff POD 2 patient seen with bedside nurse, PA and fellow some burping but had gas did shower exam abdomen is soft and wound is clean Plan on full liquids and sip throughout day on DVT prophylaxis I would like to keep him for today because he is burping and I am not sure he is fully opened up. anticipate discharge tomorrow I will be gone until Monday and Dr Campos is covering Katty Antonio MD [facility] 12-20-2022 Note HNO ID: [id number] Author: Carly Rock PA-C Service: Colorectal Author Type: Physician Gin Inspector Type: Progress Notes Filed: 12/20/2022 3:03 PM Note Text: SERVICE DATE: 12/20/2022 SERVICE TIME: 3:02 PM COLORECTAL SURGERY PROGRESS NOTE POD #1 s/p Sutured loop ileostomy closure. Subjective INTERVAL HPI and PERTINENT ROS: No acute events overnight. Patient lying in bed comfortably. NPO and advancing diet to full liquid diet. No BMs recorded. Voiding independently. VSS. BRIEF PLAN: DVT ppx: Heparin 5000 units TID AND ICP's IS for pulmonary hygiene OOB as tolerated Record Is/Os Bladder scans Diet: full liquid, advance as tolerated Nutrition consult appreciated DC Goal: waiting on ROBF, possibly 1-2 days MEDICATIONS: Current Facility-Administered Medications Medication Dose Route Frequency - latanoprost 0.005 % 1 Drop (XALATAN) 1 Drop BOTH EYES AT BEDTIME - aspirin 81 mg chewable tab(s) 81 mg ORAL DAILY - potassium chloride ER 20-40 mEq tab(s) (KLOR-CON) 20-40 mEq ORAL PRN Or - potassium chloride iv piggyback 20 mEq/100 mL 20 mEq INTRAVENOUS PRN - magnesium sulfate iv piggyback in sterile water 2 g 50 mL 2 g INTRAVENOUS PRN(NO DISPENSE) - phosphorus 500 mg tab(s) (K PHOS NEUTRAL) 500 mg ORAL/FEEDING TUBE PRN(NO DISPENSE) - ondansetron (PF) 4 mg injection (ZOFRAN) 4 mg INTRAVENOUS q 6 H PRN - tamsulosin 0.4 mg cap(s) (FLOMAX) 0.4 mg ORAL AT BEDTIME - acetaminophen 1,000 mg tab(s) (TYLENOL) 1,000 mg ORAL q 6 H - keTORolac 15 mg injection (Toradol) 15 mg INTRAVENOUS q 6 H Followed by - [START ON 12/21/2022] ibuprofen 800 mg tab(s) (MOTRIN) 800 mg ORAL q 8 H - gabapentin 300 mg cap(s) (NEURONTIN) 300 mg ORAL q 8 H - oxyCODONE IR 5-10 mg tab(s) (ROXICODONE) 5-10 mg ORAL q 4 H PRN - HYDROmorphone (PF) 0.2 mg injection (DILAUDID) 0.2 mg INTRAVENOUS q 3 H PRN - heparin 5,000 Units injection 5,000 Units SUBCUTANEOUS q 8 H - dextrose 5% in NaCl 0.45% with 20 mEq/L KCl iv infusion 40 mL/hr INTRAVENOUS CONTINUOUS - skin protective paste (CCHS) TOPICAL BID Objective PHYSICAL EXAM: BP 120/66 Pulse 61 Temp 36.5 ?C (97.7 ?F) (Oral) Resp 16 SpO2 96% GENERAL: Alert and oriented times 3, in no acute distress. ABDOMEN: Abdomen soft, non-tender non-distended. Ileostomy closure site clean, covered with 4x3 gauze. No skin breakdown noted. Date 12/20/22 0700 - 12/21/22 0659 Shift 9826-7622 7071-8044 9423-0190 24 Hour Total INTAKE PO 360 360 IV 530 530 Shift Total 890 890 OUTPUT Urine 351 351 Shift Total 351 351 Weight (kg) Lines, Drains, and Airways Line Duration Peripheral 12/19/22 0940 Short Right Forearm 22 Gauge 1 day Peripheral 12/19/22 1111 Left 18 Gauge 1 day Reviewed lines and needs to be continued: REASONS: Intravenous fluids and Electrolyte replacement DATA: Diagnostic tests reviewed for today's visit: Most recent labs and imaging results. LABS: CBC, Coags, BMP, Mg, Phos Recent Labs 12/19/22 2252 WBC 10.90 HB 11.9* HCT 36.8* PLT 218 NA 139 K 4.0 CHLOR 105 CO2 22 BUN 14 CREAT 0.94 GLUC 74 CA 8.6 MG 1.8 P 3.7 *A review of daily goals, interventions, and plan of care with the multidisciplinary team and patient has been conducted. The patient?s concerns have been addressed and he/she agrees to proceed with today?s plan of care. Assessment AND Plan Active Hospital Problems as of 12/20/2022 Noted - Resolved [facility] * (Principal) Attention to ileostomy (HCC) 12/19/2022 - Present Yes Current Assessment AND Plan PLAN: S/p ileostomy closure Postoperative pain 12/20/2022 - Present No Current Assessment AND Plan PLAN: Toradol, ibuprofen, tylenol, gabapentin Dilaudid for breakthrough pain Oxycodone prn Medication and Non-Pharmacologic VTE Prophylaxis/Anticoagulants Anticoagulant AND Antiplatelet Medications (From admission, onward) Start Dose Route Frequency Last Action Ordered Stop 12/19/22 2200 heparin 5,000 Units injection (Surgical Risk Categories) 5,000 Units SUBCUTANEOUS EVERY 8 HOURS Given, 12/20 1306 12/19/22 1438 -- 12/19/22 1500 aspirin 81 mg chewable tab(s) 81 mg ORAL DAILY Given, 12/20 0959 12/19/22 1438 -- 12/19/22 1445 pneumatic compression stockings (levels, oh) 12/19/22 1445 pneumatic compression stockings (levels, oh) 12/19/22 1445 activity - mobilize patient (levels, oh) VTE Prophylaxis: VTE prophylaxis appropriate Plan of care discussed with: Provider, RN, Patient and Care Management SIGNATURE: Carly Rock PA-C PATIENT NAME: Shira Gavin DATE: December 20, 2022 TIME: 3:02 PM [facility] 12-20-2022 Note HNO ID: [id number] Author: Katty Antonio MD Service: Colorectal Author Type: Physician Type: Progress Notes Filed: 12/20/2022 11:23 AM Note Text: [facility] staff POD 1 Patient seen with bedside nurse, Adams reviewed OR with patient and what was done PO 330 no gas urine 400 last shift exam soft and not distended, wound is clean Plan shower today clears Katty Antonio MD [facility] 12-19-2022 Note HNO ID: [id number] Author: Elyssa Blue RN Service: Care Management Author Type: Registered Nurse Type: Care Mgt Initial Assessment Filed: 12/19/2022 4:33 PM Note Text: CARE MANAGEMENT: ASSESSMENT AND DISCHARGE PLAN SERVICE DATE: December 19, 2022 SERVICE TIME: 4:31 PM PCP: Terri Pierre MD Primary Contact: Extended Emergency Contact Information Primary Emergency Contact: Sandee Gavin Mobile Relation: Spouse Admission Status: Inpatient Insurance [facility] Discharge Planning requested by: Per Department Practice Potential Transition Plans No Services Indicated Advance Directives Current Advance Directive: None Integrated Logistics Operations Manager Attempted to Assist with AD Completion: Yes Action: Education Provided (patient willing, CM tasked CMRC to assist with completing) Current Living Arrangements and Support Lives with: Spouse/significant other Type of Residence: Private Residence (House) Support: Family members, Spouse/significant other How do you manage to accomplish the following: Independent: Ambulation;Bathe/Shower;Dress;Me als/Meal Prep;Going to the bathroom;Medication Management;Transportation to appointments/community Current Services/Equipment Discharge Planning Patient Goal(s): Be able to go home [place] Explained: [place] Given: No Reason Not Given: No placements necessary Are you interested in bedside delivery of your medications? No Discharge Planning Participant(s): Patient Patient/Family Comments: Caregiver Assessment: Caregiver is ready, willing and able to meet the patient's needs as recommended by the inter-professional team: Yes Name of Caregiver: spouse Sandee to provide Basic post-op support Transport at Discharge: Transportation Arrangements: Car Destination: Home Needs Prior to Discharge: Needs Prior to Discharge: Discharge Prescriptions Post-Acute Discharge Plan: Patient had closure of ileostomy today. CM met with patient at bedside. Patient is independent and working prior to admission. No skilled needs are anticipated upon discharge. [facility] will continue to follow POC for discharge planning. SIGNATURE: Elyssa Blue RN PATIENT NAME: Shira Gavin DATE: December 19, 2022 TIME: 4:31 PM CONTACT #: [id number] [facility] 12-19-2022 Note HNO ID: [id number] Author: Danielle Jauregui APRN.SHEET ROCK NAILER Service: ? Author Type: Nurse Tank Truck Operator Type: Anesthesia Procedure Notes Filed: 12/19/2022 11:33 AM Note Text: ANESTHESIOLOGY PROCEDURE NOTE PIV General Information Procedure Start Time/Medication Administration: 12/19/2022 11:11 AM Patient Location: OR Staffing Anesthesiologist: Pacheco Zhang III, MD Performed by: anesthesiologist Procedure Details Indication: need for IV access Needle Size/Type: 18 gauge angiocath Orientation: Left Location: Wrist Imaging Guidance Used: No SIGNATURE: Danielle Jauregui APRN.CRNA PATIENT NAME: Shira Gavin DATE: December 19, 2022 TIME: 11:33 AM CSN: [id number] [facility] 12-19-2022 Note HNO ID: [id number] Author: Danielle Jauregui APRN.SHEET ROCK NAILER Service: ? 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 Staffing SHEET ROCK NAILER: Danielle Jauregui APRN.SHEET ROCK NAILER Performed by: SHEET ROCK NAILER Indications and Patient Condition Indications for airway management: anesthesia and airway protection Preoxygenated: yes anesthesia circuit Patient position: sniffing Method: asleep Cricoid Pressure: Yes Manual In-Line Stabilization: No Difficult Mask: No Airway Accessory: oral airway (Size 3) Final Airway Details Final airway type: endotracheal airway Final Endotracheal Airway: ETT Cuffed: yes Successful intubation technique: video laryngoscopy Devices used: Diaz and intubating stylet Endotracheal tube insertion site: oral Blade: Renan Blade size: #3 ETT size (mm): 7.5 Measured from: lips Measurement (cm): 22 Placement verified by: chest auscultation and capnometry Cormack-Lehane Classification: grade I - full view of glottis Number of attempts at approach: 1 Ventilation between attempts: none Failed airway: no Unrecognized esophageal intubation: no Airway not difficult Comments Easy Mask Ventilation with Size 5 Mask AND Oral Airway, Teeth Intact Post Intubation SIGNATURE: Danielle Jauregui APRN.CRNA PATIENT NAME: Shira Gavin DATE: December 19, 2022 TIME: 11:31 AM CSN: [id number] [facility] 12-19-2022 Note HNO ID: [id number] Author: Sarabjit Gomez MD Service: ? Author Type: Resident Type: Anesthesia Procedure Notes Filed: 12/19/2022 12:25 PM Note Text: Attestation signed by Rico Ramirez MD at 12/22/2022 9:18 AM I personally supervised the resident/fellow for the procedure detailed below. I was present during the entire procedure. Patient tolerated the procedure well without any apparent complications. Signature: Rico Ramirez MD, [facility] Staff Anesthesiologist ANESTHESIOLOGY PROCEDURE NOTE Peripheral Nerve Block General Information Procedure Start Time/Medication Administration: 12/19/2022 11:15 AM Procedure End time: 12/19/2022 11:25 AM Patient location during procedure: OR Timeout Performed Pre-procedure: timeout performed Consent Obtained: Yes Patient identity confirmed: arm band and patient Reason for block: post-op pain management/at surgeon's request Staffing Fellow: Marlen Salgado MD Resident: Sarabjit Gomez MD Performed by: resident and fellow Preparation Sterility Preparation: hand hygiene performed prior to procedure, sterile gloves, drapes, and procedure tray, surgical cap used, mask used, sterile drape used during line insertion, skin prep agent completely dried prior to procedure Sterility Technique Not Completely Performed Due to Extreme Emergency: No Site Prep: Chloraprep Pre-Procedure Neuro Exam Location: TRUNK Sensory: intact Motor: intact Procedure Details Patient Position: supine Block Type Trunk: rectus sheath block and TAP block Approach: anterior Laterality: bilateral Injection Technique: single-shot Ultrasound Guided: Yes Image in Chart: yesNo Local Infiltration: Yes Needle Needle Type: Tuohy and echogenic Needle Gauge: 21 G Needle Length: 10 cm Needle Localization: ultrasound and anatomical landmarks Assessment Injection assessment: negative aspiration, no paresthesia on injection, incremental injection and local visualized surrounding nerve on ultrasound Post-Procedure Neuro Exam Expected Regional Anesthesia: Yes Medications Administered Bupivacaine (PF) 0.25 % (2.5 mg/mL) injection (SENSORCAINE MPF), 60 mL bupivacaine liposome (PF) 1.3 % (13.3 mg/mL) injection (EXPAREL), 266 mg Comments Patient is confirmed by two identifiers, the Risks, benefits and alternatives of the regional anesthesia procedure were explained and confirmed with the patient who agrees to proceed. Standard ASA monitors wee applied according to the procedure protocol. Vital signs were stable throughout the procedure, and the patient was communicating. No pain on injection and the procedure was well tolerated. The post- procedure diagnosis is the same as pre- procedure. No significant findings. No Complications unless noted above. No specimen collected. Minimal or no blood loss Discharge/transfer criteria are met upon discharge. SIGNATURE: Sarabjit Gomez MD PATIENT NAME: Shira Gavin DATE: December 19, 2022 TIME: 12:24 PM CSN: [id number] [facility] 12-13-2022 Note HNO ID: [id number] Author: Katty Antonio MD Service: ? Author Type: Physician Type: Progress Notes Filed: 12/13/2022 6:34 PM Note Text: COLORECTAL SURGERY December 13, 2022 Chief Complaint: discuss next steps History of Present Illness: Shira Gavin is a 56 year old year old male had at least 4 episodes of diverticulitis, had an abscess associated with one of them. In 2014, he had the largest abscess that was anterior to the rectum extending into the very low pelvis required interventional radiology for drainage. His other episodes were in 2015, 2019, and 2021. Looking at his films, he has a very redundant sigmoid that is in the pelvis and it looks like it is the sigmoid/distal descending colon is where the disease was been located. In 2014, he had deep venous thrombosis and pulmonary embolism. He was reviewed here by Dr. Lenz and they felt this is situational. 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 09-16-22 Laparoscopic sigmoid resection with colorectal anastomosis, loop ileostomy, and flexible sigmoidoscopy. 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 We mobilized, so we be able to get the staple gun in. There was no tension on the anastomosis, 2 complete donuts and it looked excellent with flexible sigmoidoscopy. We did do a proximal ileostomy due to the difficulty with dissection and fibrosis in the pelvis. He was discharged on 09-19-22 GGE today IMPRESSION: NO LEAK OR OBSTRUCTION Changes the ileostomy pouch 2 x per week and empties 6-8 x per day Passing mucus per rectum with good control PAST MEDICAL HISTORY Diagnosis Date Anticoagulated on Coumadin 2014 Diverticulosis of colon 10/23/2014 perforated diverticulitis Glaucoma, bilateral Heart murmur as baby, states resolved Pulmonary embolism (HCC) 10/27/[address] PAST SURGICAL HISTORY Procedure Laterality Date PAST SURGICAL HISTORY OF 08/28/2009 right rotator cuff repair PAST SURGICAL HISTORY OF right finger PAST SURGICAL HISTORY OF colonoscopy PAST SURGICAL HISTORY OF wisdom teeth PICC LINE INSERT/CONSULT 10/30/2014 Current Outpatient Medications Medication Sig Dispense Refill aspirin 81 mg chewable tablet Take 1 tablet by mouth once daily. 30 tablet 0 acetaminophen (TYLENOL) 500 mg tablet Take 2 tablets by mouth every 6 hours as needed for pain. latanoprost (XALATAN) 0.005 % ophthalmic solution Use 1 Drop in both eyes daily at bedtime. Psyllium Seed-Sucrose Take 1 Tablespoonful by mouth once daily. No current facility-administered medications for this visit. ALLERGIES No Known Allergies Social History Tobacco Use Smoking status: Never Smokeless tobacco: Current Types: Chew Tobacco comments: began chewing ~1986 Substance Use Topics Alcohol use: Yes Drug use: Not Currently Review of Systems / PACC screen: Do you have difficulty climbing a full flight of stairs without feeling short of breath? no Do you require oxygen for your breathing or have your gone to an emergency department because of breathing problems? no Are you on dialysis or have you been told that your kidneys do not work well as they should? no Do have an implanted cardiac device (pacemaker, defibrillator etc.) that has not been checked in the last 6 months? no Have you had an organ transplant? no Have you been told that you had excessive bleeding during surgical procedures or do you take blood thinning medications other than aspirin? no Have you ever had a heart attack, heart stents/surgery, valve problems, or other heart problems? no Have you had a stroke, seizures, or unexplained loss of consciousness? no Do you have a neurologic condition like Parkinson's disease or multiple sclerosis? no Have you or a blood relative had a life-threatening reaction to anesthesia? no Do you have cirrhosis of the liver or other liver disease? no Have you had a blood clot within the past year? no Do you take insulin or other injections for diabetes? no Do you have sleep apnea or have you been told you may have sleep apnea? no Do you have other implanted devices (deep brain stimulator, spinal cord stimulator, etc.)? no REVIEW OF SYSTEMS PAIN ASSESSMENT: Negative for pain, history of chronic pain, or current treatment for a chronic pain condition. GENERAL: Weight loss HEENT: Negative for frequent or significant headaches, No changes in hearing or vision, no nose bleeds or other nasal problems NECK: Negative for lumps, goiter, pain and significant neck swelling RESPIRATORY: Negative for cough, hemoptysis, wheezing, COPD, dyspnea or shortness of breath CARDIOVASCULAR: Negative for chest pain, leg swelling, hypertension, CHF or palpitations GI: No nausea, vomiting, or diarrhea : No history of dysu (more content not included)... [facility] 12-13-2022 History of Presen t illness Narrative COLORECTAL SURGERY December 13, 2022 Chief Complaint: discuss next steps History of Present Illness: Shira Gavin is a 56 year old year old male had at least 4 episodes of diverticulitis, had an abscess associated with one of them. In 2014, he had the largest abscess that was anterior to the rectum extending into the very low pelvis required interventional radiology for drainage. His other episodes were in 2015, 2019, and 2021. Looking at his films, he has a very redundant sigmoid that is in the pelvis and it looks like it is the sigmoid/distal descending colon is where the disease was been located. In 2014, he had deep venous thrombosis and pulmonary embolism. He was reviewed here by Dr. Lenz and they felt this is situational. 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 09-16-22 Laparoscopic sigmoid resection with colorectal anastomosis, loop ileostomy, and flexible sigmoidoscopy. 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 We mobilized, so we be able to get the staple gun in. There was no tension on the anastomosis, 2 complete donuts and it looked excellent with flexible sigmoidoscopy. We did do a proximal ileostomy due to the difficulty with dissection and fibrosis in the pelvis. He was discharged on 09-19-22 GGE today IMPRESSION: NO LEAK OR OBSTRUCTION Changes the ileostomy pouch 2 x per week and empties 6-8 x per day Passing mucus per rectum with good control PAST MEDICAL HISTORY Diagnosis Date Anticoagulated on Coumadin 2014 Diverticulosis of colon 10/23/2014 perforated diverticulitis Glaucoma, bilateral Heart murmur as baby, states resolved Pulmonary embolism (HCC) 10/27/[address] PAST SURGICAL HISTORY Procedure Laterality Date PAST SURGICAL HISTORY OF 08/28/2009 right rotator cuff repair PAST SURGICAL HISTORY OF right finger PAST SURGICAL HISTORY OF colonoscopy PAST SURGICAL HISTORY OF wisdom teeth PICC LINE INSERT/CONSULT 10/30/2014 Current Outpatient Medications Medication Sig Dispense Refill aspirin 81 mg chewable tablet Take 1 tablet by mouth once daily. 30 tablet 0 acetaminophen (TYLENOL) 500 mg tablet Take 2 tablets by mouth every 6 hours as needed for pain. latanoprost (XALATAN) 0.005 % ophthalmic solution Use 1 Drop in both eyes daily at bedtime. Psyllium Seed-Sucrose Take 1 Tablespoonful by mouth once daily. No current facility-administered medications for this visit. ALLERGIES No Known Allergies Social History Tobacco Use Smoking status: Never Smokeless tobacco: Current Types: Chew Tobacco comments: began chewing ~1986 Substance Use Topics Alcohol use: Yes Drug use: Not Currently Review of Systems / PACC screen: Do you have difficulty climbing a full flight of stairs without feeling short of breath? no Do you require oxygen for your breathing or have your gone to an emergency department because of breathing problems? no Are you on dialysis or have you been told that your kidneys do not work well as they should? no Do have an implanted cardiac device (pacemaker, defibrillator etc.) that has not been checked in the last 6 months? no Have you had an organ transplant? no Have you been told that you had excessive bleeding during surgical procedures or do you take blood thinning medications other than aspirin? no Have you ever had a heart attack, heart stents/surgery, valve problems, or other heart problems? no Have you had a stroke, seizures, or unexplained loss of consciousness? no Do you have a neurologic condition like Parkinson's disease or multiple sclerosis? no Have you or a blood relative had a life-threatening reaction to anesthesia? no Do you have cirrhosis of the liver or other liver disease? no Have you had a blood clot within the past year? no Do you take insulin or other injections for diabetes? no Do you have sleep apnea or have you been told you may have sleep apnea? no Do you have other implanted devices (deep brain stimulator, spinal cord stimulator, etc.)? no REVIEW OF SYSTEMS PAIN ASSESSMENT: Negative for pain, history of chronic pain, or current treatment for a chronic pain condition. GENERAL: Weight loss HEENT: Negative for frequent or significant headaches, No changes in hearing or vision, no nose bleeds or other nasal problems NECK: Negative for lumps, goiter, pain and significant neck swelling RESPIRATORY: Negative for cough, hemoptysis, wheezing, COPD, dyspnea or shortness of breath CARDIOVASCULAR: Negative for chest pain, leg swelling, hypertension, CHF or palpitations GI: No nausea, vomiting, or diarrhea : No history of dysuria, frequency or incontinence PRODUCTION LINE OPERATOR: NA MUSCULOSKELETAL: Negative for joint pain or swelling, back pain or muscle pain SKIN: Negative for lesions, rash, and itching PSYCH: Negative for sleep disturbance, mood disorder and recent psychosocial stressors HEMATOLOGY/LYMPHOLOGY: Negative for prolonged bleeding, bruising easily or swollen nodes ENDOCRINE: Negative for cold or heat intolerance, polyuria, polydipsia and goiter NEURO: No history of headaches, syncope, paralysis, seizures or tremors Physical Exam: BP 121/72 (BP Site: Left Arm, BP Position: Sitting, BP Cuff Size: Regular Adult) Pulse 88 Temp 36.7 C (98.1 F) (Temporal) Ht 172.7 cm (5' 8) Wt 94.3 kg (208 lb) SpO2 96% BMI 31.63 kg/m General Appearance: Well appearing, alert, in no acute distress, well-hydrated, well nourished. Lungs: Lungs clear to auscultation. No wheezing, rhonchi, rales. Heart: RRR without murmur, gallop, or rubs. No ectopy Edema: no Abdomen: Right sided stoma. Small extraction site suprapubic [facility] present: Yes, Bertha Cantu Medical Decision Making: Assessment & Diagnosis and treatment recommendations: Shira Gavin is a 56 year old 09-16-22 Laparoscopic sigmoid resection with colorectal anastomosis, loop ileostomy, and flexible sigmoidoscopy after having at least 4 episodes with an abscess. GGE today-negative In 2014, he had deep venous thrombosis and pulmonary embolism. He was reviewed here by Dr. Lenz and they felt this is situational. 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 NEEDS DILIGENT DVT PROPHYLAXIS I spent a total of 35 minutes on the date of the service which included preparing to see the patient, [id number] patient care, completing clinical documentation, obtaining and/or reviewing separately obtained history, performing a medically appropriate examination, counseling and educating the patient/family/caregiver, ordering medications, tests, or procedures, independently interpreting results (not separately reported), and care coordination (not separately reported). Examined patient and confirmed george findings on history and examination and ROS I have seen and evaluated the patient and discussed the case with the resident physician and nurses. The assessment and treatment recommendations are mine Katty Antonio MD Colorectal Surgery documented in this encounter [facility] 12-13-2022 Note HNO ID: [id number] Author: Kanwal Castle, RT(R) Service: Radiology Author Type: Technologist Type: Progress Notes Filed: 12/13/2022 2:50 PM Note Text: Radiology Service Progress Note PATIENT NAME: Shira Gavin DATE OF SERVICE: December 13, 2022 TIME: 2:49 PM PATIENT IDENTITY VERIFICATION COMPLETED USING TWO (2) IDENTIFIERS: Name and Date of confirmed by patient verbally. FALL SCREENING: Has the patient had 2 falls in the last year or 1 fall with injury or currently using an Ambulatory Assistive Device (Walker, Cane, Wheelchair, Crutches, etc.)? No PATIENT GENDER DATA: Male PATIENT RELEVANT IMPLANT DATA REVIEWED: Yes RADIOLOGY DEPARTMENT: General X-ray: Exam(s) Completed: GI/ Procedure(s): Colon Single Contrast Enema w/ water soluble. PERIPHERAL IV DATA: Not applicable SIGNED BY: Kanwal Castle, RT(R) December 13, 2022 2:49 PM [facility] 10-21-2022 Note HNO ID: [id number] Author: Theo Loza APRN.CNP Service: ? Author Type: Nurse Practitioner Type: Progress Notes Filed: 10/24/2022 1:47 PM Note Text: COLORECTAL SURGERY VIRTUAL VISIT FOLLOW UP I had a virtual visit with Mr. Gavin today for post-op follow up UPDATED HISTORY: Shira Gavin is a 56 year old male 09/19/22 laparoscopic sigmoid resection with colorectal anastomosis, loop ileostomy, and flexible sigmoidoscopy for diverticulitis with extensive pelvic scar tissue. Continues to improve Appetite and energy levels much improved since last visit Empties ileostomy pouch 4-5 x per day and changes 3-4 days PHYSICAL FINDINGS OF NOTE: Patient reported height 5'7 and weight 210 lbs General - cooperative, in no acute distress, alert, well hydrated Able to interact verbally by video conference Pulmonary - respiratory effort normal Abdominal - Not performed Motor - patient seen sitting with Normal appearing strength and coordination Anorectal exam - Not Performed Medical Decision Making: Assessment Assessment AND Diagnosis: Shira Gavin is a 56 year old male s/p 09/19/22 laparoscopic sigmoid resection with colorectal anastomosis, loop ileostomy, and flexible sigmoidoscopy for diverticulitis with extensive pelvic scar tissue Continues to improve Ileostomy well managed with pouching, output does not seem excessive Data Reviewed: Tests AND Documents Reviewed/ordered: Review of prior notes from 09/28/22 and all other pertinent notes Treatment plan: Continue with current care Ileostomy care as per routine Cautioned about dehydration and eating roughage with ileostomy Discussed dates for ileostomy closure Agrees with 12/19 as surgery date and seeing Dr Antonio in office on 12/13/22 and GGE All questions answered joined the visit - all her questions answered Invited to call office with any questions or concerns. Theo Loza APRN.CNP Risk of morbidity, mortality and/or complications of treatment plan: low I spent a total of 25 minutes on the date of the service which included preparing to see the patient, [id number] patient care, completing clinical documentation, performing a medically appropriate examination, counseling and educating the patient/family/caregiver, and care coordination (not separately reported). [facility] 10-21-2022 History of Presen t illness Narrative COLORECTAL SURGERY VIRTUAL VISIT FOLLOW UP I had a virtual visit with Mr. Gavin today for post-op follow up UPDATED HISTORY: Shira Gavin is a 56 year old male 09/19/22 laparoscopic sigmoid resection with colorectal anastomosis, loop ileostomy, and flexible sigmoidoscopy for diverticulitis with extensive pelvic scar tissue. Continues to improve Appetite and energy levels much improved since last visit Empties ileostomy pouch 4-5 x per day and changes 3-4 days PHYSICAL FINDINGS OF NOTE: Patient reported height 5'7 and weight 210 lbs General - cooperative, in no acute distress, alert, well hydrated Able to interact verbally by video conference Pulmonary - respiratory effort normal Abdominal - Not performed Motor - patient seen sitting with Normal appearing strength and coordination Anorectal exam - Not Performed Medical Decision Making: Assessment Assessment & Diagnosis: Shira Gavin is a 56 year old male s/p 09/19/22 laparoscopic sigmoid resection with colorectal anastomosis, loop ileostomy, and flexible sigmoidoscopy for diverticulitis with extensive pelvic scar tissue Continues to improve Ileostomy well managed with pouching, output does not seem excessive Data Reviewed: Tests & Documents Reviewed/ordered: Review of prior notes from 09/28/22 and all other pertinent notes Treatment plan: Continue with current care Ileostomy care as per routine Cautioned about dehydration and eating roughage with ileostomy Discussed dates for ileostomy closure Agrees with 12/19 as surgery date and seeing Dr Antonio in office on 12/13/22 and GGE All questions answered joined the visit - all her questions answered Invited to call office with any questions or concerns. Theo Loza APRN.MEDICAL TRANSLATOR Risk of morbidity, mortality and/or complications of treatment plan: charly Lin spent a total of 25 minutes on the date of the service which included preparing to see the patient, [id number] patient care, completing clinical documentation, performing a medically appropriate examination, counseling and educating the patient/family/caregiver, and care coordination (not separately reported). documented in this encounter [facility] 10-17-2022 Nurse Note [facility] (IRB # [id number]). I called Shira Gavin on October 17, 2022 I asked the patient to send a picture of the wound to the study e-mail address @ [email or web address] Around day seven after surgery and at day thirty after surgery. As part of the follow-up process, I asked Shira Gavin about any symptoms of superficial surgical site infection. Does Shira Gavin has any pus discharging from the wound ? NO Does Shira Gavin has any increasing pain at the site of the wound ? NO Does Shira Gavin has any localized swelling at the site of the wound? NO Does Shira Gavin has any increasing redness at the site of the wound ? NO Does Shira Gavin has any documented fever and if yes at what temperature ? NO documented in this encounter [facility] 10-16-2022 Miscellaneous Notes [facility] nursing returned patient message regarding skin break down. Left Message: No Information/Recommendations provided regarding skin is becoming irritated around the stoma. I recommended continuing to use the Stomahesive powder and no sting barrier film and ensure that they are cutting to the right size. They will send an e-mail tonight so we can have a look at the stoma. I also recommended they come in for a check up with us. He may need to move into a convex pouch. Time spent: 15 minutes Elian Ngo RN documented in this encounter [facility] 09-28-2022 Note HNO ID: [id number] Author: Theo Loza APRN.TIBURCIO Service: ? Author Type: Nurse Practitioner Type: Progress Notes Filed: 09/29/2022 3:50 PM Note Text: COLORECTAL SURGERY VIRTUAL VISIT FOLLOW UP I had a virtual visit with Mr. Gavin today for post-op follow up UPDATED HISTORY: Shira Gavin is a 56 year old male 09/19/22 Laparoscopic sigmoid resection with colorectal anastomosis, loop ileostomy, and flexible sigmoidoscopy for diverticulitis with extensive pelvic scar tissue. Surgical path c/w diverticulitis - results communicated by Dr Antonio to patient through [facility] Reports he is feeling better Appetite and energy level much improved Ileostomy is functioning - reports about 900cc per 24 hours changes the pouch 2 -3 x per week and empties 3-4 x per day Incision is dry Complains of back pain - this is not new, had in the past present during most of the visit PHYSICAL FINDINGS OF NOTE: Patient reported height 5'7 and weight 235 lbs General - cooperative, in no acute distress, alert Able to interact verbally by video conference Pulmonary - respiratory effort normal Abdominal - Not performed Motor - patient seen sitting with Normal appearing strength and coordination Anorectal exam - Not Performed Medical Decision Making: Assessment Assessment AND Diagnosis: Shira Gavin is a 56 year old male s/p 09/19/22 laparoscopic sigmoid resection with colorectal anastomosis, loop ileostomy, and flexible sigmoidoscopy for diverticulitis with extensive pelvic scar tissue. Expected post-op recovery Ileostomy well managed with pouching and output is not excessive Back pain - suspect musculoskeletal - Data Reviewed: Tests AND Documents Reviewed/ordered: Review of prior operative reports Review of Pathology and all pertinent notes Treatment plan: Continue with current management Cautioned about eating roughage with ileostomy and dehydration Back pain - suggested heating pad, NSAIDs with food, stretching exercises as tolerated . See PCP If no improving with these measures All questions answered Invited to call office with any questions or concerns. Follow-up with virtual visit on 10/21/22 Theo Loza APRN.MEDICAL TRANSLATOR Risk of morbidity, mortality and/or complications of treatment plan: low I spent a total of 25 minutes on the date of the service which included preparing to see the patient, [id number] patient care, completing clinical documentation, performing a medically appropriate examination, counseling and educating the patient/family/caregiver, and care coordination (not separately reported). [facility] 09-23-2022 Nurse Note This patient is enrolled in [facility] clinical trial (IRB # [id number]). I called Shira Gavin on September 23, 2022 I asked the patient to send a picture of the wound to the study e-mail address @ [email or web address] Around day seven after surgery and at day thirty after surgery. As part of the follow-up process, I asked Shira Gavin about any symptoms of superficial surgical site infection. Does Shira Gavin has any pus discharging from the wound ? NO Does Shira Gavin has any increasing pain at the site of the wound ? NO Does Shira Gavin has any localized swelling at the site of the wound? NO Does Shira Gavin has any increasing redness at the site of the wound ? NO Does Shira Gavin has any documented fever and if yes at what temperature ? NO documented in this encounter [facility] 09-22-2022 Miscellaneous Notes PATIENT INFORMATION Record ID: [id number] Patient Name: [facility]: [facility] [place]: [facility] [place] Attending: Katty Antonio Center: Colorectal Surgery INSTRUCTIONS SN to remind patient of appointment date, time, location All Clear Ask follow question #4b on NOC section of survey. All Clear All Clear SURVEY INFORMATION Medical/Nurse Gin Inspector: Patrice Garcia 1. Your discharge instructions are important in guiding you through the recovery process. Is there anything I could help you clarify on your discharge instructions? (Standard Question) No 2. Do you have a follow up appointment related to your hospital stay scheduled within the next 30 days? (Standard Question) Yes 3. Are you vomiting after eating or drinking? (Red Flag Question) No 4. Do you have a stoma? Yes 5. Are you having any difficulty passing urine? (Red Flag Question) No 6. Do you have any of the following new symptoms related to your wound? Creamy white or foul smelling drainage Increasing redness or swelling, Increasing pain;? (Red Flag Question) No 7. Many patients have concerns about their medications once they are home. Do you have any questions about getting or taking your medications? (Standard Question) No 8. Do you have any new or different symptoms? (Standard Question) No documented in this encounter [facility] 09-19-2022 Note HNO ID: [id number] Author: Vijaya Cassidy RN Service: Care Management Author Type: Registered Nurse Type: Care Mgt Initial Assessment Filed: 09/19/2022 3:36 PM Note Text: CARE MANAGEMENT: ASSESSMENT AND DISCHARGE PLAN SERVICE DATE: September 19, 2022 SERVICE TIME: 3:24 PM PRIMARY CARE PHYSICIAN: Chuy Garcia DO Phone: None Primary Contact: Extended Emergency Contact Information Primary Emergency Contact: Sandee Gavin Mobile Relation: Spouse ADMISSION STATUS: Inpatient [facility] PR[facility] TO [facility]CHARGE Needs Prior to Discharge: Ready for Discharge POTENTIAL TRANSITION PLANS Home Care Based on clinical judgement, Care Management will address the following needs: Functional Patient's perception of need for this admission: planned procedure ADVANCE DIRECTIVES [place]/BEHAVIOR Baseline Mental Status Prior to this Illness what was the patient's Baseline Mental Status?: Alert AND Oriented Prior to this illness, has anyone described the patient having any of the following behaviors?: Not Applicable Relationship of the informant to the patient:: Self READMISSION Last Discharge Date: 10/23/21 Is this Within the Past 30 days? 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 scores in the EMR?: No Any potential risks related to substance abuse and/or behavioral health?: No Based on clinical judgement, Care Management will address the following needs: Functional CAREGIVER ASSESSMENT Caregiver is ready, willing and able to meet the patient's needs as recommended by the inter-professional team:: Yes Patient's transition needs and plan for meeting these needs: home with home care and family support. MEDICAL SOCIAL Food Insecurity: Not on file Financial Resource Strain: Not on file Transportation Needs: Not on file Housing Stability: Not on file BEHAVIORAL/COGNITIVE FUNCTIONAL How do you manage to accomplish the following: Independent: Ambulation;Bathe/Shower;Dress;Me als/Meal Prep;Going to the bathroom;Medication Management Needs Assistance: Transportation to appointments/community Services/Needs//Equipment Does Patient Currently Receive Any Community Services or Home Care?: None Equipment Prior to Admission: None Has the Patient Been in a Correction Facility in the Past 30 days?: No No medical discharge barriers identified at this time. No social discharge barriers identified at this time. No behavioral/cognitive discharge barriers identified at this time. No functional discharge barriers identified at this time. FREEDOM OF CHOICE EXPLAINED: Pt requested this CM to secure home care with no home care agency of [facility] provided. Home with Home care services: [facility] [place] [id number] ASSESSMENT AND PLAN: Per morning rounds, Patient medically cleared for discharge today. Pt and family agree with discharge plans for today. Questions and concerns address. Family has arranged to transport home via family car. Pt provided with name and number to Home Care Agency via AVS. Nursing to review discharge instructions. Patient is ready for hospital discharge from Case Management perspective. SIGNATURE: Vijaya Cassidy RN PATIENT NAME: Shira Gavin DATE: September 19, 2022 TIME: 3:24 PM CONTACT #: [phone] [facility] 09-19-2022 History of Past i llness Narrative Problem Noted Date Resolved Date Hypocalcemia 09/19/2022 09/19/2022 Hypophosphatemia 09/19/2022 09/19/2022 Diverticulitis 09/16/2022 09/16/2022 documented as of this encounter (statuses as of 09/22/2022) [facility] History of Past illness Narrative* Problem Noted Date Resolved Date Hypocalcemia 09/19/2022 09/19/2022 Hypophosphatemia 09/19/2022 09/19/2022 Diverticulitis 09/16/2022 09/16/2022 documented as of this encounter (statuses as of 09/23/2022) [address]23-2023 History of Past illness Narrative* Problem Noted Date Resolved Date Hypocalcemia 09/19/2022 09/19/2022 Hypophosphatemia 09/19/2022 09/19/2022 Diverticulitis 09/16/2022 09/16/2022 documented as of this encounter (statuses as of 10/16/2022) [facility]01-23-2023 History of Past illness Narrative* Problem Noted Date Resolved Date Hypocalcemia 09/19/2022 09/19/2022 Hypophosphatemia 09/19/2022 09/19/2022 Diverticulitis 09/16/2022 09/16/2022 documented as of this encounter (statuses as of 10/17/2022) [facility]01-23-2023 History of Past illness Narrative* Problem Noted Date Resolved Date Hypocalcemia 09/19/2022 09/19/2022 Hypophosphatemia 09/19/2022 09/19/2022 Diverticulitis 09/16/2022 09/16/2022 documented as of this encounter (statuses as of 10/24/2022) [facility]01-23-2023 History of Past illness Narrative* Problem Noted Date Resolved Date Hypocalcemia 09/19/2022 09/19/2022 Hypophosphatemia 09/19/2022 09/19/2022 Diverticulitis 09/16/2022 09/16/2022 documented as of this encounter (statuses as of 11/11/2022) [facility]20[facility] History of Past illness Narrative* Problem Noted Date Resolved Date Hypocalcemia 09/19/2022 09/19/2022 Hypophosphatemia 09/19/2022 09/19/2022 Diverticulitis 09/16/2022 09/16/2022 documented as of this encounter (statuses as of 11/14/2022) [facility]20[facility] History of Past illness Narrative* Problem Noted Date Resolved Date Hypocalcemia 09/19/2022 09/19/2022 Hypophosphatemia 09/19/2022 09/19/2022 Diverticulitis 09/16/2022 09/16/2022 documented as of this encounter (statuses as of 12/14/2022) [facility]20[facility] History of Past illness Narrative* Problem Noted Date Resolved Date Hypocalcemia 09/19/2022 09/19/2022 Hypophosphatemia 09/19/2022 09/19/2022 Diverticulitis 09/16/2022 09/16/2022 documented as of this encounter (statuses as of 12/27/2022) [facility] History of Past illness Narrative* Problem Noted Date Resolved Date Hypocalcemia 09/19/2022 09/19/2022 Hypophosphatemia 09/19/2022 09/19/2022 Diverticulitis 09/16/2022 09/16/2022 documented as of this encounter (statuses as of 12/27/2022) [facility] History of Past illness Narrative* Problem Noted Date Resolved Date Hypocalcemia 09/19/2022 09/19/2022 Hypophosphatemia 09/19/2022 09/19/2022 Diverticulitis 09/16/2022 09/16/2022 documented as of this encounter (statuses as of 12/28/2022) [facility] History of Past illness Narrative* Problem Noted Date Resolved Date Hypocalcemia 09/19/2022 09/19/2022 Hypophosphatemia 09/19/2022 09/19/2022 Diverticulitis 09/16/2022 09/16/2022 documented as of this encounter (statuses as of 12/29/2022) [facility]01[facility] History of Past illness Narrative* Problem Noted Date Resolved Date Hypocalcemia 09/19/2022 09/19/2022 Hypophosphatemia 09/19/2022 09/19/2022 Diverticulitis 09/16/2022 09/16/2022 documented as of this encounter (statuses as of 2022) [facility] History of Past illness Narrative* Problem Noted Date Resolved Date Hypocalcemia 09/19/2022 09/19/2022 Hypophosphatemia 09/19/2022 09/19/2022 Diverticulitis 09/16/2022 09/16/2022 documented as of this encounter (statuses as of 01/09/2023) [facility]01[facility]20[facility] History of Past illness Narrative* Problem Noted Date Resolved Date Hypocalcemia 09/19/2022 09/19/2022 Hypophosphatemia 09/19/2022 09/19/2022 Diverticulitis 09/16/2022 09/16/2022 documented as of this encounter (statuses as of 01/21/2023) [facility]01[facility]2023 History of Past illness Narrative* Problem Noted Date Resolved Date Hypocalcemia 09/19/2022 09/19/2022 Hypophosphatemia 09/19/2022 09/19/2022 Diverticulitis 09/16/2022 09/16/2022 documented as of this encounter (statuses as of 02/02/2023) [facility]01-23-2023 History of Past illness Narrative* Problem Noted Date Resolved Date Hypocalcemia 09/19/2022 09/19/2022 Hypophosphatemia 09/19/2022 09/19/2022 Diverticulitis 09/16/2022 09/16/2022 documented as of this encounter (statuses as of 01/10/2023) [facility]01-23-2023 NoteHNO ID: [id number] Author: Katty Antonio MD Service: Colorectal Author Type: Physician Type: Progress Notes Filed: 09/19/2022 7:25 AM Note Text: [facility] staff POD 3 patient seen with team reviewed OR what was done and questions answered stoma 1100 urine 1500 exam soft and incisions are clean and dry Plan community case manager and stoma lessons ready for discharge today send out on baby aspirin daily for a month needs further ET lessons Katty Antonio, [facility]01-22-2023 NoteHNO ID: [id number] Author: Ashlee Garnett MD, PhD Service: Colorectal Author Type: Fellow Type: Progress Notes Filed: 09/18/2022 9:51 AM Note Text: Attestation signed by Alek Rendon MD at 09/18/2022 5:35 PM Patient discussed with fellow and independently seen and examined. Agree with fellow's assessment and plan as documented in the note. Feels well, tolerating fulls, ambulating voiding abd soft nd plan- soft diet, ambulate, abx COLORECTAL SURGERY PROGRESS NOTE SERVICE DATE: 09/18/2022 Shira Gavin Operation: 09/16/22: LAPAROSCOPIC COLECTOMY SIGMOID COLON W/ COLORECTAL ANASTOMOSIS ASSESSMENT AND PLAN: 56 year old M POD2 s/p lap sigmoid colectomy with DLI (stapled EEA anastomosis) on 09/16 for diverticulitis. Recovering as expected - Pain: pain control as needed, minimize narcotics - Resp: pulmonary toilet, encourage IS - GI: currently on FLD, advance to GIS, monitor ostomy output - ID: no issues, 3 days of Abx (ctx/flagyl) - OOB as tolerated, encourage - DVT prophylaxis: SCDs, subq Heparin 5000 U q 12 Hrs - Dispo: RNF. - Home tomorrow Damaris Franco MD Colorectal Surgery SUBJECTIVE: NAEO Doing well Willson removed yesterday, was able to void Phos replaced this AM Ostomy functioning - 525ml output PHYSICAL EXAM: BP 120/71 Pulse 72 Temp 36.7 ?C (98.1 ?F) (Oral) Resp 16 Ht 172.7 cm (5' 7.99) Wt 107 kg (235 lb 14.3 oz) SpO2 95% BMI 35.88 kg/m? General Appearance: no distress Resp: non-labored Abd: Soft, NTTP, non distended, no guarding, -ve peritoneal signs. Incision c/d/I Stoma pink and productive Date 09/17/22699 - 09/18/22 0659 09/18/22699 - 09/19/22 0659 Shift 6547-2781 7993-4771 8925-8209 24 Hour Total 0942-4023 5845-6227 8221-5307 24 Hour Total INTAKE IV 800 634 333 5565 Volume (mL) (cefTRIAXone 1 g in D5W 100 mL Vial-Bag (ROCEPHIN)) 100 100 Volume (mL) (metroNIDAZOLE iv piggyback 500 mg in NaCl (iso-osmotic) 100 mL (FLAGYL)) 100 100 200 Volume (mL) (lactated ringers iv infusion) 600 300 900 Shift Total 800 117 745 0365 OUTPUT Urine 1075 886 397 8799 Void (ml) 425 715 064 8760 Output ([REMOVED] Indwelling Urinary Catheter 09/16/22 1202 Coude 16 Fr 09/17/22 0947) 650 650 Ostomy 225 100 200 525 Output (mL) (Small Bowel Ostomy 09/16/22 RUQ) 225 100 200 525 Shift Total 1300 467 161 2429 Weight (kg) 107 107 107 107 107 107 107 107 Labs and imaging: Recent Labs 09/18/22 0047 09/16/22 2122 09/05/22 1425 10/23/21 0429 09/08/19 1154 06/29/16 0320 06/28/16 0330 WBC 10.23 16.51* 9.77 9.37 < > 8.3 10.1* HB 12.6* 14.0 14.7 12.9* < > 11.9* 12.2* HCT 39.4 42.6 46.4 40.8 < > 36.6* 37.4* PLT 205 244 321 344 < > 326 310 NA 140 139 140 140 < > 140 141 K 4.0 4.7 4.8 4.3 < > 3.6 3.4* CHLOR 107* 105 107* 106* < > 107 107 CO2 25 22 25 21* < > 23 25 BUN 13 17 19 11 < > 11 11 CREAT 1.16 1.31* 1.20 1.08 < > 1.00 0.85 GLUC 99 127* 87 107* < > 92 114* CA 8.2* 8.6 9.6 8.6 < > 9.0 8.7 MG 2.2 2.1 -- -- -- 2.3 2.2 P 2.4* 4.8 -- -- -- 2.9 2.5 < > = values in this interval not displayed. Recent Labs 09/18/22 0047 09/16/22 2122 11/17/14 1245 11/10/14 1433 CRP 0.4 <0.3 2.90 mg/L 3.50 mg/L Recent Labs 09/05/22 1425 10/20/21 0903 09/08/19 1154 11/17/14 1245 11/10/14 1433 TPROT 7.1 7.2 7.4 -- -- ALB 4.5 4.1 3.7 -- -- ALT 46 20 35 68 58 AST 28 15 17 26 23 ALKPHOS 66 75 79 96 86[facility]01-21-2023 NoteHNO ID: [id number] Author: Ashlee Garnett MD, PhD Service: Colorectal Author Type: Fellow Type: Progress Notes Filed: 09/17/2022 9:04 AM Note Text: Attestation signed by Alek Rendon MD at 09/17/2022 9:34 AM Patient discussed with fellow and independently seen and examined. Agree with fellow's assessment and plan as documented in the note. Pain controlled stoma functioning no n/v abd soft plan- fulls, remove willson COLORECTAL SURGERY PROGRESS NOTE PATIENT ID: Shira Gavin Hospital Day: 2 A/P: Shira Gavin is a 56 year old M POD 1 s/p lap sigmoidectomy. - Pain: pain control as needed, minimize narcotics - CV: heme stable, monitor vitals closely - Resp: pulmonary toilet, encourage IS, titrate supplemental oxygen as needed for acute postoperative respiratory insufficiency - GI: advance to FLD, monitor bowel function - Renal: good UOP, DC Willson, postvoid residuals - Endo: no issues - ID: no issues, 3 days of Abx - OOB as tolerated, encourage - Heme: H/H stable, no active signs of bleeding in immediate postoperative period, no indication for transfusion - DVT prophylaxis: SCDs, subq Heparin 5000 U q 12 Hrs - Dispo: continue care in [facility]. S: No acute issues. Doing well. Stoma working. EXAM: GEN: no acute distress PULM: no e/o increased WOB ABD: Soft, NTTP, non distended, no guarding, -ve peritoneal signs. Incision c/d/I Stoma pink and productive EXT: warm and well perfused DATA: Patient Vitals for the past 8 hrs: BP Temp Temp src Pulse Resp SpO2 09/17/22 0501 123/72 36.7 ?C (98.1 ?F) Oral 87 17 97 % 09/17/22 0114 120/71 36.5 ?C (97.7 ?F) Oral 89 17 95 % Intake/Output Summary (Last 24 hours) at 09/17/2022 0902 Last data filed at 09/17/2022 0515 Gross per 24 hour Intake 3589 ml Output 1875 ml Net 1714 ml Recent Labs 09/16/22 2122 WBC 16.51* HB 14.0 HCT 42.6 PLT 244 NA 139 K 4.7 CHLOR 105 CO2 22 CREAT 1.31* P 4.8 BUN 17 GLUC 127* MG 2.1 CA 8.6 CRP <0.3 *A review of daily goals, interventions, and plan of care with the multidisciplinary team and patient has been conducted. The patient?s concerns have been addressed and he/she agrees to proceed with today?s plan of care Ashlee Garnett MD, PhD[facility]01[facility]2023 NoteHNO ID: [id number] Author: Yuni Myers APRN.[employer] Service: ? Author Type: Nurse Tank Truck Operator Type: Anesthesia Procedure Notes Filed: 09/16/2022 12:11 PM Note Text: ANESTHESIOLOGY PROCEDURE NOTE PIV General Information Procedure Start Time/Medication Administration: 09/16/2022 12:00 PM Patient Location: OR Staffing SRNA: CARLI Ferrara Performed by: CARLI Preparation Sterility Preparation: hand hygiene performed prior to procedure, surgical cap used, mask used, skin prep agent completely dried prior to procedure Sterility Technique Not Completely Performed Due to Extreme Emergency: No Site Prep: alcohol Procedure Details Needle Size/Type: 18 gauge angiocath Orientation: Right Location: Hand Imaging Guidance Used: No SIGNATURE: Yuni Myers APRN.CRNA PATIENT NAME: Shira Gavin DATE: September 16, 2022 TIME: 12:11 PM CSN: [id number]2023 NoteHNO ID: [id number] Author: Yuni Myers APRN.CRNA Service: ? Author Type: Nurse Tank Truck Operator Type: Anesthesia Procedure Notes Filed: 09/16/2022 12:10 PM Note Text: ANESTHESIOLOGY PROCEDURE NOTE Airway General Information Procedure Start Time/Medication Administration: 09/16/2022 11:51 AM Patient location during procedure: OR Timeout Performed Pre-procedure: timeout performed Consent Obtained: Yes Patient identity confirmed: arm band and patient Staffing Anesthesiologist: Vanessa Otoole MD SRNA: CARLI Ferrara Performed by: CARLI Indications and Patient Condition Indications for airway management: anesthesia Preoxygenated: yes anesthesia circuit Patient position: sniffing Method: asleep Cricoid Pressure: No Manual In-Line Stabilization: No Difficult Mask: No (two hands with oral airway) Airway Accessory: oral airway Final Airway Details Final airway type: endotracheal airway Final Endotracheal Airway: ETT Cuffed: yes Successful intubation technique: video laryngoscopy Devices used: [facility] Endotracheal tube insertion site: oral Blade size: #4 ETT size (mm): 7.5 Measured from: teeth Measurement (cm): 24 Placement verified by: capnometry Cormack-Lehane Classification: grade I - full view of glottis Number of attempts at approach: 1 Failed airway: no Unrecognized esophageal intubation: no Airway not difficult SIGNATURE: Yuni Myers APRN.CRNA PATIENT NAME: Shira Gavin DATE: September 16, 2022 TIME: 12:08 PM CSN: [id number]01[facility]2023 NoteHNO ID: [id number] Author: Nay Segura MD Service: ? Author Type: Fellow Type: Anesthesia Procedure Notes Filed: 09/16/2022 12:07 PM Note Text: Attestation signed by Ethan Plata MD at 09/16/2022 12:37 PM Attending Note For the Bedside procedure, I was physically present during the entire procedure. Resident performed > 50% of the procedure, under direct supervision and the remainder of the procedure was performed by the primary surgeon/proceduralist with assistance. Signature: Ethan Plata MD Date: 09/16/2022 Time: 12:37 PM ANESTHESIOLOGY PROCEDURE NOTE Peripheral Nerve Block General Information Procedure Start Time/Medication Administration: 09/16/2022 11:47 AM Procedure End time: 09/16/2022 12:06 PM Patient location during procedure: OR Timeout Performed Pre-procedure: timeout performed Consent Obtained: Yes Patient identity confirmed: arm band and patient Reason for block: post-op pain management/at surgeon's request Staffing Anesthesiologist: Ethan Plata MD Fellow: Nay Segura MD Resident: Serg Hernández MD Performed by: anesthesiologist, resident and fellow Preparation Sterility Preparation: hand hygiene performed prior to procedure, sterile gloves, drapes, and procedure tray, surgical cap used, mask used, sterile drape used during line insertion, skin prep agent completely dried prior to procedure Sterility Technique Not Completely Performed Due to Extreme Emergency: No Site Prep: Chloraprep Pre-Procedure Neuro Exam Location: ABDOMEN Sensory: intact Motor: intact Procedure Details Patient Position: supine Monitoring: NIBP, EKG and Pulse OX Block Type Trunk: TAP block Approach: anterior Laterality: bilateral Injection Technique: single-shot Ultrasound Guided: Yes Image in Chart: yesNo Local Infiltration: Yes Needle Needle Type: echogenic Needle Gauge: 20 G Needle Length: 10 cm Needle Localization: ultrasound and anatomical landmarks Assessment Injection assessment: negative aspiration, no paresthesia on injection, incremental injection and local visualized surrounding nerve on ultrasound Post-Procedure Neuro Exam Expected Regional Anesthesia: Yes Medications Administered bupivacaine (PF) 0.25 % (2.5 mg/mL) injection (SENSORCAINE MPF) - peripheral nerve block 50 mL - 09/16/2022 11:47:00 AM bupivacaine liposome (PF) 1.3 % (13.3 mg/mL) injection (EXPAREL) - INFILTRATION 266 mg - 09/16/2022 11:47:00 AM Comments Patient is confirmed by two identifiers, the Risks, benefits and alternatives of the regional anesthesia procedure were explained and confirmed with the patient who agrees to proceed. Standard ASA monitors wee applied according to the procedure protocol. Vital signs were stable throughout the procedure, and the patient was communicating. No pain on injection and the procedure was well tolerated. The post- procedure diagnosis is the same as pre- procedure. No significant findings. No Complications unless noted above. No specimen collected. Minimal or no blood loss Discharge/transfer criteria are met upon discharge. SIGNATURE: Nay Segura MD PATIENT NAME: Shira Gavin DATE: September 16, 2022 TIME: 12:06 PM CSN: [id number] Health [facility]01[facility]-2023 Nurse Note* Cami Howard Research Nurse - 09/12/2022 2:47 PM EST A Novel Wound Retractor Combining Continuous Irrigation and Barrier Protection Reduces Incisional Contamination and Surgical Site Infection in Colorectal Surgery IRB NO.: [id number] DISHCLOTH FOLDER: Jeremi Patterson MD COORDINATOR/Security Compliance Specialist: Cami Howard RN, CCRC COORDINATOR/Security Compliance Specialist: Valorie Cooper RN, BSN Pager: [phone] Consent obtained by: Cami Howard RN, CCRC Informed consent process conducted remotely (via phone). Patient identified by name and date. On 09-Sep-2022 Research Coordinator Cami Howard RN, CCRC had a conversation with Yeison Gavin regarding participation in the above stated trial utilizing the IRB approved phone script and 3 way phone call method with witness: Valorie Cooper RN, BSN. The patient was informed of the risks/benefits and alternatives to participation (not to participate) as outlined in the informed consent document and the patient voluntarily agrees to participate inthe Study (IRB # [id number]). The patients doctor, Katty Antonio MD confirmed eligibility.The patient read and verbalized understanding of the consent document. All questions have been answered. The patient voluntarily signed the informed consent document (version 07/04/2022) with instructions to securely emailed/scanned the signed/dated consent document to Cami Howard RN, CCRC. Study site received signed consent form on 09-Sep-2022. ICF form signed by person conducting remoteconsent and witness Valorie Cooper RN, BSN. All study procedures started after the patient signed the Informed Consent document in addition to SC and witness. A copy of the signed consent form emailed to the patient for his own records and reference. The original copy of the consent form kept on file. Study specific education was given. Patient provided with contact information should he have any other questions and/or concerns. The patient was randomized into the [employer] [facility] NoteHNO ID: [id number] Author: Lynn Mcdonough RN Service: ? Author Type: Registered Nurse Type: Progress Notes Filed: 09/06/2022 11:14 AM Note Text: ET/WOC Nursing Note Topic: STOMA MARKING ET Outcome: Patient seen in the outpatient clinic accompanied by to see Dr. Antonio and [facility] nursing for jose a and talk. Patient is scheduled to have surgery on 09/16 with possible ileostomy. With patient's permission marking done in the RUQ. Patient has a short lower torso causing lower abdomen to hide when sitting. This was communicated to Dr. Antonio via staff message. The stoma marking purpose and procedure was explained: yes. The patient verbalized understanding and agrees to the marking: yes. Rectus Muscle boarders are located: yes. Abdominal contour evaluation was performed in the lying position, sitting position, and standing position. The stoma marking was made according to ET/WOC Nursing Procedure #401 in the RUQ. Patient is able to see site in the following positions: lying position, sitting position, and standing position Comments: With patient's permission, tattoo placed in the RUQ with Nancy Ink and #25 gauge needle. DIAGRAM: See Medical Imaging printout Sitting Standing Time Increment: 30 minutes Lynn Mcdonough RN, BSN, CWOCN ET/WOC NURSING ET OUTCOME: Jose A and Talk TOPIC: OSTOMY INSTRUCTION READINESS TO LEARN COGNITIVE ABILITY: Alert and Oriented MOTIVATION TO LEARN: Interested FAMILY SUPPORT: High - Very involved in patient care INSTRUCTION PROVIDED TO: Patient and Spouse PATIENT LEARNS BEST BY: Multiple Methods FACTORS AFFECTING LEARNING: None PHYSICAL LIMITATIONS AFFECTING LEARNING: None LEARNING RESPONSE DIAGNOSIS: Diverticulitis PROCEDURE / SURGERY: Loop ileostomy EDUCATION TOPIC/ TEACHING POINTS: Ostomy Care Stoma appearance and function, Purpose of the pouching system, Postoperative ostomy care per ET/WOC Nurse, Postoperative self ostomy care instruction, Discharge equipment ordering and support options, Diet, Fluid Intake, ADL'S, Work, Clothing Adjustment, Exercise, and Sexual Intimacy METHOD OF INSTRUCTION: Video PATIENT / FAMILY RESPONSE: Verbalizing understanding of: Preoperative teaching FOLLOW-UP PLAN: Complete - No need for follow-up SUPPLEMENTAL MATERIAL: Ileostomy Booklet REFERRAL (RECOMMENDATION): None TIME INCREMENT: 30 minutes Electronically Signed By Lynn Mcdonough RN [facility]WOC [facility]23 NoteHNO ID: [id number] Author: Katty Antonio MD Service: ? Author Type: Physician Type: Progress Notes Filed: 09/07/2022 2:16 PM Note Text: COLORECTAL SURGERY September 05, 2022 Chief Complaint: discuss surgical options History of Present Illness: Shira Gavin is a 56 year old year old male . Last seen by me 11-04-21 Assessment AND Diagnosis and treatment recommnedations: Shira Gavin is a 55 year old here with his Fourth episode of diverticulitis since 2016. Last episode with 3.5 cm abscess and tethering of his bladder. 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 He has been on augmentin. Plan Go off antibiotics on Monday and see how he does. Watch for recurrent abdominal pain and/or air from his urethra. Send me a MYCHART Mon or and let me know how he is doing. I do not know if he will do OK. Would prefer for any surgery to be 6-8 weeks out from an episode if possible. Went over I cannot guarantee that he will not have temporary stoma but the odds are less if he is not close to a flare. He and I agree that he does need surgery. The timing will be the george thing. 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 If he does well and we can delay, he will contact me toward end of summer to set up for fall. History of PE 08-01-22 he spoke with Crina at that time no symptoms since October 2021 Colonoscopy 01-15-15 (by me) Multiple medium-mouthed diverticula were found in the sigmoid colon, in the descending colon, in the transverse colon and in the ascending colon. See photo. 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 Hx of glaucoma bilateral on eye drops PAST MEDICAL HISTORY Diagnosis Date Anticoagulated on Coumadin Diverticulosis of colon 10/23/2014 perforated diverticulitis Glaucoma, bilateral Heart murmur as baby, states resolved Pulmonary embolism (HCC) 10/27/[address] PAST SURGICAL HISTORY Procedure Laterality Date PAST SURGICAL HISTORY OF 08/28/2009 right rotator cuff repair PAST SURGICAL HISTORY OF right finger PAST SURGICAL HISTORY OF colonoscopy PAST SURGICAL HISTORY OF wisdom teeth PICC LINE INSERT/CONSULT 10/30/2014 Current Outpatient Medications Medication Sig Dispense Refill acetaminophen (TYLENOL) 500 mg tablet Take 2 tablets by mouth four times daily. (Patient not taking: Reported on 09/05/2022) latanoprost (XALATAN) 0.005 % ophthalmic solution Use 1 Drop in both eyes daily at bedtime. Psyllium Seed-Sucrose Take 1 Tablespoonful by mouth once daily. No current facility-administered medications for this visit. ALLERGIES No Known Allergies Social History Tobacco Use Smoking status: Never Smokeless tobacco: Current Types: Chew Tobacco comments: began chewing ~1986 Substance Use Topics Alcohol use: Yes Drug use: Not Currently Review of Systems / PACC screen: Do you have difficulty climbing a full flight of stairs without feeling short of breath? no Do you require oxygen for your breathing or have your gone to an emergency department because of breathing problems? no Are you on dialysis or have you been told that your kidneys do not work well as they should? no Do have an implanted cardiac device (pacemaker, defibrillator etc.) that has not been checked in the last 6 months? no Have you had an organ transplant? no Have you been told that you had excessive bleeding during surgical procedures or do you take blood thinning medications other than aspirin? no Have you ever had a heart attack, heart stents/surgery, valve problems, or other heart problems? no Have you had a stroke, seizures, or unexplained loss of consciousness? no Do you have a neurologic condition like Parkinson's disease or multiple sclerosis? no Have you or a blood relative had a life-threatening reaction to anesthesia? no Do you have cirrhosis of the liver or other liver disease? no Have you had a blood clot within the past year? no Do you take insulin or other injections for diabetes? no Do you have sleep apnea or have you been told you may have sleep apnea? yes BEEN TOLD BY HE SHOULD GET CHECKED Do you have other implanted devices (deep brain stimulator, spinal cord stimulator, etc.)? no REVIEW OF SYSTEMS PAIN ASSESSMENT: Negative for pain, history of chronic pain, or current treatment for a chronic pain condition. GENERAL: No weight loss, malaise or fevers HEENT: Negative for frequent or significant headaches, No changes in hearing or vision, no nose bleeds or other nasal problems NECK: Negative for lumps, goiter, pain and significant neck swelling RESPIRATORY: Negative for cough, hemoptysis, wheezing, COPD, dyspnea or shortness of breath CARDIOVA (more content not included)...[facility]01-10-2023 History of Present illness Narrative* Lynn Mcdonough RN - 09/06/2022 10:54 AM EST Images from the original note were not included. ET/WOC Nursing Note Topic: STOMA MARKING ET Outcome: Patient seen in the outpatient clinic accompanied by to see Dr. Antonio and [facility] nursing for jose a and talk. Patient is scheduled to have surgery on 09/16 with possible ileostomy. With patient's permission marking done in the RUQ. Patient has a short lower torso causing lower abdomen to hide when sitting. This was communicated to Dr. Antonio via staff message. The stoma marking purpose and procedure was explained: yes. The patient verbalized understanding and agrees to the marking: yes. Rectus Muscle boarders are located: yes. Abdominal contour evaluation was performed in the lying position, sitting position, and standing position. The stoma marking was made according to ET/[facility] Nursing Procedure #401 in the RUQ. Patient is able to see site in the following positions: lying position, sitting position, and standing position Comments: With patient's permission, tattoo placed in the RUQ with Nancy Ink and #25 gauge needle. DIAGRAM: See Medical Imaging printout Sitting Standing Time Increment: 30 minutes Lynn Mcdonough RN, BSN, CWOCN ET/[facility] NURSING ET OUTCOME: Jose A and Talk TOPIC: OSTOMY INSTRUCTION READINESS TO LEARN COGNITIVE ABILITY: Alert and Oriented MOTIVATION TO LEARN: Interested FAMILY SUPPORT: High - Very involved in patient care INSTRUCTION PROVIDED TO: Patient and Spouse PATIENT LEARNS BEST BY: Multiple Methods FACTORS AFFECTING LEARNING: None PHYSICAL LIMITATIONS AFFECTING LEARNING: None LEARNING RESPONSE DIAGNOSIS: Diverticulitis PROCEDURE / SURGERY: Loop ileostomy EDUCATION TOPIC/ TEACHING POINTS: Ostomy Care Stoma appearance and function, Purpose of the pouching system, Postoperative ostomy care per ET/[facility] Nurse, Postoperative self ostomy care instruction, Discharge equipmentordering and support options, Diet, Fluid Intake, ADL'S, Work, Clothing Adjustment, Exercise, and Sexual Intimacy METHOD OF INSTRUCTION: Video PATIENT / FAMILY RESPONSE: Verbalizing understanding of: Preoperative teaching FOLLOW-UP PLAN: Complete - No need for follow-up SUPPLEMENTAL MATERIAL: Ileostomy Booklet REFERRAL (RECOMMENDATION): None TIME INCREMENT: 30 minutes Electronically Signed By Lynn Mcdonough RN ET/[facility] Nursing documented in this encounterUniversity [facility]12-[facility]-2022 NoteHNO ID: [id number] Author: Theo Loza APRN.MEDICAL TRANSLATOR Service: ? Author Type: Nurse Practitioner Type: Progress Notes Filed: 08/01/2022 3:51 PM Note Text: AMBULATORY TELEPHONE VISIT Shira Gavin has consented to this telephone encounter. Persons Present: patient and patient's spouse/significant other Chief Complaint/Reason: schedule surgery HPI: Shira Gavin is a 56 y.o male with hx of diverticulitis Last seen by Dr Antonio on 11/04/21 when he had a flair Since that visit he has been doing well, denies symptoms of recurrence of diverticulitis He would like to schedule the surgery Data Reviewed: 11/04/21 office note and all other pertinent notes Assessment: Hx of diverticulitis, had 4 episodes since 2016, last episode in September 2021 No symptoms since last visit in October 2021 Ready to schedule surgery Plan: Discuss surgery dates, agrees with 09/16/22 as surgery date and 09/06/22 as office visit with Dr Antonio Will schedule All questions answered Invited to call office with any questions or concerns. Total Time Spent: 10 minutes Theo Loza APRN.CNPU[facility]12-[facility]-2022 History of Present illness Narrative* Theo Loza APRN.CNP - 08/01/2022 3:29 PM EST AMBULATORY TELEPHONE VISIT Shira Gavin has consented to this telephone encounter. Persons Present: patient and patient's spouse/significant other Chief Complaint/Reason: schedule surgery HPI: Shira Gavin is a 56 y.o male with hx of diverticulitis Last seen by Dr Antonio on 11/04/21 when he had a flair Since that visit he has been doing well, denies symptoms of recurrence of diverticulitis He would like to schedule the surgery Data Reviewed: 11/04/21 office note and all other pertinent notes Assessment: Hx of diverticulitis, had 4 episodes since 2015, last episode in September 2021 No symptoms since last visit in October 2021 Ready to schedule surgery Plan: Discuss surgery dates, agrees with 09/16/22 as surgery date and 09/06/22 as office visit with Dr Antonio Will schedule All questions answered Invited to call office with any questions or concerns. Total Time Spent: 10 minutes Theo Loza APRN.CNP documented in this encounterUniversity Hospitals [facility]02-26-2022 NoteHNO ID: [id number] Author: Carl Turner MD Service: General Surgery Author Type: Resident Type: Progress Notes Filed: 10/23/2021 9:19 AM Note Text: Attestation signed by Kristy Rodriguez MD at 10/23/2021 2:05 PM Attending Note I personally saw and examined the patient. I reviewed the resident's note. I agree with the resident's assessment and plan unless otherwise noted. Signature: Kristy Rodriguez MD Date: 10/23/2021 Time: 2:05 PM Emergency General Surgery Progress Note SERVICE DATE: October 23, 2021 Emergency General Surgery Service Pager: For questions or concerns Mon-Fri 6a-5p please page [phone]. After 5pm and on Weekends and Holidays, please page [phone] if in ICU or [phone] if on RNF. SUBJECTIVE: RAFA, HDS, AF. He is tolerating liquid diet. Passing flatus and having BMs. Ambulatory. OBJECTIVE: Vitals: Temp (24hrs), Av.3 ?C (97.4 ?F), Min:36.2 ?C (97.2 ?F), Max:36.6 ?C (97.9 ?F) BP 137/94 Pulse 71 Temp 36.6 ?C (97.9 ?F) (Oral) Resp 18 Ht 172.7 cm (5' 8) Wt 104.5 kg (230 lb 6.1 oz) SpO2 98% BMI 35.03 kg/m? O2 Therapy: Room Air IANDO: Date 10/22/21699 - 10/23/21 0659 10/23/21 07 - 10/24/21 0659 Shift 4304-3658 3973-1904 8709-3203 24 Hour Total 5643-5800 8007-4764 3795-6185 24 Hour Total INTAKE PO 960 960 PO 960 960 Shift Total 960 960 OUTPUT Urine Urine Not Saved. 1 x 1 x # of BMs Number of BMs 1 x 1 x Shift Total Weight (kg) 104.5 104.5 104.5 104.5 104.5 104.5 104.5 104.5 MEDICATIONS Current Facility-Administered Medications Medication Dose Route Frequency - enoxaparin 40 mg injection (LOVENOX) 40 mg SUBCUTANEOUS DAILY - NaCl 0.9% iv flush bag 20 mL INTRAVENOUS PRN - sodium chloride 0.9 % (flush) 3-5 mL (BD POSIFLUSH) 3-5 mL INTRAVENOUS q 12 H - ondansetron 4 mg tab(s) (ZOFRAN) 4 mg ORAL q 6 H PRN Or - ondansetron (PF) 4 mg injection (ZOFRAN) 4 mg INTRAVENOUS q 6 H PRN - piperacillin-tazobactam 4.5 g in D5W 100 mL MB+ (ZOSYN) 4.5 g INTRAVENOUS q 6 H - acetaminophen 1,000 mg tab(s) (TYLENOL) 1,000 mg ORAL QID - oxyCODONE IR 5-10 mg tab(s) (ROXICODONE) 5-10 mg ORAL q 6 H PRN Labs: Recent Labs 10/23/21 0429 10/22/21 0627 10/21/21 0456 10/20/21 1521 NA 140 138 < > -- K 4.3 4.1 < > -- CHLOR 106* 104 < > -- CO2 21* 23 < > -- BUN 11 11 < > -- CREAT 1.08 1.05 < > -- GLUC 107* 104* < > -- ANION 13 11 < > -- CA 8.6 8.7 < > -- WBC 9.37 11.86* < > -- HB 12.9* 13.2 < > -- HCT 40.8 42.2 < > -- PLT 344 327 < > -- INR -- -- -- 1.0 < > = values in this interval not displayed. Physical Exam: GENERAL: No distress, Alert NEURO: AANDOx3, CN II-XII grossly intact HEENT: Normocephalic, atraumatic LUNGS: Unlabored breathing on room air CARDIAC: Regular rate ABDOMEN: Soft, nondistended, minimal TTP, no rebound or guarding EXTREMITIES: ABDALLA, No deformities, No edema SKIN: Warm, dry ASSESSMENT AND PLAN: Active Hospital Problems Diagnosis Date Noted - Acute diverticulitis 10/20/2021 Assessment: 55 year old male h/o recurrent diverticulitis, prior DVT/PE no longer on anticoagulation presented to the ED 10/20 with LLQ abd pain that began on 10/19 Hospital course: 10/20: CT A/P moderate to severe acute diverticulitis, with associated abscess measuring 3.5 x 2.5 cm 10/21: abd fluid collections not amenable to drainage, per IR. ? Plan: - full liquid diet, advanced to GI - given clinical improvement (pain controlled, no n/v with PO, bowel function) no need for repeat CT scan - likely discharge today with 2 weeks abx - would benefit from OP colonoscopy in 6 weeks with eventual elective sigmoidectomy as he has had recurrent diverticulitis with at least two of these episodes being complicated diverticulitis - VTE ppx: lovenox Follow up needs: TBD SIGNATURE: Carl Turner MD PATIENT NAME: Shira Gavin DATE: October 23, 2021 TIME: 09 Pager: [phone] Emergency General Surgery Service Pager: For questions or concerns Mon-Fri 6a-5p please page [phone]. After 5pm and on Weekends and Holidays, please page [phone] if in ICU or [phone] if on RNF.[facility]02-25-2022 NoteHNO ID: [id number] Author: Iram Evangelista RN Service: Care Management Author Type: Registered Nurse Type: Care Mgt Progress Note Filed: 10/22/2021 12:19 PM Note Text: CARE MANAGEMENT PROGRESS NOTE SERVICE DATE: 10/22/2021 SERVICE TIME: 12:18 PM LOS: 2 days This patient has been screened for Care Management Transitional Planning Services. At this time, it does not appear this patient will require transition planning services. Should this change, and the patient require transition planning services during this admission, please contact Case Management. Family to transport at discharge. SIGNATURE: Iram Evangelista RN PATIENT NAME: Shira Gavin DATE: October 22, 2021 TIME: 12:18 PM PAGER/CONTACT #: [phone][facility] NoteHNO ID: [id number] Author: Jeff Silva MD Service: General Surgery Author Type: Resident Type: Progress Notes Filed: 10/22/2021 9:18 AM Note Text: Attestation signed by Kristy Rodriguez MD at 10/23/2021 2:05 PM I personally saw and examined the patient on 10/22/21. I reviewed the resident's note. I agree with the resident's assessment and plan unless otherwise noted. Emergency General Surgery Progress Note SERVICE DATE: October 22, 2021 Emergency General Surgery Service Pager: For questions or concerns Mon-Mon 6a-5p please page [phone]. After 5pm and on Weekends and Holidays, please page [phone] if in ICU or [phone] if on RNF. SUBJECTIVE: After conversation with IR yesterday, it was determined that abdominal fluid collections were not amenable to drainage at that time. He is tolerating liquid diet. Passing flatus but no BM. denies N/V, F/C, CP, SOB. Ambulating fine OBJECTIVE: Vitals: Temp (24hrs), Av.4 ?C (97.6 ?F), Min:36.4 ?C (97.5 ?F), Max:36.5 ?C (97.7 ?F) BP 131/75 Pulse 74 Temp 36.5 ?C (97.7 ?F) (Oral) Resp 16 Ht 172.7 cm (5' 8) Wt 104.5 kg (230 lb 6.1 oz) SpO2 95% BMI 35.03 kg/m? O2 Therapy: Room Air IANDO: Date 10/21/21699 - 10/22/21 0659 10/22/21699 - 10/23/21 0659 Shift 2369-9036 1737-1086 7644-1113 24 Hour Total 4326-3438 0520-7510 3230-5655 24 Hour Total INTAKE PO 240 240 PO 240 240 Shift Total 240 240 OUTPUT Urine Urine Not Saved. 1 x 1 x Shift Total Weight (kg) 104.5 104.5 104.5 104.5 104.5 104.5 104.5 104.5 MEDICATIONS Current Facility-Administered Medications Medication Dose Route Frequency - NaCl 0.9% iv flush bag 20 mL INTRAVENOUS PRN - sodium chloride 0.9 % (flush) 3-5 mL (BD POSIFLUSH) 3-5 mL INTRAVENOUS q 12 H - lactated ringers iv infusion 125 mL/hr INTRAVENOUS CONTINUOUS - ondansetron 4 mg tab(s) (ZOFRAN) 4 mg ORAL q 6 H PRN Or - ondansetron (PF) 4 mg injection (ZOFRAN) 4 mg INTRAVENOUS q 6 H PRN - piperacillin-tazobactam 4.5 g in D5W 100 mL MB+ (ZOSYN) 4.5 g INTRAVENOUS q 6 H - acetaminophen 1,000 mg tab(s) (TYLENOL) 1,000 mg ORAL QID - oxyCODONE IR 5-10 mg tab(s) (ROXICODONE) 5-10 mg ORAL q 6 H PRN - morphine 2 mg injection 2 mg INTRAVENOUS q 3 H PRN Labs: Recent Labs 10/21/21 0456 10/20/21 1521 10/20/21 0903 NA 136 -- 136 K 4.2 -- 4.5 CHLOR 103 -- 103 CO2 25 -- 22 BUN 13 -- 19 CREAT 1.12 -- 1.08 GLUC 106* -- 113* ANION 8* -- 11 CA 8.7 -- 9.0 ALB -- -- 4.1 AST -- -- 15 ALT -- -- 20 ALKPHOS -- -- 75 TBILI -- -- 0.3 WBC 14.32* -- 15.78* HB 13.9 -- 14.3 HCT 42.0 -- 45.2 PLT 306 -- 316 INR -- 1.0 -- Physical Exam: GENERAL: No distress, Alert NEURO: AANDOx3, CN II-XII grossly intact HEENT: normocephalic, atraumatic LUNGS: Unlabored breathing on room air CARDIAC: Regular rate ABDOMEN: Soft, nondistended, minimal LLQ TTP, no rebound or guarding EXTREMITIES: ABDALLA, No deformities, No edema SKIN: warm, dry ASSESSMENT AND PLAN: Active Hospital Problems Diagnosis Date Noted - Acute diverticulitis 10/20/2021 Assessment: 55 year old male h/o recurrent diverticulitis, prior DVT/PE no longer on anticoagulation presented to the ED 10/20 with LLQ abd pain that began on 10/19 Hospital course: 10/20: CT A/P moderate to severe acute diverticulitis, with associated abscess measuring 3.5 x 2.5 cm 10/21: abd fluid collections not amenable to drainage, per IR. ? Plan: - full liquid diet - continue abx: zosyn - will continue liquid diet until return of bowel function. Once having BM, will advance diet. If failure to progress will repeat CT scans to monitor abdominal fluid collection seen on 10/20 as may need drain placement if enlarged - would benefit from OP colonoscopy in 6 weeks with eventual elective sigmoidectomy as he has had recurrent diverticulitis with at least two of these episodes being complicated diverticulitis - VTE ppx: lovenox to start after procedure, SCD Follow up needs: TBD SIGNATURE: Jeff Silva MD PATIENT NAME: Shira Gavin DATE: October 22, 2021 TIME: 621 Pager: [phone] Emergency General Surgery Service Pager: For questions or concerns Mon-Fri 6a-5p please page [phone]. After 5pm and on Weekends and Holidays, please page [phone] if in ICU or [phone] if on RNF.[facility]02-24-[facility]22 NoteHNO ID: [id number] Author: Iram Evangelista RN Service: Care Management Author Type: Registered Nurse Type: Care Mgt Progress Note Filed: 10/21/2021 11:09 AM Note Text: CARE MANAGEMENT PROGRESS NOTE SERVICE DATE: 10/21/2021 SERVICE TIME: 11:08 AM LOS: 1 day This patient has been screened for Care Management Transitional Planning Services. At this time, it does not appear this patient will require transition planning services. Should this change, and the patient require transition planning services during this admission, please contact Case Management. Family to transport at discharge. SIGNATURE: Iram Evangelista RN PATIENT NAME: Shira Gavin DATE: October 21, 2021 TIME: 11:08 AM PAGER/CONTACT #: [phone] [facility] 10-21-2021 NoteHNO ID: [id number] Author: Nan Hernández MD Service: General Surgery Author Type: Physician Type: Progress Notes Filed: 10/25/2021 10:57 AM Note Text: Emergency General Surgery Progress Note SERVICE DATE: October 21, 2021 Emergency General Surgery Service Pager: For questions or concerns Mon-Fri 6a-5p please page [phone]. After 5pm and on Weekends and Holidays, please page [phone] if in ICU or [phone] if on RNF. SUBJECTIVE: NAEON. Has mild LLQ pain. Passing flatus. No BM. Denies N/V, CP, SOB OBJECTIVE: Vitals: Temp (24hrs), Av.6 ?C (97.9 ?F), Min:36.5 ?C (97.7 ?F), Max:36.7 ?C (98.1 ?F) BP 116/79 Pulse 86 Temp 36.7 ?C (98.1 ?F) (Oral) Resp 16 Ht 172.7 cm (5' 8) Wt 104.5 kg (230 lb 6.1 oz) SpO2 96% BMI 35.03 kg/m? O2 Therapy: Room Air IANDO: Date 10/20/21699 - 10/21/2165810/21/21699 - 10/22/21 0659 Shift 6198-1660 5217-4073 2202-8093 24 Hour Total 7156-2861 1499-7087 9332-0330 24 Hour Total INTAKE IV 1000 1000 Volume (mL) (NaCl 0.9% 1,000 mL iv bolus) 1000 1000 Shift Total 1000 1000 OUTPUT Shift Total Weight (kg) 104.3 104.5 104.5 104.5 104.5 104.5 104.5 104.5 MEDICATIONS Current Facility-Administered Medications Medication Dose Route Frequency - NaCl 0.9% iv flush bag 20 mL INTRAVENOUS PRN - sodium chloride 0.9 % (flush) 3-5 mL (BD POSIFLUSH) 3-5 mL INTRAVENOUS q 12 H - lactated ringers iv infusion 125 mL/hr INTRAVENOUS CONTINUOUS - ondansetron 4 mg tab(s) (ZOFRAN) 4 mg ORAL q 6 H PRN Or - ondansetron (PF) 4 mg injection (ZOFRAN) 4 mg INTRAVENOUS q 6 H PRN - piperacillin-tazobactam 4.5 g in D5W 100 mL MB+ (ZOSYN) 4.5 g INTRAVENOUS q 6 H - acetaminophen 1,000 mg tab(s) (TYLENOL) 1,000 mg ORAL QID - oxyCODONE IR 5-10 mg tab(s) (ROXICODONE) 5-10 mg ORAL q 6 H PRN - morphine 2 mg injection 2 mg INTRAVENOUS q 3 H PRN Labs: Recent Labs 10/21/21 0456 10/20/21 1521 10/20/21 0903 NA 136 -- 136 K 4.2 -- 4.5 CHLOR 103 -- 103 CO2 25 -- 22 BUN 13 -- 19 CREAT 1.12 -- 1.08 GLUC 106* -- 113* ANION 8* -- 11 CA 8.7 -- 9.0 ALB -- -- 4.1 AST -- -- 15 ALT -- -- 20 ALKPHOS -- -- 75 TBILI -- -- 0.3 WBC 14.32* -- 15.78* HB 13.9 -- 14.3 HCT 42.0 -- 45.2 PLT 306 -- 316 INR -- 1.0 -- Physical Exam: GENERAL: No distress, Alert NEURO: AANDOx3, CN II-XII grossly intact HEENT: normocephalic, atraumatic LUNGS: Unlabored breathing, equal chest rise bilaterally on room air CARDIAC: Regular rate, warm and well perfused distal extremities ABDOMEN: Soft, nondistended, mild LLQ TTP, no rebound or guarding EXTREMITIES: ABDALLA SKIN: warm, dry ASSESSMENT AND PLAN: Active Hospital Problems Diagnosis Date Noted - Acute diverticulitis 10/20/2021 Assessment: 55 year old male h/o recurrent diverticulitis, prior DVT/PE no 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 Plan: - NPO/IVF for procedure today - IR drain placement pending - continue abx: zosyn - would benefit from OP colonoscopy in 6 weeks with eventual elective sigmoidectomy as he has had recurrent diverticulitis with at least two of these episodes being complicated diverticulitis - VTE ppx: lovenox to start after procedure, SCD Follow up needs: TBD after procedure. Follows with colorectal at [facility] SIGNATURE: Jeff Silva MD PATIENT NAME: Shira Gavin DATE: October 21, 2021 TIME: 06 Pager: [phone] Emergency General Surgery Service Pager: For questions or concerns Mon-Fri 6a-5p please page [phone]. After 5pm and on Weekends and Holidays, please page [phone] if in ICU or [phone] if on RNF. Emergency General Surgery (EGS) Staff Addendum: I have seen and examined this patient with the Surgery resident team, and I agree with the assessment and plan of care documented in the electronic medical record with the following comments. I have reviewed the necessary labs and imaging. HD #2 No fevers or chills No hypotension or hypoxia. No N/V or abdominal distension No pneumaturia No hematochezia Pain stable, not increased Mobilizing (+) flatus On exam: Lungs CTAB. CV regular. Abdomen is soft, no distension, no tympany, normoactive bowel sounds, no peritonitis. Labs reviewed. Impression: Patient Active Hospital Problem List: Acute diverticulitis (10/20/2021) Nicotine use disorder, F17.2 (10/23/2021) Obesity, Class I, BMI 30-34.9 (10/23/2021) Our plan of care includes: Continue empiric ABX coverage Percutaneous aspiration/drain placement by IR today Close abdominal surveillance, no current clinical indications for free perforation. Continue non-operative management Nan Hernández MD Department of General Surgery Division of Trauma, Critical Care, and Acute Care Surgery October 25, 2021 10:54 AM Delayed entry ? I personally saw/examined the patient on 10/21/2021. [facility]ments Appointment Date:07/18/2024 07:30:00 AM Scheduled Provider:TERRI PIERRE MD Location:[facility] Appointment Type:PC OV Follow Up Diagnostic Tests Pending * Testosterone,Free and Total 06/29/24 Future Scheduled Tests Radiology* CT Abdomen and Pelvis w/ contrast 06/27/24 [facility] Evaluation + Plan note Future Appointments Appointment Date:07/18/2024 07:30:00 AM Scheduled Provider:TERRI PIERRE MD Location:[facility] Appointment Type:PC OV Follow Up [facility] Future Appointments Appointment Date:09/12/2024 07:00:00 AM Scheduled Provider:TERRI PIERRE MD Location:[facility] Appointment Type:PC OV Follow Up [facility] [employer] [facility]* Diagnosis Diverticulitis- Primary Diverticulitis of colon (without mention of hemorrhage) documented in this encounter [facility] note* Diagnosis Diverticulitis- Primary Diverticulitis of colon (without mention of hemorrhage) Diverticulitis Diverticulitis of colon (without mention of hemorrhage) documented in this encounter [facility] note* Diagnosis Diverticulitis- Primary Diverticulitis of colon (without mention of hemorrhage) Digestive system complication Other digestive system complications Diverticulitis Diverticulitis of colon (without mention of hemorrhage) documented in this encounter [facility] note* Diagnosis Aftercare following surgery- Primary Encounter for other specified aftercare documented in this encounter [facility] note* Diagnosis Ileostomy in place (HCC)- Primary Ileostomy status documented in this encounter [facility] note* Diagnosis Ileostomy in place (HCC)- Primary Ileostomy status History of pulmonary embolism Personal history of pulmonary embolism Ileostomy in place (HCC) Ileostomy status documented in this encounter [facility] note* Diagnosis Aftercare following surgery- Primary Encounter for other specified aftercare documented in this encounter [facility] course Narrative No data available for this section [facility] Hospital Discharge instructions No data available for this section [facility] Progress note No data available for this section [facility] Reason for referral (narrative)* Diagnostic Procedure Only (Routine) - Pending Review Specialty Diagnoses / Procedures Referred By Micky t Referred To Contact XR IMAGING Diagnoses Ileostomy in place (HCC) Procedures XR COLON SINGLE CONTRAST RADIOLOGIC EXAM COLON SINGLE CONTRAST STUDY Katty Antonio MD [address] [place] [address] Xr Imaging Referral ID Status Reason Start Date Expiration Date Visits Requested Visits Authorized [id number] Pending Review Auto-Generat ed Referral 11/11/2022 12/11/2023 1 1 [facility] Summary Purpose Family History No Family History Records FoundNo Family History Records FoundNo Family History Records FoundNo Family History Records FoundNo Family History Records FoundNo Family History Records Found No data available for this section No data available for this section No Family History Records Found No data available for this section Advance Directives Documents on File Type Date Recorded 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(s) 12/21/2022 2:48 PM Reason for Referral Specialty Diagnoses / Procedures Referred By Micky monge Referred To Contact Diagnoses Diverticulitis Procedures IN PERSON CONSULT TO PACC Katty Antonio MD [address] [place] [address] Referral ID Status Reason Start Date Expiration Date Visits Requested Visits Authorized [id number] Ref Not Required PCP Requested Referral 2 11/24/2022 1 1 Additional Source Comments (unrecognized sect ion and content) No Status Records FoundNo Status Records FoundNo Status Records FoundNo Status Records FoundNo Status Records FoundNo Status Records FoundNo Status Records Found INFORMATION SOURCE (unrecogn ized section and content) DATE CREATED AUTHOR 03/18/2018 [facility] [place] DATE CREATED AUTHOR AUTHOR'S ORGANIZ ATION 09/08/2019 [facility] DATE CREATED AUTHOR AUTHOR'S ORGANIZ ATION 06/29/2020 [facility] DATE CREATED AUTHOR AUTHOR'S ORGANIZ ATION 10/25/2021 [facility] DATE CREATED AUTHOR AUTHOR'S ORGANIZ ATION 10/12/2022 [facility] DATE CREATED AUTHOR AUTHOR'S ORGANIZ ATION 02/05/2023 [facility] DATE CREATED AUTHOR AUTHOR'S ORGANIZ ATION 08/09/2024 [facility] Source Comments (unrecognize d section and content) In the event this informatio n is protected by the Federal Confidentiality of Alcohol and Drug Abuse Patient Records regulations: The Federal rules restrict any use of the information to criminally investigate or prosecute any alcohol or drug abuse patient.[facility] the event this information is protected by the Federal Confidentiality of Alcohol and Drug Abuse Patient Records regulations: The Federal rules restrict any use of the information to criminally investigate or prosecute any alcohol or drug abuse patient.[facility] Center[facility] the event this information is protected by the Federal Confidentiality of Alcohol and Drug Abuse Patient Records regulations: The Federal rules restrict any use of the information to criminally investigate or prosecute any alcohol or drug abuse patient.[facility] Center[facility] the event this information is protected by the Federal Confidentiality of Alcohol and Drug Abuse Patient Records regulations: The Federal rules restrict any use of the information to criminally investigate or prosecute any alcohol or drug abuse patient.[facility] CenterIn the event this information is protected by the Federal Confidentiality of Alcohol and Drug Abuse Patient Records regulations: The Federal rules restrict any use of the information to criminally investigate or prosecute any alcohol or drug abuse patient.[facility] CenterIn the event this information is protected by the Federal Confidentiality of Alcohol and Drug Abuse Patient Records regulations: The Federal rules restrict any use of the information to criminally investigate or prosecute any alcohol or drug abuse patient.[facility] CenterIn the event this information is protected by the Federal Confidentiality of Alcohol and Drug Abuse Patient Records regulations: The Federal rules restrict any use of the information to criminally investigate or prosecute any alcohol or drug abuse patient.[facility] CenterIn the event this information is protected by the Federal Confidentiality of Alcohol and Drug Abuse Patient Records regulations: The Federal rules restrict any use of the information to criminally investigate or prosecute any alcohol or drug abuse patient.[facility] CenterIn the event this information is protected by the Federal Confidentiality of Alcohol and Drug Abuse Patient Records regulations: The Federal rules restrict any use of the information to criminally investigate or prosecute any alcohol or drug abuse patient.[facility] CenterIn the event this information is protected by the Federal Confidentiality of Alcohol and Drug Abuse Patient Records regulations: The Federal rules restrict any use of the information to criminally investigate or prosecute any alcohol or drug abuse patient.[facility] CenterIn the event this information is protected by the Federal Confidentiality of Alcohol and Drug Abuse Patient Records regulations: The Federal rules restrict any use of the information to criminally investigate or prosecute any alcohol or drug abuse patient.[facility] CenterIn the event this information is protected by the Federal Confidentiality of Alcohol and Drug Abuse Patient Records regulations: The Federal rules restrict any use of the information to criminally investigate or prosecute any alcohol or drug abuse patient.[facility] CenterIn the event this information is protected by the Federal Confidentiality of Alcohol and Drug Abuse Patient Records regulations: The Federal rules restrict any use of the information to criminally investigate or prosecute any alcohol or drug abuse patient.[facility] CenterIn the event this information is protected by the Federal Confidentiality of Alcohol and Drug Abuse Patient Records regulations: The Federal rules restrict any use of the information to criminally investigate or prosecute any alcohol or drug abuse patient.[facility] CenterIn the event this information is protected by the Federal Confidentiality of Alcohol and Drug Abuse Patient Records regulations: The Federal rules restrict any use of the information to criminally investigate or prosecute any alcohol or drug abuse patient.[facility] CenterIn the event this information is protected by the Federal Confidentiality of Alcohol and Drug Abuse Patient Records regulations: The Federal rules restrict any use of the information to criminally investigate or prosecute any alcohol or drug abuse patient.[facility] CenterIn the event this information is protected by the Federal Confidentiality of Alcohol and Drug Abuse Patient Records regulations: The Federal rules restrict any use of the information to criminally investigate or prosecute any alcohol or drug abuse patient.[facility] CenterIn the event this information is protected by the Federal Confidentiality of Alcohol and Drug Abuse Patient Records regulations: The Federal rules restrict any use of the information to criminally investigate or prosecute any alcohol or drug abuse patient.[facility] CenterIn the event this information is protected by the Federal Confidentiality of Alcohol and Drug Abuse Patient Records regulations: The Federal rules restrict any use of the information to criminally investigate or prosecute any alcohol or drug abuse patient.[facility] CenterIn the event this information is protected by the Federal Confidentiality of Alcohol and Drug Abuse Patient Records regulations: The Federal rules restrict any use of the information to criminally investigate or prosecute any alcohol or drug abuse patient.[facility] CenterIn the event this information is protected by the Federal Confidentiality of Alcohol and Drug Abuse Patient Records regulations: The Federal rules restrict any use of the information to criminally investigate or prosecute any alcohol or drug abuse patient.[facility] Reason for Visit (unrecogniz ed section and content) Reason Comments Post Op Specialty Diagnoses / Procedures Referred By Contac t Referred To Contact Colon and Rectal Surgery / Colorectal Surgery Diagnoses Encounter for consultation schedule surgery Procedures OFFICE/OUTPATIENT ESTABLISHED MOD MDM 30-39 MIN PHONE ENCOUNTER DDI Self Theo Loza APRN.MEDICAL TRANSLATOR [address] [place] [address] Referral ID Status Reason Start Date Expiration Date V isits Requested Visits Authorized [id number] Authorized 08/01/2022 08/01/2023 20 20 Reason Comments Established Patient Discuss surgery Referral ID Status Reason Start Date Expiration Date V isits Requested Visits Authorized [id number] Authorized 08/01/2022 08/01/2023 1 20 Specialty Diagnoses / Procedures Referred By Contac t Referred To Contact Colon and Rectal Surgery / Colorectal Surgery Diagnoses Encounter for consultation schedule surgery Procedures OFFICE/OUTPATIENT ESTABLISHED MOD MDM 30-39 MIN PHONE ENCOUNTER DDI Self ArabellaTheo taylor, CLIP BAKER.MEDICAL TRANSLATOR [address] [place] [address] Referral ID Status Reason Start Date Expiration Date V isits Requested Visits Authorized [id number] Waiting for Response 08/01/2022 10/30/2022 1 1 Specialty Diagnoses / Procedures Referred By Contac t Referred To Contact Colon and Rectal Surgery / Colorectal Surgery Diagnoses Preop examination PREOP Procedures OFFICE/OUTPATIENT ESTABLISHED MOD MDM 30-39 MIN PRE OP Katty Antonio MD [address] [place] [address] Therapy, [facility] [address] [place] [place] [id number] Referral ID Status Reason Start Date Expiration Date Visits Re quested Visits Authorized [id number] Closed 08/10/2022 08/27/2023 1 1 Reason Comments Informed Consent IRB# [id number] PI: Steven Patterson MD Reason Comments Follow Up Phone Call All Clear Reason Comments Research F/U IRB# [id number] PI: Steven Patterson MD Reason Comments Returning Patient's Call Reason Comments Patient Update Reason Comments Follow Up Phone Call All Clear. 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 Care Team Related Persons Name: SANDEE GAVIN Address: Home [address] [place], [place] [id number] [place] Address: Temporary [address] [place], [place] [id number] Tube Drawing Supervisor Relationship Specialty Start Date End Date Chuy Garcia, DO PCP - General 10/20/14 Tube Drawing Supervisor Relationship Specialty Start Date End Date Chuy Garcia, DO PCP - General 10/20/14 Tube Drawing Supervisor Relationship Specialty Start Date End Date Chuy Garcia, DO PCP - General 10/20/14 Tube Drawing Supervisor Relationship Specialty Start Date End Date Chuy Garcia, DO PCP - General 10/20/14 Tube Drawing Supervisor Relationship Specialty Start Date End Date Chuy Garcia, DO PCP - General 10/20/14 Tube Drawing Supervisor Relationship Specialty Start Date End Date Chuy Garcia, DO PCP - General 10/20/14 Tube Drawing Supervisor Relationship Specialty Start Date End Date Chuy Garcia, DO PCP - General 10/20/14 Tube Drawing Supervisor Relationship Specialty Start Date End Date Chuy Garcia, DO PCP - General 10/20/14 Tube Drawing Supervisor Relationship Specialty Start Date End Date Terri Pierre MD [address] [place] [address] PCP - General Family Medicine 11/29/22 Tube Drawing Supervisor Relationship Specialty Start Date End Date Terri Pierre MD [address] [place] [address] PCP - General Family Medicine 11/29/22 Tube Drawing Supervisor Relationship Specialty Start Date End Date Terri Pierre MD [address] [place] [address] PCP - General Family Medicine 11/29/22 Tube Drawing Supervisor Relationship Specialty Start Date End Date Terri Pierre MD [address] [place] [address] PCP - General Family Medicine 11/29/22 Tube Drawing Supervisor Relationship Specialty Start Date End Date Terri Pierre MD [address] [place] [address] PCP - General Family Medicine 11/29/22 Tube Drawing Supervisor Relationship Specialty Start Date End Date Terri Pierre MD [address] [place] [address] PCP - General Family Medicine 11/29/22 FOR RECORDS PERTAINING TO PATIENTS WHO ARE OR HAVE BEEN ENROLLED IN A CHEMICAL DEPENDENCY/SUBSTANCEABUSE PROGRAM, SOME INFORMATION MAY BE OMITTED. This clinical summary was aggregated from multiple sources. Caution should be exercised in using it in the provision of clinical care. This summary normalizes information from multiple sources, and as a consequence, information in this document may materially change the coding, format and clinical context of patient data. In addition, data may be omitted in some cases. CLINICAL DECISIONS SHOULD BE BASED ON THE PRIMARY CLINICAL RECORDS. [email or web address] provides no warranty or guarantee of the accuracy or completeness of information in this document.
--- NOTE | 2025-05-05 23:58 | CT_ITS ---
PROCEDURE: ABDOMEN/PELVIS W IV CONT ONLY N/A REASON FOR EXAM: GASTRO INTESTINAL BLEEDING, HISTORY DIVERTICULITIS TECHNIQUE: Procedure Code: [id number] Modality: CT Procedure: ABDOMEN/PELVIS W IV CONT ONLY Coronal and Sagittal reconstruction series were provided. CONTRAST: VOLUME: mL One or more dose reduction techniques were used (e.g., Automated exposure control, adjustment of the mA and/or kV according to patient size, use of iterative reconstruction technique. FINDINGS: Several diverticula are seen within the descending and sigmoid colon, without adjacent inflammatory changes to suggest diverticulitis. Postsurgical changes of a partial sigmoid resection is present. Fluid levels are seen throughout the colon, concerning for diarrheal illness. No abnormal bowel wall thickening is appreciated. Mild fatty liver. The gallbladder, spleen, pancreas, adrenal glands, kidneys, and near completely decompressed urinary bladder appear unremarkable. No intraperitoneal free air or free fluid. No lymphadenopathy. The abdominal aorta appears unremarkable. The visualized lung bases are clear. [id number]-wd-[id number] thoracolumbar spondylosis. CT/Abdomen/Pelvis W IV Cont ONLY IMPRESSION: 1. Fluid levels throughout the colon, concerning for diarrheal illness. 2. Left-sided colonic diverticulosis without CT evidence of overt diverticulit is. 3. Mild fatty liver. 4. Fphs-we-ganyhcix thoracolumbar spondylosis. Reading Location: [id number]
[2025-05-06] VITALS (8 sets, daily range): BP systolic 98–142; BP diastolic 56–88; PULSE 72–100; RESP 16–18; TEMP 36.4–36.9; O2SAT 96–99; BMI 33.8
[2025-05-06 00:31] LABS: Hematocrit 33.6 % (40-54); Hemoglobin 11.2 g/dL (13.0-16.5)
[2025-05-06] MEDS: Pantoprazole Sodium 40 MG in 0.9% Normal Saline (100mL MB+) 100 ML 300 MG IV ×2 (01:05→09:38)
[2025-05-06] MEDS: 0.9% Normal Saline (250mL Bag) 250 ML 15 ML IV (01:06)
[2025-05-06 04:48] LABS: Hematocrit 33.6 % (40-54); Hemoglobin 11.1 g/dL (13.0-16.5); Immature Granulocytes Count 0.040 X10^3/uL (0.0-0.0); Mean Corp Hgb Conc 33.0 g/dL (32-36); Mean Corpuscular Volume 81.0 fL (80-94); Mean Platelet Vol. 9.6 fl (6.2-12.0); NRBC Flagged by Analyzer 0 % (0-5); Platelet Count 230 K/mm3 (150-450); RBC Distribution Width CV 14.4 % (11.6-14.6); RBC Distribution Width SD 42.4 fl (35.1-43.9); Red Blood Count 4.15 M/mm3 (4.6-6.2); White Blood Count 9.8 K/mm3 (4.4-11.0)
[2025-05-06 05:12] LABS: Anion Gap 9 (5-15); BUN 31 mg/dL (4-19); BUN/Creat Ratio 25.8 RATIO (10-20); Calcium,Total 8.5 mg/dL (7.6-11.0); Carbon Dioxide 22.0 mmol/L (21.0-32.0); Chloride 108 mmol/L (98-108); Estimated Creatinine Clearance 76.05 ml/min (50-250); Glucose 111 mg/dL (70-99); Potassium 4.2 mmol/L (3.3-5.1)
--- NOTE | 2025-05-06 08:05 | PN.HOSP_ITS ---
Objective Data Objective Data Vital Signs: Vital Signs Temp Pulse Resp BP Pulse Ox O2 Del Method 98.4 F 76 18 104/68 98 Room Air 05/06/25 06:50 05/06/25 06:50 05/06/25 07:57 05/06/25 06:50 05/06/25 07:57 05/06/25 07:57 Oxygen Delivery Method Room Air Weight: 219 lb 5.759 oz Body Mass Index (BMI) 33.8 Intake & Output: Intake and Output for Last 24 Hours 05/04/25 05/05/25 05/06/25 23:59 23:59 23:59 Intake Total 167.75 / 167.75 Balance 167.75 / 167.75 Lab / Micro Data 05/06/25 04:35 05/06/25 04:35 Labs: Laboratory Results - last 24 hr 05/05/25 21:58: WBC 13.3 H, RBC 4.66, Hgb 12.5 L, Hct 37.6 L, MCV 80.7, MCH 26.8 L, MCHC 33.2, RDW Std Deviation 42.2, RDW Coeff of Parviz 14.4, Plt Count 249, MPV 9.5, Immature Gran % (Auto) 0.400, Neut % (Auto) 71.6 H, Lymph % (Auto) 20.1, Winkler % (Auto) 6.2, Eos % (Auto) 1.1, Baso % (Auto) 0.6, Absolute Neuts (auto) 9.5 H, Absolute Lymphs (auto) 2.68, Nucleated RBC % 0, PT 13.9, INR 1.1, Sodium 139, Potassium 4.1, Chloride 107, Carbon Dioxide 21.4, Anion Gap 11, BUN 36 H, Creatinine 1.16, Estim Creat Clear Calc 78.38, Est GFR (MDRD) Non-Af 73, B UN/Creatinine Ratio 31.0 H, Glucose 125 H, Lactic Acid 1.1, Calcium 8.7, Blood Type A NEGATIVE, Antibody Screen NEGATIVE 05/06/25 00:23: Hgb 11.2 L, Hct 33.6 L 05/06/25 04:35: WBC 9.8, RBC 4.15 L, Hgb 11.1 L, Hct 33.6 L, MCV 81.0, MCH 26.7 L, MCHC 33.0, RDW Std Deviation 42.4, RDW Coeff of Parviz 14.4, Plt Count 230, MPV 9.6, Immature Gran % (Auto) 0.400, Neut % (Auto) 63.1, Lymph % (Auto) 26.8, Winkler % (Auto) 6.2, Eos % (Auto) 2.7, Baso % (Auto) 0.8, Absolute Neuts (auto) 6.2, Absolute Lymphs (auto) 2.64, Nucleated RBC % 0, Sodium 139, Potassium 4.2, Chloride 108, Carbon Dioxide 22.0, Anion Gap 9, BUN 31 H, Creatinine 1.19, Estim Creat Clear Calc 76.05, Est GFR (MDRD) Non-Af 71, BUN/Creatinine Ratio 25.8 H, G lucose 111 H, Calcium 8.5 Radiography Diagnostic Testing: Radiology Impression Abdomen/Pelvis CT 05/05/25 23:58 IMPRESSION: 1. Fluid levels throughout the colon, concerning for diarrheal illness. 2. Left-sided colonic diverticulosis without CT evidence of overt diverticulitis. 3. Mild fatty liver. 4. Pvmy-ae-ivlzcffv thoracolumbar spondylosis. Reading Location: [facility] Assessment & Plan Assessment/Plan (1) Acute lower gastrointestinal bleeding: (2) H/O resection of large bowel: PLAN: Plan This is a 53 gentleman admitted with bright red rectal bleed, 4 times on the day of admission with history of diverticulosis and diverticulitis. He also had mild left upper quadrant pain but pain resolved before coming to ED. Denies fever chills night sweats. No orthostatic dizziness. Not on antithrombotic or anticoagulant. He took ibuprofen for pain on the day of admission. 1 acute lower GI bleed?admit patient to general medical floor, initiate IV Protonix 40 mg IV every 12 hours, check hemoglobin hematocrit every 4 hours, order CT abdomen pelvis with contrast due to history of diverticulitis. If hemoglobin hematocrit remain stable and orthostatic vital signs are stable patient may be discharged and close follow-up as outpatient. Admission hemoglobin 12.5, thereafter 11.2, no major drop. Baseline hemoglobin between 11-12.5 g%. 2. DVT prophylaxis?SCDs 3. CODE STATUS full code verified
[2025-05-06 08:40] LABS: Hematocrit 36.0 % (40-54); Hemoglobin 11.6 g/dL (13.0-16.5)
[2025-05-06] MEDS: 0.9% Saline Lock 10 ML Syringe IV (09:39)
--- NOTE | 2025-05-06 09:51 | CASEMGMT ---
Dx:RICHARD DUBON:1 6-Clicks:24 Medical record reviewed and patient evaluated for identification of discharge planning needs. Based on this review, at this time criteria are not present to indicate a need for discharge planning. Will remain available to assist with discharge planning needs as identified or requested.
--- NOTE | 2025-05-06 13:29 | DCINST_ITS ---
Discharge Instructions DC O2, CPAP, BIPAP needs Home O2 Discharge instructions: No Dressing / Incision Discharge Activity: Return to Normal Activity Weight Bearing Status: Weight bearing as tolerated Dressing / Incision Call your doctor if you observe: Fever of 101 or Higher, Coldness, Increased Pain, Numbness or Tingling, Change in Color, Inability to urinate, Inability to have a bowel movement, Shortness of breath, Dizziness, Fainting spells, Swelling in the ankles, Chest pain, Prolonged hiccupping, Increased palpitations (irregular heartbeat) and Calf discomfort Follow Up Care When: IN 2 WEEKS Test Results: Test results from this visit will be discussed in further detail at your follow- up appointment, if applicable. Discharge Plan Admission Admit Date/Time: 05/05/25 23:26 Primary Reason for Your Visit: Lower GI bleed most likely diverticular Attending Provider: Boyd Mosquera Primary Care Provider: Joseph Pierre Consulting Providers: David Russell Discharge Orders/Prescriptions Prescriptions: New pantoprazole [Protonix] 40 mg tablet,delayed release (DR/EC) 40 mg PO DAILY 30 Days Qty: 30 2RF ferrous sulfate [FeroSul] 325 mg (65 mg iron) tablet 325 mg PO QODAY Qty: 30 2RF ascorbic acid (vitamin C) 1,000 mg tablet 1,000 mg PO DAILY 30 Days Qty: 30 2RF Continued latanoprost 0.005 % drops 1 drp ophthalmic (eye) QHS tadalafil 5 mg tablet 5 mg PO DAILY psyllium husk [Daily Fiber] 0.4 gram capsule 0.4 g PO DAILY Discontinued ibuprofen 200 mg capsule 200 mg PO Q6H PRN (Reason: pain) Referrals / Follow Up: Joseph Pierre MD [Primary Care Provider] - Eleni Norman MD [Med Staff - Active Staff] - Within 1 Month (Lower GI bleed most likely diverticular bleed. History of diverticulitis status post distal colectomy) Disposition Disposition (needs filled in before D/C Order can be placed): Home, Self Care
--- NOTE | 2025-05-06 13:36 | PCM.DC.SUM ---
Providers Date of Admission: 05/05/25 Date of Discharge: 05/06/25 Primary Care Physician: Dr. Joseph Pierre MD Reason For Visit: GASTROINTESTINAL BLEED Diagnosis Discharge Diagnosis (1) Acute lower gastrointestinal bleeding: Status: Acute Code(s): K92.2 - Gastrointestinal hemorrhage, unspecified (2) H/O resection of large bowel: Status: Acute Code(s): Z90.49 - Acquired absence of other specified parts of digestive tract Plan This is a 53 gentleman admitted with bright red rectal bleed, 4 times on the day of admission with history of diverticulosis and diverticulitis. He also had mild left upper quadrant discomfort resolved before coming to ED. Denies fever chills night sweats. No orthostatic dizziness. Not on antithrombotic or anticoagulant. He took ibuprofen for pain on the day of admission. 1 acute lower GI bleed, probably diverticular bleed with mild anemia?the patient was admitted to [facility] floor. Started on IV Protonix 40 mL every [address] abdomen with IV contrast was done which shows left-sided colonic diverticulosis without CT evidence of overt diverticulitis. Fluid level throughout the colon concerning for diarrheal illness. In the morning today patient did not had further rectal bleed/hematochezia. He had total of 4, small, stool mixed blood. Serial H&H shows mild decrease from 12.5-11.6. Baseline hemoglobin between 11-12.5 g%. Patient taking ibuprofen 200 mg Q4 hourly which recommended to stop. Hematochezia started. Patient is discharged on pantoprazole, ferrous sulfate and ascorbic acid Tube history of diverticulitis status post colonic resection and anastomosis: About 2 years just 3 years ago patient had colonic resection stated about 12 to 18 inch in F with interval colostomy. Colostomy was reversed after 3 months. He had colonoscopy during that time but no significant finding as per the patient. Patient was advised to follow with [facility] test specialist/colorectal service and if not then [facility] in 1 month for repeat colonoscopy. 3 DVT prophylaxis?SCDs CODE STATUS full code verified Discharge medication reconciliation done. Discharge follow-up instructions completed. Discharge process discussed with the patient and all questions were answered to patient's satisfaction. Follow with PCP in 1 to 2 weeks Total time spent, exact 35 minutes on discharge meds reconciliation, examination, coordination of care with nurses and ancillary staff, review of imaging and blood test and discussion with the patient on follow-up instructions. Medications at Discharge Home Medications latanoprost 0.005 % eye drops 1 drp ophthalmic (eye) QHS glaucoma 05/05/25 tadalafil 5 mg tablet 5 mg PO DAILY erectile dysfunction 05/05/25 ascorbic acid (vitamin C) 1,000 mg tablet 1,000 mg PO DAILY 1 month #30 tabs 05/06/25 ferrous sulfate 325 mg (65 mg iron) tablet (FeroSul) 325 mg PO QODAY #30 tabs 05/06/25 pantoprazole 40 mg tablet,delayed release (Protonix) 40 mg PO DAILY 1 month #30 tabs 05/06/25 psyllium husk 0.4 gram capsule (Daily Fiber) 0.4 g PO DAILY to keep regular 05/06/25 Hospital Course Summary of Care Provided Hospital Course: Clinical Impression(s) from Imaging Studies Abdomen/Pelvis CT 05/05/25 23:58 IMPRESSION: 1. Fluid levels throughout the colon, concerning for diarrheal illness. 2. Left-sided colonic diverticulosis without CT evidence of overt diverticulitis. 3. Mild fatty liver. 4. [id number] thoracolumbar spondylosis. Reading Location: [facility] Laboratory Results 05/05/25 21:58: WBC 13.3 H, RBC 4.66, Hgb 12.5 L, Hct 37.6 L, MCV 80.7, MCH 26.8 L, MCHC 33.2, RDW Std Deviation 42.2, RDW Coeff of [place] 14.4, Plt Count 249, MPV 9.5, Immature Gran % (Auto) 0.400, Neut % (Auto) 71.6 H, Lymph % (Auto) 20.1, [place] % (Auto) 6.2, Eos % (Auto) 1.1, Baso % (Auto) 0.6, Absolute Neuts (auto) 9.5 H, Absolute Lymphs (auto) 2.68, Nucleated RBC % 0, PT 13.9, INR 1.1, Sodium 139, Potassium 4.1, Chloride 107, Carbon Dioxide 21.4, Anion Gap 11, BUN 36 H, Creatinine 1.16, Estim Creat Clear Calc 78.38, Est GFR (MDRD) Non-Af 73, BUN/Creatinine Ratio 31.0 H, Glucose 125 H, Lactic Acid 1.1, Calcium 8.7, Blood Type A NEGATIVE, Antibody Screen NEGATIVE 05/06/25 00:23: Hgb 11.2 L, Hct 33.6 L 05/06/25 04:35: WBC 9.8, RBC 4.15 L, Hgb 11.1 L, Hct 33.6 L, MCV 81.0, MCH 26.7 L, MCHC 33.0, RDW Std Deviation 42.4, RDW Coeff of [place] 14.4, Plt Count 230, MPV 9.6, Immature Gran % (Auto) 0.400, Neut % (Auto) 63.1, Lymph % (Auto) 26.8, [place] % (Auto) 6.2, Eos % (Auto) 2.7, Baso % (Auto) 0.8, Absolute Neuts (auto) 6.2, Absolute Lymphs (auto) 2.64, Nucleated RBC % 0, Sodium 139, Potassium 4.2, Chloride 108, Carbon Dioxide 22.0, Anion Gap 9, BUN 31 H, Creatinine 1.19, Estim Creat Clear Calc 76.05, Est GFR (MDRD) Non-Af 71, BUN/Creatinine Ratio 25.8 H, Glucose 111 H, Calcium 8.5 05/06/25 08:25: Hgb 11.6 L, Hct 36.0 L Physical Exam Narrative Seen and examined General: Alert, Oriented x3, Cooperative HEENT: Atraumatic, PERRLA, EOMI, Normocephalic. Oral: No Gingival or Mucosal Lesions/ Ulcerations Neck: Supple, No JVD, Negative Carotid Bruits Chest wall/Lungs: Air entry equal in bilateral lung bases. No crepitation/rhonchi Cardiovascular: Regular rate and rhythm, Normal S1,S2, No M/G/R Abdomen: Bowel Sounds Present, Soft, Non Tender, Non-Distended : No dysuria. No renal angle tenderness. No suprapubic tenderness. Extremities: No edema, Capillary Refill Less than 3 Seconds Skin: No rashes, No breakdown Musculoskeletal: No Tenderness to Palpation of Joints or Extremities Neurological: Cranial nerves II-XII grossly intact, DTR 2+/4. No acute focal neurological deficit. Psych/Mental Status: Normal Affect, Appropriate. Weight / BMI Weight Weight: 219 lb 5.759 oz Body Mass Index (BMI) 33.8 ABG / Lab / Microbiology Data 05/06/25 08:25 05/06/25 04:35 Laboratory: Laboratory Results - last 24 hr 05/05/25 21:58: WBC 13.3 H, RBC 4.66, Hgb 12.5 L, Hct 37.6 L, MCV 80.7, MCH 26.8 L, MCHC 33.2, RDW Std Deviation 42.2, RDW Coeff of [place] 14.4, Plt Count 249, MPV 9.5, Immature Gran % (Auto) 0.400, Neut % (Auto) 71.6 H, Lymph % (Auto) 20.1, [place] % (Auto) 6.2, Eos % (Auto) 1.1, Baso % (Auto) 0.6, Absolute Neuts (auto) 9.5 H, Absolute Lymphs (auto) 2.68, Nucleated RBC % 0, PT 13.9, INR 1.1, Sodium 139, Potassium 4.1, Chloride 107, Carbon Dioxide 21.4, Anion Gap 11, BUN 36 H, Creatinine 1.16, Estim Creat Clear Calc 78.38, Est GFR (MDRD) Non-Af 73, BUN/Creatinine Ratio 31.0 H, Glucose 125 H, Lactic Acid 1.1, Calcium 8.7, Blood Type A NEGATIVE, Antibody Screen NEGATIVE 05/06/25 00:23: Hgb 11.2 L, Hct 33.6 L 05/06/25 04:35: WBC 9.8, RBC 4.15 L, Hgb 11.1 L, Hct 33.6 L, MCV 81.0, MCH 26.7 L, MCHC 33.0, RDW Std Deviation 42.4, RDW Coeff of [place] 14.4, Plt Count 230, MPV 9.6, Immature Gran % (Auto) 0.400, Neut % (Auto) 63.1, Lymph % (Auto) 26.8, [place] % (Auto) 6.2, Eos % (Auto) 2.7, Baso % (Auto) 0.8, Absolute Neuts (auto) 6.2, Absolute Lymphs (auto) 2.64, Nucleated RBC % 0, Sodium 139, Potassium 4.2, Chloride 108, Carbon Dioxide 22.0, Anion Gap 9, BUN 31 H, Creatinine 1.19, Estim Creat Clear Calc 76.05, Est GFR (MDRD) Non-Af 71, BUN/Creatinine Ratio 25.8 H, Glucose 111 H, Calcium 8.5 05/06/25 08:25: Hgb 11.6 L, Hct 36.0 L Radiography Diagnostic Testing: Radiology Impression Abdomen/Pelvis CT 05/05/25 23:58 IMPRESSION: 1. Fluid levels throughout the colon, concerning for diarrheal illness. 2. Left-sided colonic diverticulosis without CT evidence of overt diverticulitis. 3. Mild fatty liver. 4. [id number] thoracolumbar spondylosis. Reading Location: [id number] D/[facility] Instructions Weight Bearing Status: Weight bearing as tolerated Call your doctor if you observe: Fever of 101 or Higher, Coldness, Increased Pain, Numbness or Tingling, Change in Color, Inability to urinate, Inability to have a bowel movement, Shortness of breath, Dizziness, Fainting spells, Swelling in the ankles, Chest pain, Prolonged hiccupping, Increased palpitations (irregular heartbeat) and Calf discomfort DC O2, CPAP, BIPAP Needs Home O2 Discharge instructions: No When: IN 2 WEEKS Meaningful Use Info Meaningful Use Meaningful Use Diagnoses (Choose all that apply): None applicable Discharge Plan Admission Admit Date/Time: 05/05/25 23:26 Primary Reason for Your Visit: Lower GI bleed most likely diverticular Attending Provider: Boyd Mosquera Primary Care Provider: Joseph Pierre Consulting Providers: David Russell Discharge Orders/Prescriptions Prescriptions: New pantoprazole [Protonix] 40 mg tablet,delayed release (DR/EC) 40 mg PO DAILY 30 Days Qty: 30 2RF ferrous sulfate [FeroSul] 325 mg (65 mg iron) tablet 325 mg PO QODAY Qty: 30 2RF ascorbic acid (vitamin C) 1,000 mg tablet 1,000 mg PO DAILY 30 Days Qty: 30 2RF Continued latanoprost 0.005 % drops 1 drp ophthalmic (eye) QHS tadalafil 5 mg tablet 5 mg PO DAILY psyllium husk [Daily Fiber] 0.4 gram capsule 0.4 g PO DAILY Discontinued ibuprofen 200 mg capsule 200 mg PO Q6H PRN (Reason: pain) Referrals / Follow Up: Joseph Pierre MD [Primary Care Provider] - Eleni Norman MD [Med Staff - Active Staff] - Within 1 Month (Lower GI bleed most likely diverticular bleed. History of diverticulitis status post distal colectomy) Disposition Disposition (needs filled in before D/C Order can be placed): Home, Self Care Charges/Coding Visit Charges Inpatient E&M: 54871 Disch Hosp >30min
--- NOTE | 2025-05-06 15:14 | PHA.DC.MR.R ---
Pharmacy [place] Med Reconciliation Pharmacy Service has performed discharge medication reconciliation for this patient. Medication education papers prepared, patient discharged when counseling was attempted. The patient's discharge medication list was reviewed for discrepancies and discrepancies were resolved. Medications at Discharge Home Medications latanoprost 0.005 % eye drops 1 drp ophthalmic (eye) QHS glaucoma 05/05/25 tadalafil 5 mg tablet 5 mg PO DAILY erectile dysfunction 05/05/25 ascorbic acid (vitamin C) 1,000 mg tablet 1,000 mg PO DAILY 1 month #30 tabs 05/06/25 ferrous sulfate 325 mg (65 mg iron) tablet (FeroSul) 325 mg PO QODAY #30 tabs 05/06/25 pantoprazole 40 mg tablet,delayed release (Protonix) 40 mg PO DAILY 1 month #30 tabs 05/06/25 psyllium husk 0.4 gram capsule (Daily Fiber) 0.4 g PO DAILY to keep regular 05/06/25
== END 2025-05-06 14:45 | disposition home or self-care (01) | DRG 379 ==
LOC: ED 22:50 → MS3 23:47
PROVIDERS: Admitting Provider Family Medicine; Emergency Provider Emergency Medicine; PCP Family Medicine; Visit Provider Internal Medicine
DX: K57.91 Diverticulosis of intestine, part unspecified, without perforation or abscess with bleeding (principal); D64.9 Anemia, unspecified; K76.0 Fatty (change of) liver, not elsewhere classified; K57.30 Diverticulosis of large intestine without perforation or abscess without bleeding; M47.815 Spondylosis without myelopathy or radiculopathy, thoracolumbar region; Z86.711 Personal history of pulmonary embolism; R00.0 Tachycardia, unspecified; Z87.19 Personal history of other diseases of the digestive system; Z90.49 Acquired absence of other specified parts of digestive tract
CPT/HCPCS: 36415; 74177; 80048; 83605; 85014; 85018; 85025; 85610; 86850; 86900; 86901; 99285; Q9967; A4216